=== PATIENT | male | born 1945 | race Caucasian/White ===

== ENCOUNTER 2017-04-04 23:00 | Inpatient (IN) ==
[2017-04-04] MEDS ORDERED: FUROSEMIDE 100 MG/10 ML VIAL IV STA (23:14)
[2017-04-04] MEDS ORDERED: methylPREDNISolone SOD SUC 125 MG/2 ML VIAL IV STA (23:14)
[2017-04-04] MEDS ORDERED: cefTRIAXone 1,000 MG in SODIUM CHLORIDE 0.9% 100 ML IV STA (23:14)
[2017-04-04 23:26] LABS: Basophils % 0.2 % (0.0-0.8); Eosinophils % 0.3 % (0.00-10.9); Hematocrit 36.9 VOL% (42.0-52.0); Hemoglobin 12.2 GM/DL (14.0-18.0); Immature Granulocytes % 0.5 %; Immature Granulocytes Absolute 0.08 #; Lymphocytes # 1.4 10*3/uL (1.4-4.0); Lymphocytes % 9.1 % (21.2-54.2); Mean Corpuscular HGB Conc 33.1 GM/DL (32-36); Mean Corpuscular Hemoglobin 30 PG (27-34); Mean Corpuscular Volume 90.4 FL (87-102); Mean Platelet Volume 9.9 FL (9.6-12.0); Monocytes # 1.9 10*3/uL (0.11-0.8); Monocytes % 12.8 % (1.7-12.7); Neutrophils # 11.4 10*3/uL (1.4-7.4); Neutrophils % 77.1 % (38.7-73.9); Platelet Count 183 T/CUMM (130-400); Red Blood Count 4.08 MC/CUMM (3.8-5.5); Red Cell Distribution Width 14.5 % (9.3-17.3); White Blood Count 14.8 T/CUMM (4-12)
[2017-04-04] MEDS ORDERED: DILTIAZEM 50 MG/10 ML VIAL IV STA (23:26)
--- NOTE | 2017-04-04 23:27 | Emergency Department Note ---
Owen Garcia Brittany, am scribing for, and in the presence of, Justin Gutierrez MD 23:23. Matt Garcia Charles R, MD, personally performed the services described in this documentation, ascribed by Erinn Weaver in my presence, and it is both accurate and complete 327 . Arrival - Arrival Chief Complaint: Shortness of Breath Stated Complaint: shortness of breath ED Nursing Triage Note: Patient to room via ems. patient was sent from [facility], [place] for shortness of breath that started earlier today. the nurse states that she could not get the patients sats over 90. She states he has a productive cough and fever. Patient has had a duoneb. Mode of Arrival: Stretcher Limitations: No Limitations Source: Patient, Old Records Reviewed, RN Notes Reviewed Time Seen by Provider: 04/04/17 23:14 - History of Present Illness HPI Narrative: Mr. Bailey is a 71 y/o white male presenting to the ED by EMS from [facility] for further evaluation which onset today. Per triage note nurse at this facility could not get the patient's oxygen saturation to stay over 90%. She also reports that patient has had a productive cough and low grade fever. Prior to transfer patient did have a Duoneb. In room patient appears very ill and is tachypneic. He cannot provide much of any history due to respiratory distress. Patient appears to have some left sided chest pain. He is noted to have a fever of 99. Patient has a history significant for sleep apnea. He is working to breathe in room. No other complaint/pain. Allergies/Adverse Reactions: Allergies Allergy/AdvReac Type Severity Reaction Status Date / Time Hydromorphone [From Dilaudid] AdvReac Unknown/Unable Verified 04/04/17 23:10 to obtain morphine AdvReac Unknown/Unable Verified 04/04/17 23:10 to obtain Home Medications: Home Medications Medication Instructions Recorded Confirmed Type Albuterol/Ipratropium Neb [Duoneb] 3 ml RESP TX RT Q4H PRN 05/09/15 04/17/16 History Insulin Regular [HumuLIN R] 0 unit SUBCUT ACHS 05/09/15 04/17/16 History Multivit-Min/FA/Lycopen/Lutein 1 each PO DAILY 05/09/15 04/17/16 History [Centrum Silver Tablet] Pantoprazole Tab [Protonix Tab] 40 mg PO DAILY 05/09/15 04/17/16 History Acetaminophen Tab [Tylenol Tab] 325 mg PO Q4H PRN #30 tablet 05/12/15 04/17/16 Rx Carvedilol [Coreg] 6.25 mg PO BID #60 tablet 05/12/15 04/17/16 Rx Insulin Glargine [Lantus] 50 unit SUBCUT DAILY 30 Days 05/12/15 04/17/16 Rx Losartan [Cozaar] 25 mg PO DAILY #30 tablet 05/12/15 04/17/16 Rx Pravastatin [Pravachol] 40 mg PO BEDTIME #30 tablet 05/12/15 04/17/16 Rx Pregabalin [Lyrica] 150 mg PO BEDTIME #30 capsule 05/12/15 04/17/16 Rx Tamsulosin [Flomax] 0.4 mg PO DAILY #30 capsule 05/12/15 04/17/16 Rx Theophylline ER Cap (24 Hr) 400 mg PO BID #60 capsule 05/12/15 04/17/16 Rx [Prateek-24] Divalproex [Depakote] 500 mg PO BID 04/17/16 04/17/16 History HydrOXYzine PAMOATE CAP [Vistaril 25 mg PO Q6H PRN 04/17/16 04/17/16 History Cap] Lactulose Liquid [Chronulac] 20 gm PO Q6HR PRN 04/17/16 04/17/16 History Magnesium Hydroxide Susp [Milk of 30 ml PO Q8H PRN 04/17/16 04/17/16 History Magnesia] Melatonin 5 mg PO BEDTIME 04/17/16 04/17/16 History Aspirin EC Tab 325 mg PO DAILY tablet 04/22/16 Rx Levofloxacin Tab [Levaquin Tab] 750 mg PO DAILY #5 tablet 04/22/16 Rx predniSONE TAB [PredniSONE] 20 mg PO DAILY #5 tablet 04/22/16 Rx Ketorolac Tab [Toradol Tab] 10 mg PO Q8H #14 tablet 09/03/16 Rx Review of System - Review of System 12 point system: reviewed and no additional remarkable complaints except as stated - Review of System Constitutional: Present: fever Eyes: Absent: vision change Respiratory: Present: cough, respiratory distress Cardiovascular: Present: chest pain Gastrointestinal: Absent: abdominal pain, nausea, vomiting, diarrhea, constipation Genitourinary male: Absent: urgency, dysuria, frequency Musculoskeletal: Absent: arm pain, back pain, leg pain, neck pain Skin: Absent: rash Neurological: Absent: headache Psychiatric: Absent: anxiety, depression Hematological/Lymphatic: Absent: easy bleeding, easy bruising Medical,Surgical,& Family Hx - Medical History Cardio: History of: Cardiac Dysrhythmia, CHF, CAD, Hypertension Psychological: History of: Bipolar Disorder, Psychiatric Problems Neurology: History of: Parkinson's Disease Endocrine: History of: Diabetes Mellitus (IDDM), Dyslipidemia Respiratory: History of: COPD Genitourinary: History of: Prostate Problems Gastrointestinal: History of: GERD Musculoskeletal: History of: Musculoskeletal Problems (generalized osteoarthritis) Hematology: History of: Clotting Problems Other: History of: Miscellaneous Medical Problems (hernia repair) - Surgical History Neurologic Surgeries: Patient denies: Neurologic Surgery Abdominal Surgeries: Surgical HX of: Hernia Repair - Family History Family History: Reports;: Family Diabetes, Family Heart Disease - Social History Smoking Status: Former smoker Frequency of Alcohol Use: None Type of Drug Use: None Exam Vital Signs: Vital Signs Temperature 99.1 F 04/04/17 23:02 Pulse Rate 99 H 04/04/17 23:02 Respiratory Rate 24 04/04/17 23:02 Blood Pressure 111/78 04/04/17 23:02 O2 Sat by Pulse Oximetry 95 04/04/17 23:02 - General General appearance: alert, in distress (tachypneic and appears to be in respiratory distress) - Head Head exam: Present: atraumatic, normocephalic, normal inspection - Eye Eye exam: Present: normal appearance, PERRL, EOMI - ENT ENT exam: Absent: normal oropharynx (low lying, sagging palette ) - Neck Neck exam: Present: normal inspection, full ROM, trachea midline - Chest Chest inspection: Present: normal inspection, symmetric chest wall rise - Respiratory Respiratory exam: Present: accessory muscle use, rales (bilateral), respiratory distress, wheezes (bilateral). Absent: normal lung sounds bilaterally (upper respiratory stridor) - Cardiovascular Cardiovascular exam: Present: tachycardia, irregular rhythm, normal heart sounds. Absent: regular rate, normal rhythm - Abdominal Exam Abdominal exam: Present: soft, normal bowel sounds, other (obese abdomen) - Extremities Exam Extremities exam: Present: pedal edema (+2). Absent: full ROM (patient somewhat moves LLE, but does not move any other extremities) - Back Exam Back exam: Present: normal inspection - Neurological Exam Neurological exam: Present: alert, oriented X3, CN II-XII intact. Absent: motor sensory deficit - Psychiatric Psychiatric exam: Present: normal affect, normal mood - Skin Skin exam: Present: warm, dry, intact, normal color Course - Consultations Consultation #1: Hospitalist will admit patient Time: 00:19 Results - Labs CBC & BMP: 04/04/17 23:10 04/04/17 23:10 Lab Results: I have reviewed the patients labs Labs: Laboratory Tests 04/04/17 04/04/17 04/04/17 23:10 23:10 23:14 WBC 14.8 H RBC 4.08 Hgb 12.2 L Hct 36.9 L Plt Count 183 Neut % (Auto) 77.1 H Lymph % (Auto) 9.1 L Hunt % (Auto) 12.8 H Neut # (Auto) 11.4 H Hunt # (Auto) 1.9 H INR 1.1 PT Patient/Control Mix 12.0 ABG pH 7.443 ABG pCO2 45.7 ABG pO2 53.4 L ABG HCO3 29.9 H ABG Total CO2 27.7 H ABG O2 Saturation 88.1 L ABG Base Excess 6.3 H FiO2 28.00 Laboratory Tests 04/04/17 04/04/17 04/04/17 23:10 23:10 23:10 Sodium 143 Potassium 3.5 Chloride 104 Carbon Dioxide 31 Anion Gap 11.5 BUN 19 H Creatinine 0.70 GFR Calculation 140 BUN/Creatinine Ratio 27.00 H Glucose 108 H Calculated Osmolality 287.0 Calcium 8.9 Magnesium 2.1 Total Bilirubin 0.50 AST 16 ALT 17 Alkaline Phosphatase 83 Troponin I 0.059 H B-Natriuretic Peptide 73 Total Protein 7.4 Albumin 2.4 L Globulin 5.0 H Albumin/Globulin Ratio 0.4 L Urine Color Meg Urine Appearance Clear Urine pH 5.0 Ur Specific [place] 1.025 Urine Protein 30 Urine Glucose (UA) Negative Urine Ketones 5 Urine Blood Negative Urine Nitrate Negative Urine Bilirubin Negative Urine Urobilinogen 4.0 H Urine Leukocytes Negative Urine RBC 2 Urine Mucus Occasional Critical Care Time Critical Care Time: Yes Total Critical Care Time: 60 Disposition Clinical Impression: Congestive heart failure, Acute exacerbation of chronic obstructive airways disease, Leukocytosis, Sleep apnea, Acute on chronic respiratory failure, Pickwickian syndrome, Acute dyspnea, Atrial fibrillation with RVR Case discussed with: patient Disposition: Still a Patient Condition: Guarded Time of Disposition: 00:03
[2017-04-04] MEDS ORDERED: ALBUTEROL 2.5 MG/3 ML NEB RESP TX SCH (23:30)
[2017-04-04 23:31] LABS: INR 1.1
[2017-04-04 23:32] LABS: ABG Base Excess 6.3 MMOL/L (-2.5-2.5); ABG HCO3 29.9 MMOL/L (20-26); ABG Oxygen Saturation 88.1 % (95-100); ABG PCO2 45.7 MM HG (35-48); ABG PH 7.443 (7.35-7.45); ABG PO2 53.4 MM HG (80-95); ABG TCO2 27.7 MMOL/L (23-27); Allen Test Positive
[2017-04-04] MEDS ORDERED: cefTRIAXone 1,000 MG VIAL ONE (23:40)
[2017-04-04 23:48] LABS: Albumin 2.4 G/DL (3.4-5.0); Bilirubin,Total 0.5 MG/DL (0.2-1.0); Calcium 8.9 MG/DL (8.5-10.1); Magnesium 2.1 MG/DL (1.8-2.4); Potassium 3.5 MMOL/L (3.5-5.1); Total Protein 7.4 G/DL (6.4-8.3)
[2017-04-04] MEDS ORDERED: methylPREDNISolone SOD SUC 125 MG/2 ML VIAL ONE (23:58)
[2017-04-04] MEDS ORDERED: DILTIAZEM 100 MG VIAL.ADD IV ONE (23:58)
[2017-04-04] MEDS ORDERED: FUROSEMIDE 100 MG/10 ML VIAL ONE (23:58)
[2017-04-04] MEDS ORDERED: DILTIAZEM 50 MG/10 ML VIAL IV ONE (23:58)
[2017-04-04] MEDS ORDERED: SODIUM CHLORIDE 0.9% 100 ML IV ONE (23:59)
[2017-04-05 00:09] LABS: Apearance,Urine CLEAR (Clear); Bilirubin,Urine Negative (Negative); Blood, Urine Negative (Negative); Glucose,Urine (UA) Negative (Negative); Ketones,Urine 5 mg/dL (Negative); Mucus,Urine Occasional /LPF (Occasional); Nitrite,Urine Negative (Negative); Protein,Urine 30 MG/DL; RBC,Urine 2 /HPF (0-4); Troponin I Only 0.059 NG/ML (0.00-0.045); Urine Color Amber (Yellow); Urine Specific Gravity 1.025 (1.001-1.035)
[2017-04-05 00:13] LABS: Barbiturates Screen,Urine Negative (Negative); Benzodiazepines Screen,Urine Negative (Negative); Cannabinoid Screen,Urine Negative (Negative); Opiate Screen,Urine Negative (Negative); Phencyclidine Screen,Urine Negative (Negative)
--- NOTE | 2017-04-05 00:15 | Hospitalist History & Physical ---
Assessment and Plan (1) Acute respiratory failure with hypoxia Status: Acute Current Visit: Yes (2) Pneumonia Status: Acute Current Visit: Yes Qualifiers: Pneumonia type: due to unspecified organism Laterality: left Lung location: lower lobe of lung Qualified Code(s): J18.1 - Lobar pneumonia, unspecified organism (3) Acute exacerbation of chronic obstructive airways disease Status: Acute Current Visit: Yes (4) Atrial fibrillation with RVR Status: Acute Current Visit: Yes (5) Insulin dependent diabetes mellitus Status: Acute Current Visit: Yes (6) Morbid obesity Status: Acute Assessment and plan: Plan: Admit for IV antibiotics, obtain blood and sputum cultures Continue Cardizem infusion for A. fib with RVR, check serial cardiac enzymes Continue bronchodilators, steroids, theophylline, and BiPAP Sliding scale insulin and Accu-Cheks Current Visit: No Qualifiers: Obesity type: unspecified obesity type Qualified Code(s): E66.01 - Morbid ( severe) obesity due to excess calories History of Present Illness Chief complaint: Shortness of breath hypoxia History of present illness: Mr. Bailey is a 71 year old male with hypertension, COPD, insulin-dependent diabetes, who was transported via EMS from the longterm with dyspnea, A. fib with RVR, cough, and hypoxia with sats reportedly in the mid 80s. The patient was very lethargic on presentation, would occasionally fall asleep and drop his sats into the 70s. This resolved when he would wake up and after we place him on supplemental oxygen and ultimately BiPAP. The patient at this time denies chest pain, he reports shortness of breath and cough. His symptoms occurred starting earlier today, and are constant and worsening. X-ray shows possible pulmonary congestion and possible infiltrate at the left base. He is more awake now that he is on BiPAP. He is also in A. fib with RVR and has been started on a Cardizem infusion, and he is being transported to the ICU for further workup and management. Home Medications Medication Instructions Recorded Confirmed Type Albuterol/Ipratropium Neb [Duoneb] 3 ml RESP TX RT Q4H PRN 05/09/15 04/17/16 History Insulin Regular [HumuLIN R] 0 unit SUBCUT ACHS 05/09/15 04/17/16 History Multivit-Min/FA/Lycopen/Lutein 1 each PO DAILY 05/09/15 04/17/16 History [Centrum Silver Tablet] Pantoprazole Tab [Protonix Tab] 40 mg PO DAILY 05/09/15 04/17/16 History Acetaminophen Tab [Tylenol Tab] 325 mg PO Q4H PRN #30 tablet 05/12/15 04/17/16 Rx Carvedilol [Coreg] 6.25 mg PO BID #60 tablet 05/12/15 04/17/16 Rx Insulin Glargine [Lantus] 50 unit SUBCUT DAILY 30 Days 05/12/15 04/17/16 Rx Losartan [Cozaar] 25 mg PO DAILY #30 tablet 05/12/15 04/17/16 Rx Pravastatin [Pravachol] 40 mg PO BEDTIME #30 tablet 05/12/15 04/17/16 Rx Pregabalin [Lyrica] 150 mg PO BEDTIME #30 capsule 05/12/15 04/17/16 Rx Tamsulosin [Flomax] 0.4 mg PO DAILY #30 capsule 05/12/15 04/17/16 Rx Theophylline ER Cap (24 Hr) 400 mg PO BID #60 capsule 05/12/15 04/17/16 Rx [Prateek-24] Divalproex [Depakote] 500 mg PO BID 04/17/16 04/17/16 History HydrOXYzine PAMOATE CAP [Vistaril 25 mg PO Q6H PRN 04/17/16 04/17/16 History Cap] Lactulose Liquid [Chronulac] 20 gm PO Q6HR PRN 04/17/16 04/17/16 History Magnesium Hydroxide Susp [Milk of 30 ml PO Q8H PRN 04/17/16 04/17/16 History Magnesia] Melatonin 5 mg PO BEDTIME 04/17/16 04/17/16 History Aspirin EC Tab 325 mg PO DAILY tablet 04/22/16 Rx Levofloxacin Tab [Levaquin Tab] 750 mg PO DAILY #5 tablet 04/22/16 Rx predniSONE TAB [PredniSONE] 20 mg PO DAILY #5 tablet 04/22/16 Rx Ketorolac Tab [Toradol Tab] 10 mg PO Q8H #14 tablet 09/03/16 Rx Allergies Allergy/AdvReac Type Severity Reaction Status Date / Time Hydromorphone [From Dilaudid] AdvReac Unknown/Unable Verified 04/04/17 23:10 to obtain morphine AdvReac Unknown/Unable Verified 04/04/17 23:10 to obtain Medical,Surgical,& Family Hx - Medical History Cardio: History of: Cardiac Dysrhythmia, CHF (Perhaps diastolic, last EF was 60% ), CAD, Hypertension Psychological: History of: Bipolar Disorder, Psychiatric Problems Neurology: History of: Parkinson's Disease Endocrine: History of: Diabetes Mellitus (IDDM), Dyslipidemia Respiratory: History of: COPD Genitourinary: History of: Prostate Problems Gastrointestinal: History of: GERD Musculoskeletal: History of: Musculoskeletal Problems (generalized osteoarthritis) Hematology: History of: Clotting Problems Other: History of: Miscellaneous Medical Problems (hernia repair) - Surgical History Neurologic Surgeries: Patient denies: Neurologic Surgery Abdominal Surgeries: Surgical HX of: Hernia Repair - Family History Family History: Reports;: Family Diabetes, Family Heart Disease - Social History Smoking Status: Former smoker Have you smoked in the last 12 months: No Frequency of Alcohol Use: None Type of Drug Use: None Marital Status: Unknown Lives With:: [facility] Review of systems: A 12 point review of systems is negative except as specified in the HPI Exam - Constitutional Vitals: Period Temp Pulse Resp BP Sys/Pina Pulse Ox Last 24 Hr 99.1 F-99.1 F 99-99 24-24 111-111/78-78 95 Exam: EXAM: CONSTITUTIONAL: Chronically ill-appearing, non toxic, NAD HEENT: NC, AT, OP benign, SCOTT, EOMI CV: RRR no m/g/r RESP: Coarse bilaterally, + prolonged expiratory phase, bibasilar rales GI: abd soft, NT, ND, +bowel sounds INTEGUMENTARY: no lesions or rash EXTREMITIES: 1+ pitting edema bilateral lower extremities NEURO: no focal deficits PSYCH: Lethargic but arousable and answers questions Results - Labs CBC & BMP: 04/05/17 03:29 04/05/17 03:29 Lab Results: I have reviewed the past 24 hour labs - EKG EKG shows: tachycardia, atrial fibrillation - Diagnostic Findings Procedure: Chest x-ray: image reviewed by me, report reviewed by me
[2017-04-05] MEDS: DILTIAZEM INJ 100 MG in SODIUM CHLORIDE 0.9% 100 ML IV SCH (00:18)
[2017-04-05] MEDS ORDERED: LACTULOSE 20 GM/30 ML UDCUP PO PRN (00:45)
[2017-04-05] MEDS: ALBUTEROL/IPRATROPIUM 3 ML NEB RESP TX SCH ×6 (00:46→19:44)
[2017-04-05] MEDS ORDERED: DEXTROSE 50% 25 GM/50 ML VIAL IV PRN (00:47)
[2017-04-05] MEDS ORDERED: ALBUTEROL 2.5 MG/3 ML NEB RESP TX PRN (00:47)
[2017-04-05] MEDS ORDERED: ACETAMINOPHEN 325 MG TABLET PO PRN (00:47)
[2017-04-05] MEDS ORDERED: ONDANSETRON 4 MG/2 ML VIAL IV PRN (00:47)
[2017-04-05] MEDS ORDERED: MORPHINE 2 MG/1 ML SYRINGE IV PRN (00:47)
[2017-04-05] MEDS ORDERED: BISACODYL 5 MG TABLET PO PRN (00:47)
[2017-04-05] MEDS ORDERED: GLUCAGON 1 MG VIAL IM PRN (00:47)
[2017-04-05 01:21] LABS: Platelet Estimate Normal
[2017-04-05] MEDS: ENOXAPARIN 40 MG/0.4 ML SYRINGE SUBCUT SCH (01:50)
[2017-04-05] MEDS: LEVOFLOXACIN INJ 500 MG in PREMIX 1 EACH IV SCH (01:52)
[2017-04-05 04:04] LABS: Basophils % 0.2 % (0.0-0.8); Hematocrit 36.3 VOL% (42.0-52.0); Hemoglobin 11.9 GM/DL (14.0-18.0); Immature Granulocytes % 0.3 %; Immature Granulocytes Absolute 0.04 #; Lymphocytes # 0.4 10*3/uL (1.4-4.0); Lymphocytes % 3.5 % (21.2-54.2); Mean Corpuscular HGB Conc 32.8 GM/DL (32-36); Mean Corpuscular Hemoglobin 30 PG (27-34); Mean Corpuscular Volume 89.9 FL (87-102); Mean Platelet Volume 10.1 FL (9.6-12.0); Monocytes # 0.8 10*3/uL (0.11-0.8); Monocytes % 6.5 % (1.7-12.7); Neutrophils # 10.4 10*3/uL (1.4-7.4); Neutrophils % 89.5 % (38.7-73.9); Platelet Count 182 T/CUMM (130-400); Red Blood Count 4.04 MC/CUMM (3.8-5.5); Red Cell Distribution Width 14.6 % (9.3-17.3); White Blood Count 11.6 T/CUMM (4-12)
[2017-04-05] MEDS: CEFEPIME 1,000 MG in SODIUM CHLORIDE 0.9% 100 ML IV SCH ×2 (04:10→14:38)
[2017-04-05 04:13] LABS: ABG Base Excess 7.5 MMOL/L (-2.5-2.5); ABG HCO3 31.7 MMOL/L (20-26); ABG Oxygen Saturation 90.6 % (95-100); ABG PCO2 43.4 MM HG (35-48); ABG PH 7.482 (7.35-7.45); ABG PO2 55.4 MM HG (80-95); ABG TCO2 33.1 MMOL/L (23-27); Pt O2 Delivery Device BIPAP
[2017-04-05 04:43] LABS: Albumin 2.3 G/DL (3.4-5.0); Bilirubin,Total 0.7 MG/DL (0.2-1.0); Calcium 8.1 MG/DL (8.5-10.1); Magnesium 2.1 MG/DL (1.8-2.4); Potassium 3.8 MMOL/L (3.5-5.1); Total Protein 6.5 G/DL (6.4-8.3)
[2017-04-05 04:47] LABS: Band Neutrophils 1 % (0-10); Lymphocytes 4 % (20-55); Segmented Neutrophils 90 % (50-85)
[2017-04-05 04:49] LABS: Platelet Estimate Normal; Total Cells Counted 100
[2017-04-05 05:03] LABS: Troponin I Only 0.055 NG/ML (0.00-0.045)
[2017-04-05] MEDS ORDERED: CARVEDILOL 6.25 MG TABLET PO SCH (09:00)
[2017-04-05] MEDS ORDERED: ASPIRIN EC 325 MG TABLET PO SCH (09:00)
[2017-04-05] MEDS ORDERED: PANTOPRAZOLE 40 MG TABLET PO SCH (09:00)
[2017-04-05] MEDS ORDERED: THEOPHYLLINE ER (24 HR) 400 MG CAPSULE PO SCH (09:00)
[2017-04-05] MEDS ORDERED: DIVALPROEX 500 MG TABLET PO SCH (09:00)
[2017-04-05] MEDS: methylPREDNISolone SOD SUC 40 MG/1 ML VIAL IV SCH ×2 (09:29→17:59)
[2017-04-05] MEDS ORDERED: INSULIN REGULAR 100 UNIT/ML ONE (09:35)
--- NOTE | 2017-04-05 10:11 | EKG Report ---
Stationary ECG Study [facility] ER Test Date: 04/04/2017 11:05:26 PM Pat Name: EFRAIN DELACRUZ Department: Room: 106 Gender: M [employer]: : 1945 Requested by: Justin Perla Order Number: [id number] Reading MD: JOSE DE JESUS ESPINOSA Intervals [place] Rate: 136 P: 999 AR: 0 QRS: -11 QRSD: 101 T: 89 QT: 262 QTc: 341 Interpretive Statements ATRIAL FIBRILLATION WITH RAPID VENTRICULAR RESPONSE LOW QRS VOLTAGE IN EXTREMITY LEADS Electronically Signed On 04-07-17 13:52:59 CDT by JOSE DE JESUS ESPINOSA [email or web address]
[2017-04-05] MEDS ORDERED: PROPOFOL 1,000 MG/100 ML BOTTLE IV ONE (10:23)
[2017-04-05] MEDS ORDERED: SUCCINYLCHOLINE 200 MG/10 ML VIAL ONE (10:49)
[2017-04-05] MEDS: PROPOFOL 1,000 MG/100 ML BOTTLE IV PRN ×2 (11:00→19:00)
[2017-04-05] MEDS ORDERED: PROPOFOL 200 MG/20 ML VIAL IV ONE (11:00)
[2017-04-05] MEDS ORDERED: SUCCINYLCHOLINE 200 MG/10 ML VIAL IV ONE (11:02)
[2017-04-05] MEDS ORDERED: INSULIN REGULAR 100 UNIT/ML SUBCUT SCH (11:30)
[2017-04-05] MEDS ORDERED: SODIUM CHLORIDE 0.9% 500 ML IV ONE (11:35)
--- NOTE | 2017-04-05 11:35 | XRay Report ---
Exam: XR chest 1V portable Indication: Intubated, respiratory failure Comparison study: 04/04/2017 11:26 PM Findings: Endotracheal tube is noted in place and terminates approximately 3 cm from the marissa. Patient is slightly rotated. Cardiac silhouette appears slightly enlarged. The stomach contours are similar to prior. Patchy perihilar and basilar interstitial and airspace opacities are noted and, given slight differences in patient positioning, appears similar to slightly progressed from prior but are nonspecific. There is no pneumothorax. Impression: Endotracheal tube in place. Slight patient rotation limits comparison. Perihilar and basilar opacities may represent developing atelectasis or infiltrates although trace pleural effusions cannot be excluded. PROCEDURE INTERPRETED AT [facility] DEPARTMENT OF RADIOLOGY Final Report Signed by: Mike Coyle
[2017-04-05 11:42] LABS: Allen Test Positive; Pt O2 Delivery Device Ventilator
[2017-04-05 11:43] LABS: ABG Base Excess 6.3 MMOL/L (-2.5-2.5); ABG HCO3 32.1 MMOL/L (20-26); ABG Oxygen Saturation 97.6 % (95-100); ABG PCO2 51.4 MM HG (35-48); ABG PH 7.414 (7.35-7.45); ABG PO2 102.9 MM HG (80-95); ABG TCO2 33.7 MMOL/L (23-27)
[2017-04-05] MEDS: SODIUM CHLORIDE 0.9% 1,000 ML IV SCH ×2 (13:00→21:17)
[2017-04-05] MEDS: TAMSULOSIN 0.4 MG CAPSULE PO SCH (13:06)
[2017-04-05] MEDS: INSULIN REGULAR 100 UNIT/ML SUBCUT SCH ×2 (13:09→17:59)
[2017-04-05] MEDS: FAMOTIDINE 20 MG/2 ML VIAL IV SCH (14:36)
[2017-04-05] MEDS: MULTIVITAMIN (CENTRUM) TABLET PO SCH (14:36)
[2017-04-05] MEDS: VALPROIC ACID 250 MG/5 ML UDCUP PO SCH (14:36)
--- NOTE | 2017-04-05 16:12 | XRay Report ---
Exam: XR chest 1V portable Indication: Shortness of breath Comparison study: 09/03/2016 Findings: Cardiac silhouette is mildly enlarged, similar to prior. The patient is slightly rotated limiting evaluation/comparison. Diffuse mild interstitial prominence likely represents a degree of underlying interstitial scarring changes which appear similar to prior. There is minimal airspace opacity within the left lung base which may represent atelectasis/infiltrates and/or pleural fluid. There is no pneumothorax. Impression: Similar mild cardiomegaly and suggestion of underlying interstitial scarring. The left basilar opacities may represent atelectasis/infiltrate and/or pleural fluid. PROCEDURE INTERPRETED AT [facility] DEPARTMENT OF RADIOLOGY Final Report Signed by: Mike Coyle
[2017-04-05] MEDS ORDERED: DILTIAZEM 30 MG TABLET PO SCH (21:00)
[2017-04-05] MEDS ORDERED: PREGABALIN 75 MG CAPSULE PO SCH (21:00)
[2017-04-05] MEDS ORDERED: MELATONIN 3 MG TABLET PO SCH (21:00)
[2017-04-05] MEDS ORDERED: PRAVASTATIN 40 MG TABLET PO SCH (21:00)
[2017-04-06] MEDS: ENOXAPARIN 40 MG/0.4 ML SYRINGE SUBCUT SCH (00:22)
[2017-04-06] MEDS: DILTIAZEM 30 MG TABLET PO SCH ×3 (00:22→13:53)
[2017-04-06] MEDS: PREGABALIN 75 MG CAPSULE PER TUBE SCH ×2 (00:23→22:12)
[2017-04-06] MEDS: CARVEDILOL 6.25 MG TABLET PER TUBE SCH ×3 (00:23→22:13)
[2017-04-06] MEDS: methylPREDNISolone SOD SUC 40 MG/1 ML VIAL IV SCH ×3 (00:24→18:05)
[2017-04-06] MEDS: VALPROIC ACID 250 MG/5 ML UDCUP PO SCH ×3 (00:24→22:12)
[2017-04-06] MEDS: FAMOTIDINE 20 MG/2 ML VIAL IV SCH ×2 (00:24→13:20)
[2017-04-06] MEDS: THEOPHYLLINE 5.33 MG/ML 30 ML/BOTTLE PER TUBE SCH ×3 (00:25→22:13)
[2017-04-06] MEDS: ALBUTEROL/IPRATROPIUM 3 ML NEB RESP TX SCH ×6 (00:27→19:45)
[2017-04-06] MEDS: INSULIN REGULAR 100 UNIT/ML SUBCUT SCH ×4 (01:03→18:29)
[2017-04-06 03:29] LABS: ABG Base Excess 5.2 MMOL/L (-2.5-2.5); ABG HCO3 29.8 MMOL/L (20-26); ABG Oxygen Saturation 98.9 % (95-100); ABG PCO2 43.8 MM HG (35-48); ABG PO2 173.1 MM HG (80-95); ABG TCO2 31.1 MMOL/L (23-27)
[2017-04-06] MEDS: CEFEPIME 1,000 MG in SODIUM CHLORIDE 0.9% 100 ML IV SCH ×2 (03:35→13:54)
[2017-04-06] MEDS: LEVOFLOXACIN INJ 500 MG in PREMIX 1 EACH IV SCH (03:46)
[2017-04-06] MEDS: PROPOFOL 1,000 MG/100 ML BOTTLE IV PRN ×6 (04:30→23:45)
[2017-04-06] MEDS: DILTIAZEM INJ 100 MG in SODIUM CHLORIDE 0.9% 100 ML IV SCH (04:45)
--- NOTE | 2017-04-06 07:50 | Pulmonology Consult Note ---
History of Present Illness Chief complaint: Pneumonia. Ventilator History of present illness: Mr. Bailey is a 71 year old white male intermediate patient whom I been asked see in pulmonary consultation to manage pulmonary problems and to manage mechanical ventilation. This patient is admitted to the hospital and developed hypercarbia hypoxemia and became exhausted and had to be ventilated. The patient was transported here from the intermediate with dyspnea, atrial fib with a rapid ventricular response, cough and hypoxemia with O2 sats in the mid 80s. At the time of arrival he was very lethargic. He would occasionally fall asleep and drop his O2 sats into the 70s. He was tried on supplemental oxygen and BiPAP. He denied any chest pain. He said his symptoms as started earlier in the day. Eventually the patient tired out and required intubation. The patient is sedated and the remainder of his review of systems is negative since he cannot talk to me. Allergies. See below. Home medicines. See below. These include Prozac, Zyprexa, insulin, theophylline, Pravachol, Depakote 500 twice daily, Coreg 6.25 twice daily. Aspirin. Cozaar 25 mg daily. Lyrica 150 mg at bedtime, prednisone 20 daily. Flomax 0.4 mg daily and Protonix 40 daily. Hospital medicines. See below. Past history. COPD. Bronchospastic disease. Hyperlipidemia. Insulin- dependent diabetes mellitus. Probable chronic pain. High blood pressure. Atrial fib. Bipolar disorder. Possible history of Parkinson's disease. Prostate disease. History of gastroesophageal reflux disease. Generalized osteoarthritis. Past history of clotting problems. Past history of abdominal hernia repair. Family history. Positive for diabetes and heart disease Social history. Resides in intermediate. Former smoker. Denies alcohol. Echocardiogram done 04/17/2016. Left ventricular S ejection fraction was estimated to be 60%. There was mild concentric left ventricular hypertrophy with diastolic grade 1 dysfunction. There was mild left atrial enlargement. Pulmonary artery pressures were borderline at 30 mmHg plus right atrial pressure. Right atrial pressures were not given. The right atrium and right ventricle are normal in size. There was a trace of mitral regurgitation and normal aortic valve. This was read by Dr. calvin Cleaning EKG. Rapid atrial fib. Chest x-ray shows bilateral infiltrates with some volume loss on the right. Endotracheal tube is in good position. ABGs. Mechanical ventilation. PH 7.45. PCO2 44. PO2 173. Bicarb 29.8. Lab. TSH is low at 0.246. Troponins are 0.059. Electrolytes are normal. Creatinine is 0.7. Glucoses are under fair control. Hemoglobin A1c is normal at 5.5. Calcium is slightly low. Liver function tests are normal. Natruretic peptide is been done twice and values of 73 and of 74 have been obtained. Albumin is low at 2.3. Globulin is 4.2. Admit white count was 14,877 segs 14 lymphs. Today's value is 11,689.56. H&H is 11.9/36.3 with normal indices. Platelets are 192,000. Microbiology. No results reported Physical exam. Vital signs. See below Neurologic. Unarousable. Seems to have some movement in all 4 extremities. . Face is symmetrical. Lips are normal. Tongue is large. Neck. Symmetrical kyphotic. No masses and no meningismus Lymphatics. No submandibular cervical supraclavicular or epitrochlear adenopathy. Chest. Generalized coarse large airway congestion. Kyphosis. Heart. Heart sounds are distant. I cannot hear a gallop Abdomen obese. Rare bowel sounds Lower extremities. Chronic venous stasis. The remainder the physical exam is negative. Impression. 1. Bilateral pneumonia. Probably bacterial. Suspect aspiration. 2. Acute respiratory failure requiring intubation mechanical ventilation 3. Long history of tobacco abuse 4. COPD 5. Atrial fib with rapid ventricular response. 6. Insulin-dependent diabetes mellitus 7. High blood pressure 8. Hyperlipidemia 9. Bipolar disorder 10. See past history Plan. 1. Agree with antibiotics, steroids, inhalation therapy. 2. Gastric ulcer prevention protocol. 2. Deep venous thrombophlebitis prevention protocol 3. Mechanical ventilation weaning protocol 4. Mechanical ventilation physical therapy protocol. 5. This patient most likely aspirated will need evaluation with fiberoptic bronchoscopy. Also will need cultures. This is tentatively been set up for 8 AM Friday. 6. Theophylline level. 7. Control of atrial fibrillation rate. 8. Doppler venograms of the lower extremity #9. See orders Home Medications Medication Instructions Recorded Confirmed Type Albuterol/Ipratropium Neb [Duoneb] 3 ml RESP TX RT Q4H PRN 05/09/15 04/05/17 History Insulin Regular [HumuLIN R] 0 unit SUBCUT ACHS 05/09/15 04/05/17 History Multivit-Min/FA/Lycopen/Lutein 1 each PO DAILY 05/09/15 04/05/17 History [Centrum Silver Tablet] Pantoprazole Tab [Protonix Tab] 40 mg PO DAILY 05/09/15 04/05/17 History Carvedilol [Coreg] 6.25 mg PO BID #60 tablet 05/12/15 04/05/17 Rx Losartan [Cozaar] 25 mg PO DAILY #30 tablet 05/12/15 04/05/17 Rx Pravastatin [Pravachol] 40 mg PO BEDTIME #30 tablet 05/12/15 04/05/17 Rx Pregabalin [Lyrica] 150 mg PO BEDTIME #30 capsule 05/12/15 04/05/17 Rx Tamsulosin [Flomax] 0.4 mg PO DAILY #30 capsule 05/12/15 04/05/17 Rx Divalproex [Depakote] 500 mg PO BID 04/17/16 04/05/17 History Lactulose Liquid [Chronulac] 20 gm PO Q6HR PRN 04/17/16 04/05/17 History Magnesium Hydroxide Susp [Milk of 30 ml PO Q8H PRN 04/17/16 04/05/17 History Magnesia] Melatonin 5 mg PO BEDTIME 04/17/16 04/05/17 History Aspirin EC Tab 325 mg PO DAILY tablet 04/22/16 04/05/17 Rx predniSONE TAB [PredniSONE] 20 mg PO DAILY #5 tablet 04/22/16 04/05/17 Rx Clotrimazole 1% Cream [Lotrimin 1% 1 applic TOP BID 04/05/17 04/05/17 History Cream] FLUoxetine [PROzac] 10 mg PO DAILY 04/05/17 04/05/17 History Hydrocortisone (Anusol-Hc) Sup 25 mg RECTAL BID 04/05/17 04/05/17 History [ANUSOL HC SUPP (hydrocortisone)] Insulin Detemir [Levemir] 20 unit SUBCUT DAILY 04/05/17 04/05/17 History OLANZapine TAB [ZyPREXA Tab] 2.5 mg PO BID 04/05/17 04/05/17 History Theophylline ER Tab 300 mg PO BID W/MEALS 04/05/17 04/05/17 History Allergies Allergy/AdvReac Type Severity Reaction Status Date / Time Hydromorphone [From Yareliid] AdvReac Unknown/Unable Verified 04/04/17 23:10 to obtain morphine AdvReac Unknown/Unable Verified 04/04/17 23:10 to obtain Exam (Pulmonay) H&P - Constitutional Vitals: Period Temp Pulse Resp BP Sys/Pina Pulse Ox Last 24 Hr 96.4 F-98.2 F 70-116 14-36 82-156/50-120 93-100 Medical,Surgical,& Family Hx - Medical History Cardio: History of: Cardiac Dysrhythmia, CHF (Perhaps diastolic, last EF was 60% ), CAD, Hypertension Psychological: History of: Bipolar Disorder, Depression, Psychiatric Problems Neurology: History of: Cerebrovascular Accident (left side weakness), Parkinson' s Disease Endocrine: History of: Diabetes Mellitus (IDDM), Dyslipidemia Respiratory: History of: COPD, Obstructive Sleep Apnea Genitourinary: History of: Prostate Problems, Recurring Urinary Tract Infections Gastrointestinal: History of: GERD, Hemorrhoids Musculoskeletal: History of: Musculoskeletal Problems (generalized osteoarthritis) Hematology: History of: Clotting Problems Other: History of: Miscellaneous Medical Problems (hernia repair) - Surgical History Neurologic Surgeries: Patient denies: Neurologic Surgery Abdominal Surgeries: Surgical HX of: Hernia Repair - Family History Family History: Reports;: Family Diabetes, Family Heart Disease - Social History Smoking Status: Former smoker Frequency of Alcohol Use: None Type of Drug Use: None Results - Labs CBC & BMP: 04/05/17 03:29 04/05/17 03:29
--- NOTE | 2017-04-06 07:54 | XRay Report ---
Exam: XR chest 1V portable Indication: Intubated, respiratory failure Comparison study: 04/05/2017 Findings: Endotracheal tube is in similar position. Esophagogastric tube is now noted in place and the tip travels into the left upper quadrant appears to terminate within the proximal stomach. This should be advanced 5 cm for more optimal positioning. Chronic silhouette and basal contours appear stable from prior. There has been interval clearing of the perihilar and basilar interstitial opacity seen previously. There is no pneumothorax. Impression: Endotracheal tube is in stable position. Partial clearing of interstitial edema and/or basilar atelectatic changes. Minimal pleural effusions likely remain present. PROCEDURE INTERPRETED AT [facility] DEPARTMENT OF RADIOLOGY Final Report Signed by: Mike Coyle
[2017-04-06] MEDS: MULTIVITAMIN (CENTRUM) TABLET PO SCH (08:22)
[2017-04-06] MEDS: TAMSULOSIN 0.4 MG CAPSULE PO SCH (08:23)
[2017-04-06] MEDS: SODIUM CHLORIDE 0.9% 1,000 ML IV SCH ×2 (08:24→18:31)
[2017-04-06] MEDS: HYDROcod/ACETAMIN 7.5-325 MG/15 ML UDCUP PO PRN (08:31)
--- NOTE | 2017-04-06 10:19 | Hospitalist Progress Note ---
Assessment and Plan (1) Acute exacerbation of chronic obstructive airways disease Status: Acute Assessment and plan: The patient is now mechanically ventilated. I am going to reduce the respiratory rate and decrease oxygenation. The patient will continue with appropriate care for COPD and will recheck studies in the morning. Current Visit: Yes (2) Acute respiratory failure Status: Acute Current Visit: No Hospitalist: Subjective Interval history: Mr. Bailey is resting quietly on the ventilator today. He is requested pain medication from the nurse. I gave follow-up with the patient's family yesterday and they reiterated their request to limit sedatives during the patient's hospital stay. Exam - Constitutional Vitals: Period Temp Pulse Resp BP Sys/Pina Pulse Ox Last 24 Hr 96.7 F-98.2 F 70-116 14-36 82-156/50-120 97-100 Exam: Constitutional System: No distress. No tremulousness. The patient is orally intubated and mechanically ventilated. The patient is sedated with Diprivan Head: Normocephalic, atraumatic. Ears, Nose and Throat System: No evidence of Otitis or Mastoiditis. No epistaxis or discharge Eyes System: Pupils equal, round, and reactive. Extraocular muscles intact. Neck: Supple, without adenopathy, No jugular venous distention. No thyromegaly , neck mass, or prior surgery apparent. Respiratory System: Chest clear to auscultation. There is air trapping and upper airway secretions are copious Cardiovascular System: Heart with regular rate and rhythm. No murmur. GI System: Abdomen soft, nontender. Normo active bowel sounds present. Musculoskeletal System: limbs with trace pedal edema. Full distal pulses. Results - Labs CBC & BMP: 04/05/17 03:29 04/05/17 03:29 Lab Results: I have reviewed the past 24 hour labs
[2017-04-06 14:17] LABS: Apearance,Urine Slightly Hazy (Clear); Bilirubin,Urine Negative (Negative); Blood, Urine Negative (Negative); Glucose,Urine (UA) Negative (Negative); Ketones,Urine 5 mg/dL (Negative); Mucus,Urine Occasional /LPF (Occasional); Nitrite,Urine Negative (Negative); Protein,Urine Negative; RBC,Urine 51 /HPF (0-4); Squamous Epithelial Cell,Urine Occasional /HPF (0-10); Urine Color Yellow (Yellow); Urine Specific Gravity 1.028 (1.001-1.035); Urine Urobilinogen < 2.0 EU/DL (0.2-1.0); WBC,Urine 10 /HPF (0-6)
--- NOTE | 2017-04-06 16:00 | Ultrasound Report ---
Indication: Venous stasis, respiratory failure Duplex scan of the bilateral lower extremity veins Technique: Duplex scan of the bilateral lower extremity veins using B-mode/grayscale imaging and Doppler spectral analysis and color flow Findings: Major venous structures of the bilateral lower extremity demonstrate a normal course and caliber. There is no evidence of deep vein thrombosis. No abnormal intrinsic echogenic lesions are demonstrated in the scanned blood vessels. Veins demonstrate good compressibility with normal color flow study and spectral analysis. Impression: Unremarkable duplex imaging of the bilateral lower extremity veins. No evidence of DVT PROCEDURE INTERPRETED AT [facility] DEPARTMENT OF RADIOLOGY Final Report Signed by: Mike Coyle
[2017-04-07] MEDS: ALBUTEROL/IPRATROPIUM 3 ML NEB RESP TX SCH ×7 (00:20→23:27)
[2017-04-07] MEDS: DILTIAZEM 30 MG TABLET PO SCH ×4 (00:25→21:08)
[2017-04-07] MEDS: DILTIAZEM INJ 100 MG in SODIUM CHLORIDE 0.9% 100 ML IV SCH ×2 (00:26→23:19)
[2017-04-07] MEDS: FAMOTIDINE 20 MG/2 ML VIAL IV SCH ×3 (02:17→23:18)
[2017-04-07] MEDS: INSULIN REGULAR 100 UNIT/ML SUBCUT SCH ×5 (02:18→23:41)
[2017-04-07] MEDS: CEFEPIME 1,000 MG in SODIUM CHLORIDE 0.9% 100 ML IV SCH ×2 (02:18→14:24)
[2017-04-07] MEDS: methylPREDNISolone SOD SUC 40 MG/1 ML VIAL IV SCH ×4 (02:18→23:16)
[2017-04-07] MEDS: ENOXAPARIN 40 MG/0.4 ML SYRINGE SUBCUT SCH (02:25)
[2017-04-07] MEDS: LEVOFLOXACIN INJ 500 MG in PREMIX 1 EACH IV SCH (02:50)
[2017-04-07 03:40] LABS: ABG Base Excess 3.6 MMOL/L (-2.5-2.5); ABG HCO3 27.6 MMOL/L (20-26); ABG Oxygen Saturation 99.1 % (95-100); ABG PCO2 42.9 MM HG (35-48); ABG PH 7.427 (7.35-7.45); ABG TCO2 25.6 MMOL/L (23-27)
[2017-04-07] MEDS: PROPOFOL 1,000 MG/100 ML BOTTLE IV PRN ×5 (04:15→23:15)
[2017-04-07 05:20] LABS: Hematocrit 32.1 VOL% (42.0-52.0); Hemoglobin 10.7 GM/DL (14.0-18.0); Immature Granulocytes % 0.7 %; Immature Granulocytes Absolute 0.05 #; Lymphocytes # 0.5 10*3/uL (1.4-4.0); Lymphocytes % 6.9 % (21.2-54.2); Mean Corpuscular HGB Conc 33.3 GM/DL (32-36); Mean Corpuscular Hemoglobin 30 PG (27-34); Mean Corpuscular Volume 90.2 FL (87-102); Monocytes # 0.3 10*3/uL (0.11-0.8); Monocytes % 4.3 % (1.7-12.7); Neutrophils # 6.4 10*3/uL (1.4-7.4); Neutrophils % 88.1 % (38.7-73.9); Platelet Count 170 T/CUMM (130-400); Red Blood Count 3.56 MC/CUMM (3.8-5.5); Red Cell Distribution Width 14.2 % (9.3-17.3); White Blood Count 7.3 T/CUMM (4-12)
[2017-04-07] MEDS: SODIUM CHLORIDE 0.9% 1,000 ML IV SCH ×2 (05:21→16:33)
[2017-04-07 06:21] LABS: Calcium 7.8 MG/DL (8.5-10.1); Magnesium 2.7 MG/DL (1.8-2.4); Osmolality,Calculated 303.8 MOS/KG (273-304); Potassium 3.6 MMOL/L (3.5-5.1)
[2017-04-07 06:23] LABS: Troponin I Only 0.052 NG/ML (0.00-0.045)
--- NOTE | 2017-04-07 08:01 | XRay Report ---
XR chest 1V portable Indication: Pneumonia Comparison: Chest x-ray dated April 06, 2017 Technique: Single frontal view of the chest. Findings: Patient is rotated to the right which limits exam. Endotracheal tube tip approximately 3.1 cm above the marissa. Heart size appears grossly unchanged. Interval increased atelectasis/consolidation within the right mid and lower lung. Continued mild atelectasis/consolidation within the left lower lung. Layering bilateral pleural fluid suspected. Visualized osseous and surrounding soft tissue structures appear grossly unchanged.. IMPRESSION: As above. PROCEDURE INTERPRETED AT [facility] DEPARTMENT OF RADIOLOGY Final Report Signed by: Dr Dileep Collier
--- NOTE | 2017-04-07 08:34 | Event Note ---
In hospital diagnostic and therapeutic fiberoptic bronchoscopy. Specimens from the right upper lung, right middle lung, right lower lung and left lower lung put in (bilateral) were sent for cytology, Gram stain, bacterial cultures, AFB stains and culture, fungal stains and culture. This is an 83-year-old white male alf patient who is on mechanical ventilation. He has complete atelectasis of his right middle lung and right lower lung. He has minor atelectasis in his left lower lung. His cough is ineffective. At least she is thought to have aspirated. He was admitted with pneumonia. There are no positive cultures. All these reasons the patient's evaluated with fiberoptic bronchoscopy. Endobronchial tube is in good position. The distal trachea was normal and the marissa was sharp Secretions in the right mainstem bronchus and right upper lung and these were removed. The bronchus intermedius was totally occluded with thick tenacious secretions that repeatedly obstructed the suction channel of the scope required removal and cleaning of the scope. Secretions extended into the right middle lung and all the segments of the right lower lung. This area was gradually re- cleared with bronchial and alveolar lavage and suctioning. There was underlying mild erosive friable bronchitis. The material in the collection apparatus showed multiple dense bronchial plugs and contain a brownish liquid material that looked like liquid feedings. The left mainstem bronchus left upper lung contain a moderate amount of secretions and these were removed with lavage and suctioning. The left lower lung was partially occluded with thick tenacious secretions. These obstructed many segmental bronchi. This was removed with bronchial and alveolar lavage. These specimens are included with the specimens sent from the right lung and studies were obtained as noted above. The patient tolerated procedure well there were no complications. Impression. 1. Mechanical ventilation #2 ineffective cough #3 retained secretions 4. Aspiration of gastric contents 5. Right middle lobe and right lower lung erosive friable slightly stenotic bronchitis 6. Atelectasis of the right middle lung, right lower lung and to a lesser degree the left lower lung. Plan 1. Check bronchoscopy specimens. 2. Follow-up chest x-ray. 3. Will require repeat bronchoscopy is more secretions will probably appear from mild distally.
[2017-04-07] MEDS: VALPROIC ACID 250 MG/5 ML UDCUP PO SCH ×2 (08:47→21:07)
[2017-04-07] MEDS: MULTIVITAMIN (CENTRUM) TABLET PO SCH (08:47)
[2017-04-07] MEDS: TAMSULOSIN 0.4 MG CAPSULE PO SCH (08:47)
[2017-04-07] MEDS: CARVEDILOL 6.25 MG TABLET PER TUBE SCH ×2 (08:47→21:08)
[2017-04-07] MEDS: THEOPHYLLINE 5.33 MG/ML 30 ML/BOTTLE PER TUBE SCH ×2 (08:53→21:09)
--- NOTE | 2017-04-07 09:59 | Physician Query Form ---
CLICK EDIT DOCUMENT TO SELECT QUERY ANSWER --> OK --> SIGN Karen Kendall RN Clinical [employer] W) [phone] (f) [phone] [email or web address] PROVIDERS: Make your selection(s) from the choices in EACH section by typing an "x" and enter comments in the comment section. Please use your independent medical judgment in providing your response. This request does not imply that any particular answer is desired or expected. CLINICAL INDICATORS: (Providers should not edit this section) Based on documentation of " Echocardiogram done 04/17/2016. Left ventricular S ejection fraction was estimated to be 60%. diastolic grade 1 dysfunction." History of CHF. Please provide further specificity regarding CHF. ACUITY: ( ) Acute ( ) Chronic (X ) Acute on Chronic ( ) Clinicallly unable to determine TYPE: ( ) Systolic (HFrEF - heart failure with reduced systolic function/EF) (X ) Diastolic (HFpEF - heart failure with preserved systolic function/EF) ( ) Combined Systolic/Diastolic ( ) Other, please specify: ( ) Clinically unable to determine ( ) The patient does NOT have CHF COMMENTS: PLEASE ALSO DOCUMENT RESPONSE IN PROGRESS NOTES AND/OR DISCHARGE SUMMARY Use of terms such as suspected, likely, or probable (associated with a specific diagnosis that is being evaluated, monitored, or treated as if it exists) are acceptable and can be restated in the discharge summary if not ruled out. MTDD
--- NOTE | 2017-04-07 10:45 | Pulmonology Progress Note ---
Pulmonary - PN: Subj Interval history: This is a 71-year-old black female whom I saw in pulmonary consultation 2016.This patient was admitted to the hospital with pneumonia. She became exhausted. She required intubation mechanical ventilation. My impressions were 1. Bilateral pneumonia. Probably bacterial. Suspect aspiration. 2. Acute respiratory failure requiring intubation mechanical ventilation 3. Long history of tobacco abuse 4. COPD 5. Atrial fib with rapid ventricular response. 6. Insulin-dependent diabetes mellitus 7. High blood pressure 8. Hyperlipidemia 9. Bipolar disorder 10. See past history 04/07/2017. Earlier today this patient was evaluated with fiberoptic bronchoscopy. Bronchus intermedius was completely obstructed with retained secretions which were thick and tenacious and extended into all the segmental bronchi involving the right middle lung and the right lower lung. These were removed with bronchial and alveolar lavage. She had retained secretions and nasal left lower lung where she has a small infiltrate. These were also removed with lavage. The specimen showed brownish material that appeared to be liquid dietary supplements. Specimens were sent for cytology, bacteria, fungus and AFB. Patient tolerated procedure well. Preliminary bronchoscopy specimen showed greater than 25 white blood cells per low power field and gram-positive cocci. There are no positive cultures per. Patient's on mechanical ventilation. ABGs show pH 7.427, PCO2 43, PO2 of 141 and a bicarb 27.6. Electrolytes are normal. Creatinine is 0.60 with a BUN of 37 white count is dropped from 14,800-7300. H&H is 10.7/32.1 with a platelet count 170,000. Hemoglobin A1c is 5.5. Patient is on stage to the weaning protocol. I tried her on a T-tube this morning she only tolerated for a few minutes. We will continue to advance her by protocol and we will also continue physical therapy protocol while on mechanical ventilation. Physical exam. Vital signs. See below Neurologic. Unarousable. Moves all fours. Face is symmetrical. Lips are normal. Tongue is large. Neck. Symmetrical. Kyphotic. No meningismus. Lymphatics. No submandibular cervical supraclavicular or epitrochlear adenopathy Chest. Marked decreased breath sounds over the right lower lung and right middle which have improved markedly post bronchoscopy Heart. No gallop Abdomen. Nondistended. Only rare bowel sounds. Lower extremities show chronic venous stasis changes. Skin of the face and hands show no cancerous infectious lesions. No other areas of skin were examined. The remainder the physical exam is negative Plan. 04/06/2017 1. Agree with antibiotics, steroids, inhalation therapy. 2. Gastric ulcer prevention protocol. 2. Deep venous thrombophlebitis prevention protocol 3. Mechanical ventilation weaning protocol 4. Mechanical ventilation physical therapy protocol. 5. This patient most likely aspirated will need evaluation with fiberoptic bronchoscopy. Also will need cultures. This is tentatively been set up for 8 AM Friday. 6. Theophylline level. 7. Control of atrial fibrillation rate. 8. Doppler venograms of the lower extremity #9. See orders 04/07/2017. 1. Repeat fiberoptic bronchoscopy in the morning. 2. See my note for today's date Exam (Progress Note) - Constitutional Vitals: Period Temp Pulse Resp BP Sys/Pina Pulse Ox Last 24 Hr 95.2 F-97.6 F 49-92 10-24 120-213/55-117 96-100 Results - Labs CBC & BMP: 04/07/17 05:09 04/07/17 05:09
--- NOTE | 2017-04-07 12:00 | Hospitalist Progress Note ---
Assessment and Plan (1) Acute exacerbation of chronic obstructive airways disease Status: Acute Assessment and plan: The patient is now mechanically ventilated. I am going to reduce the respiratory rate and decrease oxygenation again today. The patient will change from assist control to IMV ventilation. The patient will continue with appropriate care for COPD and will recheck studies in the morning. Current Visit: Yes (2) Acute respiratory failure Status: Acute Current Visit: No Hospitalist: Subjective Interval history: The patient was admitted the hospital from detention. He has long history of recurring COPD spells. The patient has a very passive behavior and history of drug-seeking behaviors. The patient is now ventilated due to hypercarbia. We hope to treat COPD extubated and returned the patient to the detention. Exam - Constitutional Vitals: Period Temp Pulse Resp BP Sys/Pina Pulse Ox Last 24 Hr 95.2 F-97.6 F 49-92 10-24 103-201/55-117 95-100 Exam: Constitutional System: No distress. No tremulousness. The patient is orally intubated and mechanically ventilated. The patient is sedated with Diprivan Head: Normocephalic, atraumatic. Ears, Nose and Throat System: No evidence of Otitis or Mastoiditis. No epistaxis or discharge Eyes System: Pupils equal, round, and reactive. Extraocular muscles intact. Neck: Supple, without adenopathy, No jugular venous distention. No thyromegaly , neck mass, or prior surgery apparent. Respiratory System: Chest clear to auscultation. There is air trapping and upper airway secretions are copious Cardiovascular System: Heart with regular rate and rhythm. No murmur. GI System: Abdomen soft, nontender. Normo active bowel sounds present. Musculoskeletal System: limbs with trace pedal edema. Full distal pulses. Results - Labs CBC & BMP: 04/07/17 05:09 04/07/17 05:09 Lab Results: I have reviewed the past 24 hour labs
[2017-04-07] MEDS: DESITIN 4OZ/NYSTATIN 15 GRAM MIXTURE PASTE TOP SCH ×2 (14:24→21:09)
[2017-04-07] MEDS: PREGABALIN 75 MG CAPSULE PER TUBE SCH (21:08)
[2017-04-08] MEDS: LEVOFLOXACIN INJ 500 MG in PREMIX 1 EACH IV SCH (00:25)
[2017-04-08] MEDS: ENOXAPARIN 40 MG/0.4 ML SYRINGE SUBCUT SCH (00:26)
[2017-04-08] MEDS: CEFEPIME 1,000 MG in SODIUM CHLORIDE 0.9% 100 ML IV SCH ×2 (01:25→14:13)
[2017-04-08 03:19] LABS: ABG Oxygen Saturation 97.3 % (95-100); ABG PCO2 41.9 MM HG (35-48); ABG PH 7.441 (7.35-7.45); ABG PO2 92.4 MM HG (80-95); ABG TCO2 25.6 MMOL/L (23-27); Allen Test Positive; Pt O2 Delivery Device Ventilator
[2017-04-08] MEDS: ALBUTEROL/IPRATROPIUM 3 ML NEB RESP TX SCH ×6 (03:19→23:46)
[2017-04-08] MEDS: SODIUM CHLORIDE 0.9% 1,000 ML IV SCH ×3 (04:48→15:22)
[2017-04-08] MEDS: PROPOFOL 1,000 MG/100 ML BOTTLE IV PRN ×4 (04:56→20:06)
[2017-04-08 05:11] LABS: Basophils % 0.1 % (0.0-0.8); Hematocrit 31.6 VOL% (42.0-52.0); Hemoglobin 10.3 GM/DL (14.0-18.0); Immature Granulocytes % 2.1 %; Immature Granulocytes Absolute 0.16 #; Lymphocytes # 0.5 10*3/uL (1.4-4.0); Lymphocytes % 5.9 % (21.2-54.2); Mean Corpuscular HGB Conc 32.6 GM/DL (32-36); Mean Corpuscular Hemoglobin 29 PG (27-34); Mean Corpuscular Volume 88.8 FL (87-102); Mean Platelet Volume 10.4 FL (9.6-12.0); Monocytes # 0.4 10*3/uL (0.11-0.8); Monocytes % 5.7 % (1.7-12.7); Neutrophils # 6.5 10*3/uL (1.4-7.4); Neutrophils % 86.2 % (38.7-73.9); Platelet Count 200 T/CUMM (130-400); Red Blood Count 3.56 MC/CUMM (3.8-5.5); Red Cell Distribution Width 14.5 % (9.3-17.3); White Blood Count 7.6 T/CUMM (4-12)
[2017-04-08] MEDS: DILTIAZEM 30 MG TABLET PO SCH ×3 (05:12→21:45)
[2017-04-08 05:31] LABS: INR 1.1; PT Patient Result 11.4 SECS; Partial Thromboplastin Time 29.2 SECS (0-40)
[2017-04-08 05:50] LABS: Albumin 1.9 G/DL (3.4-5.0); Bilirubin,Total 0.4 MG/DL (0.2-1.0); Calcium 7.8 MG/DL (8.5-10.1); Osmolality,Calculated 304.6 MOS/KG (273-304); Potassium 4.2 MMOL/L (3.5-5.1); Total Protein 5.1 G/DL (6.4-8.3)
[2017-04-08] MEDS: INSULIN REGULAR 100 UNIT/ML SUBCUT SCH ×4 (05:53→23:38)
--- NOTE | 2017-04-08 07:22 | XRay Report ---
Referring Physician: Zak Ridley Exam: XR chest 1V portable Date: April 08, 2017 at 3:09 AM Reason: Pneumonia Comparison: Chest one view portable April 07, 2017 Findings: An endotracheal tube and feeding tube are again in place. The cardiac silhouette is upper normal in size. There are opacities within both lower lung zones. This could represent atelectasis, pulmonary edema and/or pneumonia. No pneumothorax is identified, but there is mild bilateral pleural fluid. The osseous structures appear stable. Impression: There is slight decreased opacification/pleural fluid at the right lower lung zone. The study is otherwise similar to before. PROCEDURE INTERPRETED AT [facility] DEPARTMENT OF RADIOLOGY Final Report Signed by: Dr. Isabella Newell
--- NOTE | 2017-04-08 08:26 | Event Note ---
In hospital diagnostic and therapeutic fiberoptic bronchoscopy with specimens from bilateral Lavage sent for cytology, Gram stain, bacterial culture, AFB stains and culture and fungal stains and culture. This is a 71-year-old white male retirement patient who is on mechanical ventilation. He has atelectasis of his right middle lung and right lower lung and changes in his left lower lung. His cough is ineffective he has retained secretions and retained gastric aspirate. For these reasons he is evaluated with fiberoptic bronchoscopy. Endotracheal tube is in good position. Distal trachea shows no lesions. The marissa is sharp. Right mainstem bronchus is partially occluded with thick tenacious secretions that repeatedly occluded the suction channel of the scope requiring withdrawing cleaning of the scope. Secretions were removed from the right upper lung and the right middle lung. Most of the subsegments in the right lower lung were occluded with thick tenacious secretions and extensive endobronchial and alveolar lavage was required to clear this area out. There is underlying hypertrophy of the endobronchial mucosa and airways are collapsible compatible with COPD. These specimens were sent for the studies noted above The left mainstem bronchus was fairly clear there were retained secretions in the left upper lung. In the left lower lung there were occluded segmental bronchi. These areas were cleared with endobronchial and alveolar lavage. There was underlying collapsibility of the large airways. These specimens were sent for studies listed above. Patient tolerated procedure well there were no complications Impression. 1. Mechanical ventilation 2. Ineffective cough 3. Retained pulmonary secretions and retained gastric aspirate 4. Atelectasis of the right middle lung and right lower lung with early atelectasis in the left lower lung 5. Collapsible airways compatible with a component of obstructive lung disease. 6. Hypertrophied tissue in the right lower lung probably related to infection and gastric acid injury. 7. See above Plan. 1. Follow-up x-ray 2. Check bronchoscopy specimens 3. We will need a repeat bronchoscopy tomorrow. There will be more secretions that moved back into the central airway
--- NOTE | 2017-04-08 08:48 | Hospitalist Progress Note ---
Assessment and Plan (1) Acute respiratory failure with hypoxia Status: Acute Assessment and plan: 2/2 Ineffective cough with subsequent RML and RLL atelectasis. Also with a LLL infiltrate. Aspiration pneumonia considered given return of gastric content on bronch examination. Continue with current antibiotics. Vent Management per Pulm. Likely repeat Bronch soon. Current Visit: Yes (2) Atrial fibrillation with RVR Status: Acute Assessment and plan: Rates controlled with Carvedilol and oral Dilt. Cont. anticoagulation with Lovenox. Current Visit: Yes (3) Congestive heart failure Status: Chronic Assessment and plan: No acute exacerbation. Stable from this standpoint. BNP wnl. No evidence of volume overload. Current Visit: Yes (4) Insulin dependent diabetes mellitus Status: Chronic Assessment and plan: Hyperglycemia likely exacerbated by Solumedrol. Will start basal insulin and titrate as needed. Continue sliding scale. Current Visit: Yes (5) Pneumonia Status: Acute Assessment and plan: As above Current Visit: Yes Qualifiers: Pneumonia type: due to unspecified organism Laterality: left Lung location: lower lobe of lung Qualified Code(s): J18.1 - Lobar pneumonia, unspecified organism (6) COPD (chronic obstructive pulmonary disease) Status: Chronic Current Visit: Yes Qualifiers: COPD type: COPD with acute lower respiratory infection Qualified Code(s): J44.0 - Chronic obstructive pulmonary disease with acute lower respiratory infection (7) Elevated troponin Status: Acute Assessment and plan: Troponin levels trending down. Initial EKG on admission with known afib but no evidence of acute ST changes. Trop elevation likely due to severe hypoxemia with causing supply/demand mis match in the setting of A fib with RVR. No acute changes on tele. Continue to monitor for now. Current Visit: No Hospitalist: Subjective Interval history: Patient admitted with acute hypoxic respiratory failure requiring mechanical ventilatory support, 2/2 Right middle and lower lobe atelectasis as well as a LLL infiltrate suspected to be bacterial pneumonia and/or aspiration pneumonia. S/P Bronch on yesterday with thick secretions blocking the airway noted. Preliminary results of specimen obtained on bronch are without evidence of fungal or bacterial specimen. Cytology pending. Patient remains intubated but arousable. He additionally has a diagnosis of A. fib and was admitted with RVR now with resolution of rapid rates on Carvedilol and oral Dilt. Also with DM now with hyperglycemia likely exacerbated by Solumedrol. He is currently hemodynamically stable. Likely repeat Bronch soon per Pulm. Exam - Constitutional Vitals: Period Temp Pulse Resp BP Sys/Pina Pulse Ox Last 24 Hr 96.4 F-98.7 F 62-111 13-31 95-142/54-88 95-100 General appearance: morbidly obese, other (Sedated but easily arousable.) - Head Head exam: Present: normal inspection, normocephalic, atraumatic - Neck Neck exam: Present: other (Supple obese neck exam). Absent: lymphadenopathy - Respiratory Respiratory exam: Present: rales, other. Absent: wheezes (Course breath sounds bilaterally. ) - Cardiovascular Cardiovascular exam: Present: irregular rhythm. Absent: tachycardia - GI/Abdominal GI/Abdominal exam: Present: hypoactive bowel sounds, soft. Absent: distended, tenderness - Extremities Exam Extremities exam: Present: normal inspection. Absent: edema - Neurological Exam Neurological exam: Present: other - Psychiatric Psychiatric exam: Present: other (Sedated but easily arousable) - Skin Skin exam: Present: normal color, warm, dry Results - Labs CBC & BMP: 04/08/17 03:49 04/08/17 03:49
[2017-04-08] MEDS: methylPREDNISolone SOD SUC 40 MG/1 ML VIAL IV SCH ×3 (08:57→23:38)
[2017-04-08] MEDS: VALPROIC ACID 250 MG/5 ML UDCUP PO SCH ×2 (08:58→20:13)
[2017-04-08] MEDS: TAMSULOSIN 0.4 MG CAPSULE PO SCH (08:59)
[2017-04-08] MEDS: CARVEDILOL 6.25 MG TABLET PER TUBE SCH ×2 (08:59→20:13)
[2017-04-08] MEDS: MULTIVITAMIN (CENTRUM) TABLET PO SCH (08:59)
[2017-04-08] MEDS: DESITIN 4OZ/NYSTATIN 15 GRAM MIXTURE PASTE TOP SCH ×2 (09:00→20:14)
[2017-04-08] MEDS: THEOPHYLLINE 5.33 MG/ML 30 ML/BOTTLE PER TUBE SCH ×4 (09:10→21:45)
[2017-04-08] MEDS: INSULIN NPH 100 UNIT/ML SUBCUT SCH ×2 (09:39→16:25)
--- NOTE | 2017-04-08 10:55 | Pulmonology Progress Note ---
Pulmonary - PN: Subj Interval history: This is a 71-year-old black female whom I saw in pulmonary consultation 2016.This patient was admitted to the hospital with pneumonia. She became exhausted. She required intubation mechanical ventilation. My impressions were 1. Bilateral pneumonia. Probably bacterial. Suspect aspiration. 2. Acute respiratory failure requiring intubation mechanical ventilation 3. Long history of tobacco abuse 4. COPD 5. Atrial fib with rapid ventricular response. 6. Insulin-dependent diabetes mellitus 7. High blood pressure 8. Hyperlipidemia 9. Bipolar disorder 10. See past history 04/07/2017. Earlier today this patient was evaluated with fiberoptic bronchoscopy . Bronchus intermedius was completely obstructed with retained secretions which were thick and tenacious and extended into all the segmental bronchi involving the right middle lung and the right lower lung. These were removed with bronchial and alveolar lavage. She had retained secretions and nasal left lower lung where she has a small infiltrate. These were also removed with lavage. The specimen showed brownish material that appeared to be liquid dietary supplements. Specimens were sent for cytology, bacteria, fungus and AFB. Patient tolerated procedure well. Preliminary bronchoscopy specimen showed greater than 25 white blood cells per low power field and gram-positive cocci. There are no positive cultures per. Patient's on mechanical ventilation. ABGs show pH 7.427, PCO2 43, PO2 of 141 and a bicarb 27.6. Electrolytes are normal. Creatinine is 0.60 with a BUN of 37 white count is dropped from 14,800-7300. H&H is 10.7/32.1 with a platelet count 170,000. Hemoglobin A1c is 5.5. Patient is on stage to the weaning protocol. I tried her on a T-tube this morning she only tolerated for a few minutes. We will continue to advance her by protocol and we will also continue physical therapy protocol while on mechanical ventilation. 04/08/2017. Chest x-ray this morning showed atelectasis in the right middle lung right lower lung and left lower lung. This is markedly improved compared to chest x-ray done 04/07/2017 before bronchoscopy. Fiberoptic bronchoscopy was repeated today. Patient still has a tremendous amount of thick tenacious retained secretions obstructing him endobronchially. These were removed and more specimens were collected and sent. He will require repeat bronchoscopy tomorrow. This patient was able to do more than 8 hours of CPAP 04/07/2017 and we will expanded further today. Hopefully he will be ready for extubation in the next few days. Biggest problem is going to be clearing of pulmonary secretions. On today's exam there was a little bit of gastric aspirate remaining. There are no positive cultures reported. ABGs on mechanical ventilation and FiO2 of 45% show a pH 7.44, PCO2 42, PO2 92 and a bicarb of 28. Electrolytes are normal. Creatinine is 0.60 with a BUN of 28. White blood cell count is fallen to 7686 segs. H&H is 10.3/31.6 and platelets of 200,000. Protein and albumin are low at 5.1 and 1.9 respectively. Liver function tests are stable. Physical exam. Vital signs. See below Neurologic. Unarousable. Moves all fours. Face is symmetrical. Lips are normal. Tongue is large. Neck. Symmetrical. Kyphotic. No meningismus. Lymphatics. No submandibular cervical supraclavicular or epitrochlear adenopathy Chest. Marked decreased breath sounds over the right lower lung and right middle which have improved markedly post bronchoscopy Heart. No gallop Abdomen. Nondistended. Only rare bowel sounds. Lower extremities show chronic venous stasis changes. Skin of the face and hands show no cancerous infectious lesions. No other areas of skin were examined. The remainder the physical exam is negative Plan. 04/06/2017 1. Agree with antibiotics, steroids, inhalation therapy. 2. Gastric ulcer prevention protocol. 2. Deep venous thrombophlebitis prevention protocol 3. Mechanical ventilation weaning protocol 4. Mechanical ventilation physical therapy protocol. 5. This patient most likely aspirated will need evaluation with fiberoptic bronchoscopy. Also will need cultures. This is tentatively been set up for 8 AM Friday. 6. Theophylline level. 7. Control of atrial fibrillation rate. 8. Doppler venograms of the lower extremity #9. See orders 04/07/2017. 1. Repeat fiberoptic bronchoscopy in the morning. 2. See my note for today's date 04/08/2007. 1. See today's note above. #2 repeat fiberoptic bronchoscopy Friday morning 3. Continue weaning protocol 4. Continue chest x-ray, ABGs and Exam (Progress Note) - Constitutional Vitals: Period Temp Pulse Resp BP Sys/Pina Pulse Ox Last 24 Hr 97.1 F-98.7 F 61-111 15-31 95-159/54-97 95-100 Results - Labs CBC & BMP: 04/08/17 03:49 04/08/17 03:49
[2017-04-08] MEDS: FAMOTIDINE 20 MG/2 ML VIAL IV SCH ×2 (11:21→23:35)
--- NOTE | 2017-04-08 13:16 | Pathology Report from [facility] ---
[facility] [place] [id number] PATIENT NAME : Farshad Bailey ORDERING DR : LEANDRO COLLINS MD CLINICAL HX: Aspiration POST-OP DX: Same SPECIMEN INFO: Washing,Bronchial,STEPHAN - 25 [address] [place], cloudy CLASS: II CLASS COMMENTS: Benign respiratory epithelium, squamous metaplasia, and inflammation.CELL BLOCK: Same. CLASS LEGEND: CLASS 0 Material inadequate for diagnosis because of (see comment) CLASS I Absence of atypical or abnormal cells CLASS II Atypical Cytology but no evidence of malignancy CLASS III Cytology suggestive of but not conclusive for malignancy CLASS IV Cytology strongly suggestive of malignancy CLASS V Cytology conclusive for malignancy COLLECTED DATE: 04/07/2017 [facility] REPORT DATE: 04/08/2017 ELECTRONICALLY SIGNED BY: Valentín Donohue M.D. 04/08/2017 - 11:32:50 [facility]
[2017-04-08] MEDS: PREGABALIN 75 MG CAPSULE PER TUBE SCH (20:13)
[2017-04-08] MEDS: DILTIAZEM INJ 100 MG in SODIUM CHLORIDE 0.9% 100 ML IV SCH (23:39)
[2017-04-09] MEDS: LEVOFLOXACIN INJ 500 MG in PREMIX 1 EACH IV SCH (00:07)
[2017-04-09] MEDS: ENOXAPARIN 40 MG/0.4 ML SYRINGE SUBCUT SCH (00:07)
[2017-04-09] MEDS: CEFEPIME 1,000 MG in SODIUM CHLORIDE 0.9% 100 ML IV SCH ×2 (01:23→14:30)
[2017-04-09] MEDS: ALBUTEROL/IPRATROPIUM 3 ML NEB RESP TX SCH ×5 (02:54→20:39)
[2017-04-09] MEDS: PROPOFOL 1,000 MG/100 ML BOTTLE IV PRN ×2 (02:56→07:45)
[2017-04-09] MEDS: THEOPHYLLINE 5.33 MG/ML 30 ML/BOTTLE PER TUBE SCH ×2 (03:12→08:41)
[2017-04-09 03:14] LABS: Allen Test Positive; Pt O2 Delivery Device Ventilator
[2017-04-09 03:18] LABS: ABG Base Excess 6.2 MMOL/L (-2.5-2.5); ABG HCO3 30.4 MMOL/L (20-26); ABG PCO2 41.8 MM HG (35-48); ABG PH 7.479 (7.35-7.45); ABG PO2 87.9 MM HG (80-95); ABG TCO2 31.6 MMOL/L (23-27)
[2017-04-09 03:19] LABS: ABG Oxygen Saturation 97.2 % (95-100)
[2017-04-09] MEDS: SODIUM CHLORIDE 0.9% 1,000 ML IV SCH ×3 (03:59→17:22)
[2017-04-09] MEDS: DILTIAZEM 30 MG TABLET PO SCH ×3 (05:28→21:15)
[2017-04-09] MEDS: INSULIN REGULAR 100 UNIT/ML SUBCUT SCH ×3 (05:28→18:19)
[2017-04-09 05:35] LABS: Basophils % 0.4 % (0.0-0.8); Hematocrit 32.5 VOL% (42.0-52.0); Hemoglobin 10.7 GM/DL (14.0-18.0); Lymphocytes # 0.6 10*3/uL (1.4-4.0); Lymphocytes % 8.5 % (21.2-54.2); Mean Corpuscular HGB Conc 32.9 GM/DL (32-36); Mean Corpuscular Hemoglobin 29 PG (27-34); Mean Corpuscular Volume 88.6 FL (87-102); Mean Platelet Volume 10.2 FL (9.6-12.0); Monocytes # 0.5 10*3/uL (0.11-0.8); Monocytes % 6.7 % (1.7-12.7); Neutrophils # 5.3 10*3/uL (1.4-7.4); Neutrophils % 78.4 % (38.7-73.9); Platelet Count 196 T/CUMM (130-400); Red Blood Count 3.67 MC/CUMM (3.8-5.5); Red Cell Distribution Width 14.5 % (9.3-17.3); White Blood Count 6.7 T/CUMM (4-12)
[2017-04-09 05:39] LABS: INR 1.1; PT Patient Result 11.6 SECS; Partial Thromboplastin Time 27.9 SECS (0-40)
[2017-04-09 06:00] LABS: Lymphocytes 12 % (20-55); Metamyelocytes 1 %; Segmented Neutrophils 82 % (50-85); Total Cells Counted 100
[2017-04-09 06:01] LABS: Hypochromasia 1+
[2017-04-09 06:02] LABS: Microcytosis 1+; Platelet Estimate Adequate
--- NOTE | 2017-04-09 07:24 | XRay Report ---
Referring Physician: Zak Ridley Exam: XR chest 1V portable Date: April 09, 2017 at 3:04 AM Reason: Pneumonia Comparison: Chest one view portable April 08, 2017 Findings: An endotracheal tube and feeding tube are again in place. The cardiac silhouette is upper normal in size. There are opacities within both lower lung zones. This could represent pulmonary edema, atelectasis and/or pneumonia. No pneumothorax is identified, but there is mild left pleural fluid and possible mild right pleural fluid. The osseous structures appear stable. Impression: There has been no significant change. PROCEDURE INTERPRETED AT [facility] DEPARTMENT OF RADIOLOGY Final Report Signed by: Dr. Isabella Newell
[2017-04-09] MEDS: INSULIN NPH 100 UNIT/ML SUBCUT SCH ×2 (08:28→17:15)
--- NOTE | 2017-04-09 08:32 | Event Note ---
In hospital diagnostic and therapeutic fiberoptic bronchoscopy. Bilateral lavages were sent for cytology, Gram stain, bacterial cultures, fungal stains and culture. This is a 71-year-old white male with respiratory failure who is on mechanical ventilation. He has had several previous bronchoscopies. He has an aspiration injury and has retention of pulmonary secretions. He has had right middle lung right lower lung and left lower lung atelectasis. Areas of atelectasis have improved but not resolved. He continues to have retention of secretions. His cough is ineffective. For these reasons he is evaluated with fiberoptic bronchoscopy. Endotracheal tube is in good position. Distal trachea was normal. Lisa was sharp. The right mainstem bronchus was full of thick tenacious secretions. These extended slightly into the right upper lung. There were marked retention of secretions in the right middle lung which was lavaged until clear. There was segmental obstruction with retention of secretions in the right lower lung. These areas were lavaged until clear. Patient has underlying mucosal hypertrophy in these areas and specimens were again sent for cytology from the right and the left side. Specimens were sent for studies noted above. The left mainstem bronchus contained secretions. These were removed. There were a few secretions in the left upper lung. There was segmental occlusion in the left lower lung secondary to bronchial plugs. These were removed with bronchial and alveolar lavage. Specimens from the left side were sent for studies noted above. The patient tolerated procedure well there were no complications. Impression. 1. Mechanical ventilation 2. Ineffective cough 3. Retention of pulmonary secretions 4. Recent aspiration of gastric contents 5. Hypertrophied endobronchial mucosa most prominent in the right lower lung. 6. Mild to moderate collapsibility of large and small airways compatible with underlying COPD 7. Bilateral atelectasis. 8. See above Plan. 1. Check bronchoscopy specimens 2. Follow-up chest x-ray 3. See your
[2017-04-09] MEDS: methylPREDNISolone SOD SUC 40 MG/1 ML VIAL IV SCH ×2 (08:40→17:14)
[2017-04-09] MEDS: MULTIVITAMIN (CENTRUM) TABLET PO SCH (08:41)
[2017-04-09] MEDS: VALPROIC ACID 250 MG/5 ML UDCUP PO SCH ×2 (08:41→21:16)
[2017-04-09] MEDS: CARVEDILOL 6.25 MG TABLET PER TUBE SCH ×2 (08:41→21:14)
[2017-04-09] MEDS: DESITIN 4OZ/NYSTATIN 15 GRAM MIXTURE PASTE TOP SCH ×2 (08:41→21:18)
[2017-04-09] MEDS: TAMSULOSIN 0.4 MG CAPSULE PO SCH (08:41)
[2017-04-09 10:04] LABS: Allen Test Positive
[2017-04-09 10:05] LABS: ABG Base Excess 6.4 MMOL/L (-2.5-2.5); ABG HCO3 31.1 MMOL/L (20-26); ABG Oxygen Saturation 93.9 % (95-100); ABG PH 7.457 (7.35-7.45); ABG PO2 69.5 MM HG (80-95); ABG TCO2 32.5 MMOL/L (23-27)
--- NOTE | 2017-04-09 10:17 | Pulmonology Progress Note ---
Pulmonary - PN: Subj Interval history: This is a 71-year-old black female whom I saw in pulmonary consultation 2016.This patient was admitted to the hospital with pneumonia. She became exhausted. She required intubation mechanical ventilation. My impressions were 1. Bilateral pneumonia. Probably bacterial. Suspect aspiration. 2. Acute respiratory failure requiring intubation mechanical ventilation 3. Long history of tobacco abuse 4. COPD 5. Atrial fib with rapid ventricular response. 6. Insulin-dependent diabetes mellitus 7. High blood pressure 8. Hyperlipidemia 9. Bipolar disorder 10. See past history 04/07/2017. Earlier today this patient was evaluated with fiberoptic bronchoscopy . Bronchus intermedius was completely obstructed with retained secretions which were thick and tenacious and extended into all the segmental bronchi involving the right middle lung and the right lower lung. These were removed with bronchial and alveolar lavage. She had retained secretions and nasal left lower lung where she has a small infiltrate. These were also removed with lavage. The specimen showed brownish material that appeared to be liquid dietary supplements. Specimens were sent for cytology, bacteria, fungus and AFB. Patient tolerated procedure well. Preliminary bronchoscopy specimen showed greater than 25 white blood cells per low power field and gram-positive cocci. There are no positive cultures per. Patient's on mechanical ventilation. ABGs show pH 7.427, PCO2 43, PO2 of 141 and a bicarb 27.6. Electrolytes are normal. Creatinine is 0.60 with a BUN of 37 white count is dropped from 14,800-7300. H&H is 10.7/32.1 with a platelet count 170,000. Hemoglobin A1c is 5.5. Patient is on stage to the weaning protocol. I tried her on a T-tube this morning she only tolerated for a few minutes. We will continue to advance her by protocol and we will also continue physical therapy protocol while on mechanical ventilation. 04/08/2017. Chest x-ray this morning showed atelectasis in the right middle lung right lower lung and left lower lung. This is markedly improved compared to chest x-ray done 04/07/2017 before bronchoscopy. Fiberoptic bronchoscopy was repeated today. Patient still has a tremendous amount of thick tenacious retained secretions obstructing him endobronchially. These were removed and more specimens were collected and sent. He will require repeat bronchoscopy tomorrow. This patient was able to do more than 8 hours of CPAP 04/07/2017 and we will expanded further today. Hopefully he will be ready for extubation in the next few days. Biggest problem is going to be clearing of pulmonary secretions. On today's exam there was a little bit of gastric aspirate remaining. There are no positive cultures reported. ABGs on mechanical ventilation and FiO2 of 45% show a pH 7.44, PCO2 42, PO2 92 and a bicarb of 28. Electrolytes are normal. Creatinine is 0.60 with a BUN of 28. White blood cell count is fallen to 7686 segs. H&H is 10.3/31.6 and platelets of 200,000. Protein and albumin are low at 5.1 and 1.9 respectively. Liver function tests are stable. 04/09/2017. Patient's chest x-ray is unchanged. This morning he was evaluated with fiberoptic bronchoscopy. The abnormal areas on his chest x-ray were lavaged until clear and specimens were sent for bacterial and AFB studies. So far all expectorated sputum has been negative for AFB. Patient has grown Proteus mirabilis from the sputum he is being treated for this. His TB skin test is negative. QuantiFERON is negative. I think if the bronchoscopy stains are negative for AFB this patient can be discharged home on an antibiotic that covers to Proteus mirabilis. This underlying lung disease I would give it to him for 10-14 days. Medicines have been reviewed. Labs been reviewed. This man's an alcoholic and I would be reluctant to give him TB medicines since these have liver toxicities. We already know he is a noncompliant person Physical exam. Vital signs. See below General. No distress. Psychiatric. Oriented 3. Neurologic. Cranial nerves are intact. Moves all fours. No evidence of asterixis Face is symmetrical. Lips are normal. Tongue is large. Neck. Symmetrical. Kyphotic. No meningismus. Lymphatics. No submandibular cervical supraclavicular or epitrochlear adenopathy Chest. Marked decreased breath sounds over the right lower lung and right middle which have improved markedly post bronchoscopy Heart. No gallop Abdomen. Nondistended. Only rare bowel sounds. Lower extremities show chronic venous stasis changes. Skin of the face and hands show no cancerous infectious lesions. No other areas of skin were examined. The remainder the physical exam is negative Plan. 04/06/2017 1. Agree with antibiotics, steroids, inhalation therapy. 2. Gastric ulcer prevention protocol. 2. Deep venous thrombophlebitis prevention protocol 3. Mechanical ventilation weaning protocol 4. Mechanical ventilation physical therapy protocol. 5. This patient most likely aspirated will need evaluation with fiberoptic bronchoscopy. Also will need cultures. This is tentatively been set up for 8 AM Friday. 6. Theophylline level. 7. Control of atrial fibrillation rate. 8. Doppler venograms of the lower extremity #9. See orders 04/07/2017. 1. Repeat fiberoptic bronchoscopy in the morning. 2. See my note for today's date 04/08/2007. 1. See today's note above. #2 repeat fiberoptic bronchoscopy Friday morning 3. Continue weaning protocol 4. Continue chest x-ray, ABGs 04/09/2017. 1. See today's note above Exam (Progress Note) - Constitutional Vitals: Period Temp Pulse Resp BP Sys/Pina Pulse Ox Last 24 Hr 97.3 F-98.2 F 59-107 10-23 106-167/60-99 96-100 Results - Labs CBC & BMP: 04/09/17 05:07 04/08/17 03:49
--- NOTE | 2017-04-09 10:21 | Hospitalist Progress Note ---
Assessment and Plan (1) Acute respiratory failure with hypoxia Status: Acute Assessment and plan: 2/2 Ineffective cough with subsequent RML and RLL atelectasis. Also with a LLL infiltrate. Aspiration pneumonia considered given return of gastric content on bronch examination. Continue with current antibiotics. Vent Management per Pulm. Likely repeat Bronch soon. 04/09/17: S/P repeat bronchoscopy today. Similar findings with thick secretions noted. Will continue with current antibiotics. Vent management per Pulm. Blood glucose levels only slightly improved with increased insulin. Will increase basal further. On Solumedrol. F/U specimen results. HR remains well controlled. On Lovenox for anticoagulation. Current Visit: Yes (2) Atrial fibrillation with RVR Status: Acute Assessment and plan: Rates controlled with Carvedilol and oral Dilt. Cont. anticoagulation with Lovenox. Current Visit: Yes (3) Congestive heart failure Status: Chronic Assessment and plan: No acute exacerbation. Stable from this standpoint. BNP wnl. No evidence of volume overload. Current Visit: Yes (4) Insulin dependent diabetes mellitus Status: Chronic Assessment and plan: Hyperglycemia likely exacerbated by Solumedrol. Will start basal insulin and titrate as needed. Continue sliding scale. Current Visit: Yes (5) Pneumonia Status: Acute Assessment and plan: As above Current Visit: Yes Qualifiers: Pneumonia type: due to unspecified organism Laterality: left Lung location: lower lobe of lung Qualified Code(s): J18.1 - Lobar pneumonia, unspecified organism (6) COPD (chronic obstructive pulmonary disease) Status: Chronic Current Visit: Yes Qualifiers: COPD type: COPD with acute lower respiratory infection Qualified Code(s): J44.0 - Chronic obstructive pulmonary disease with acute lower respiratory infection (7) Elevated troponin Status: Acute Assessment and plan: Troponin levels trending down. Initial EKG on admission with known afib but no evidence of acute ST changes. Trop elevation likely due to severe hypoxemia with causing supply/demand mis match in the setting of A fib with RVR. No acute changes on tele. Continue to monitor for now. Current Visit: No Hospitalist: Subjective Interval history: Patient admitted with acute hypoxic respiratory failure requiring mechanical ventilatory support, 2/2 Right middle and lower lobe atelectasis as well as a LLL infiltrate suspected to be bacterial pneumonia and/or aspiration pneumonia. S/P Bronch again this morning with thick secretions blocking the airway noted. Preliminary results of specimen obtained on bronch are without evidence of fungal or bacterial specimen. Cytology from prior bronch is unremarkable. Patient remains intubated. He additionally has a diagnosis of A. fib and was admitted with RVR now with resolution of rapid rates on Carvedilol and oral Dilt. Also with DM now with hyperglycemia likely exacerbated by Solumedrol. He is currently hemodynamically stable. Exam - Constitutional Vitals: Period Temp Pulse Resp BP Sys/Pina Pulse Ox Last 24 Hr 97.3 F-98.2 F 60-107 10-23 106-167/60-99 96-100 Exam: General appearance: morbidly obese, other (Sedated but arousable.) - Head Head exam: Present: normal inspection, normocephalic, atraumatic - Neck Neck exam: Present: other (Supple obese neck exam). Absent: lymphadenopathy - Respiratory Respiratory exam: Present: rales, other. Absent: wheezes (Course breath sounds bilaterally. ) - Cardiovascular Cardiovascular exam: Present: irregular rhythm. Absent: tachycardia - GI/Abdominal GI/Abdominal exam: Present: hypoactive bowel sounds, soft. Absent: distended, tenderness - Extremities Exam Extremities exam: Present: normal inspection. Absent: edema - Neurological Exam Neurological exam: Present: other - Psychiatric Psychiatric exam: Present: other (Sedated but easily arousable) - Skin Skin exam: Present: normal color, warm, dry Results - Labs CBC & BMP: 04/09/17 05:07 04/08/17 03:49
--- NOTE | 2017-04-09 10:31 | Pulmonology Progress Note ---
Pulmonary - PN: Subj Interval history: This is a 71-year-old black female whom I saw in pulmonary consultation 2016.This patient was admitted to the hospital with pneumonia. She became exhausted. She required intubation mechanical ventilation. My impressions were 1. Bilateral pneumonia. Probably bacterial. Suspect aspiration. 2. Acute respiratory failure requiring intubation mechanical ventilation 3. Long history of tobacco abuse 4. COPD 5. Atrial fib with rapid ventricular response. 6. Insulin-dependent diabetes mellitus 7. High blood pressure 8. Hyperlipidemia 9. Bipolar disorder 10. See past history 04/07/2017. Earlier today this patient was evaluated with fiberoptic bronchoscopy . Bronchus intermedius was completely obstructed with retained secretions which were thick and tenacious and extended into all the segmental bronchi involving the right middle lung and the right lower lung. These were removed with bronchial and alveolar lavage. She had retained secretions and nasal left lower lung where she has a small infiltrate. These were also removed with lavage. The specimen showed brownish material that appeared to be liquid dietary supplements. Specimens were sent for cytology, bacteria, fungus and AFB. Patient tolerated procedure well. Preliminary bronchoscopy specimen showed greater than 25 white blood cells per low power field and gram-positive cocci. There are no positive cultures per. Patient's on mechanical ventilation. ABGs show pH 7.427, PCO2 43, PO2 of 141 and a bicarb 27.6. Electrolytes are normal. Creatinine is 0.60 with a BUN of 37 white count is dropped from 14,800-7300. H&H is 10.7/32.1 with a platelet count 170,000. Hemoglobin A1c is 5.5. Patient is on stage to the weaning protocol. I tried her on a T-tube this morning she only tolerated for a few minutes. We will continue to advance her by protocol and we will also continue physical therapy protocol while on mechanical ventilation. 04/08/2017. Chest x-ray this morning showed atelectasis in the right middle lung right lower lung and left lower lung. This is markedly improved compared to chest x-ray done 04/07/2017 before bronchoscopy. Fiberoptic bronchoscopy was repeated today. Patient still has a tremendous amount of thick tenacious retained secretions obstructing him endobronchially. These were removed and more specimens were collected and sent. He will require repeat bronchoscopy tomorrow. This patient was able to do more than 8 hours of CPAP 04/07/2017 and we will expanded further today. Hopefully he will be ready for extubation in the next few days. Biggest problem is going to be clearing of pulmonary secretions. On today's exam there was a little bit of gastric aspirate remaining. There are no positive cultures reported. ABGs on mechanical ventilation and FiO2 of 45% show a pH 7.44, PCO2 42, PO2 92 and a bicarb of 28. Electrolytes are normal. Creatinine is 0.60 with a BUN of 28. White blood cell count is fallen to 7686 segs. H&H is 10.3/31.6 and platelets of 200,000. Protein and albumin are low at 5.1 and 1.9 respectively. Liver function tests are stable. 04/09/2017. Today's chest x-ray shows some minor atelectasis in both bases. Overall expansion is much better. Patient was reevaluated with fiberoptic bronchoscopy. See report. He still has a lot of retained secretions but overall this was much better. Multiple specimens were submitted. Patient is done very well on the T-tube and he is been extubated. Will continue inhalation therapy with DuoNeb's 4 times daily. Because he has thick tenacious sputum and because mobilization is a difficult problem for him will add inhalation therapy with Pulmozyme twice a day. Patient has underlying retained secretions and he also had evidence of aspiration. Patient's only positive cultures or sputum for yeast. Diflucan 200 daily were started today. Physical exam. Vital signs. See below General. No distress. Psychiatric. Oriented 3. Neurologic. Cranial nerves are intact. Moves all fours. No evidence of asterixis Face is symmetrical. Lips are normal. Tongue is large. Neck. Symmetrical. Kyphotic. No meningismus. Lymphatics. No submandibular cervical supraclavicular or epitrochlear adenopathy Chest. Marked decreased breath sounds over the right lower lung and right middle which have improved markedly post bronchoscopy Heart. No gallop Abdomen. Nondistended. Only rare bowel sounds. Lower extremities show chronic venous stasis changes. Skin of the face and hands show no cancerous infectious lesions. No other areas of skin were examined. The remainder the physical exam is negative Plan. 04/06/2017 1. Agree with antibiotics, steroids, inhalation therapy. 2. Gastric ulcer prevention protocol. 2. Deep venous thrombophlebitis prevention protocol 3. Mechanical ventilation weaning protocol 4. Mechanical ventilation physical therapy protocol. 5. This patient most likely aspirated will need evaluation with fiberoptic bronchoscopy. Also will need cultures. This is tentatively been set up for 8 AM Friday. 6. Theophylline level. 7. Control of atrial fibrillation rate. 8. Doppler venograms of the lower extremity #9. See orders 04/07/2017. 1. Repeat fiberoptic bronchoscopy in the morning. 2. See my note for today's date 04/08/2007. 1. See today's note above. #2 repeat fiberoptic bronchoscopy Friday morning 3. Continue weaning protocol 4. Continue chest x-ray, ABGs 04/09/2017. 1. See today's note above 2. Extubation Exam (Progress Note) - Constitutional Vitals: Period Temp Pulse Resp BP Sys/Pina Pulse Ox Last 24 Hr 97.3 F-98.2 F 59-107 10-23 106-167/60-99 96-100 Results - Labs CBC & BMP: 04/09/17 05:07 04/08/17 03:49
[2017-04-09] MEDS: FAMOTIDINE 20 MG/2 ML VIAL IV SCH (10:58)
[2017-04-09] MEDS: DORNASE ALFA 2.5 MG/2.5 ML VIAL RESP TX SCH ×2 (11:14→20:47)
--- NOTE | 2017-04-09 11:16 | Pathology Report from [facility] ---
[facility] [place] ACCESSION # : [id number] PATIENT NAME : Farshad Bailey ORDERING DR : LEANDRO COLLINS MD CLINICAL HX: Respiratory Failure, Aspiration POST-OP DX: Same SPECIMEN INFO: Washing,Bronchial,STEPHAN - 20 mls [place], cloudy CLASS: I CLASS COMMENTS: Acute, chronic inflammation, scant squamous and bronchial cells.CELL BLOCK: Same CLASS LEGEND: CLASS 0 Material inadequate for diagnosis because of (see comment) CLASS I Absence of atypical or abnormal cells CLASS II Atypical Cytology but no evidence of malignancy CLASS III Cytology suggestive of but not conclusive for malignancy CLASS IV Cytology strongly suggestive of malignancy CLASS V Cytology conclusive for malignancy COLLECTED DATE: 04/08/2017 [facility] REPORT DATE: 04/09/2017 ELECTRONICALLY SIGNED BY: Lisa Chang M.D. 04/09/2017 - 8:49:40 MTDNikole
[2017-04-09] MEDS: FLUCONAZOLE INJ 200 MG in PREMIX 1 EACH IV SCH (11:47)
[2017-04-09 11:59] LABS: Allen Test Positive
[2017-04-09 12:00] LABS: ABG Base Excess 7.6 MMOL/L (-2.5-2.5); ABG HCO3 31.3 MMOL/L (20-26); ABG Oxygen Saturation 92.3 % (95-100); ABG PCO2 43.9 MM HG (35-48); ABG PH 7.473 (7.35-7.45); ABG PO2 61.4 MM HG (80-95); ABG TCO2 28.5 MMOL/L (23-27)
[2017-04-09] MEDS: THEOPHYLLINE ER 300 MG TABLET PO SCH (17:14)
[2017-04-09] MEDS: PREGABALIN 75 MG CAPSULE PER TUBE SCH (21:15)
[2017-04-10] MEDS: DILTIAZEM INJ 100 MG in SODIUM CHLORIDE 0.9% 100 ML IV SCH (00:18)
[2017-04-10] MEDS: FAMOTIDINE 20 MG/2 ML VIAL IV SCH ×3 (00:19→23:48)
[2017-04-10] MEDS: INSULIN REGULAR 100 UNIT/ML SUBCUT SCH ×5 (00:20→23:48)
[2017-04-10] MEDS: ENOXAPARIN 40 MG/0.4 ML SYRINGE SUBCUT SCH (00:20)
[2017-04-10] MEDS: methylPREDNISolone SOD SUC 40 MG/1 ML VIAL IV SCH ×4 (00:26→23:48)
[2017-04-10] MEDS: LEVOFLOXACIN INJ 500 MG in PREMIX 1 EACH IV SCH (00:31)
[2017-04-10] MEDS: ALBUTEROL/IPRATROPIUM 3 ML NEB RESP TX SCH ×7 (00:53→23:29)
[2017-04-10] MEDS: CEFEPIME 1,000 MG in SODIUM CHLORIDE 0.9% 100 ML IV SCH ×2 (01:50→15:44)
[2017-04-10] MEDS: HYDROcod/ACETAMIN 7.5-325 MG/15 ML UDCUP PO PRN (03:24)
[2017-04-10 03:36] LABS: Pt O2 Delivery Device BIPAP
[2017-04-10 03:43] LABS: ABG Base Excess 8.9 MMOL/L (-2.5-2.5); ABG HCO3 32.5 MMOL/L (20-26); ABG Oxygen Saturation 90.2 % (95-100); ABG PO2 57.3 MM HG (80-95); ABG TCO2 29.8 MMOL/L (23-27)
[2017-04-10] MEDS: DILTIAZEM 30 MG TABLET PO SCH ×3 (05:50→21:08)
[2017-04-10] MEDS: SODIUM CHLORIDE 0.9% 1,000 ML IV SCH ×3 (06:16→20:00)
[2017-04-10 06:44] LABS: Basophils % 0.4 % (0.0-0.8); Hematocrit 33.9 VOL% (42.0-52.0); Hemoglobin 11.4 GM/DL (14.0-18.0); Immature Granulocytes % 7.2 %; Immature Granulocytes Absolute 0.74 #; Lymphocytes # 1.2 10*3/uL (1.4-4.0); Lymphocytes % 11.6 % (21.2-54.2); Mean Corpuscular HGB Conc 33.6 GM/DL (32-36); Mean Corpuscular Hemoglobin 30 PG (27-34); Mean Corpuscular Volume 87.8 FL (87-102); Mean Platelet Volume 10.1 FL (9.6-12.0); Monocytes # 0.9 10*3/uL (0.11-0.8); Monocytes % 8.5 % (1.7-12.7); Neutrophils # 7.4 10*3/uL (1.4-7.4); Neutrophils % 72.3 % (38.7-73.9); Platelet Count 208 T/CUMM (130-400); Red Blood Count 3.86 MC/CUMM (3.8-5.5); Red Cell Distribution Width 13.9 % (9.3-17.3); White Blood Count 10.2 T/CUMM (4-12)
[2017-04-10 06:50] LABS: Calcium 7.7 MG/DL (8.5-10.1); Magnesium 2.2 MG/DL (1.8-2.4); Osmolality,Calculated 287.4 MOS/KG (273-304)
[2017-04-10 07:11] LABS: Band Neutrophils 1 % (0-10); Lymphocytes 9 % (20-55); Myelocytes 2 %; Nucleated Red Blood Cells 1 (0-5); Segmented Neutrophils 82 % (50-85); Total Cells Counted 100
[2017-04-10 07:13] LABS: Hypochromasia 2+; Microcytosis Slight; Platelet Estimate Adequate
[2017-04-10] MEDS: DORNASE ALFA 2.5 MG/2.5 ML VIAL RESP TX SCH ×2 (07:25→19:13)
--- NOTE | 2017-04-10 07:55 | XRay Report ---
XR chest 1V portable Indication: Ventilator Comparison: Chest x-ray dated April 09, 2017 Technique: Single frontal view of the chest. Findings: Patient rotated to the right which limits exam. The cardiomediastinal silhouette is stable in configuration. Interval extubation. Continued left lower lung atelectasis/consolidation and probable small layering pleural fluid. Visualized osseous and surrounding soft tissue structures appear grossly unchanged. IMPRESSION: Interval extubation. Otherwise, no significant interval change. PROCEDURE INTERPRETED AT [facility] DEPARTMENT OF RADIOLOGY Final Report Signed by: Dr Dileep Collier
--- NOTE | 2017-04-10 08:06 | Hospitalist Progress Note ---
Assessment and Plan - Time spent with patient Time spent with patient: Greater than 30 minutes (1) Pneumonia, bacterial Problem details: 2/2 Ineffective cough with subsequent RML and RLL atelectasis. Also with a LLL infiltrate. Aspiration pneumonia considered given return of gastric content on bronch examination. Continue with current antibiotics. Improving. Status: Acute Current Visit: Yes (2) Atrial fibrillation Status: Acute Assessment and plan: Continue Coreg and oral dilt. Continue anticoagulation with lovenox Current Visit: Yes (3) Diabetes Status: Acute Assessment and plan: Continue insulin. Current Visit: No (4) Morbid obesity Status: Acute Assessment and plan: Educated on weight loss in the nearly future. Current Visit: No Qualifiers: Obesity type: unspecified obesity type Qualified Code(s): E66.01 - Morbid ( severe) obesity due to excess calories (5) COPD (chronic obstructive pulmonary disease) Status: Chronic Assessment and plan: Continue IV steroid per Pulm. Continue NEB and Oxygen. Current Visit: Yes Qualifiers: COPD type: COPD with acute lower respiratory infection Qualified Code(s): J44.0 - Chronic obstructive pulmonary disease with acute lower respiratory infection Hospitalist: Subjective Interval history: No overnight acute event. Lying in bed. Awake and alert. Feeling better when compared to yesterday. Can answer simple questions and eat. No fever. headache, chest pain or abd pain. Stewart in place and will be discontinued today. Exam - Constitutional Vitals: Period Temp Pulse Resp BP Sys/Pina Pulse Ox Last 24 Hr 97.0 F-98.2 F 54-107 10-24 95-149/42-96 88-100 Exam: GENERAL: Lying in bed. On oxygen by NC, AAOx3. HEENT: Pupils equally round and reactive to light, conjunctivae clear. TMs oconnell and translucent. Oropharynx pink, with moist mucous membranes. Normal lips, teeth and gums. NECK: Supple without mass. HEART: RRR, no murmur. CHEST: Normal shape, fair air movement, no retractions. CV: RRR, no murmurs, 2+ peripheral pulses LUNGS: Decreased breath sound at b/l lower lobes. ABDOMEN: Soft, nontender, and no hepatosplenomegaly. SKIN: No rash or edema. LYMPH: No anterior or posterior cervical, or supraclavicular lymphadenopathy. NEURO: No gross motor deficits noted. Results - Labs CBC & BMP: 04/10/17 06:20 04/10/17 06:20 - Diagnostic Findings Procedure: Chest x-ray: report reviewed by me (LLL pneumonia)
[2017-04-10] MEDS: MULTIVITAMIN (CENTRUM) TABLET PO SCH (08:20)
[2017-04-10] MEDS: VALPROIC ACID 250 MG/5 ML UDCUP PO SCH ×2 (08:20→21:08)
[2017-04-10] MEDS: THEOPHYLLINE ER 300 MG TABLET PO SCH ×2 (08:20→16:36)
--- NOTE | 2017-04-10 08:20 | Pulmonology Progress Note ---
Pulmonary - PN: Subj Interval history: This is a 71-year-old black female whom I saw in pulmonary consultation 2016.This patient was admitted to the hospital with pneumonia. She became exhausted. She required intubation mechanical ventilation. My impressions were 1. Bilateral pneumonia. Probably bacterial. Suspect aspiration. 2. Acute respiratory failure requiring intubation mechanical ventilation 3. Long history of tobacco abuse 4. COPD 5. Atrial fib with rapid ventricular response. 6. Insulin-dependent diabetes mellitus 7. High blood pressure 8. Hyperlipidemia 9. Bipolar disorder 10. See past history 04/07/2017. Earlier today this patient was evaluated with fiberoptic bronchoscopy . Bronchus intermedius was completely obstructed with retained secretions which were thick and tenacious and extended into all the segmental bronchi involving the right middle lung and the right lower lung. These were removed with bronchial and alveolar lavage. She had retained secretions and nasal left lower lung where she has a small infiltrate. These were also removed with lavage. The specimen showed brownish material that appeared to be liquid dietary supplements. Specimens were sent for cytology, bacteria, fungus and AFB. Patient tolerated procedure well. Preliminary bronchoscopy specimen showed greater than 25 white blood cells per low power field and gram-positive cocci. There are no positive cultures per. Patient's on mechanical ventilation. ABGs show pH 7.427, PCO2 43, PO2 of 141 and a bicarb 27.6. Electrolytes are normal. Creatinine is 0.60 with a BUN of 37 white count is dropped from 14,800-7300. H&H is 10.7/32.1 with a platelet count 170,000. Hemoglobin A1c is 5.5. Patient is on stage to the weaning protocol. I tried her on a T-tube this morning she only tolerated for a few minutes. We will continue to advance her by protocol and we will also continue physical therapy protocol while on mechanical ventilation. 04/08/2017. Chest x-ray this morning showed atelectasis in the right middle lung right lower lung and left lower lung. This is markedly improved compared to chest x-ray done 04/07/2017 before bronchoscopy. Fiberoptic bronchoscopy was repeated today. Patient still has a tremendous amount of thick tenacious retained secretions obstructing him endobronchially. These were removed and more specimens were collected and sent. He will require repeat bronchoscopy tomorrow. This patient was able to do more than 8 hours of CPAP 04/07/2017 and we will expanded further today. Hopefully he will be ready for extubation in the next few days. Biggest problem is going to be clearing of pulmonary secretions. On today's exam there was a little bit of gastric aspirate remaining. There are no positive cultures reported. ABGs on mechanical ventilation and FiO2 of 45% show a pH 7.44, PCO2 42, PO2 92 and a bicarb of 28. Electrolytes are normal. Creatinine is 0.60 with a BUN of 28. White blood cell count is fallen to 7686 segs. H&H is 10.3/31.6 and platelets of 200,000. Protein and albumin are low at 5.1 and 1.9 respectively. Liver function tests are stable. 04/09/2017. Today's chest x-ray shows some minor atelectasis in both bases. Overall expansion is much better. Patient was reevaluated with fiberoptic bronchoscopy. See report. He still has a lot of retained secretions but overall this was much better. Multiple specimens were submitted. Patient is done very well on the T-tube and he is been extubated. Will continue inhalation therapy with DuoNeb's 4 times daily. Because he has thick tenacious sputum and because mobilization is a difficult problem for him will add inhalation therapy with Pulmozyme twice a day. Patient has underlying retained secretions and he also had evidence of aspiration. Patient's only positive cultures or sputum for yeast. Diflucan 200 daily were started today. 04/10/2017. This patient was extubated on 04/09/2017. He is done well since that time. Today's chest x-ray shows that he has a tiny left pleural effusion bilateral areas of atelectasis have resolved. His ABGs on FiO2 32% show a pH 7.48, PCO2 45, PO2 of 57.3 and a bicarb of 23.5. Electrolytes are normal. Creatinine is 0.4. H&H is stable 11.4/33.9. White count is 10,272 segs 11.6 lymphocytes. Platelets are 208,000. The patient is scheduled to be moved to the floor today. We should continue his ventilation therapy. Mobilizing her secretions and aspiration were his big problems. He denies any problems swallowing and he denies reflux. He ate well. He requires a soft diet since he has no teeth. Patient had several bronchoscopies. He had no positive cultures but he had white blood cells and gram-positive cocci. He is on Levaquin and we should probably leave him on this another 2-4 days. He is on methylprednisolone 40 mg IV. Piggyback every 8 hours. Before he is discharged he can be put on prednisone 20 mg daily for a week 10 mg daily for week and then 10 every other day for an additional 2 weeks. He had a good bit of inflammation endobronchially especially in his right lower lung. Bronchoscopy specimens were sent for cytology and no results showed class I and class II. Physical exam. Vital signs. See below General. No distress. Psychiatric. Oriented 3. Cooperative Neurologic. Cranial nerves are intact. Moves all fours. No evidence of asterixis Face is symmetrical. Lips are normal. Tongue is large. Neck. Symmetrical. Kyphotic. No meningismus. Lymphatics. No submandibular cervical supraclavicular or epitrochlear adenopathy Chest. Chest is symmetrical. Expiration is prolonged. There is slight large airway congestion which clears with a cough. I do not hear any wheezing. Heart. No gallop Abdomen. Nondistended. Only rare bowel sounds. Lower extremities show chronic venous stasis changes. No evidence of deep venous thrombophlebitis. Skin of the face and hands show no cancerous infectious lesions. No other areas of skin were examined. The remainder the physical exam is negative Plan. 04/06/2017 1. Agree with antibiotics, steroids, inhalation therapy. 2. Gastric ulcer prevention protocol. 2. Deep venous thrombophlebitis prevention protocol 3. Mechanical ventilation weaning protocol 4. Mechanical ventilation physical therapy protocol. 5. This patient most likely aspirated will need evaluation with fiberoptic bronchoscopy. Also will need cultures. This is tentatively been set up for 8 AM Friday. 6. Theophylline level. 7. Control of atrial fibrillation rate. 8. Doppler venograms of the lower extremity #9. See orders 04/07/2017. 1. Repeat fiberoptic bronchoscopy in the morning. 2. See my note for today's date 04/08/2017. 1. See today's note above. #2 repeat fiberoptic bronchoscopy Friday morning 3. Continue weaning protocol 4. Continue chest x-ray, ABGs 04/09/2017. 1. See today's note above 2. Extubation 04/10/2017. 1. See today's note above with suggestions for discharge medicines. 2. Extubated 04/09/2016. 3. Prevention of aspiration and mobilization of pulmonary secretions will be a garcia. 4. 04/09/2017 medicine such as theophylline were restarted Exam (Progress Note) - Constitutional Vitals: Period Temp Pulse Resp BP Sys/Pina Pulse Ox Last 24 Hr 97.0 F-98.2 F 54-96 10-24 95-149/42-96 88-100 Results - Labs CBC & BMP: 04/10/17 06:20 04/10/17 06:20
[2017-04-10] MEDS: CARVEDILOL 6.25 MG TABLET PER TUBE SCH ×2 (08:21→21:08)
[2017-04-10] MEDS: TAMSULOSIN 0.4 MG CAPSULE PO SCH (08:21)
[2017-04-10] MEDS: DESITIN 4OZ/NYSTATIN 15 GRAM MIXTURE PASTE TOP SCH ×2 (08:22→21:09)
[2017-04-10] MEDS: INSULIN NPH 100 UNIT/ML SUBCUT SCH ×2 (08:22→16:35)
--- NOTE | 2017-04-10 13:16 | Pathology Report from [facility] ---
[facility] ACCESSION # : [id number] PATIENT NAME : Farshad Bailey ORDERING DR : LEANDRO COLLINS MD CLINICAL HX: Respiratory Arrest, Aspiration POST-OP DX: Same SPECIMEN INFO: Washing,Bronchial,STEPHAN - 25 mls bloody, cloudy CLASS: II CLASS COMMENTS: Benign respiratory epithelium, acute inflammation, & squamous metaplasia.CELL BLOCK: Same. CLASS LEGEND: CLASS 0 Material inadequate for diagnosis because of (see comment) CLASS I Absence of atypical or abnormal cells CLASS II Atypical Cytology but no evidence of malignancy CLASS III Cytology suggestive of but not conclusive for malignancy CLASS IV Cytology strongly suggestive of malignancy CLASS V Cytology conclusive for malignancy COLLECTED DATE: 04/09/2017 [facility] REPORT DATE: 04/10/2017 ELECTRONICALLY SIGNED BY: Valentín Donohue M.D. 04/10/2017 - 10:13:38 MTDD
[2017-04-10] MEDS: FLUCONAZOLE INJ 200 MG in PREMIX 1 EACH IV SCH (13:22)
[2017-04-10] MEDS: MAGNESIUM HYDROXIDE SUSP 30 ML UDCUP PO PRN (13:23)
[2017-04-10] MEDS: PREGABALIN 75 MG CAPSULE PER TUBE SCH (21:09)
[2017-04-11] MEDS: LEVOFLOXACIN INJ 500 MG in PREMIX 1 EACH IV SCH (00:07)
[2017-04-11] MEDS: ENOXAPARIN 40 MG/0.4 ML SYRINGE SUBCUT SCH (00:07)
[2017-04-11] MEDS: ALBUTEROL/IPRATROPIUM 3 ML NEB RESP TX SCH ×6 (02:27→23:17)
[2017-04-11] MEDS: CEFEPIME 1,000 MG in SODIUM CHLORIDE 0.9% 100 ML IV SCH ×2 (02:50→14:32)
[2017-04-11] MEDS: DILTIAZEM 30 MG TABLET PO SCH ×3 (05:45→20:42)
[2017-04-11] MEDS: HYDROcod/ACETAMIN 7.5-325 MG/15 ML UDCUP PO PRN ×3 (05:45→20:46)
[2017-04-11] MEDS: INSULIN REGULAR 100 UNIT/ML SUBCUT SCH ×3 (06:38→18:10)
--- NOTE | 2017-04-11 08:14 | XRay Report ---
XR chest 1V portable Indication: Ventilator Comparison: Chest x-ray dated April 10, 2017 Technique: Single frontal view of the chest. Findings: Patient again rotated the right. Heart size remains prominent. No significant change in left lower lung atelectasis/consolidation and to a much lesser degree right basilar atelectasis/consolidation. There is probable small bilateral pleural fluid, left greater than right. Visualized osseous and surrounding soft tissue structures appear grossly unchanged. IMPRESSION: No significant interval change. PROCEDURE INTERPRETED AT [facility] DEPARTMENT OF RADIOLOGY Final Report Signed by: Dr Dileep Collier
[2017-04-11] MEDS: DORNASE ALFA 2.5 MG/2.5 ML VIAL RESP TX SCH ×2 (08:28→19:11)
[2017-04-11] MEDS: THEOPHYLLINE ER 300 MG TABLET PO SCH ×2 (08:59→18:08)
[2017-04-11] MEDS: methylPREDNISolone SOD SUC 40 MG/1 ML VIAL IV SCH ×2 (09:00→16:14)
[2017-04-11] MEDS: CARVEDILOL 6.25 MG TABLET PER TUBE SCH ×2 (09:00→20:42)
[2017-04-11] MEDS: MULTIVITAMIN (CENTRUM) TABLET PO SCH (09:00)
[2017-04-11] MEDS: VALPROIC ACID 250 MG/5 ML UDCUP PO SCH ×2 (09:00→20:41)
[2017-04-11] MEDS: TAMSULOSIN 0.4 MG CAPSULE PO SCH (09:00)
[2017-04-11] MEDS: DESITIN 4OZ/NYSTATIN 15 GRAM MIXTURE PASTE TOP SCH ×2 (09:02→20:42)
[2017-04-11] MEDS: INSULIN NPH 100 UNIT/ML SUBCUT SCH ×3 (09:07→18:15)
[2017-04-11] MEDS: FLUCONAZOLE INJ 200 MG in PREMIX 1 EACH IV SCH (10:38)
[2017-04-11] MEDS: FAMOTIDINE 20 MG/2 ML VIAL IV SCH (10:40)
--- NOTE | 2017-04-11 11:36 | Pulmonology Progress Note ---
Pulmonary - PN: Subj Interval history: J Carlos Buenrostro, ANP-BC, GNP-BC, acting as scribe for Dr. John Paul Bowles This is a 71-year-old white male who we saw in initial pulmonary consultation 04/06/2017. This patient was admitted to the hospital with pneumonia. He developed hypercarbia and hypoxemia and became exhausted. He required intubation mechanical ventilation. At that time, our impressions were: 1. Bilateral pneumonia. Probably bacterial. Suspect aspiration. 2. Acute respiratory failure requiring intubation mechanical ventilation 3. Long history of tobacco abuse 4. COPD 5. Atrial fib with rapid ventricular response. 6. Insulin-dependent diabetes mellitus 7. High blood pressure 8. Hyperlipidemia 9. Bipolar disorder 10. See past history 04/07/2017. Earlier today this patient was evaluated with fiberoptic bronchoscopy . Bronchus intermedius was completely obstructed with retained secretions which were thick and tenacious and extended into all the segmental bronchi involving the right middle lung and the right lower lung. These were removed with bronchial and alveolar lavage. She had retained secretions and nasal left lower lung where she has a small infiltrate. These were also removed with lavage. The specimen showed brownish material that appeared to be liquid dietary supplements. Specimens were sent for cytology, bacteria, fungus and AFB. Patient tolerated procedure well. Preliminary bronchoscopy specimen showed greater than 25 white blood cells per low power field and gram-positive cocci. There are no positive cultures per. Patient's on mechanical ventilation. ABGs show pH 7.427, PCO2 43, PO2 of 141 and a bicarb 27.6. Electrolytes are normal. Creatinine is 0.60 with a BUN of 37 white count is dropped from 14,800-7300. H&H is 10.7/32.1 with a platelet count 170,000. Hemoglobin A1c is 5.5. Patient is on stage to the weaning protocol. I tried her on a T-tube this morning she only tolerated for a few minutes. We will continue to advance her by protocol and we will also continue physical therapy protocol while on mechanical ventilation. 04/08/2017. Chest x-ray this morning showed atelectasis in the right middle lung right lower lung and left lower lung. This is markedly improved compared to chest x-ray done 04/07/2017 before bronchoscopy. Fiberoptic bronchoscopy was repeated today. Patient still has a tremendous amount of thick tenacious retained secretions obstructing him endobronchially. These were removed and more specimens were collected and sent. He will require repeat bronchoscopy tomorrow. This patient was able to do more than 8 hours of CPAP 04/07/2017 and we will expanded further today. Hopefully he will be ready for extubation in the next few days. Biggest problem is going to be clearing of pulmonary secretions. On today's exam there was a little bit of gastric aspirate remaining. There are no positive cultures reported. ABGs on mechanical ventilation and FiO2 of 45% show a pH 7.44, PCO2 42, PO2 92 and a bicarb of 28. Electrolytes are normal. Creatinine is 0.60 with a BUN of 28. White blood cell count is fallen to 7686 segs. H&H is 10.3/31.6 and platelets of 200,000. Protein and albumin are low at 5.1 and 1.9 respectively. Liver function tests are stable. 04/09/2017. Today's chest x-ray shows some minor atelectasis in both bases. Overall expansion is much better. Patient was reevaluated with fiberoptic bronchoscopy. See report. He still has a lot of retained secretions but overall this was much better. Multiple specimens were submitted. Patient is done very well on the T-tube and he is been extubated. Will continue inhalation therapy with DuoNeb's 4 times daily. Because he has thick tenacious sputum and because mobilization is a difficult problem for him will add inhalation therapy with Pulmozyme twice a day. Patient has underlying retained secretions and he also had evidence of aspiration. Patient's only positive cultures or sputum for yeast. Diflucan 200 daily were started today. 04/10/2017. This patient was extubated on 04/09/2017. He is done well since that time. Today's chest x-ray shows that he has a tiny left pleural effusion bilateral areas of atelectasis have resolved. His ABGs on FiO2 32% show a pH 7.48, PCO2 45, PO2 of 57.3 and a bicarb of 23.5. Electrolytes are normal. Creatinine is 0.4. H&H is stable 11.4/33.9. White count is 10,272 segs 11.6 lymphocytes. Platelets are 208,000. The patient is scheduled to be moved to the floor today. We should continue his ventilation therapy. Mobilizing his secretions and aspiration were his big problems. He denies any problems swallowing and he denies reflux. He ate well. He requires a soft diet since he has no teeth. Patient had several bronchoscopies. He had no positive cultures but he had white blood cells and gram-positive cocci. He is on Levaquin and we should probably leave him on this another 2-4 days. He is on methylprednisolone 40 mg IV. Piggyback every 8 hours. Before he is discharged he can be put on prednisone 20 mg daily for a week 10 mg daily for week and then 10 every other day for an additional 2 weeks. He had a good bit of inflammation endobronchially especially in his right lower lung. Bronchoscopy specimens were sent for cytology and no results showed class I and class II. 04/11/2017. Patient was seen today along with Sisi Stubbs RN. Patient's chest x-ray has remarkably improved. He is laying flat in bed and breathing comfortably. He denies any concerns or complaints. Bronchoscopy specimens have grown methicillin-resistant staph aureus. Medications have been reviewed. We made no changes today. Labs have been reviewed. No new labs were drawn today. Exam (Progress Note) - Constitutional Vitals: Period Temp Pulse Resp BP Sys/Pina Pulse Ox Last 24 Hr 97.6 F-98.3 F 32-91 18-20 130-162/64-95 90-99 Exam: Chest with prolonged expiration and mild large airway congestion that appears to clear with cough; wheeze free Heart no gallop Abdomen is obese, but nontender and nondistended; rare bowel sounds Lower extremities with nothing to suggest acute deep venous thrombophlebitis; chronic stasis changes noted Psychiatric oriented 3 Neurologic unchanged Plan: He was successfully extubated on 04/09/17 and has done well from a pulmonary standpoint since that time. We will sign off. Please reconsult as needed. We have discussed the case with Dr. Irizarry today and coordinated our care. Results - Labs CBC & BMP: 04/10/17 06:20 04/10/17 06:20
--- NOTE | 2017-04-11 16:44 | Hospitalist Progress Note ---
Assessment and Plan (1) Acute respiratory failure with hypoxia Status: Acute Assessment and plan: Bilateral pneumonia growing ESBL E. coli and previous bronch MRSA. Discussed with Dr. Bowles and we will change his antibiotics from cefepime and Levaquin to vancomycin and meropenem. Worried about aspiration. Speech evaluation, [facility] referral Current Visit: Yes (2) Congestive heart failure Status: Chronic Assessment and plan: HL IVF, bnp lasix 40 IV, echo 04/2016 ef 60% with pap 35 with grade 1 diastolic dysfunction Current Visit: Yes (3) Acute exacerbation of chronic obstructive airways disease Status: Acute Assessment and plan: cont duoneb but decrease steroids Current Visit: Yes (4) Sleep apnea Status: Acute Assessment and plan: cpap at night Current Visit: Yes (5) Pickwickian syndrome Status: Acute Current Visit: Yes (6) Atrial fibrillation with RVR Status: Acute Assessment and plan: rate controlled with coreg and dilt Current Visit: Yes (7) Insulin dependent diabetes mellitus Status: Chronic Assessment and plan: increased insulin Current Visit: Yes (8) Pneumonia, bacterial Problem details: 2/2 Ineffective cough with subsequent RML and RLL atelectasis. Also with a LLL infiltrate. Aspiration pneumonia considered given return of gastric content on bronch examination. Continue with current antibiotics. Improving. Status: Acute Assessment and plan: Bilateral pneumonia growing ESBL E. coli and MRSA. Continue management with antibiotics see above Current Visit: Yes Hospitalist: Subjective Interval history: Patient is a resident of [facility]. Patient still has significant pulmonary difficulty clearing his secretions. I will ask speech to do an evaluation on him today. I also made a referral to [facility] on him as I am concerned about him returning to the halfway with his difficulty breathing. Exam - Constitutional Vitals: Period Temp Pulse Resp BP Sys/Pina Pulse Ox Last 24 Hr 97.6 F-98.3 F 32-91 18-20 130-162/64-95 91-99 Exam: Heart Rate-[RRR] Lungs-[coarse rhonchi bilateral] GI-[+bs soft, NT, obese] Ext-[no edema] Neuro [Motor 4/5], [alert and oriented times 1] psych [depressed mood and flat affect] General [mild acute distress] Results - Labs CBC & BMP: 04/10/17 06:20 04/10/17 06:20 Lab Results: I have reviewed the past 24 hour labs Labs: Bronchial culture growing E. coli with ESBL and MRSA. Blood cultures negative no growth final - Diagnostic Findings Procedure: Chest x-ray: report reviewed by me (Bilateral consolidation with bilateral pleural effusions left greater than right)
[2017-04-11] MEDS ORDERED: VANCOMYCIN INJ 2,000 MG in SODIUM CHLORIDE 0.9% 500 ML IV SCH (18:00)
[2017-04-11] MEDS: MEROPENEM 1,000 MG in SODIUM CHLORIDE 0.9% 100 ML IV SCH (18:08)
[2017-04-11] MEDS: FUROSEMIDE 40 MG/4 ML VIAL IV SCH (18:08)
[2017-04-11] MEDS: SODIUM CHLORIDE 0.9% 1,000 ML IV SCH (18:17)
[2017-04-11] MEDS: PREGABALIN 75 MG CAPSULE PER TUBE SCH (20:42)
[2017-04-12] MEDS: FAMOTIDINE 20 MG/2 ML VIAL IV SCH ×2 (00:35→12:42)
[2017-04-12] MEDS: MEROPENEM 1,000 MG in SODIUM CHLORIDE 0.9% 100 ML IV SCH ×3 (00:35→17:24)
[2017-04-12] MEDS: ENOXAPARIN 40 MG/0.4 ML SYRINGE SUBCUT SCH (00:35)
[2017-04-12] MEDS: INSULIN REGULAR 100 UNIT/ML SUBCUT SCH ×4 (00:36→17:55)
[2017-04-12] MEDS: ALBUTEROL/IPRATROPIUM 3 ML NEB RESP TX SCH ×6 (03:12→23:27)
[2017-04-12 04:48] LABS: Basophils % 0.2 % (0.0-0.8); Hematocrit 35.5 VOL% (42.0-52.0); Immature Granulocytes % 6.8 %; Immature Granulocytes Absolute 0.84 #; Lymphocytes # 1.2 10*3/uL (1.4-4.0); Lymphocytes % 9.5 % (21.2-54.2); Mean Corpuscular HGB Conc 33.8 GM/DL (32-36); Mean Corpuscular Hemoglobin 29 PG (27-34); Mean Platelet Volume 10.3 FL (9.6-12.0); Monocytes # 0.9 10*3/uL (0.11-0.8); Monocytes % 7.5 % (1.7-12.7); NRBC # 0.02 10*3/uL; Neutrophils # 9.4 10*3/uL (1.4-7.4); Platelet Count 230 T/CUMM (130-400); Red Blood Count 4.13 MC/CUMM (3.8-5.5); Red Cell Distribution Width 14.2 % (9.3-17.3); White Blood Count 12.4 T/CUMM (4-12)
[2017-04-12 05:19] LABS: Calcium 8.2 MG/DL (8.5-10.1); Magnesium 2.2 MG/DL (1.8-2.4); Osmolality,Calculated 284.5 MOS/KG (273-304); Potassium 3.9 MMOL/L (3.5-5.1)
[2017-04-12] MEDS: DILTIAZEM 30 MG TABLET PO SCH ×3 (05:44→20:42)
[2017-04-12 06:39] LABS: Band Neutrophils 3 % (0-10); Lymphocytes 7 % (20-55); Myelocytes 2 %; Platelet Estimate Normal; Segmented Neutrophils 83 % (50-85); Total Cells Counted 100
[2017-04-12] MEDS: DORNASE ALFA 2.5 MG/2.5 ML VIAL RESP TX SCH ×2 (08:13→19:10)
[2017-04-12] MEDS: CARVEDILOL 6.25 MG TABLET PER TUBE SCH ×2 (08:39→20:37)
[2017-04-12] MEDS: INSULIN NPH 100 UNIT/ML SUBCUT SCH (08:39)
[2017-04-12] MEDS: methylPREDNISolone SOD SUC 40 MG/1 ML VIAL IV SCH (08:40)
[2017-04-12] MEDS: VALPROIC ACID 250 MG/5 ML UDCUP PO SCH ×2 (08:40→20:36)
[2017-04-12] MEDS: MULTIVITAMIN (CENTRUM) TABLET PO SCH (08:40)
[2017-04-12] MEDS: DESITIN 4OZ/NYSTATIN 15 GRAM MIXTURE PASTE TOP SCH ×2 (08:40→21:00)
[2017-04-12] MEDS: TAMSULOSIN 0.4 MG CAPSULE PO SCH (08:40)
[2017-04-12] MEDS: THEOPHYLLINE ER 300 MG TABLET PO SCH ×2 (08:40→17:24)
[2017-04-12] MEDS: FUROSEMIDE 40 MG/4 ML VIAL IV SCH ×2 (08:41→17:00)
[2017-04-12] MEDS: VANCOMYCIN INJ 2,000 MG in SODIUM CHLORIDE 0.9% 500 ML IV SCH ×2 (10:13→20:36)
--- NOTE | 2017-04-12 11:31 | EKG Report ---
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
[2017-04-12] MEDS: HYDROcod/ACETAMIN 7.5-325 MG/15 ML UDCUP PO PRN ×2 (12:27→20:36)
[2017-04-12] MEDS: FLUCONAZOLE INJ 200 MG in PREMIX 1 EACH IV SCH (12:42)
--- NOTE | 2017-04-12 12:46 | Hospitalist Progress Note ---
Assessment and Plan (1) Acute respiratory failure with hypoxia Status: Acute Assessment and plan: Bilateral pneumonia growing ESBL E. coli and previous bronch MRSA. Continue vancomycin and meropenem. Worried about aspiration. Speech evaluation, [facility] referral. Current Visit: Yes (2) Congestive heart failure Status: Chronic Assessment and plan: bnp 142, Lasix 40 IV, echo 04/2016 ef 60% with pap 35 with grade 1 diastolic dysfunction Current Visit: Yes (3) Acute exacerbation of chronic obstructive airways disease Status: Acute Assessment and plan: cont duoneb and steroids Current Visit: Yes (4) Sleep apnea Status: Acute Assessment and plan: cpap at night Current Visit: Yes (5) Pickwickian syndrome Status: Acute Current Visit: Yes (6) Atrial fibrillation with RVR Status: Acute Assessment and plan: rate controlled with coreg and dilt Current Visit: Yes (7) Insulin dependent diabetes mellitus Status: Chronic Assessment and plan: Not controlled, restart Levemir Current Visit: Yes (8) Pneumonia, bacterial Problem details: 2/2 Ineffective cough with subsequent RML and RLL atelectasis. Also with a LLL infiltrate. Aspiration pneumonia considered given return of gastric content on bronch examination. Continue with current antibiotics. Improving. Status: Acute Assessment and plan: Concerned about aspiration. Bronc growing ESBL E. coli and MRSA. Continue vancomycin and meropenem Current Visit: Yes Hospitalist: Subjective Interval history: I am worried about aspiration on him. I think he is a good [facility] candidate. Today he is more alert. He is complaining of chest pressure which she has had for a week he said. I am not absolutely sure he is aware of how long he has been here. Exam - Constitutional Vitals: Period Temp Pulse Resp BP Sys/Pina Pulse Ox Last 24 Hr 97 F-98 F 52-118 18-20 113-156/70-84 88-97 Exam: Heart Rate-[IRR] Lungs-[rhonchi bilateral] GI-[+bs soft, NT, obese] Ext-[no edema] Neuro [Motor 4/5], [alert and oriented times 1] psych [depressed mood and flat affect] General [no acute distress] Results - Labs CBC & BMP: 04/12/17 04:08 04/12/17 04:08 Lab Results: I have reviewed the past 24 hour labs Labs: First troponin 0.05 - EKG EKG shows: atrial fibrillation - Diagnostic Findings Procedure: Chest x-ray: report reviewed by me (atelectasis)
[2017-04-12] MEDS ORDERED: INSULIN NPH 100 UNIT/ML SUBCUT SCH (12:52)
[2017-04-12] MEDS ORDERED: INSULIN DETEMIR 100 UNIT/ML SUBCUT SCH (13:00)
[2017-04-12] MEDS: HYDROCORTISONE 25 MG SUPP RECTAL SCH ×2 (14:31→20:37)
[2017-04-12] MEDS: FLUoxetine 10 MG CAPSULE PO SCH (14:31)
[2017-04-12 15:27] LABS: ABG Base Excess 10.6 MMOL/L (-2.5-2.5); ABG HCO3 35.3 MMOL/L (20-26); ABG Oxygen Saturation 88.3 % (95-100); ABG PCO2 47.3 MM HG (35-48); ABG PH 7.491 (7.35-7.45); ABG PO2 50.2 MM HG (80-95); ABG TCO2 36.8 MMOL/L (23-27)
[2017-04-12] MEDS: PREGABALIN 75 MG CAPSULE PER TUBE SCH (20:36)
[2017-04-12] MEDS: INSULIN GLARGINE 100 UNIT/ML SUBCUT SCH (20:37)
[2017-04-12] MEDS: CLOTRIMAZOLE 1% CREAM 15 GM TUBE TOP SCH (21:00)
[2017-04-13] MEDS: FAMOTIDINE 20 MG/2 ML VIAL IV SCH ×3 (00:44→23:40)
[2017-04-13] MEDS: INSULIN REGULAR 100 UNIT/ML SUBCUT SCH ×6 (00:44→23:41)
[2017-04-13] MEDS: MEROPENEM 1,000 MG in SODIUM CHLORIDE 0.9% 100 ML IV SCH ×3 (00:44→18:22)
[2017-04-13] MEDS: ENOXAPARIN 40 MG/0.4 ML SYRINGE SUBCUT SCH (00:45)
[2017-04-13] MEDS: ALBUTEROL/IPRATROPIUM 3 ML NEB RESP TX SCH ×6 (02:58→22:45)
[2017-04-13] MEDS: MAGNESIUM HYDROXIDE SUSP 30 ML UDCUP PO PRN (03:21)
[2017-04-13] MEDS: HydrOXYzine PAMOATE 25 MG CAPSULE PO PRN (03:22)
[2017-04-13 04:28] LABS: Basophils % 0.2 % (0.0-0.8); Eosinophils % 0.1 % (0.00-10.9); Hematocrit 34.2 VOL% (42.0-52.0); Hemoglobin 11.7 GM/DL (14.0-18.0); Immature Granulocytes % 5.8 %; Immature Granulocytes Absolute 0.74 #; Lymphocytes # 1.8 10*3/uL (1.4-4.0); Lymphocytes % 13.9 % (21.2-54.2); Mean Corpuscular HGB Conc 34.2 GM/DL (32-36); Mean Corpuscular Hemoglobin 29 PG (27-34); Mean Corpuscular Volume 85.5 FL (87-102); Mean Platelet Volume 10.3 FL (9.6-12.0); Monocytes # 1.1 10*3/uL (0.11-0.8); Monocytes % 8.6 % (1.7-12.7); Neutrophils # 9.1 10*3/uL (1.4-7.4); Neutrophils % 71.4 % (38.7-73.9); Platelet Count 201 T/CUMM (130-400); Red Cell Distribution Width 14.2 % (9.3-17.3); White Blood Count 12.8 T/CUMM (4-12)
[2017-04-13 04:55] LABS: Calcium 7.9 MG/DL (8.5-10.1)
[2017-04-13] MEDS: DILTIAZEM 30 MG TABLET PO SCH ×3 (05:50→21:14)
[2017-04-13 05:58] LABS: Band Neutrophils 2 % (0-10); Hypochromasia 1+; Lymphocytes 17 % (20-55); Metamyelocytes 1 %; Platelet Estimate Normal; Segmented Neutrophils 68 % (50-85); Total Cells Counted 100
[2017-04-13] MEDS: DORNASE ALFA 2.5 MG/2.5 ML VIAL RESP TX SCH ×2 (08:04→18:55)
[2017-04-13] MEDS: MULTIVITAMIN (CENTRUM) TABLET PO SCH (08:06)
[2017-04-13] MEDS: TAMSULOSIN 0.4 MG CAPSULE PO SCH (08:06)
[2017-04-13] MEDS: FLUoxetine 10 MG CAPSULE PO SCH (08:07)
[2017-04-13] MEDS: HYDROCORTISONE 25 MG SUPP RECTAL SCH ×2 (08:07→21:00)
[2017-04-13] MEDS: INSULIN GLARGINE 100 UNIT/ML SUBCUT SCH ×2 (08:07→21:14)
[2017-04-13] MEDS: CARVEDILOL 6.25 MG TABLET PER TUBE SCH ×2 (08:07→21:02)
[2017-04-13] MEDS: methylPREDNISolone SOD SUC 40 MG/1 ML VIAL IV SCH (08:07)
[2017-04-13] MEDS: VALPROIC ACID 250 MG/5 ML UDCUP PO SCH ×2 (08:07→21:03)
[2017-04-13] MEDS: THEOPHYLLINE ER 300 MG TABLET PO SCH ×2 (08:07→17:54)
[2017-04-13] MEDS: FUROSEMIDE 40 MG/4 ML VIAL IV SCH (08:09)
[2017-04-13] MEDS: CLOTRIMAZOLE 1% CREAM 15 GM TUBE TOP SCH ×2 (08:14→21:07)
[2017-04-13] MEDS: DESITIN 4OZ/NYSTATIN 15 GRAM MIXTURE PASTE TOP SCH ×2 (08:15→21:04)
[2017-04-13] MEDS: VANCOMYCIN INJ 2,000 MG in SODIUM CHLORIDE 0.9% 500 ML IV SCH ×2 (09:05→21:52)
[2017-04-13] MEDS: FLUCONAZOLE INJ 200 MG in PREMIX 1 EACH IV SCH (13:21)
--- NOTE | 2017-04-13 15:13 | Hospitalist Progress Note ---
Assessment and Plan (1) Acute respiratory failure with hypoxia Status: Acute Assessment and plan: Bilateral pneumonia growing ESBL E. coli and previous bronch MRSA. Continue vancomycin and meropenem. Worried about aspiration. Speech evaluation, [facility] referral. Current Visit: Yes (2) Congestive heart failure Status: Chronic Assessment and plan: bnp 142, Lasix 40 IV daily, echo 04/2016 ef 60% with pap 35 with grade 1 diastolic dysfunction Current Visit: Yes (3) Acute exacerbation of chronic obstructive airways disease Status: Acute Assessment and plan: cont duoneb and steroids Current Visit: Yes (4) Sleep apnea Status: Acute Assessment and plan: cpap at night, consult sleep medicine Current Visit: Yes (5) Pickwickian syndrome Status: Acute Current Visit: Yes (6) Atrial fibrillation with RVR Status: Acute Assessment and plan: rate controlled with coreg and dilt Current Visit: Yes (7) Insulin dependent diabetes mellitus Status: Chronic Assessment and plan: Not controlled,increase lantus Current Visit: Yes (8) Pneumonia, bacterial Problem details: 2/2 Ineffective cough with subsequent RML and RLL atelectasis. Also with a LLL infiltrate. Aspiration pneumonia considered given return of gastric content on bronch examination. Continue with current antibiotics. Improving. Status: Acute Assessment and plan: Concerned about aspiration. Bronc growing ESBL E. coli and MRSA. Continue vancomycin and meropenem. picc line in am Current Visit: Yes Hospitalist: Subjective Interval history: We made a referral for LTAC on Friday. Hopefully patient will be ready for [facility] on Friday blood sugars are still difficult to control wants to eat extra I told him that is no longer allowed. She is morbidly obese and needs to lose weight. He has also been rather cranky with nursing staff which I told him is not acceptable. Exam - Constitutional Vitals: Period Temp Pulse Resp BP Sys/Pina Pulse Ox Last 24 Hr 97.3 F-98.2 F 64-108 17-20 116-146/60-95 90-98 Exam: Heart Rate-[IRR] Lungs-[clear] GI-[+bs soft, NT, obese] Ext-[no edema] Neuro [Motor 4/5], [alert and oriented times 2] psych [depressed mood and flat affect] General [no acute distress] Results - Labs CBC & BMP: 04/13/17 04:13 04/13/17 04:13 Lab Results: I have reviewed the past 24 hour labs
[2017-04-13] MEDS: PREGABALIN 75 MG CAPSULE PO SCH (21:02)
[2017-04-14] MEDS: MEROPENEM 1,000 MG in SODIUM CHLORIDE 0.9% 100 ML IV SCH ×3 (00:56→18:57)
[2017-04-14] MEDS: ENOXAPARIN 40 MG/0.4 ML SYRINGE SUBCUT SCH (00:56)
[2017-04-14] MEDS: ALBUTEROL/IPRATROPIUM 3 ML NEB RESP TX SCH ×6 (02:48→23:59)
[2017-04-14] MEDS ORDERED: NITROGLYCERIN SL 0.4 MG TABLET SL ONE (02:48)
--- NOTE | 2017-04-14 06:09 | EKG Report ---
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
[2017-04-14 06:18] LABS: Basophils % 0.2 % (0.0-0.8); Eosinophils % 0.2 % (0.00-10.9); Hematocrit 33.7 VOL% (42.0-52.0); Hemoglobin 11.2 GM/DL (14.0-18.0); Immature Granulocytes % 4.9 %; Immature Granulocytes Absolute 0.63 #; Lymphocytes # 1.9 10*3/uL (1.4-4.0); Lymphocytes % 14.9 % (21.2-54.2); Mean Corpuscular HGB Conc 33.2 GM/DL (32-36); Mean Corpuscular Hemoglobin 29 PG (27-34); Mean Corpuscular Volume 87.5 FL (87-102); Mean Platelet Volume 10.4 FL (9.6-12.0); Monocytes # 1.1 10*3/uL (0.11-0.8); Monocytes % 8.7 % (1.7-12.7); Neutrophils # 9.1 10*3/uL (1.4-7.4); Neutrophils % 71.1 % (38.7-73.9); Platelet Count 213 T/CUMM (130-400); Red Blood Count 3.85 MC/CUMM (3.8-5.5); Red Cell Distribution Width 14.8 % (9.3-17.3); White Blood Count 12.9 T/CUMM (4-12)
[2017-04-14] MEDS: INSULIN REGULAR 100 UNIT/ML SUBCUT SCH ×3 (06:20→18:58)
[2017-04-14] MEDS: DILTIAZEM 30 MG TABLET PO SCH ×3 (06:21→23:27)
[2017-04-14 06:54] LABS: Calcium 7.8 MG/DL (8.5-10.1); Magnesium 2.2 MG/DL (1.8-2.4); Osmolality,Calculated 286.4 MOS/KG (273-304); Potassium 3.9 MMOL/L (3.5-5.1)
[2017-04-14 06:56] LABS: Hypochromasia 1+; Lymphocytes 15 % (20-55); Platelet Estimate Adequate; Segmented Neutrophils 75 % (50-85); Total Cells Counted 100
[2017-04-14] MEDS: DORNASE ALFA 2.5 MG/2.5 ML VIAL RESP TX SCH ×2 (07:24→20:41)
--- NOTE | 2017-04-14 08:49 | Hospitalist Progress Note ---
Hospitalist: Subjective Interval history: Patient seen and examined; no significant overnight events. Awaiting swing bed placement. Exam - Constitutional Vitals: Period Temp Pulse Resp BP Sys/Pina Pulse Ox Last 24 Hr 96.3 F-98.4 F 60-97 18-20 118-153/60-111 90-98 General appearance: normal weight, no acute distress - Head Head exam: Present: normal inspection, normocephalic, atraumatic - Eye Eye exam: Present: EOMI. Absent: conjunctival injection, nystagmus Pupils: Present: SCOTT, normal accommodation - ENT ENT exam: Present: normal exam, normal external ear exam, normal oropharynx - Neck Neck exam: Present: normal inspection. Absent: lymphadenopathy, meningismus, tenderness, thyromegaly - Respiratory Respiratory exam: Present: clear to auscultation bilaterally. Absent: rales, rhonchi, stridor, wheezes - Cardiovascular Cardiovascular exam: Present: regular rate and rhythm. Absent: carotid bruit, diastolic murmur, gallop, JVD, rubs, systolic murmur - GI/Abdominal GI/Abdominal exam: Present: normal bowel sounds, soft - Extremities Exam Extremities exam: Present: normal inspection, edema Results - Labs CBC & BMP: 04/14/17 06:06 04/14/17 06:06
--- NOTE | 2017-04-14 08:54 | Discharge Summary ---
<Indira Sethi - Last Filed: 04/14/17 08:51> Hospital Course - Hospital Course Hospital Course: This is a chronically ill 71-year-old male that presented to the ED at [facility] per EMS from [facility] on April 04, 2017 for evaluation of shortness of breath. The patient has a very extensive medical history significant for: Congestive heart failure, coronary artery disease, hypertension, bipolar disease, Parkinson's disease, insulin-dependent diabetes mellitus, dyslipidemia, chronic obstructive pulmonary disease, benign prostatic hypertrophy, osteoarthritis, morbid obesity, and GERD. The patient has a surgical history of hernia repair. On the day of presentation, the patient reported the onset of symptoms the morning of presentation. Apparently , the [facility]dc staff had noted the patient's O2 saturations in the 80s. Upon EMS arrival, the patient was placed on the air sampling and monitoring and was noted to be in atrial fibrillation with rapid ventricular response. At the time of ED presentation, the patient was very lethargic; and was observed falling into a deep sleep several times during which his sats dropped into the 70s. His O2 saturations improved with supplemental oxygen temporarily, the patient was eventually placed on BiPAP. Chest x-ray was obtained which reported pulmonary congestion and possible infiltrate at the left base. The patient was placed on a antiarrhythmic, Cardizem for rate control. He was subsequently admitted to the hospitalist services and transfer to critical care for continuation of care. Empiric antibiotics were started, blood and sputum cultures were obtained. Cardiac enzymes were obtained and were essentially benign. Inhaled and intravenous bronchodilators, intravenous corticosteroids were started. Cardiology and pulmonary consultations were requested. The patient's condition eventually improved and he was transferred from the critical care setting to the general medical surgical floor on April 10, 2017. The patient's condition has remained stable. He has not experienced any significant overnight events. Today, we feel that he is indeed appropriate for the [facility] for continuation of care. His discharge was held because his BAL grew MRSA, ESBL E. coli and nury albicans . . Patient's wants him to go back to old SNF who wont take him because of the IV antibiotics.ID saw in consultation and they recommended IV vancomycin and meropenem; until Friday(today) by which time he would have completed 7 days of therapy.He also received IV diflucan. Today he feels great, vitals are stable and he is ready to be discharged. Diagnosis - Discharge Diagnosis (1) Acute exacerbation of chronic obstructive airways disease Status: Acute (2) Acute respiratory failure with hypoxia Status: Acute (3) Atrial fibrillation with RVR Status: Acute Discharge Plan - Discharge Data Disposition: Swing Bed, Hos Based, [facility] Condition at Discharge: Stable Discharge Diet: heart healthy Activity: as per physical therapy, other (CPAP at night) Hygiene: no restrictions Weight Bearing at Discharge: other (Per PT recommmedations) Contact your physician if you experience:: fever over 101, Difficulty voiding, Redness or swelling, Nausea/Vomiting, Shortness of breath, Bleeding, pain uncontrolled by pain medications - Discharge Medications New Glucagon 1 mg IM PRN PRN vial PRN Reason: Hypoglycemia w/o IV access HYDROcodone/ACETAMIN 7.5-325 [Durant 7.5-325] 1 tablet PO Q4H PRN tablet PRN Reason: Pain Moderate (4-7) Insulin Glargine [Lantus] 30 unit SUBCUT BID unit Insulin Regular [HumuLIN R] See Protocol SUBCUT Q6HR unit Magnesium Hydroxide Susp [Milk of Magnesia] 30 ml PO Q8H PRN PRN Reason: Constipation Multivitamin (Centrum) [Centrum Tab] 1 tablet PO DAILY tablet Tamsulosin [Flomax] 0.4 mg PO DAILY capsule Theophylline ER Tab 150 mg PO BID W/MEALS tablet Carvedilol [Coreg] 6.25 mg PER TUBE BID tablet Diltiazem Tab [Cardizem Tab] 30 mg PO Q8HR tablet Valproic Acid Liquid [Depakene] 600 mg PO BID FLUoxetine [PROzac] 10 mg PO DAILY capsule HydrOXYzine PAMOATE CAP [Vistaril Cap] 25 mg PO Q6H PRN capsule PRN Reason: Itching Pregabalin [Lyrica] 150 mg PO BEDTIME capsule Albuterol/Ipratropium Neb [Duoneb] 3 ml RESP TX RT Q4H Dornase Christoph [Pulmozyme] 2.5 mg RESP TX RT Q12H vial Continue Albuterol/Ipratropium Neb [Duoneb] 3 ml RESP TX RT Q4H PRN PRN Reason: Shortness Of Breath/Wheezing Pantoprazole Tab [Protonix Tab] 40 mg PO DAILY Multivit-Min/FA/Lycopen/Lutein [Centrum Silver Tablet] 1 each PO DAILY Pravastatin [Pravachol] 40 mg PO BEDTIME #30 tablet Tamsulosin [Flomax] 0.4 mg PO DAILY #30 capsule Melatonin 5 mg PO BEDTIME Lactulose Liquid [Chronulac] 20 gm PO Q6HR PRN PRN Reason: high ammonia Aspirin EC Tab 325 mg PO DAILY tablet predniSONE TAB [PredniSONE] 20 mg PO DAILY #5 tablet FLUoxetine [PROzac] 10 mg PO DAILY OLANZapine TAB [ZyPREXA Tab] 2.5 mg PO BID Clotrimazole 1% Cream [Lotrimin 1% Cream] 1 applic TOP BID Discontinued Carvedilol [Coreg] 6.25 mg PO BID #60 tablet Losartan [Cozaar] 25 mg PO DAILY #30 tablet Magnesium Hydroxide Susp [Milk of Magnesia] 30 ml PO Q8H PRN PRN Reason: Constipation Divalproex [Depakote] 500 mg PO BID Hydrocortisone (Anusol-Hc) Sup [ANUSOL HC SUPP (hydrocortisone)] 25 mg RECTAL BID Insulin Detemir [Levemir] 20 unit SUBCUT DAILY No Action Insulin Regular [HumuLIN R] 0 unit SUBCUT ACHS Pregabalin [Lyrica] 150 mg PO BEDTIME #30 capsule Theophylline ER Tab 300 mg PO BID W/MEALS - Follow Up or Referral - Forms/Instructions Exam - Constitutional Vitals: Period Temp Pulse Resp BP Sys/Pina Pulse Ox Last 24 Hr 96.1 F-98.4 F 45-101 16-22 97-126/48-69 94-99 General appearance: normal weight, no acute distress - Head Head exam: Present: normal inspection, normocephalic, atraumatic - Eye Eye exam: Present: EOMI Pupils: Present: SCOTT, normal accommodation - ENT ENT exam: Present: normal exam, normal external ear exam, normal oropharynx - Neck Neck exam: Present: normal inspection, lymphadenopathy, meningismus. Absent: thyromegaly - Respiratory Respiratory exam: Present: rhonchi - Cardiovascular Cardiovascular exam: Present: regular rate and rhythm. Absent: carotid bruit, diastolic murmur, gallop, JVD, rubs, systolic murmur - GI/Abdominal GI/Abdominal exam: Present: normal bowel sounds, soft - Extremities Exam Extremities exam: Present: normal inspection, normal capillary refill, full ROM , edema (Trace) - Back Exam Back exam: Present: normal inspection - Neurological Exam Neurological exam: Present: alert, oriented X3 - Psychiatric Psychiatric exam: Present: normal affect, normal mood - Skin Skin exam: Present: normal color, warm, dry Discharge Results Procedures and tests throughout hospitalization: Pending Orders 04/07/17 AFB Culture/Smears Stat Fungal Culture w/ Prep Stat 04/08/17 08:10 AFB Culture/Smears Stat Fungal Culture w/ Prep Stat 04/09/17 09:15 Fungal Culture w/ Prep Stat Labs on day of discharge: Labs from last 24 hours 04/18/17 04/18/17 04/18/17 04:12 04:12 00:07 WBC 11.8 RBC 3.79 L Hgb 11.2 L Hct 33.2 L MCV 87.6 MCH 30 MCHC 33.7 RDW 15.3 Plt Count 195 MPV 10.7 Neut % (Auto) 75.6 H Lymph % (Auto) 14.2 L Wilkinson % (Auto) 8.2 Eos % (Auto) 0.0 Baso % (Auto) 0.2 Neut # (Auto) 8.9 H Lymph # (Auto) 1.7 Wilkinson # (Auto) 1.0 H Eos # (Auto) 0.0 Baso # (Auto) 0.0 Immature Gran % 1.8 Nucleated RBC % 0.0 Immature Gran # 0.21 Nucleated RBCs # 0.00 Sodium 140 Potassium 3.8 Chloride 102 Carbon Dioxide 33 H Anion Gap 8.8 BUN 20 H Creatinine 0.40 L GFR Calculation 172 BUN/Creatinine Ratio 50.00 H Glucose 127 H POC Glucose 255 H Calculated Osmolality 283.4 Calcium 8.4 L Vancomycin Trough 04/17/17 04/17/17 04/17/17 20:43 16:41 11:16 WBC RBC Hgb Hct MCV MCH MCHC RDW Plt Count MPV Neut % (Auto) Lymph % (Auto) Wilkinson % (Auto) Eos % (Auto) Baso % (Auto) Neut # (Auto) Lymph # (Auto) Wilkinson # (Auto) Eos # (Auto) Baso # (Auto) Immature Gran % Nucleated RBC % Immature Gran # Nucleated RBCs # Sodium Potassium Chloride Carbon Dioxide Anion Gap BUN Creatinine GFR Calculation BUN/Creatinine Ratio Glucose POC Glucose 232 H 152 H Calculated Osmolality Calcium Vancomycin Trough 11.3 Preliminary micro results at discharge 04/08/17 08:10 Mycobacterial Culture - Preliminary Bronchial Michael Lavage No AFB isolated at 1 week 04/07/17 Unknown Mycobacterial Culture - Preliminary Bronchial Michael Lavage No AFB isolated at 1 week 04/08/17 08:10 Fungal Culture - Preliminary Bronchial Michael Lavage Nury albicans 04/07/17 Unknown Fungal Culture - Preliminary Bronchial Michael Lavage Nury albicans 04/09/17 09:15 Fungal Culture - Preliminary Bronchial Michael Lavage Nury albicans DS: Provider Date of admission: 04/05/17 00:47 Primary care physician: . No PCP Attending physician on admission: Jeremiah Weeks DO Consults: 04/10/17 08:39 Consult to Physical Therapy [CONS] Routine Reason for Physical Therapy: Evaluate and Treat 04/11/17 15:18 Consult to Case Mgmt/Social Srvs [CONS] Routine Reason for Case Mgmt/Social Srvs: LTAC 04/11/17 16:49 Consult to Occupational Therapy [CONS] Routine Reason for Occupational Therapy: Evaluate and Treat Consult to Physical Therapy [CONS] Routine Reason for Physical Therapy: Evaluate and Treat 04/11/17 16:55 Consult to Pharmacy [CONS] Routine Reason for Pharmacy Consult: Dose/Manage Vancomycin Comment: please also manage meropenem 04/13/17 15:28 Consult to Sleep Center [CONS] Routine Reason for Sleep Center: Sleep Center Physician Consult Comment: blaine 04/14/17 14:39 Consult to Physician [CONS] Routine Comment: MRSA and ESBL coli PNA; need advice for oral abx Consulting Provider: Erica Burks Consulting Provider Notified: No When should Consulting Provider be notified: Now Consult to Specialist Group: Hospitalist When should Consulting Provider be notified: Now Person Notified: Roselia Date Notified: 04/14/17 Time Notified: 14:47 Discharging clinician: Indira Sethi CNP <Pinky Faria - Last Filed: 04/18/17 11:13> Hospital Course - Time spent with patient Time with patient DS: Greater than 30 minutes (Time:>35mins) Diagnosis - Discharge Diagnosis (1) Diabetes Status: Acute (2) History of atrial fibrillation Status: Acute (3) COPD (chronic obstructive pulmonary disease) Status: Chronic Discharge Plan - Forms/Instructions Additional Discharge Instructions: Follow with PCP in 1week
[2017-04-14] MEDS: VALPROIC ACID 250 MG/5 ML UDCUP PO SCH ×2 (09:48→21:18)
[2017-04-14] MEDS: TAMSULOSIN 0.4 MG CAPSULE PO SCH (09:48)
[2017-04-14] MEDS: FLUoxetine 10 MG CAPSULE PO SCH (09:48)
[2017-04-14] MEDS: FUROSEMIDE 40 MG/4 ML VIAL IV SCH (09:49)
[2017-04-14] MEDS: HYDROCORTISONE 25 MG SUPP RECTAL SCH ×2 (09:49→21:12)
[2017-04-14] MEDS: CARVEDILOL 6.25 MG TABLET PER TUBE SCH ×2 (09:49→21:18)
[2017-04-14] MEDS: INSULIN GLARGINE 100 UNIT/ML SUBCUT SCH ×2 (09:49→21:55)
[2017-04-14] MEDS: MULTIVITAMIN (CENTRUM) TABLET PO SCH (09:49)
[2017-04-14] MEDS: THEOPHYLLINE ER 300 MG TABLET PO SCH ×2 (09:49→18:57)
[2017-04-14] MEDS: VANCOMYCIN INJ 2,000 MG in SODIUM CHLORIDE 0.9% 500 ML IV SCH ×2 (09:50→21:22)
[2017-04-14] MEDS: methylPREDNISolone SOD SUC 40 MG/1 ML VIAL IV SCH (09:50)
[2017-04-14] MEDS: CLOTRIMAZOLE 1% CREAM 15 GM TUBE TOP SCH ×2 (09:51→21:21)
[2017-04-14] MEDS: DESITIN 4OZ/NYSTATIN 15 GRAM MIXTURE PASTE TOP SCH ×2 (09:51→21:21)
[2017-04-14] MEDS ORDERED: BISACODYL 5 MG TABLET PO ONE (10:22)
[2017-04-14] MEDS ORDERED: SODIUM PHOSPHATE ENEMA 133 ML BOTTLE RECTAL PRN (10:22)
[2017-04-14] MEDS ORDERED: LACTULOSE 20 GM/30 ML UDCUP PO ONE (10:22)
[2017-04-14] MEDS ORDERED: MAGNESIUM HYDROXIDE SUSP 30 ML UDCUP PO ONE (10:22)
--- NOTE | 2017-04-14 11:00 | Post Interventional Procedure ---
Pre-op diagnosis: MRSA bronch, LTAC transfer Post-op diagnosis: same Procedure: PICC LUE Flouroscopy: 0.1 min Radiologist: Jordin Wang Anesthesia: local Specimens: none sent Estimated blood loss: none Complications: none Condition: stable Assessment and Plan - Time spent with patient Time spent with patient: Less than 30 minutes
[2017-04-14] MEDS: FLUCONAZOLE INJ 200 MG in PREMIX 1 EACH IV SCH (11:24)
[2017-04-14] MEDS: FAMOTIDINE 20 MG/2 ML VIAL IV SCH ×2 (11:24→23:27)
--- NOTE | 2017-04-14 13:26 | Interventional Radiology Rpt ---
IR PICC line insertion, US guide vascular access Indication: MRSA pneumonia. Long-term IV antibiotics. PICC LINE Description: A formal timeout was performed. Maximum sterile barrier technique was used. Sonographic evaluation of the left upper extremity demonstrates patent and compressible basilar vein. The upper arm was prepped and draped in sterile fashion. 3 cc 1% lidocaine was administered subcutaneously. Under sonographic guidance, a micropuncture needle was advanced into the vein. A captured sonographic image documents the position of the needle. Needle was exchanged over a wire for a peel-away sheath. A dual lumen power PICC, cut to 54 cm, was advanced over the wire until the tip was at the RA-SVC junction. The position of the catheter was confirmed with fluoroscopic guidance and an image stored in PACS. The wire and sheath were removed. Both ports of the PICC were aspirated and flushed with heparinized saline. The device was secured with a StatLock. Fluoroscopy: 0.1 minute. Impression: PICC line ready for immediate use. Routine catheter care. PROCEDURE INTERPRETED AT [facility] DEPARTMENT OF RADIOLOGY Final Report Signed by: Jordin Wang M.D.
--- NOTE | 2017-04-14 14:23 | Hospitalist Progress Note ---
Assessment and Plan (1) Diabetes Status: Acute Assessment and plan: sugars are controlled and are likely exacerbated by steroids. Will change parenteral steroids to oral. May need to increase lantus. Current Visit: No (2) History of atrial fibrillation Status: Acute Assessment and plan: fairly rate controlled; continue current therapy Current Visit: No (3) Acute exacerbation of chronic obstructive airways disease Status: Acute Assessment and plan: stable; change IV steroids to oral; continue bronchodilator therapy and antibiotics Current Visit: Yes (4) Acute respiratory failure Status: Acute Assessment and plan: hypoxia; 2nd to pneumonia and COPD exacerbation; doing better Current Visit: No (5) Elevated troponin Status: Acute Assessment and plan: asymptomatic and stable levels Current Visit: No (6) Pickwickian syndrome Status: Chronic Current Visit: Yes (7) Insulin dependent diabetes mellitus Status: Chronic Current Visit: Yes (8) Pneumonia, bacterial Problem details: 2/2 Ineffective cough with subsequent RML and RLL atelectasis. Also with a LLL infiltrate. Aspiration pneumonia considered given return of gastric content on bronch examination. Continue with current antibiotics. Improving. Status: Acute Assessment and plan: BAL grew MRSA and ESBL E. coli. Patient is on vancomycin and merrem. Patient's wants him to go back to old SNF who wont take him because of the IV antibiotics. Bugs are sensitive to tetracycline/rifampin/augmentin. Will consult ID for help with oral anbitiotics so that patient can go back to [facility] care. Current Visit: Yes Hospitalist: Subjective Interval history: Patient has no complaints. does not want patient to go to [facility] because patient will loose his bed at other facility. He is on vancomycin and merrem and will need the antibiotics for 12 days. He has MRSA and ESBL E. coli on BAL. Bugs are sensitive to tetracycline and rifampin. Exam - Constitutional Vitals: Period Temp Pulse Resp BP Sys/Pina Pulse Ox Last 24 Hr 96.3 F-98.4 F 53-103 18-29 118-153/70-111 90-100 - Eye Eye exam: Present: EOMI Pupils: Present: SCOTT - Neck Neck exam: Present: normal inspection - Respiratory Respiratory exam: Present: clear to auscultation bilaterally, decreased breath sounds - Cardiovascular Cardiovascular exam: Present: regular rate and rhythm - GI/Abdominal GI/Abdominal exam: Present: normal bowel sounds - Extremities Exam Extremities exam: Present: other (no edema) Results - Labs CBC & BMP: 04/14/17 06:06 04/14/17 06:06
--- NOTE | 2017-04-14 15:57 | Infectious Disease Consult ---
Assessment and Plan (1) Acute exacerbation of chronic obstructive airways disease Status: Acute Current Visit: Yes (2) Acute respiratory failure with hypoxia Status: Acute Assessment and plan: Treated with mechanical ventilation. He has been off the vent for several days and relatively stable clinically. Current Visit: Yes (3) Atrial fibrillation Status: Acute Current Visit: Yes (4) Pneumonia, bacterial Problem details: 2/2 Ineffective cough with subsequent RML and RLL atelectasis. Also with a LLL infiltrate. Aspiration pneumonia considered given return of gastric content on bronch examination. Continue with current antibiotics. Improving. Status: Acute Assessment and plan: This pneumonia is polymicrobial with ESBL E. coli and MRSA isolate. Healthcare associated. Recommendations: 1. Agree with vancomycin and meropenem; he can continue these until Friday by which time he would have completed 7 days of therapy 2. When he gets discharged on Friday he can go back to the shelter on Bactrim double strength 1 tablet twice a day and continue this for 1 week; given the severity of his pneumonia I recommend treating him for total 2 weeks [ including the 1 week of IV]. Thank you very much for the consult. Will follow while he is here. Current Visit: Yes (5) Congestive heart failure Status: Chronic Current Visit: Yes (6) Insulin dependent diabetes mellitus Status: Chronic Current Visit: Yes History of Present Illness Chief complaint: Pneumonia, advise antibiotic therapy History of present illness: Mr. Bailey is a 71 year old male with multiple comorbid who resides in a shelter presented to hospital 10 days ago with respiratory distress. Ultimately he developed respiratory failure and required intubation and mechanical ventilation. Respiratory failure was felt to be due to COPD exacerbation and pneumonia. He had bronchoscopy done and sputum cultures came up positive for MRSA and ESBL E. coli. Batsheva albicans was also isolated. The patient has been getting vancomycin and meropenem and was recommended to go to [facility] to complete treatment. However he was at the shelter and the family says that he will lose his bed if he does not get back there on Friday. I am asked to advise antibiotic therapy. Patient says overall he feels better, with less cough and sputum production. He has not had fever recently. Home Medications Medication Instructions Recorded Confirmed Type Albuterol/Ipratropium Neb [Duoneb] 3 ml RESP TX RT Q4H PRN 05/09/15 04/05/17 History Insulin Regular [HumuLIN R] 0 unit SUBCUT ACHS 05/09/15 04/05/17 History Multivit-Min/FA/Lycopen/Lutein 1 each PO DAILY 05/09/15 04/05/17 History [Centrum Silver Tablet] Pantoprazole Tab [Protonix Tab] 40 mg PO DAILY 05/09/15 04/05/17 History Carvedilol [Coreg] 6.25 mg PO BID #60 tablet 05/12/15 04/05/17 Rx Losartan [Cozaar] 25 mg PO DAILY #30 tablet 05/12/15 04/05/17 Rx Pravastatin [Pravachol] 40 mg PO BEDTIME #30 tablet 05/12/15 04/05/17 Rx Pregabalin [Lyrica] 150 mg PO BEDTIME #30 capsule 05/12/15 04/05/17 Rx Tamsulosin [Flomax] 0.4 mg PO DAILY #30 capsule 05/12/15 04/05/17 Rx Divalproex [Depakote] 500 mg PO BID 04/17/16 04/05/17 History Lactulose Liquid [Chronulac] 20 gm PO Q6HR PRN 04/17/16 04/05/17 History Melatonin 5 mg PO BEDTIME 04/17/16 04/05/17 History Aspirin EC Tab 325 mg PO DAILY tablet 04/22/16 04/05/17 Rx predniSONE TAB [PredniSONE] 20 mg PO DAILY #5 tablet 04/22/16 04/05/17 Rx Clotrimazole 1% Cream [Lotrimin 1% 1 applic TOP BID 04/05/17 04/05/17 History Cream] FLUoxetine [PROzac] 10 mg PO DAILY 04/05/17 04/05/17 History OLANZapine TAB [ZyPREXA Tab] 2.5 mg PO BID 04/05/17 04/05/17 History Theophylline ER Tab 300 mg PO BID W/MEALS 04/05/17 04/05/17 History FLUoxetine [PROzac] 10 mg PO DAILY capsule 04/14/17 Rx Fluconazole Inj [Diflucan Inj] 200 mg IV Q24H 04/14/17 Rx Glucagon 1 mg IM PRN PRN vial 04/14/17 Rx HYDROcodone/ACETAMIN 7.5-325 1 tablet PO Q4H PRN tablet 04/14/17 Rx [[place] 7.5-325] HydrOXYzine PAMOATE CAP [Vistaril 25 mg PO Q6H PRN capsule 04/14/17 Rx Cap] Insulin Glargine [Lantus] 30 unit SUBCUT BID unit 04/14/17 Rx Insulin Regular [HumuLIN R] See Protocol SUBCUT Q6HR unit 04/14/17 Rx Magnesium Hydroxide Susp [Milk of 30 ml PO Q8H PRN 04/14/17 Rx Magnesia] Meropenem [Merrem] 1,000 mg IV Q8H vial 04/14/17 Rx Multivitamin (Centrum) [Centrum 1 tablet PO DAILY tablet 04/14/17 Rx Tab] Ondansetron Inj [Zofran Inj] 4 mg IV Q4H PRN vial 04/14/17 Rx Pregabalin [Lyrica] 150 mg PO BEDTIME capsule 04/14/17 Rx Tamsulosin [Flomax] 0.4 mg PO DAILY capsule 04/14/17 Rx Theophylline ER Tab 150 mg PO BID W/MEALS tablet 04/14/17 Rx Vancomycin Inj 2,000 mg IV Q12H vial 04/14/17 Rx Allergies Allergy/AdvReac Type Severity Reaction Status Date / Time Hydromorphone [From Dilaudid] AdvReac Unknown/Unable Verified 04/04/17 23:10 to obtain morphine AdvReac Unknown/Unable Verified 04/04/17 23:10 to obtain ROS unobtainable: due to mental status (Patient said "I do not know" to most of the questions, he may have underlying dementia) 12 point system: reviewed and no additional remarkable complaints except as stated Medical,Surgical,& Family Hx - Medical History Cardio: History of: Cardiac Dysrhythmia, CHF (Perhaps diastolic, last EF was 60% ), CAD, Hypertension Psychological: History of: Bipolar Disorder, Depression, Psychiatric Problems Neurology: History of: Cerebrovascular Accident (left side weakness), Parkinson' s Disease Endocrine: History of: Diabetes Mellitus (IDDM), Dyslipidemia Respiratory: History of: COPD, Obstructive Sleep Apnea Genitourinary: History of: Prostate Problems, Recurring Urinary Tract Infections Gastrointestinal: History of: GERD, Hemorrhoids Musculoskeletal: History of: Musculoskeletal Problems (generalized osteoarthritis) Hematology: History of: Clotting Problems Other: History of: Miscellaneous Medical Problems (hernia repair) - Surgical History Neurologic Surgeries: Patient denies: Neurologic Surgery Abdominal Surgeries: Surgical HX of: Hernia Repair - Family History Family History: Reports;: Family Diabetes, Family Heart Disease - Social History Smoking Status: Former smoker Frequency of Alcohol Use: None Type of Drug Use: None Infectious Disease Exam H&P - Constitutional Vitals: Vital Signs Temp Pulse Resp BP Pulse Ox 97.3 F L 72 20 137/94 97 04/14/17 11:54 04/14/17 14:27 04/14/17 14:27 04/14/17 13:09 04/14/17 14:27 Intake and Output 04/13/17 04/14/17 04/14/17 23:59 07:59 15:59 Intake Total 840 / 840 1240 / 1240 600 / 600 Balance 840 / 840 1240 / 1240 600 / 600 Intake: IV 200 / 200 600 / 600 600 / 600 Diflucan Inj 200 mg In 100 / 100 Premix 1 Each @ 100 mls/ hr IV Q24H [facility] Rx#: [id number] Merrem 1,000 mg In Ns 100 100 / 100 100 / 100 100 / 100 ml @ 200 mls/hr IV Q8H [facility] Rx#:[id number] Vancomycin Inj 1,000 mg 500 / 500 500 / 500 In Ns 500 ml @ 250 mls/hr IV Q12H [facility] Rx#: [id number] Oral 640 / 640 640 / 640 Other: Voiding Method Brief Brief Brief # Voids 4 3 3 # Bowel Movements 1 Weight 130.907 kg Patient Weight 04/14/17 23:59 Weight 130.907 kg Exam: General: Patient morbidly obese, chronically ill-appearing HEENT: Mucous membranes pink and moist, anicteric acyanotic, SCOTT, no oral exudates Neck: Supple, no thyroid gland enlargement R: Harsh breath sounds throughout with scattered rhonchi Cardiovascular: Normal S1 and S2, no murmurs appreciated Abdomen: Obese, normal bowel sounds, soft nontender throughout, unable to appreciate organomegaly or mass due to obesity Genitourinary: No suprapubic pain or bladder distention Extremities: Mild bilateral lower extremity edema Skin: No rash Reports - Labs CBC & BMP: 04/14/17 06:06 04/14/17 15:38 Labs: Laboratory Results - last 24 hr 04/13/17 04/13/17 04/13/17 17:48 20:38 22:56 WBC RBC Hgb Hct MCV MCH MCHC RDW Plt Count MPV Neut % (Auto) Lymph % (Auto) [place] % (Auto) Eos % (Auto) Baso % (Auto) Neut # (Auto) Lymph # (Auto) [place] # (Auto) Eos # (Auto) Baso # (Auto) Total Counted Immature Gran % Nucleated RBC % Immature Gran # Segmented Neutrophils Lymphocytes Monocytes Nucleated RBCs # Platelet Estimate Hypochromasia Morphology Comment Sodium Potassium Chloride Carbon Dioxide Anion Gap BUN Creatinine GFR Calculation BUN/Creatinine Ratio Glucose POC Glucose 306 H 315 H Calculated Osmolality Calcium Magnesium Vancomycin Trough 13.2 04/14/17 04/14/17 04/14/17 05:38 06:06 06:06 WBC 12.9 H RBC 3.85 Hgb 11.2 L Hct 33.7 L MCV 87.5 MCH 29 MCHC 33.2 RDW 14.8 Plt Count 213 MPV 10.4 Neut % (Auto) 71.1 Lymph % (Auto) 14.9 L [place] % (Auto) 8.7 Eos % (Auto) 0.2 Baso % (Auto) 0.2 Neut # (Auto) 9.1 H Lymph # (Auto) 1.9 [place] # (Auto) 1.1 H Eos # (Auto) 0.0 Baso # (Auto) 0.0 Total Counted 100 Immature Gran % 4.9 Nucleated RBC % 0.0 Immature Gran # 0.63 Segmented Neutrophils 75 Lymphocytes 15 L Monocytes 10 Nucleated RBCs # 0.00 Platelet Estimate Adequate Hypochromasia 1+ Morphology Comment Sodium 140 Potassium 3.9 Chloride 98 Carbon Dioxide 36 H Anion Gap 9.9 BUN 20 H Creatinine 0.40 L GFR Calculation 175 BUN/Creatinine Ratio 50.00 H Glucose 188 H POC Glucose 222 H Calculated Osmolality 286.4 Calcium 7.8 L Magnesium 2.2 Vancomycin Trough 04/14/17 11:39 WBC RBC Hgb Hct MCV MCH MCHC RDW Plt Count MPV Neut % (Auto) Lymph % (Auto) [place] % (Auto) Eos % (Auto) Baso % (Auto) Neut # (Auto) Lymph # (Auto) [place] # (Auto) Eos # (Auto) Baso # (Auto) Total Counted Immature Gran % Nucleated RBC % Immature Gran # Segmented Neutrophils Lymphocytes Monocytes Nucleated RBCs # Platelet Estimate Hypochromasia Morphology Comment Sodium Potassium Chloride Carbon Dioxide Anion Gap BUN Creatinine GFR Calculation BUN/Creatinine Ratio Glucose POC Glucose 169 H Calculated Osmolality Calcium Magnesium Vancomycin Trough - Reports Microbiology: Microbiology 04/08/17 08:10 Fungal Culture - Preliminary Bronchial Michael Lavage Batsheva albicans Fungal Smear - Final No fungal elements seen 04/07/17 Unknown Fungal Culture - Preliminary Bronchial Michael Lavage Batsheva albicans Fungal Smear - Final No fungal elements seen 04/09/17 09:15 Fungal Culture - Preliminary Bronchial Michael Lavage Batsheva albicans Fungal Smear - Final No fungal elements seen - Diagnostic Findings Procedure: Chest x-ray: image reviewed by me, report reviewed by me (Left lung base opacity improved today compared to when he was admitted)
[2017-04-14 16:30] LABS: Calcium 7.7 MG/DL (8.5-10.1); Magnesium 2.2 MG/DL (1.8-2.4); Osmolality,Calculated 289.1 MOS/KG (273-304); Potassium 4.1 MMOL/L (3.5-5.1)
--- NOTE | 2017-04-14 17:09 | Sleep Medicine Consult ---
Assessment and Plan (1) Unspecified Sleep Apnea Status: Acute Assessment and plan: Given that we cannot find if this patient has been documented to have sleep apnea, we will do HST on him tonight to see if we can qualify him for diagnosis. If so, CPAP auto titration could be ordered for him while here and we can follow-up those results to ascertain best prescription. Current Visit: No (2) Diabetes Status: Acute Assessment and plan: The prevalence rate for obstructive sleep apnea in patients with type 2 diabetes can be as high as 86%. Those patients with moderate to severe obstructive sleep apnea are at a greater risk for diabetic nephropathy and neuropathy. Compliance with CPAP therapy for these patients can lead to improvement in glycemic control and improvement in insulin sensitivity. Current Visit: No (3) Atrial fibrillation Status: Acute Assessment and plan: Untreated sleep apnea certainly can be a contributing factor to recurrent atrial fib. Controlling underlying sleep apnea can decrease risk of recurrent atrial fib. Current Visit: Yes History of Present Illness Chief complaint: Sleep apnea History of present illness: Mr. Bailey is a 71 year old male this patient is known to me. He has a history of obesity hypoventilation, COPD, and sleep apnea. I saw him in 2014 from a sleep medicine standpoint. He had a history of snoring and awakening from sleep short of breath. He was uncertain at that time if he ever had sleep study. After that consultation, he was set up for follow-up in the sleep clinic and sleep study evaluation. We can find no record of that sleep evaluation having been done. He was admitted on this occasion with pneumonia and acute respiratory failure and required mechanical ventilation. After extubation, he was placed on BiPAP of 10/08 yesterday and has actually done fairly well on that. On the one night he utilized it on 04/13, he spent over 8 hours on it and had an average AHI of 4.6. Sleep medicine was consulted for evaluation. It was difficult to get any meaningful history from the patient. He did arouse and thought that he had a CPAP machine at the retirement that he used and that he liked. Again, we could find no record prior sleep evaluation in the sleep clinic. Home Medications Medication Instructions Recorded Confirmed Type Albuterol/Ipratropium Neb [Duoneb] 3 ml RESP TX RT Q4H PRN 05/09/15 04/05/17 History Insulin Regular [HumuLIN R] 0 unit SUBCUT ACHS 05/09/15 04/05/17 History Multivit-Min/FA/Lycopen/Lutein 1 each PO DAILY 05/09/15 04/05/17 History [Centrum Silver Tablet] Pantoprazole Tab [Protonix Tab] 40 mg PO DAILY 05/09/15 04/05/17 History Carvedilol [Coreg] 6.25 mg PO BID #60 tablet 05/12/15 04/05/17 Rx Losartan [Cozaar] 25 mg PO DAILY #30 tablet 05/12/15 04/05/17 Rx Pravastatin [Pravachol] 40 mg PO BEDTIME #30 tablet 05/12/15 04/05/17 Rx Pregabalin [Lyrica] 150 mg PO BEDTIME #30 capsule 05/12/15 04/05/17 Rx Tamsulosin [Flomax] 0.4 mg PO DAILY #30 capsule 05/12/15 04/05/17 Rx Divalproex [Depakote] 500 mg PO BID 04/17/16 04/05/17 History Lactulose Liquid [Chronulac] 20 gm PO Q6HR PRN 04/17/16 04/05/17 History Melatonin 5 mg PO BEDTIME 04/17/16 04/05/17 History Aspirin EC Tab 325 mg PO DAILY tablet 04/22/16 04/05/17 Rx predniSONE TAB [PredniSONE] 20 mg PO DAILY #5 tablet 04/22/16 04/05/17 Rx Clotrimazole 1% Cream [Lotrimin 1% 1 applic TOP BID 04/05/17 04/05/17 History Cream] FLUoxetine [PROzac] 10 mg PO DAILY 04/05/17 04/05/17 History OLANZapine TAB [ZyPREXA Tab] 2.5 mg PO BID 04/05/17 04/05/17 History Theophylline ER Tab 300 mg PO BID W/MEALS 04/05/17 04/05/17 History FLUoxetine [PROzac] 10 mg PO DAILY capsule 04/14/17 Rx Fluconazole Inj [Diflucan Inj] 200 mg IV Q24H 04/14/17 Rx Glucagon 1 mg IM PRN PRN vial 04/14/17 Rx HYDROcodone/ACETAMIN 7.5-325 1 tablet PO Q4H PRN tablet 04/14/17 Rx [[place] 7.5-325] HydrOXYzine PAMOATE CAP [Vistaril 25 mg PO Q6H PRN capsule 04/14/17 Rx Cap] Insulin Glargine [Lantus] 30 unit SUBCUT BID unit 04/14/17 Rx Insulin Regular [HumuLIN R] See Protocol SUBCUT Q6HR unit 04/14/17 Rx Magnesium Hydroxide Susp [Milk of 30 ml PO Q8H PRN 04/14/17 Rx Magnesia] Meropenem [Merrem] 1,000 mg IV Q8H vial 04/14/17 Rx Multivitamin (Centrum) [Centrum 1 tablet PO DAILY tablet 04/14/17 Rx Tab] Ondansetron Inj [Zofran Inj] 4 mg IV Q4H PRN vial 04/14/17 Rx Pregabalin [Lyrica] 150 mg PO BEDTIME capsule 04/14/17 Rx Tamsulosin [Flomax] 0.4 mg PO DAILY capsule 04/14/17 Rx Theophylline ER Tab 150 mg PO BID W/MEALS tablet 04/14/17 Rx Vancomycin Inj 2,000 mg IV Q12H vial 04/14/17 Rx Allergies Allergy/AdvReac Type Severity Reaction Status Date / Time Hydromorphone [From Dilaudid] AdvReac Unknown/Unable Verified 04/04/17 23:10 to obtain morphine AdvReac Unknown/Unable Verified 04/04/17 23:10 to obtain Review of systems: Difficult to obtain due to his neurological condition. Exam ([place]) H&P - Constitutional Vitals: Period Temp Pulse Resp BP Sys/Pina Pulse Ox Last 24 Hr 96.3 F-98.1 F 53-103 18-29 118-153/70-111 90-100 Exam: He is alert and responsive in no acute distress. Pupils equal round reactive to light and accommodation. Extraocular movements intact. Oropharynx with a class IV Mallampati exam. Neck supple without adenopathy. Chest with fair air movement and no focal wheeze or rhonchi. Cardiac exam reveals a regular rhythm without murmur or gallop. Abdomen obese nontender without palpable hepatosplenomegaly or mass. Extremities without significant pitting edema at present. Neurologically, grossly intact. Medical,Surgical,& Family Hx - Medical History Cardio: History of: Cardiac Dysrhythmia, CHF (Perhaps diastolic, last EF was 60% ), CAD, Hypertension Psychological: History of: Bipolar Disorder, Depression, Psychiatric Problems Neurology: History of: Cerebrovascular Accident (left side weakness), Parkinson' s Disease Endocrine: History of: Diabetes Mellitus (IDDM), Dyslipidemia Respiratory: History of: COPD, Obstructive Sleep Apnea Genitourinary: History of: Prostate Problems, Recurring Urinary Tract Infections Gastrointestinal: History of: GERD, Hemorrhoids Musculoskeletal: History of: Musculoskeletal Problems (generalized osteoarthritis) Hematology: History of: Clotting Problems Other: History of: Miscellaneous Medical Problems (hernia repair) - Surgical History Neurologic Surgeries: Patient denies: Neurologic Surgery Abdominal Surgeries: Surgical HX of: Hernia Repair - Family History Family History: Reports;: Family Diabetes, Family Heart Disease - Social History Smoking Status: Former smoker Frequency of Alcohol Use: None Type of Drug Use: None Results - Labs CBC & BMP: 04/14/17 06:06 04/14/17 15:38
[2017-04-14] MEDS: PREGABALIN 75 MG CAPSULE PO SCH (21:15)
[2017-04-14] MEDS: HydrOXYzine PAMOATE 25 MG CAPSULE PO PRN (23:26)
[2017-04-15] MEDS: INSULIN REGULAR 100 UNIT/ML SUBCUT SCH ×4 (01:28→18:21)
[2017-04-15] MEDS: ENOXAPARIN 40 MG/0.4 ML SYRINGE SUBCUT SCH (01:30)
[2017-04-15] MEDS: MEROPENEM 1,000 MG in SODIUM CHLORIDE 0.9% 100 ML IV SCH ×3 (01:35→17:10)
[2017-04-15] MEDS: ALBUTEROL/IPRATROPIUM 3 ML NEB RESP TX SCH ×6 (03:34→23:30)
[2017-04-15 05:59] LABS: Basophils % 0.1 % (0.0-0.8); Eosinophils % 0.3 % (0.00-10.9); Hematocrit 33.7 VOL% (42.0-52.0); Hemoglobin 11.3 GM/DL (14.0-18.0); Immature Granulocytes % 2.9 %; Lymphocytes % 14.8 % (21.2-54.2); Mean Corpuscular HGB Conc 33.5 GM/DL (32-36); Mean Corpuscular Hemoglobin 29 PG (27-34); Mean Corpuscular Volume 87.8 FL (87-102); Mean Platelet Volume 10.4 FL (9.6-12.0); Monocytes # 0.9 10*3/uL (0.11-0.8); Monocytes % 6.8 % (1.7-12.7); Neutrophils # 10.2 10*3/uL (1.4-7.4); Neutrophils % 75.1 % (38.7-73.9); Platelet Count 189 T/CUMM (130-400); Red Blood Count 3.84 MC/CUMM (3.8-5.5); White Blood Count 13.6 T/CUMM (4-12)
[2017-04-15] MEDS: DILTIAZEM 30 MG TABLET PO SCH ×3 (07:13→22:00)
[2017-04-15] MEDS: DORNASE ALFA 2.5 MG/2.5 ML VIAL RESP TX SCH ×2 (07:26→22:10)
[2017-04-15] MEDS: INSULIN GLARGINE 100 UNIT/ML SUBCUT SCH ×2 (09:17→22:11)
--- NOTE | 2017-04-15 09:58 | Hospitalist Progress Note ---
<Indira Sethi - Last Filed: 04/15/17 09:55> Assessment and Plan (1) Acute exacerbation of chronic obstructive airways disease Status: Acute Assessment and plan: Stable, IV steroids changed to oral, continue bronchodilator therapy and antibiotics as previously ordered. Current Visit: Yes (2) Acute respiratory failure with hypoxia Status: Acute Assessment and plan: Respiratory status is stable; continue CPAP at the hour of sleep as ordered. Current Visit: Yes (3) Atrial fibrillation with RVR Status: Acute Assessment and plan: Rate fairly controlled, continue current therapy. Current Visit: Yes Hospitalist: Subjective Interval history: Patient seen and examined; chart review. No significant overnight events reported. Transfer to swing bed counseled on yesterday per family refusal to be transferred. Family request the patient be sent back to [facility]. Patient seen yesterday by infectious disease; agree with plan to continue IV antibiotics until Friday transition to p.o. medications and discharged back to [facility]. Exam - Constitutional Vitals: Period Temp Pulse Resp BP Sys/Pina Pulse Ox Last 24 Hr 97.1 F-98.5 F 50-114 16-29 111-151/66-94 90-100 General appearance: no acute distress, morbidly obese - Head Head exam: Present: normal inspection, normocephalic, atraumatic - Eye Eye exam: Present: EOMI. Absent: conjunctival injection, nystagmus Pupils: Present: SCOTT, normal accommodation - ENT ENT exam: Present: normal exam, normal external ear exam, normal oropharynx - Neck Neck exam: Present: normal inspection. Absent: lymphadenopathy, meningismus, tenderness, thyromegaly - Respiratory Respiratory exam: Present: clear to auscultation bilaterally, decreased breath sounds - Cardiovascular Cardiovascular exam: Present: regular rate and rhythm. Absent: carotid bruit, diastolic murmur, gallop, JVD, rubs, systolic murmur - GI/Abdominal GI/Abdominal exam: Present: normal bowel sounds, soft - Extremities Exam Extremities exam: Present: normal inspection, normal capillary refill, full ROM - Back Exam Back exam: Present: normal inspection - Neurological Exam Neurological exam: Present: alert, oriented X3, CN II-XII intact - Psychiatric Psychiatric exam: Present: normal affect, normal mood - Skin Skin exam: Present: normal color, warm, dry Results - Labs CBC & BMP: 04/15/17 04:50 04/14/17 15:38 Lab Results: I have reviewed the past 24 hour labs <CoreyTrish chowdhury - Last Filed: 04/15/17 17:01> Assessment and Plan (1) Diabetes Status: Acute Current Visit: No (2) History of atrial fibrillation Status: Acute Current Visit: No (3) Acute exacerbation of chronic obstructive airways disease Status: Acute Current Visit: Yes (4) Acute respiratory failure Status: Acute Current Visit: No (5) Elevated troponin Status: Acute Current Visit: No (6) Pickwickian syndrome Status: Chronic Current Visit: Yes (7) Insulin dependent diabetes mellitus Status: Chronic Current Visit: Yes (8) Pneumonia, bacterial Problem details: 2/2 Ineffective cough with subsequent RML and RLL atelectasis. Also with a LLL infiltrate. Aspiration pneumonia considered given return of gastric content on bronch examination. Continue with current antibiotics. Improving. Status: Acute Current Visit: Yes Hospitalist: Subjective Interval history: Patient seen and examined. I have reviewed the progress note by AZALEA Sethi, and I agree with the information. Active Issues: 1. MRSA and ESBL E. coli PNA: seen by ID who recommended vanc/merrem until Friday then discharge back to [facility] on 7 days of bactrim. 2. COPD: stable; continue current regimen 3. Acute hypoxic respiratory failure: 2nd to pneumonia and COPD: stable 4. Elevated troponin: asymptomatic and stable levels 5. Discharge: Friday to [facility] Exam - Constitutional Vitals: Period Temp Pulse Resp BP Sys/Pina Pulse Ox Last 24 Hr 97.1 F-97.8 F 47-102 16-24 98-151/54-77 95-99 Results - Labs CBC & BMP: 04/15/17 04:50 04/14/17 15:38
[2017-04-15] MEDS: FAMOTIDINE 20 MG/2 ML VIAL IV SCH ×2 (11:14→23:20)
[2017-04-15] MEDS: VALPROIC ACID 250 MG/5 ML UDCUP PO SCH ×2 (11:16→22:04)
[2017-04-15] MEDS: TAMSULOSIN 0.4 MG CAPSULE PO SCH (11:16)
[2017-04-15] MEDS: MULTIVITAMIN (CENTRUM) TABLET PO SCH (11:17)
[2017-04-15] MEDS: HYDROCORTISONE 25 MG SUPP RECTAL SCH ×2 (11:17→21:59)
[2017-04-15] MEDS: CARVEDILOL 6.25 MG TABLET PER TUBE SCH ×2 (11:17→21:59)
[2017-04-15] MEDS: THEOPHYLLINE ER 300 MG TABLET PO SCH ×2 (11:17→17:10)
[2017-04-15] MEDS: FLUoxetine 10 MG CAPSULE PO SCH (11:18)
[2017-04-15] MEDS: FUROSEMIDE 40 MG/4 ML VIAL IV SCH (11:18)
[2017-04-15] MEDS: FLUCONAZOLE INJ 200 MG in PREMIX 1 EACH IV SCH (11:19)
[2017-04-15] MEDS: methylPREDNISolone SOD SUC 40 MG/1 ML VIAL IV SCH (11:19)
[2017-04-15] MEDS: DESITIN 4OZ/NYSTATIN 15 GRAM MIXTURE PASTE TOP SCH ×2 (11:20→22:04)
[2017-04-15] MEDS: CLOTRIMAZOLE 1% CREAM 15 GM TUBE TOP SCH ×2 (11:20→22:03)
[2017-04-15] MEDS: VANCOMYCIN INJ 2,000 MG in SODIUM CHLORIDE 0.9% 500 ML IV SCH ×2 (12:34→15:10)
--- NOTE | 2017-04-15 13:10 | Sleep Medicine Progress Note ---
Assessment and Plan (1) Unspecified Sleep Apnea Status: Acute Assessment and plan: Plan will be to do HST evaluation tonight. He will not sleep with BiPAP. We will follow-up on those results. Current Visit: No (2) Diabetes Status: Acute Current Visit: No (3) Atrial fibrillation Status: Acute Current Visit: Yes Sleep Medicine Subjective Interval history: We had set patient up for home sleep apnea testing last night but his BiPAP device was placed on him and so that test was not acceptable. We are hoping to clearly establish diagnosis of sleep apnea so we can send an order for CPAP or BiPAP therapy to his assisted. I have told the nurses that we will not utilize BiPAP tonight. Exam (Progress Note) - Constitutional Vitals: Period Temp Pulse Resp BP Sys/Pina Pulse Ox Last 24 Hr 97.1 F-98.5 F 50-114 16-24 111-151/66-94 90-99 Exam: He looks more alert and responsive today. HEENT unchanged chest with fair air movement without significant wheeze or rhonchi. Cardiac exam reveals a regular rhythm without murmur or gallop. Abdomen obese nontender extremities without increased edema. Results - Labs CBC & BMP: 04/15/17 04:50 04/14/17 15:38 Lab Results: I have reviewed the past 24 hour labs
--- NOTE | 2017-04-15 17:15 | Infectious Disease Progress ---
Assessment and Plan (1) Acute exacerbation of chronic obstructive airways disease Status: Acute Current Visit: Yes (2) Acute respiratory failure with hypoxia Status: Acute Assessment and plan: Treated with mechanical ventilation. He has been off the vent for several days and relatively stable clinically. Current Visit: Yes (3) Atrial fibrillation Status: Acute Current Visit: Yes (4) Pneumonia, bacterial Problem details: 2/2 Ineffective cough with subsequent RML and RLL atelectasis. Also with a LLL infiltrate. Aspiration pneumonia considered given return of gastric content on bronch examination. Continue with current antibiotics. Improving. Status: Acute Assessment and plan: This pneumonia is polymicrobial with ESBL E. coli and MRSA isolated. Healthcare associated. Recommendations: 1. Continue vancomycin and meropenem until Friday by which time he would have completed 7 days of therapy 2. When he gets discharged on Friday he can go back to the [facility] on Bactrim double strength 1 tablet twice a day and continue this for 1 week Current Visit: Yes (5) Congestive heart failure Status: Chronic Current Visit: Yes (6) Insulin dependent diabetes mellitus Status: Chronic Current Visit: Yes Infectious Disease - PN: Subj Interval history: Doing relatively okay today but overall, tolerating antibiotics without difficulties. Still has a bit of a wet cough. No fever. Infectious Disease Exam (PN) - Constitutional Vitals: Temp Pulse Resp BP Pulse Ox 97.7 F 65 20 129/71 98 04/15/17 16:00 04/15/17 16:00 04/15/17 16:00 04/15/17 16:00 04/15/17 16:00 General appearance: no acute distress, morbidly obese Exam: General appearance: Was more alert when I saw him this morning - Eye Eye exam: Present: EOMI. no icterus Pupils: Present: SCOTT - ENT ENT exam: no oral exudates - Respiratory Respiratory exam: Transmitted sounds bilaterally - Cardiovascular Cardiovascular exam: regular rate and rhythm, no murmurs - GI/Abdominal GI/Abdominal exam: normal bowel sounds, soft, non-tender, no organomegaly or mass - Extremities Exam Extremities exam: no edema - Skin Skin exam: no rash Results - Labs CBC & BMP: 04/15/17 04:50 04/14/17 15:38 Lab Results: I have reviewed the past 24 hour labs
[2017-04-15] MEDS: PREGABALIN 75 MG CAPSULE PO SCH (22:00)
[2017-04-15] MEDS: MAGNESIUM HYDROXIDE SUSP 30 ML UDCUP PO PRN (23:19)
[2017-04-15] MEDS: HydrOXYzine PAMOATE 25 MG CAPSULE PO PRN (23:19)
[2017-04-16] MEDS: MEROPENEM 1,000 MG in SODIUM CHLORIDE 0.9% 100 ML IV SCH ×3 (01:18→16:54)
[2017-04-16] MEDS: ENOXAPARIN 40 MG/0.4 ML SYRINGE SUBCUT SCH (01:19)
[2017-04-16] MEDS: INSULIN REGULAR 100 UNIT/ML SUBCUT SCH ×6 (01:30→23:46)
[2017-04-16] MEDS: ALBUTEROL/IPRATROPIUM 3 ML NEB RESP TX SCH ×5 (03:00→20:36)
[2017-04-16 05:16] LABS: Basophils % 0.2 % (0.0-0.8); Eosinophils % 0.1 % (0.00-10.9); Hematocrit 33.8 VOL% (42.0-52.0); Hemoglobin 11.3 GM/DL (14.0-18.0); Immature Granulocytes % 2.3 %; Immature Granulocytes Absolute 0.25 #; Lymphocytes # 1.4 10*3/uL (1.4-4.0); Mean Corpuscular HGB Conc 33.4 GM/DL (32-36); Mean Corpuscular Hemoglobin 29 PG (27-34); Mean Corpuscular Volume 87.1 FL (87-102); Mean Platelet Volume 10.5 FL (9.6-12.0); Monocytes # 0.8 10*3/uL (0.11-0.8); Monocytes % 7.1 % (1.7-12.7); Neutrophils # 8.5 10*3/uL (1.4-7.4); Neutrophils % 77.3 % (38.7-73.9); Platelet Count 208 T/CUMM (130-400); Red Blood Count 3.88 MC/CUMM (3.8-5.5); Red Cell Distribution Width 14.8 % (9.3-17.3)
[2017-04-16 05:51] LABS: Albumin 2.1 G/DL (3.4-5.0); Bilirubin,Total 1.2 MG/DL (0.2-1.0); Calcium 7.9 MG/DL (8.5-10.1); Magnesium 2.2 MG/DL (1.8-2.4); Osmolality,Calculated 279.5 MOS/KG (273-304); Phosphorous 2.7 MG/DL (2.5-4.9); Potassium 4.1 MMOL/L (3.5-5.1); Total Protein 4.7 G/DL (6.4-8.3)
[2017-04-16 05:52] LABS: Osmolality,Calculated 279.5 MOS/KG (273-304); Potassium 4.1 MMOL/L (3.5-5.1)
[2017-04-16] MEDS: DILTIAZEM 30 MG TABLET PO SCH ×3 (06:32→21:58)
[2017-04-16] MEDS: DORNASE ALFA 2.5 MG/2.5 ML VIAL RESP TX SCH ×2 (07:28→20:37)
[2017-04-16] MEDS: THEOPHYLLINE ER 300 MG TABLET PO SCH ×2 (09:05→16:52)
[2017-04-16] MEDS: CARVEDILOL 6.25 MG TABLET PER TUBE SCH ×2 (09:06→21:58)
[2017-04-16] MEDS: VALPROIC ACID 250 MG/5 ML UDCUP PO SCH ×2 (09:06→21:59)
[2017-04-16] MEDS: MULTIVITAMIN (CENTRUM) TABLET PO SCH (09:06)
[2017-04-16] MEDS: HYDROCORTISONE 25 MG SUPP RECTAL SCH ×2 (09:06→21:59)
[2017-04-16] MEDS: TAMSULOSIN 0.4 MG CAPSULE PO SCH (09:08)
[2017-04-16] MEDS: INSULIN GLARGINE 100 UNIT/ML SUBCUT SCH ×2 (09:09→21:58)
[2017-04-16] MEDS: FLUoxetine 10 MG CAPSULE PO SCH (09:09)
[2017-04-16] MEDS: CLOTRIMAZOLE 1% CREAM 15 GM TUBE TOP SCH ×2 (09:11→22:00)
[2017-04-16] MEDS: DESITIN 4OZ/NYSTATIN 15 GRAM MIXTURE PASTE TOP SCH ×2 (09:11→22:00)
[2017-04-16] MEDS: FUROSEMIDE 40 MG/4 ML VIAL IV SCH (09:12)
[2017-04-16] MEDS: methylPREDNISolone SOD SUC 40 MG/1 ML VIAL IV SCH (09:15)
[2017-04-16] MEDS: VANCOMYCIN INJ 2,000 MG in SODIUM CHLORIDE 0.9% 500 ML IV SCH (10:01)
--- NOTE | 2017-04-16 11:53 | Hospitalist Progress Note ---
<Indira Sethi - Last Filed: 04/16/17 11:51> Assessment and Plan (1) Acute exacerbation of chronic obstructive airways disease Status: Acute Assessment and plan: Stable, IV steroids changed to oral, continue bronchodilator therapy and antibiotics as previously ordered. 04/16-continue oral steroids and bronchodilator therapy as previously ordered. We will continue intravenous antibiotic therapy until Friday, then we will transition to p.o. medications (Bactrim) for discharge back to the long-term care setting. Current Visit: Yes (2) Acute respiratory failure with hypoxia Status: Acute Assessment and plan: Respiratory status is stable; continue CPAP at the hour of sleep as ordered. 04/16-stable ;continue CPAP as previously ordered. Current Visit: Yes (3) Atrial fibrillation with RVR Status: Acute Assessment and plan: Rate fairly controlled, continue current therapy. Current Visit: Yes Hospitalist: Subjective Interval history: Patient seen and examined; no significant overnight events reported. Chart reviewed. Awaiting transfer back to [facility] on Friday after completion of intravenous antibiotic therapy. Exam - Constitutional Vitals: Period Temp Pulse Resp BP Sys/Pina Pulse Ox Last 24 Hr 97.3 F-98.9 F 58-87 18-22 98-129/54-79 90-99 General appearance: morbidly obese - Head Head exam: Present: normal inspection, normocephalic, atraumatic - Eye Eye exam: Present: EOMI, conjunctival injection Pupils: Present: SCOTT, normal accommodation - ENT ENT exam: Present: normal exam, normal external ear exam, normal oropharynx - Neck Neck exam: Present: normal inspection. Absent: lymphadenopathy, meningismus, thyromegaly - Respiratory Respiratory exam: Absent: rales, rhonchi, stridor, wheezes - Cardiovascular Cardiovascular exam: Present: regular rate and rhythm. Absent: bradycardia, carotid bruit, diastolic murmur, gallop, JVD, rubs, systolic murmur - GI/Abdominal GI/Abdominal exam: Present: normal bowel sounds, soft - Extremities Exam Extremities exam: Present: normal inspection, normal capillary refill, full ROM , edema - Back Exam Back exam: Present: normal inspection - Neurological Exam Neurological exam: Present: alert, oriented X3, CN II-XII intact - Psychiatric Psychiatric exam: Present: normal affect, normal mood - Skin Skin exam: Present: normal color, warm, dry Results - Labs CBC & BMP: 04/16/17 04:32 04/16/17 04:32 Lab Results: I have reviewed the past 24 hour labs <Pinky Faria - Last Filed: 04/16/17 12:17> Hospitalist: Subjective Interval history: patient seen this am, no new issues Exam - Constitutional Vitals: Period Temp Pulse Resp BP Sys/Pina Pulse Ox Last 24 Hr 97.3 F-98.9 F 58-87 18-22 98-129/54-79 90-99 Results - Labs CBC & BMP: 04/16/17 04:32 04/16/17 04:32
[2017-04-16] MEDS: FAMOTIDINE 20 MG/2 ML VIAL IV SCH ×2 (12:56→23:22)
[2017-04-16] MEDS: FLUCONAZOLE INJ 200 MG in PREMIX 1 EACH IV SCH (12:58)
[2017-04-16 13:04] LABS: Free T4 (Free Thyroxine) 1.22 NG/DL (0.76-1.46); Thyroid Stimulating Hormone 0.405 uIU/ml (0.358-3.74)
--- NOTE | 2017-04-16 13:51 | EKG Report ---
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
--- NOTE | 2017-04-16 14:54 | Infectious Disease Progress ---
Assessment and Plan (1) Acute exacerbation of chronic obstructive airways disease Status: Acute Current Visit: Yes (2) Acute respiratory failure with hypoxia Status: Acute Assessment and plan: Treated with mechanical ventilation. He has been off the vent for several days and relatively stable clinically. Current Visit: Yes (3) Atrial fibrillation Status: Acute Current Visit: Yes (4) Pneumonia, bacterial Problem details: 2/2 Ineffective cough with subsequent RML and RLL atelectasis. Also with a LLL infiltrate. Aspiration pneumonia considered given return of gastric content on bronch examination. Continue with current antibiotics. Improving. Status: Acute Assessment and plan: This pneumonia is polymicrobial with ESBL E. coli and MRSA isolated. Healthcare associated. Recommendations: 1. Continue vancomycin and meropenem until Friday by which time he would have completed 7 days of therapy. Continue to monitor renal function on vancomycin. 2. When he gets discharged on Friday he can go back to the [facility] on Bactrim double strength 1 tablet twice a day and continue this for 1 week Current Visit: Yes (5) Congestive heart failure Status: Chronic Current Visit: Yes (6) Insulin dependent diabetes mellitus Status: Chronic Current Visit: Yes Infectious Disease - PN: Subj Interval history: Doing well, less cough and sound less congested today. Excellent appetite. No fever. Infectious Disease Exam (PN) - Constitutional Vitals: Temp Pulse Resp BP Pulse Ox 97.6 F 61 18 113/79 98 04/16/17 11:09 04/16/17 14:32 04/16/17 14:32 04/16/17 11:09 04/16/17 14:32 General appearance: morbidly obese Exam: General appearance: Alert, anxious to have lunch when I went to see him - Eye Eye exam: Present: EOMI. no icterus Pupils: Present: SCOTT - ENT ENT exam: no oral exudates - Respiratory Respiratory exam: Less harsh breath sounds bilaterally - Cardiovascular Cardiovascular exam: regular rate and rhythm, no murmurs - GI/Abdominal GI/Abdominal exam: normal bowel sounds, soft, non-tender, no organomegaly or mass - Extremities Exam Extremities exam: no edema - Skin Skin exam: no rash Results - Labs CBC & BMP: 04/16/17 04:32 04/16/17 04:32 Lab Results: I have reviewed the past 24 hour labs
--- NOTE | 2017-04-16 18:09 | Sleep Medicine Progress Note ---
Assessment and Plan (1) Unspecified Sleep Apnea Status: Acute Assessment and plan: Patient appears to not have significant sleep apnea based on HST evaluation from last night. He seems to breathe fairly well on nocturnal O2 at 2 L/min. Sleep medicine will sign off. This certainly does not mean that he may not need BiPAP therapy for chronic respiratory failure or exacerbations of COPD. I would defer usage of BiPAP in these cases to the pulmonary medicine service. Thank you for this consult. Current Visit: No (2) Diabetes Status: Acute Current Visit: No (3) Atrial fibrillation Status: Acute Current Visit: Yes Sleep Medicine Subjective Interval history: Patient had HST last night done while on oxygen therapy at 2 L/min. He did not have any significant sleep apnea, having an overall AHI of 1.1. He seemed to sleep fairly well on nocturnal O2 at 2 L/min. His lowest O2 sat was only 86% but most of his sats were in the low 90s. Given these findings, I do not think any further sleep evaluation is indicated. We will discontinue BiPAP at this time. Certainly with acute respiratory insufficiency or COPD exacerbations with respiratory failure, he may benefit from BiPAP therapy. He does not appear to need BiPAP at present for obstructive sleep apnea and we will discontinue it. Exam (Progress Note) - Constitutional Vitals: Period Temp Pulse Resp BP Sys/Pina Pulse Ox Last 24 Hr 97.3 F-98.9 F 58-80 18-22 110-125/64-79 90-99 Exam: He looks more alert and responsive today. HEENT unchanged chest with fair air movement without significant wheeze or rhonchi. Cardiac exam reveals a regular rhythm without murmur or gallop. Abdomen obese nontender extremities without increased edema. Results - Labs CBC & BMP: 04/16/17 04:32 04/16/17 04:32 Lab Results: I have reviewed the past 24 hour labs
[2017-04-16] MEDS: PREGABALIN 75 MG CAPSULE PO SCH (21:58)
[2017-04-17] MEDS: ALBUTEROL/IPRATROPIUM 3 ML NEB RESP TX SCH ×7 (00:05→23:49)
[2017-04-17] MEDS: ENOXAPARIN 40 MG/0.4 ML SYRINGE SUBCUT SCH (01:35)
[2017-04-17] MEDS: MEROPENEM 1,000 MG in SODIUM CHLORIDE 0.9% 100 ML IV SCH ×3 (01:35→16:45)
[2017-04-17] MEDS: VANCOMYCIN INJ 2,000 MG in SODIUM CHLORIDE 0.9% 500 ML IV SCH ×2 (02:45→21:57)
[2017-04-17] MEDS: INSULIN REGULAR 100 UNIT/ML SUBCUT SCH ×3 (06:32→17:49)
[2017-04-17] MEDS: DILTIAZEM 30 MG TABLET PO SCH ×3 (07:06→21:58)
[2017-04-17] MEDS: DORNASE ALFA 2.5 MG/2.5 ML VIAL RESP TX SCH ×2 (08:02→19:41)
--- NOTE | 2017-04-17 10:01 | Hospitalist Progress Note ---
<Indira Sethi - Last Filed: 04/17/17 09:59> Assessment and Plan (1) Acute exacerbation of chronic obstructive airways disease Status: Acute Assessment and plan: Stable, IV steroids changed to oral, continue bronchodilator therapy and antibiotics as previously ordered. 04/16-continue oral steroids and bronchodilator therapy as previously ordered. We will continue intravenous antibiotic therapy until Friday, then we will transition to p.o. medications (Bactrim) for discharge back to the long-term care setting. 04/17-continue IV antibiotics through today; we will convert to p.o. medications in a.m. discharge to [facility] in a.m. Current Visit: Yes (2) Acute respiratory failure with hypoxia Status: Acute Assessment and plan: Respiratory status is stable; continue CPAP at the hour of sleep as ordered. 04/16-stable ;continue CPAP as previously ordered. 04/17-continue CPAP as previously ordered. Current Visit: Yes (3) Atrial fibrillation with RVR Status: Acute Assessment and plan: Rate fairly controlled, continue current therapy. Current Visit: Yes Hospitalist: Subjective Interval history: Patient seen and examined; chart reviewed; no significant overnight events reported. Discharge to [facility] in a.m. Exam - Constitutional Vitals: Period Temp Pulse Resp BP Sys/Pina Pulse Ox Last 24 Hr 97.2 F-99.0 F 59-86 18-22 113-157/62-79 90-99 - Head Head exam: Present: normal inspection, normocephalic, atraumatic - Eye Eye exam: Present: EOMI, conjunctival injection Pupils: Present: SCOTT, normal accommodation - ENT ENT exam: Present: normal exam, normal external ear exam, normal oropharynx - Neck Neck exam: Present: normal inspection. Absent: lymphadenopathy, meningismus, tenderness, thyromegaly - Respiratory Respiratory exam: Present: clear to auscultation bilaterally. Absent: rales, rhonchi, stridor, wheezes - Cardiovascular Cardiovascular exam: Present: regular rate and rhythm. Absent: carotid bruit, diastolic murmur, gallop, JVD, rubs, systolic murmur - GI/Abdominal GI/Abdominal exam: Present: normal bowel sounds, soft - Extremities Exam Extremities exam: Present: normal inspection, normal capillary refill, full ROM , edema (+2 edema) - Back Exam Back exam: Present: normal inspection - Neurological Exam Neurological exam: Present: alert, oriented X3, CN II-XII intact - Psychiatric Psychiatric exam: Present: normal affect, normal mood - Skin Skin exam: Present: normal color, warm, dry Results - Labs CBC & BMP: 04/16/17 04:32 04/16/17 04:32 Lab Results: I have reviewed the past 24 hour labs <Pinky Faria - Last Filed: 04/17/17 15:23> Hospitalist: Subjective Interval history: Patient will most likely go home tomorrow and get an outpt sleep study . We will get cbc and bmp in am Exam - Constitutional Vitals: Period Temp Pulse Resp BP Sys/Pina Pulse Ox Last 24 Hr 97.1 F-99.0 F 59-88 18-22 97-160/48-95 95-99 Results - Labs CBC & BMP: 04/16/17 04:32 04/16/17 04:32
[2017-04-17] MEDS: FLUoxetine 10 MG CAPSULE PO SCH (10:20)
[2017-04-17] MEDS: MULTIVITAMIN (CENTRUM) TABLET PO SCH (10:20)
[2017-04-17] MEDS: TAMSULOSIN 0.4 MG CAPSULE PO SCH (10:20)
[2017-04-17] MEDS: HYDROCORTISONE 25 MG SUPP RECTAL SCH ×2 (10:21→21:58)
[2017-04-17] MEDS: FUROSEMIDE 40 MG/4 ML VIAL IV SCH (10:21)
[2017-04-17] MEDS: VALPROIC ACID 250 MG/5 ML UDCUP PO SCH ×2 (10:21→21:58)
[2017-04-17] MEDS: CARVEDILOL 6.25 MG TABLET PER TUBE SCH ×2 (10:21→21:58)
[2017-04-17] MEDS: THEOPHYLLINE ER 300 MG TABLET PO SCH ×2 (10:21→16:43)
[2017-04-17] MEDS: methylPREDNISolone SOD SUC 40 MG/1 ML VIAL IV SCH (10:22)
[2017-04-17] MEDS: CLOTRIMAZOLE 1% CREAM 15 GM TUBE TOP SCH ×2 (10:29→21:57)
[2017-04-17] MEDS: DESITIN 4OZ/NYSTATIN 15 GRAM MIXTURE PASTE TOP SCH ×2 (10:29→22:00)
[2017-04-17] MEDS: INSULIN GLARGINE 100 UNIT/ML SUBCUT SCH ×2 (10:29→21:57)
[2017-04-17] MEDS: FAMOTIDINE 20 MG/2 ML VIAL IV SCH ×2 (11:01→23:36)
[2017-04-17] MEDS: FLUCONAZOLE INJ 200 MG in PREMIX 1 EACH IV SCH (11:02)
--- NOTE | 2017-04-17 14:59 | Infectious Disease Progress ---
Assessment and Plan (1) Acute exacerbation of chronic obstructive airways disease Status: Acute Current Visit: Yes (2) Acute respiratory failure with hypoxia Status: Resolved Current Visit: Yes (3) Atrial fibrillation Status: Acute Current Visit: Yes (4) Pneumonia, bacterial Problem details: 2/2 Ineffective cough with subsequent RML and RLL atelectasis. Also with a LLL infiltrate. Aspiration pneumonia considered given return of gastric content on bronch examination. Continue with current antibiotics. Improving. Status: Acute Assessment and plan: This pneumonia is polymicrobial with ESBL E. coli and MRSA isolated. Healthcare associated. Patient overall significantly improved. Recommendations: Continue vancomycin and meropenem until tomorrow. Then he can go back to the assisted on Bactrim double strength 1 tablet twice a day and continue this for 1 week. I will sign off now. Call again as needed. Current Visit: Yes (5) Congestive heart failure Status: Chronic Current Visit: Yes (6) Insulin dependent diabetes mellitus Status: Chronic Current Visit: Yes Infectious Disease - PN: Subj Interval history: Patient doing better in general, less cough less pulmonary secretions. He has been afebrile. Excellent appetite. No diarrhea. Infectious Disease Exam (PN) - Constitutional Vitals: Temp Pulse Resp BP Pulse Ox 97.1 F L 82 18 97/48 96 04/17/17 11:48 04/17/17 11:48 04/17/17 11:48 04/17/17 11:48 04/17/17 11:48 General appearance: morbidly obese Exam: General appearance: Alert, comfortable - Eye Eye exam: Present: EOMI. no icterus Pupils: Present: SCOTT - ENT ENT exam: no oral exudates - Respiratory Respiratory exam: Occasional rhonchi bilaterally overall lungs sound better - Cardiovascular Cardiovascular exam: regular rate and rhythm, no murmurs - GI/Abdominal GI/Abdominal exam: normal bowel sounds, soft, non-tender, no organomegaly or mass - Extremities Exam Extremities exam: no edema - Skin Skin exam: no rash Results - Labs CBC & BMP: 04/16/17 04:32 04/16/17 04:32 Lab Results: I have reviewed the past 24 hour labs
[2017-04-17] MEDS: PREGABALIN 75 MG CAPSULE PO SCH (21:58)
[2017-04-18] MEDS: ENOXAPARIN 40 MG/0.4 ML SYRINGE SUBCUT SCH (00:09)
[2017-04-18] MEDS: INSULIN REGULAR 100 UNIT/ML SUBCUT SCH ×4 (00:10→17:55)
[2017-04-18] MEDS: MEROPENEM 1,000 MG in SODIUM CHLORIDE 0.9% 100 ML IV SCH ×3 (00:10→17:57)
[2017-04-18] MEDS: HydrOXYzine PAMOATE 25 MG CAPSULE PO PRN (00:17)
[2017-04-18] MEDS: ALBUTEROL/IPRATROPIUM 3 ML NEB RESP TX SCH ×4 (04:24→14:06)
[2017-04-18 05:45] LABS: Basophils % 0.2 % (0.0-0.8); Hematocrit 33.2 VOL% (42.0-52.0); Hemoglobin 11.2 GM/DL (14.0-18.0); Immature Granulocytes % 1.8 %; Immature Granulocytes Absolute 0.21 #; Lymphocytes # 1.7 10*3/uL (1.4-4.0); Lymphocytes % 14.2 % (21.2-54.2); Mean Corpuscular HGB Conc 33.7 GM/DL (32-36); Mean Corpuscular Hemoglobin 30 PG (27-34); Mean Corpuscular Volume 87.6 FL (87-102); Mean Platelet Volume 10.7 FL (9.6-12.0); Monocytes % 8.2 % (1.7-12.7); Neutrophils # 8.9 10*3/uL (1.4-7.4); Neutrophils % 75.6 % (38.7-73.9); Platelet Count 195 T/CUMM (130-400); Red Blood Count 3.79 MC/CUMM (3.8-5.5); Red Cell Distribution Width 15.3 % (9.3-17.3); White Blood Count 11.8 T/CUMM (4-12)
[2017-04-18 06:13] LABS: Calcium 8.4 MG/DL (8.5-10.1); Osmolality,Calculated 283.4 MOS/KG (273-304); Potassium 3.8 MMOL/L (3.5-5.1)
[2017-04-18] MEDS: DILTIAZEM 30 MG TABLET PO SCH ×2 (06:20→15:23)
[2017-04-18] MEDS: DORNASE ALFA 2.5 MG/2.5 ML VIAL RESP TX SCH (07:39)
[2017-04-18] MEDS: CARVEDILOL 6.25 MG TABLET PER TUBE SCH (09:24)
[2017-04-18] MEDS: MULTIVITAMIN (CENTRUM) TABLET PO SCH (09:24)
[2017-04-18] MEDS: THEOPHYLLINE ER 300 MG TABLET PO SCH ×2 (09:25→17:55)
[2017-04-18] MEDS: TAMSULOSIN 0.4 MG CAPSULE PO SCH (09:25)
[2017-04-18] MEDS: INSULIN GLARGINE 100 UNIT/ML SUBCUT SCH (09:25)
[2017-04-18] MEDS: VALPROIC ACID 250 MG/5 ML UDCUP PO SCH (09:25)
[2017-04-18] MEDS: CLOTRIMAZOLE 1% CREAM 15 GM TUBE TOP SCH (09:25)
[2017-04-18] MEDS: FLUoxetine 10 MG CAPSULE PO SCH (09:25)
[2017-04-18] MEDS: methylPREDNISolone SOD SUC 40 MG/1 ML VIAL IV SCH (09:26)
[2017-04-18] MEDS: DESITIN 4OZ/NYSTATIN 15 GRAM MIXTURE PASTE TOP SCH (09:26)
[2017-04-18] MEDS: FUROSEMIDE 40 MG/4 ML VIAL IV SCH (09:27)
[2017-04-18] MEDS: FAMOTIDINE 20 MG/2 ML VIAL IV SCH ×2 (09:29→11:02)
[2017-04-18] MEDS: HYDROCORTISONE 25 MG SUPP RECTAL SCH ×2 (09:32→11:03)
[2017-04-18] MEDS: FLUCONAZOLE INJ 200 MG in PREMIX 1 EACH IV SCH (10:34)
[2017-04-18] MEDS: MAGNESIUM HYDROXIDE SUSP 30 ML UDCUP PO PRN (11:03)
[2017-04-18] MEDS: VANCOMYCIN INJ 2,000 MG in SODIUM CHLORIDE 0.9% 500 ML IV SCH (14:49)
[2017-04-18 18:02] VITALS: BP 113/72
== END 2017-04-18 18:57 | DRG 166 ==
LOC: EDBD → EDUNIT# → N.ED 23:00 → N.EDINP 04-05 00:47 → SUATTDRO 04-05 00:47 → N.ICU 04-05 01:27 → N.5E 04-10 09:28
PROVIDERS: ADMIT Internal Medicine; ATTEND Internal Medicine

== ENCOUNTER 2017-04-26 02:09 | Inpatient (IN) ==
[2017-04-26] MEDS ORDERED: PROPOFOL 200 MG/20 ML VIAL IV ONE (02:18)
[2017-04-26] MEDS ORDERED: ETOMIDATE 20 MG/10 ML VIAL IV STA (02:20)
[2017-04-26] MEDS ORDERED: SUCCINYLCHOLINE 200 MG/10 ML VIAL IV STA (02:21)
[2017-04-26] MEDS ORDERED: PROPOFOL 1,000 MG/100 ML BOTTLE IV ONE (02:23)
[2017-04-26] MEDS: PROPOFOL 1,000 MG/100 ML BOTTLE IV SCH ×4 (02:30→17:19)
[2017-04-26 02:52] LABS: Basophils % 0.2 % (0.0-0.8); Eosinophils # 0.1 10*3/uL (0.0-0.87); Eosinophils % 0.7 % (0.00-10.9); Hematocrit 38.4 VOL% (42.0-52.0); Immature Granulocytes % 0.5 %; Immature Granulocytes Absolute 0.06 #; Lymphocytes # 0.9 10*3/uL (1.4-4.0); Lymphocytes % 8.4 % (21.2-54.2); Mean Corpuscular HGB Conc 33.9 GM/DL (32-36); Mean Corpuscular Hemoglobin 30 PG (27-34); Mean Corpuscular Volume 89.3 FL (87-102); Mean Platelet Volume 10.2 FL (9.6-12.0); Monocytes # 0.5 10*3/uL (0.11-0.8); Monocytes % 4.4 % (1.7-12.7); Neutrophils # 9.7 10*3/uL (1.4-7.4); Neutrophils % 85.8 % (38.7-73.9); Platelet Count 208 T/CUMM (130-400); Red Cell Distribution Width 14.8 % (9.3-17.3); White Blood Count 11.2 T/CUMM (4-12)
[2017-04-26 03:01] LABS: PT Patient Result 10.6 SECS; Partial Thromboplastin Time 24.2 SECS (0-40)
[2017-04-26] MEDS ORDERED: VECURONIUM 10 MG VIAL IV ONE ×2 (03:08→05:37)
[2017-04-26] MEDS ORDERED: VECURONIUM 10 MG VIAL IV STA ×2 (03:10→05:34)
[2017-04-26 03:11] LABS: Albumin 2.8 G/DL (3.4-5.0); Bilirubin,Total 0.4 MG/DL (0.2-1.0); Calcium 7.9 MG/DL (8.5-10.1); Osmolality,Calculated 285.1 MOS/KG (273-304); Potassium 4.2 MMOL/L (3.5-5.1); Total Protein 5.8 G/DL (6.4-8.3)
[2017-04-26 03:13] LABS: Troponin I Only 0.129 NG/ML (0.00-0.045)
--- NOTE | 2017-04-26 03:27 | Emergency Department Note ---
Lenin Garcia Rolonda, am scribing for, and in the presence of, Nancy Loaiza DO 03: 10. IJosse Debra, DO, personally performed the services described in this documentation, ascribed by Doris Phelps in my presence, and it is both accurate and complete 313 . Arrival - Arrival Chief Complaint: Shortness of Breath Stated Complaint: Low O2 sats, Hypoglycemia ED Nursing Triage Note: pt transferred from [facility] for eval of sob. pt already diagnosed with pneumonia and e coli in lungs. Mode of Arrival: Stretcher Limitations: Altered Mental Status Source: Old Records Reviewed, RN Notes Reviewed - History of Present Illness HPI Narrative: Pt is a 71 y/o male who was transferred from [facility] to the ED via EMS for further evaluation of recently dx pneumonia and E Coli in lungs. Pt is ALOC when entering ED. 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 Pt was admitted from ED on April 04 with CHF ,Leukocytosis, acute exacerbation of chronic obstructive airway disease, acute on chronic respiratory failure, acute dyspnea, AFIB with RVR and was d/c on the April 18. Pt's condition is now worsening. Onset (ago): hour(s) Consistency: constant Severity: severe Severity scale (1-10): 10 Quality: other Allergies/Adverse Reactions: Allergies Allergy/AdvReac Type Severity Reaction Status Date / Time Hydromorphone [From Dilaudid] AdvReac Unknown/Unable Verified 04/04/17 23:10 to obtain morphine AdvReac Unknown/Unable Verified 04/04/17 23:10 to obtain Home Medications: Home Medications Medication Instructions Recorded Confirmed Type Albuterol/Ipratropium Neb [Duoneb] 3 ml RESP TX RT Q4H PRN 05/09/15 04/26/17 History Insulin Regular [HumuLIN R] 0 unit SUBCUT ACHS 05/09/15 04/26/17 History Multivit-Min/FA/Lycopen/Lutein 1 each PO DAILY 05/09/15 04/26/17 History [Centrum Silver Tablet] Pantoprazole Tab [Protonix Tab] 40 mg PO DAILY 05/09/15 04/26/17 History Pravastatin [Pravachol] 40 mg PO BEDTIME #30 tablet 05/12/15 04/26/17 Rx Pregabalin [Lyrica] 150 mg PO BEDTIME #30 capsule 05/12/15 04/26/17 Rx Tamsulosin [Flomax] 0.4 mg PO DAILY #30 capsule 05/12/15 04/26/17 Rx Lactulose Liquid [Chronulac] 20 gm PO Q6HR PRN 04/17/16 04/26/17 History Melatonin 5 mg PO BEDTIME 04/17/16 04/26/17 History Aspirin EC Tab 325 mg PO DAILY tablet 04/22/16 04/26/17 Rx predniSONE TAB [PredniSONE] 20 mg PO DAILY #5 tablet 04/22/16 04/26/17 Rx Clotrimazole 1% Cream [Lotrimin 1% 1 applic TOP BID 04/05/17 04/26/17 History Cream] FLUoxetine [PROzac] 10 mg PO DAILY 04/05/17 04/26/17 History OLANZapine TAB [ZyPREXA Tab] 2.5 mg PO BID 04/05/17 04/26/17 History Theophylline ER Tab 300 mg PO BID W/MEALS 04/05/17 04/26/17 History FLUoxetine [PROzac] 10 mg PO DAILY capsule 04/14/17 04/26/17 Rx Glucagon 1 mg IM PRN PRN vial 04/14/17 04/26/17 Rx HYDROcodone/ACETAMIN 7.5-325 1 tablet PO Q4H PRN tablet 04/14/17 04/26/17 Rx [[place] 7.5-325] HydrOXYzine PAMOATE CAP [Vistaril 25 mg PO Q6H PRN capsule 04/14/17 04/26/17 Rx Cap] Insulin Glargine [Lantus] 30 unit SUBCUT BID unit 04/14/17 04/26/17 Rx Insulin Regular [HumuLIN R] See Protocol SUBCUT Q6HR unit 04/14/17 04/26/17 Rx Magnesium Hydroxide Susp [Milk of 30 ml PO Q8H PRN 04/14/17 04/26/17 Rx Magnesia] Multivitamin (Centrum) [Centrum 1 tablet PO DAILY tablet 04/14/17 04/26/17 Rx Tab] Pregabalin [Lyrica] 150 mg PO BEDTIME capsule 04/14/17 04/26/17 Rx Tamsulosin [Flomax] 0.4 mg PO DAILY capsule 04/14/17 04/26/17 Rx Theophylline ER Tab 150 mg PO BID W/MEALS tablet 04/14/17 04/26/17 Rx Albuterol/Ipratropium Neb [Duoneb] 3 ml RESP TX RT Q4H 04/18/17 04/26/17 Rx Carvedilol [Coreg] 6.25 mg PER TUBE BID tablet 04/18/17 04/26/17 Rx Diltiazem Tab [Cardizem Tab] 30 mg PO Q8HR tablet 04/18/17 04/26/17 Rx Dornase Christoph [Pulmozyme] 2.5 mg RESP TX RT Q12H vial 04/18/17 04/26/17 Rx Sulfameth/Trimeth 400-80 Tab 1 tablet PO BID #14 tablet 04/18/17 04/26/17 Rx [Bactrim Tab] Valproic Acid Liquid [Depakene] 600 mg PO BID 04/18/17 04/26/17 Rx Review of System - Review of System ROS unobtainable: due to mental status Medical,Surgical,& Family Hx - Medical History Cardio: History of: Cardiac Dysrhythmia, CHF (Perhaps diastolic, last EF was 60% ), CAD, Hypertension Psychological: History of: Depression, Psychiatric Problems Neurology: History of: Cerebrovascular Accident (left side weakness), Parkinson' s Disease Endocrine: History of: Diabetes Mellitus (IDDM), Dyslipidemia Respiratory: History of: COPD, Obstructive Sleep Apnea Genitourinary: History of: Prostate Problems, Recurring Urinary Tract Infections Gastrointestinal: History of: GERD, Hemorrhoids Musculoskeletal: History of: Musculoskeletal Problems (generalized osteoarthritis) Hematology: History of: Clotting Problems Other: History of: Miscellaneous Medical Problems (hernia repair) - Surgical History Neurologic Surgeries: Patient denies: Neurologic Surgery Abdominal Surgeries: Surgical HX of: Hernia Repair - Family History Family History: Reports;: Family Diabetes, Family Heart Disease - Social History Smoking Status: Unknown if ever smoked Frequency of Alcohol Use: None Type of Drug Use: None Exam Vital Signs: Vital Signs Temperature 98.4 F 04/26/17 02:51 Pulse Rate 87 04/26/17 04:47 Respiratory Rate 14 04/26/17 04:47 Blood Pressure 112/74 04/26/17 04:47 O2 Sat by Pulse Oximetry 95 04/26/17 04:47 - General Exam limited due to: ALOC General appearance: obese - Head Head exam: Present: atraumatic, normocephalic - ENT ENT exam: Present: mucous membranes dry - Chest Chest inspection: Present: symmetric chest wall rise - Respiratory Respiratory exam: Present: respiratory distress, rhonchi. Absent: normal lung sounds bilaterally (decreased breath sounds on left) - Cardiovascular Cardiovascular exam: Present: tachycardia, normal heart sounds - Extremities Exam Extremities exam: Present: pedal edema (+1 edema bilaterally) - Neurological Exam Neurological exam: Present: CN II-XII intact. Absent: alert, oriented X3 - Skin Skin exam: Present: warm, dry, pallor Course Course Narrative: spoke with DR Weeks who will admit pt. Procedures - Intubation Time out performed: Yes sedative: Etomidate Mg Given: 20 paralytic: Succinylcholine Mg Given: 150 Laryngoscope: Marielos ET Tube Size: 8 Tube Secured Depth (cm): 24 Tube Secured Location: lips Tube Placement Confirmation: visualized tube passing through cords, equal breath sounds bilaterally, no breath sounds over epigastrium, confirmation by capnometry, confirmation detector color change Patient Tolerated Procedure: well Intubation Complications: none Results - Labs CBC & BMP: 04/26/17 02:40 04/26/17 02:40 Lab Results: I have reviewed the patients labs Labs: Laboratory Tests 04/26/17 04/26/17 04/26/17 02:40 02:40 02:40 WBC 11.2 RBC 4.30 Hgb 13.0 L Hct 38.4 L Plt Count 208 Neut % (Auto) 85.8 H Lymph % (Auto) 8.4 L Neut # (Auto) 9.7 H Lymph # (Auto) 0.9 L INR 1.0 PT Patient/Control Mix 10.6 Circ Anticoag PTT 24.2 Sodium 142 Potassium 4.2 Chloride 105 Carbon Dioxide 29 BUN 17 Creatinine 0.60 L GFR Calculation 145 BUN/Creatinine Ratio 28.00 H Glucose 125 H Calcium 7.9 L Total Creatine Kinase Troponin I Total Protein 5.8 L Albumin 2.8 L Albumin/Globulin Ratio 0.9 L 04/26/17 02:40 WBC RBC Hgb Hct Plt Count Neut % (Auto) Lymph % (Auto) Neut # (Auto) Lymph # (Auto) INR PT Patient/Control Mix Circ Anticoag PTT Sodium Potassium Chloride Carbon Dioxide BUN Creatinine GFR Calculation BUN/Creatinine Ratio Glucose Calcium Total Creatine Kinase 26 L Troponin I 0.129 H Total Protein Albumin Albumin/Globulin Ratio - EKG EKG results: interpreted by ERMD, no acute changes - Diagnostic Findings Procedure: Chest x-ray: image reviewed by me (pneumonia), CT - chest: report reviewed by me (right upper , middle and bilateral lower lobe pneumonia with more extensive right basilar consolidation) Disposition Clinical Impression: Pneumonia, Respiratory distress Case discussed with: patient Disposition: Still a Patient Condition: Guarded Time of Disposition: 05:04
[2017-04-26] MEDS ORDERED: VANCOMYCIN 1,000 MG VIAL ONE (04:16)
[2017-04-26] MEDS ORDERED: SODIUM CHLORIDE 0.9% 250 ML IV ONE ×2 (04:18→04:19)
[2017-04-26] MEDS ORDERED: VANCOMYCIN INJ 1,000 MG in SODIUM CHLORIDE 0.9% 250 ML IV STA (04:18)
[2017-04-26 04:30] LABS: ABG Base Excess 1.4 MMOL/L (-2.5-2.5); ABG HCO3 25.5 MMOL/L (20-26); ABG Oxygen Saturation 92.5 % (95-100); ABG PH 7.348 (7.35-7.45); ABG PO2 73.8 MM HG (80-95); ABG TCO2 24.7 MMOL/L (23-27); Allen Test Positive; Pt O2 Delivery Device Ventilator
[2017-04-26 04:42] LABS: Apearance,Urine CLEAR (Clear); Bilirubin,Urine Negative (Negative); Blood, Urine Negative (Negative); Glucose,Urine (UA) Negative (Negative); Ketones,Urine Negative (Negative); Mucus,Urine Occasional /LPF (Occasional); Nitrite,Urine Negative (Negative); Protein,Urine Negative; RBC,Urine <1 /HPF (0-4); Squamous Epithelial Cell,Urine Occasional /HPF (0-10); Urine Color Yellow (Yellow); Urine Specific Gravity 1.018 (1.001-1.035); Urine Urobilinogen < 2.0 EU/DL (0.2-1.0); WBC,Urine <1 /HPF (0-6)
[2017-04-26] MEDS ORDERED: LACTULOSE 20 GM/30 ML UDCUP PO PRN (05:25)
[2017-04-26] MEDS ORDERED: MAGNESIUM HYDROXIDE SUSP 30 ML UDCUP PO PRN (05:25)
[2017-04-26] MEDS ORDERED: ONDANSETRON 4 MG/2 ML VIAL IV PRN (05:28)
[2017-04-26] MEDS ORDERED: MORPHINE 2 MG/1 ML SYRINGE IV PRN (05:28)
[2017-04-26] MEDS ORDERED: ACETAMINOPHEN 325 MG TABLET PO PRN (05:28)
[2017-04-26] MEDS ORDERED: VANCOMYCIN INJ 2,000 MG in SODIUM CHLORIDE 0.9% 250 ML IV SCH (05:30)
--- NOTE | 2017-04-26 05:35 | Hospitalist History & Physical ---
Assessment and Plan (1) Acute respiratory failure with hypoxia Status: Acute Current Visit: Yes (2) HCAP (healthcare-associated pneumonia) Status: Acute Current Visit: Yes (3) COPD (chronic obstructive pulmonary disease) Status: Chronic Current Visit: No Qualifiers: COPD type: COPD with acute lower respiratory infection Qualified Code(s): J44.0 - Chronic obstructive pulmonary disease with acute lower respiratory infection (4) Insulin dependent diabetes mellitus Status: Chronic Current Visit: No (5) Atrial fibrillation Status: Acute Assessment and plan: Plan: Admit to ICU, start IV antibiotics with coverage for MRSA and E. coli Obtain blood urine and sputum culture Consult pulmonary for ventilator management, and possible repeat bronchoscopy Current Visit: No Qualifiers: Atrial fibrillation type: chronic Qualified Code(s): I48.2 - Chronic atrial fibrillation History of Present Illness Chief complaint: Respiratory distress, sent from half-way History of present illness: Mr. Bailey is a 71 year old male who was recently discharged after being treated for E. coli and MRSA, returns from the half-way in respiratory distress and was sedated and intubated in the emergency room. Thus, history is obtained from the chart. He recently grew out ESBL E. coli and MRSA from his bronchoscopy specimens earlier this month. His CT shows significant infiltrate in the right lung. He also has a history of atrial fibrillation, diabetes, hypertension, COPD, and morbid obesity. During his recent admission he had an echo showing preserved LV function with EF of 60%, along with mild diastolic dysfunction. We have very limited history from the half-way as well. Home Medications Medication Instructions Recorded Confirmed Type Albuterol/Ipratropium Neb [Duoneb] 3 ml RESP TX RT Q4H PRN 05/09/15 04/26/17 History Insulin Regular [HumuLIN R] 0 unit SUBCUT ACHS 05/09/15 04/26/17 History Multivit-Min/FA/Lycopen/Lutein 1 each PO DAILY 05/09/15 04/26/17 History [Centrum Silver Tablet] Pantoprazole Tab [Protonix Tab] 40 mg PO DAILY 05/09/15 04/26/17 History Pravastatin [Pravachol] 40 mg PO BEDTIME #30 tablet 05/12/15 04/26/17 Rx Pregabalin [Lyrica] 150 mg PO BEDTIME #30 capsule 05/12/15 04/26/17 Rx Tamsulosin [Flomax] 0.4 mg PO DAILY #30 capsule 05/12/15 04/26/17 Rx Lactulose Liquid [Chronulac] 20 gm PO Q6HR PRN 04/17/16 04/26/17 History Melatonin 5 mg PO BEDTIME 04/17/16 04/26/17 History Aspirin EC Tab 325 mg PO DAILY tablet 04/22/16 04/26/17 Rx predniSONE TAB [PredniSONE] 20 mg PO DAILY #5 tablet 04/22/16 04/26/17 Rx Clotrimazole 1% Cream [Lotrimin 1% 1 applic TOP BID 04/05/17 04/26/17 History Cream] FLUoxetine [PROzac] 10 mg PO DAILY 04/05/17 04/26/17 History OLANZapine TAB [ZyPREXA Tab] 2.5 mg PO BID 04/05/17 04/26/17 History Theophylline ER Tab 300 mg PO BID W/MEALS 04/05/17 04/26/17 History FLUoxetine [PROzac] 10 mg PO DAILY capsule 04/14/17 04/26/17 Rx Glucagon 1 mg IM PRN PRN vial 04/14/17 04/26/17 Rx HYDROcodone/ACETAMIN 7.5-325 1 tablet PO Q4H PRN tablet 04/14/17 04/26/17 Rx [[place] 7.5-325] HydrOXYzine PAMOATE CAP [Vistaril 25 mg PO Q6H PRN capsule 04/14/17 04/26/17 Rx Cap] Insulin Glargine [Lantus] 30 unit SUBCUT BID unit 04/14/17 04/26/17 Rx Insulin Regular [HumuLIN R] See Protocol SUBCUT Q6HR unit 04/14/17 04/26/17 Rx Magnesium Hydroxide Susp [Milk of 30 ml PO Q8H PRN 04/14/17 04/26/17 Rx Magnesia] Multivitamin (Centrum) [Centrum 1 tablet PO DAILY tablet 04/14/17 04/26/17 Rx Tab] Pregabalin [Lyrica] 150 mg PO BEDTIME capsule 04/14/17 04/26/17 Rx Tamsulosin [Flomax] 0.4 mg PO DAILY capsule 04/14/17 04/26/17 Rx Theophylline ER Tab 150 mg PO BID W/MEALS tablet 04/14/17 04/26/17 Rx Albuterol/Ipratropium Neb [Duoneb] 3 ml RESP TX RT Q4H 04/18/17 04/26/17 Rx Carvedilol [Coreg] 6.25 mg PER TUBE BID tablet 04/18/17 04/26/17 Rx Diltiazem Tab [Cardizem Tab] 30 mg PO Q8HR tablet 04/18/17 04/26/17 Rx Dornase Christoph [Pulmozyme] 2.5 mg RESP TX RT Q12H vial 04/18/17 04/26/17 Rx Sulfameth/Trimeth 400-80 Tab 1 tablet PO BID #14 tablet 04/18/17 04/26/17 Rx [Bactrim Tab] Valproic Acid Liquid [Depakene] 600 mg PO BID 04/18/17 04/26/17 Rx Allergies Allergy/AdvReac Type Severity Reaction Status Date / Time Hydromorphone [From Dilaudid] AdvReac Unknown/Unable Verified 04/04/17 23:10 to obtain morphine AdvReac Unknown/Unable Verified 04/04/17 23:10 to obtain Medical,Surgical,& Family Hx - Medical History Cardio: History of: Cardiac Dysrhythmia, CHF (Perhaps diastolic, last EF was 60% ), CAD, Hypertension Psychological: History of: Depression, Psychiatric Problems Neurology: History of: Cerebrovascular Accident (left side weakness), Parkinson' s Disease Endocrine: History of: Diabetes Mellitus (IDDM), Dyslipidemia Respiratory: History of: COPD, Obstructive Sleep Apnea Genitourinary: History of: Prostate Problems, Recurring Urinary Tract Infections Gastrointestinal: History of: GERD, Hemorrhoids Musculoskeletal: History of: Musculoskeletal Problems (generalized osteoarthritis) Hematology: History of: Clotting Problems Other: History of: Miscellaneous Medical Problems (hernia repair) - Surgical History Neurologic Surgeries: Patient denies: Neurologic Surgery Abdominal Surgeries: Surgical HX of: Hernia Repair - Family History Family History: Reports;: Family Diabetes, Family Heart Disease - Social History Smoking Status: Unknown if ever smoked Frequency of Alcohol Use: None Type of Drug Use: None Marital Status: Unknown Lives With:: senior care Functional capacity: uses cane/walker Review of systems: Unable to obtain due to patient sedated and intubated Exam - Constitutional Vitals: Period Temp Pulse Resp BP Sys/Pina Pulse Ox Last 24 Hr 98.1 F-98.4 F 87-107 14-32 92-182/61-135 76-98 Exam: EXAM: CONSTITUTIONAL: Chronically ill-appearing, sedated and intubated NAD HEENT: NC, AT, OP benign CV: Tachycardic, irregular no m/g/r RESP: Decreased breath sounds on the right basilar rhonchi GI: abd soft, NT, ND, +bowel sounds INTEGUMENTARY: no lesions or rash EXTREMITIES: no c/c/e NEURO: Unable to obtain due to patient sedated and intubated PSYCH: Unable to obtain due to patient sedated and intubated Results - Labs CBC & BMP: 04/26/17 02:40 04/26/17 02:40 Lab Results: I have reviewed the past 24 hour labs - EKG EKG shows: atrial fibrillation - Diagnostic Findings Procedure: CT - chest: image reviewed by me
[2017-04-26] MEDS ORDERED: DEXTROSE 50% 25 GM/50 ML VIAL IV PRN (05:52)
[2017-04-26] MEDS ORDERED: GLUCAGON 1 MG VIAL IM PRN (05:52)
[2017-04-26 05:57] LABS: ABG HCO3 24.4 MMOL/L (20-26); ABG Oxygen Saturation 99.1 % (95-100); ABG PCO2 51.8 MM HG (35-48); ABG PH 7.326 (7.35-7.45); ABG TCO2 23.6 MMOL/L (23-27); Allen Test Positive; Pt O2 Delivery Device Ventilator
[2017-04-26] MEDS ORDERED: DILTIAZEM 30 MG TABLET PO SCH (06:00)
[2017-04-26] MEDS ORDERED: ETOMIDATE 20 MG/10 ML VIAL IV ONE (06:06)
[2017-04-26] MEDS ORDERED: SUCCINYLCHOLINE 200 MG/10 ML VIAL ONE (06:06)
[2017-04-26] MEDS: INSULIN REGULAR 100 UNIT/ML SUBCUT SCH ×3 (07:05→18:55)
[2017-04-26] MEDS: ALBUTEROL/IPRATROPIUM 3 ML NEB RESP TX SCH ×5 (07:39→23:23)
[2017-04-26] MEDS: DORNASE ALFA 2.5 MG/2.5 ML VIAL RESP TX SCH ×2 (07:57→19:30)
[2017-04-26] MEDS ORDERED: VANCOMYCIN INJ 1,000 MG in SODIUM CHLORIDE 0.9% 250 ML IV ONE (08:00)
[2017-04-26] MEDS ORDERED: THEOPHYLLINE ER 300 MG TABLET PO SCH (08:00)
--- NOTE | 2017-04-26 08:33 | CT Report ---
Exam: CT chest w con Date: 04/26/2017 2:41 AM Comparison: 04/17/2016 Indication: Respiratory distress Technique:[Sequential axial scans of the chest were obtained following the injection of 80 cc of Omnipaque 350. Coronal and sagittal 2-D reconstructions were obtained. Total DLP: 755.20. This exam was initially interpreted by [facility].] Findings: The heart is enlarged with cardiac fat pads and coronary artery calcifications. The ascending aorta measures 38 mm in diameter with no evidence of aortic dissection or definite pulmonary emboli. There is limited contrast in the pulmonary arteries. Endotracheal tube in satisfactory position. Increased shift of the mediastinum to the right with stable mediastinal and right hilar adenopathy. Degenerative changes are noted. Progressive brachial secretions with increased atelectasis and consolidation especially in the lower lobes with findings more pronounced on the right. Tree-in-bud parenchymal findings are identified especially in the right upper lobe and right middle lobe which obscures the previously noted small noncalcified pulmonary nodules 9.5 mm cavitary finding in the left upper lobe noted on scan 41. Small pleural effusions. Minimal centrilobular emphysema. Incomplete evaluation of right lateral abdominal wall hernia. Impression: Cardiomegaly with coronary artery calculations. Endotracheal tube in satisfactory position. Findings consistent with progressive bilateral pneumonia especially in the right lung. Progressive atelectasis with shift of mediastinum to the right. Tree-in-bud parenchymal findings which obscures the previously noted small noncalcified pulmonary nodules. These findings can be associated with infectious bronchiolitis, diffuse panbronchiolitis, aspergillosis, aspiration, etc. Minimal centrilobular emphysema with 9.5 mm cavitary lesion in the left upper lobe which could be related to infectious process or small cavitary mass. Persistent minimal mediastinal and right hilar adenopathy. Follow-up CT may be helpful for further evaluation. This CT exam was performed using one or more the following dose reduction techniques: Automated exposure control, adjustment of the MA and/or KV according to patient size, or use of iterative reconstruction technique. PROCEDURE INTERPRETED AT [facility] DEPARTMENT OF RADIOLOGY Final Report Signed by: Dr. Patti Gould
--- NOTE | 2017-04-26 08:58 | Pulmonology Consult Note ---
Assessment and Plan (1) Morbid obesity Status: Acute Assessment and plan: The patient has morbid obesity and is basically bedridden. He has had chronic problems with his breathing for quite some time. Current Visit: No Qualifiers: Obesity type: unspecified obesity type Qualified Code(s): E66.01 - Morbid ( severe) obesity due to excess calories (2) Acute exacerbation of chronic obstructive airways disease Status: Acute Assessment and plan: Patient has a lifelong history of smoking and has significant COPD. Will continue with steroids and bronchodilator therapy. Current Visit: No (3) Sleep apnea Status: Acute Assessment and plan: The patient certainly has sleep apnea but I am not sure he does much CPAP. Current Visit: No (4) Insulin dependent diabetes mellitus Status: Chronic Assessment and plan: His glucose is 125 this morning. Current Visit: No (5) Atrial fibrillation Status: Acute Assessment and plan: Patient has a long history of chronic atrial fibrillation Current Visit: No Qualifiers: Atrial fibrillation type: chronic Qualified Code(s): I48.2 - Chronic atrial fibrillation (6) Acute respiratory failure with hypoxia Status: Acute Assessment and plan: The patient came in with respiratory distress and hypoxemia and is now on the ventilator. Current Visit: Yes (7) HCAP (healthcare-associated pneumonia) Status: Acute Assessment and plan: The patient will be treated for pneumonia although he mainly has mucous plugging and right lower lobe atelectasis. Current Visit: Yes History of Present Illness Chief complaint: Ventilatory support History of present illness: Mr. Bailey is a 71 year old white male that is well known to me. He has a long history of COPD and obesity hypoventilation syndrome. He has been chronically ill for quite some time. He has been in the halfway for a while and recently has been having more respiratory distress. He was recently treated for pneumonia and went back to the halfway. He was sent back now with respiratory distress and is back on the ventilator. He has some atelectasis of his right lung. He does have significant COPD. He has a normal ejection fraction with some mild diastolic dysfunction. He does have morbid obesity. He has a long history of having chronic pain problems also. Home Medications Medication Instructions Recorded Confirmed Type Albuterol/Ipratropium Neb [Duoneb] 3 ml RESP TX RT Q4H PRN 05/09/15 04/26/17 History Insulin Regular [HumuLIN R] 0 unit SUBCUT ACHS 05/09/15 04/26/17 History Multivit-Min/FA/Lycopen/Lutein 1 each PO DAILY 05/09/15 04/26/17 History [Centrum Silver Tablet] Pantoprazole Tab [Protonix Tab] 40 mg PO DAILY 05/09/15 04/26/17 History Pravastatin [Pravachol] 40 mg PO BEDTIME #30 tablet 05/12/15 04/26/17 Rx Pregabalin [Lyrica] 150 mg PO BEDTIME #30 capsule 05/12/15 04/26/17 Rx Tamsulosin [Flomax] 0.4 mg PO DAILY #30 capsule 05/12/15 04/26/17 Rx Lactulose Liquid [Chronulac] 20 gm PO Q6HR PRN 04/17/16 04/26/17 History Melatonin 5 mg PO BEDTIME 04/17/16 04/26/17 History Aspirin EC Tab 325 mg PO DAILY tablet 04/22/16 04/26/17 Rx predniSONE TAB [PredniSONE] 20 mg PO DAILY #5 tablet 04/22/16 04/26/17 Rx Clotrimazole 1% Cream [Lotrimin 1% 1 applic TOP BID 04/05/17 04/26/17 History Cream] FLUoxetine [PROzac] 10 mg PO DAILY 04/05/17 04/26/17 History OLANZapine TAB [ZyPREXA Tab] 2.5 mg PO BID 04/05/17 04/26/17 History Theophylline ER Tab 300 mg PO BID W/MEALS 04/05/17 04/26/17 History FLUoxetine [PROzac] 10 mg PO DAILY capsule 04/14/17 04/26/17 Rx Glucagon 1 mg IM PRN PRN vial 04/14/17 04/26/17 Rx HYDROcodone/ACETAMIN 7.5-325 1 tablet PO Q4H PRN tablet 04/14/17 04/26/17 Rx [[place] 7.5-325] HydrOXYzine PAMOATE CAP [Vistaril 25 mg PO Q6H PRN capsule 04/14/17 04/26/17 Rx Cap] Insulin Glargine [Lantus] 30 unit SUBCUT BID unit 04/14/17 04/26/17 Rx Insulin Regular [HumuLIN R] See Protocol SUBCUT Q6HR unit 04/14/17 04/26/17 Rx Magnesium Hydroxide Susp [Milk of 30 ml PO Q8H PRN 04/14/17 04/26/17 Rx Magnesia] Multivitamin (Centrum) [Centrum 1 tablet PO DAILY tablet 04/14/17 04/26/17 Rx Tab] Pregabalin [Lyrica] 150 mg PO BEDTIME capsule 04/14/17 04/26/17 Rx Tamsulosin [Flomax] 0.4 mg PO DAILY capsule 04/14/17 04/26/17 Rx Theophylline ER Tab 150 mg PO BID W/MEALS tablet 04/14/17 04/26/17 Rx Albuterol/Ipratropium Neb [Duoneb] 3 ml RESP TX RT Q4H 04/18/17 04/26/17 Rx Carvedilol [Coreg] 6.25 mg PER TUBE BID tablet 04/18/17 04/26/17 Rx Diltiazem Tab [Cardizem Tab] 30 mg PO Q8HR tablet 04/18/17 04/26/17 Rx Dornase Christoph [Pulmozyme] 2.5 mg RESP TX RT Q12H vial 04/18/17 04/26/17 Rx Sulfameth/Trimeth 400-80 Tab 1 tablet PO BID #14 tablet 04/18/17 04/26/17 Rx [Bactrim Tab] Valproic Acid Liquid [Depakene] 600 mg PO BID 04/18/17 04/26/17 Rx Allergies Allergy/AdvReac Type Severity Reaction Status Date / Time Hydromorphone [From Dilaudid] AdvReac Unknown/Unable Verified 04/04/17 23:10 to obtain morphine AdvReac Unknown/Unable Verified 04/04/17 23:10 to obtain ROS unobtainable: due to endotracheal tube (Unable to obtain any history at present.) Exam (Pulmonay) H&P - Constitutional Vitals: Period Temp Pulse Resp BP Sys/Pina Pulse Ox Last 24 Hr 97.7 F-98.4 F 87-122 14-32 92-182/61-135 76-100 General appearance: no acute distress (He is sedated on the ventilator), morbidly obese - Head Head exam: Present: normal inspection, normocephalic - Eye Eye exam: Present: EOMI. Absent: scleral icterus Pupils: Present: SCOTT - ENT ENT exam: Present: other (ET tube is in good position) - Neck Neck exam: Present: normal inspection. Absent: lymphadenopathy, thyromegaly - Respiratory Respiratory exam: Present: decreased breath sounds (The breath sounds are mildly decreased in the right base), prolonged expiratory phase, wheezes, other (He does have coarse breath sounds bilaterally.) - Cardiovascular Cardiovascular exam: Present: irregular rhythm, tachycardia. Absent: gallop, JVD, systolic murmur - GI/Abdominal GI/Abdominal exam: Present: distended, soft. Absent: organomegaly, tenderness - Extremities Exam Extremities exam: Absent: calf tenderness, edema - Neurological Exam Neurological exam: Present: other (Patient is sedated at present.) - Skin Skin exam: Present: warm, dry Medical,Surgical,& Family Hx - Medical History Cardio: History of: Cardiac Dysrhythmia, CHF (Perhaps diastolic, last EF was 60% ), CAD, Hypertension Psychological: History of: Depression, Psychiatric Problems Neurology: History of: Cerebrovascular Accident (left side weakness), Parkinson' s Disease Endocrine: History of: Diabetes Mellitus (IDDM), Dyslipidemia Respiratory: History of: COPD, Obstructive Sleep Apnea Genitourinary: History of: Prostate Problems, Recurring Urinary Tract Infections Gastrointestinal: History of: GERD, Hemorrhoids Musculoskeletal: History of: Musculoskeletal Problems (generalized osteoarthritis) Hematology: History of: Clotting Problems Other: History of: Miscellaneous Medical Problems (hernia repair) - Surgical History Neurologic Surgeries: Patient denies: Neurologic Surgery Abdominal Surgeries: Surgical HX of: Hernia Repair - Family History Family History: Reports;: Family Diabetes, Family Heart Disease - Social History Smoking Status: Former smoker Frequency of Alcohol Use: None Type of Drug Use: None Results - Labs CBC & BMP: 04/26/17 02:40 04/26/17 02:40 Labs: PO2 is 165 with a PCO2 of 51 and pH of 7.32 - Diagnostic Findings Procedure: Chest x-ray: image reviewed by me, report reviewed by me (Chest x- ray she does show worsening right lung atelectasis.)
[2017-04-26] MEDS ORDERED: predniSONE 20 MG TABLET PO SCH (09:00)
[2017-04-26] MEDS ORDERED: CARVEDILOL 6.25 MG TABLET PER TUBE SCH ×2 (09:00→13:15)
[2017-04-26] MEDS ORDERED: TAMSULOSIN 0.4 MG CAPSULE PO SCH (09:00)
[2017-04-26] MEDS ORDERED: NON-FORMULARY MEDICATION (Multivit-Min/Fa/Lycopen/Lutein [Centrum Silver Tablet] 1 EACH) PO SCH (09:00)
[2017-04-26] MEDS: FLUoxetine 10 MG CAPSULE PO SCH (09:35)
[2017-04-26] MEDS: MULTIVITAMIN (CENTRUM) TABLET PO SCH (09:35)
[2017-04-26] MEDS: ASPIRIN EC 325 MG TABLET PO SCH (09:35)
[2017-04-26] MEDS: THEOPHYLLINE ER 300 MG TABLET PO SCH ×2 (09:35→17:19)
--- NOTE | 2017-04-26 09:49 | XRay Report ---
Portable chest Date: 04/26/2017 Clinical history: Endotracheal tube placement Comparison: 04/11/2017 Technique: Portable AP sitting chest Findings: Persistent cardiomegaly. Endotracheal tube is in satisfactory position. Progressive shift of mediastinum to the right. Progressive pleural-parenchymal findings the right mid to lower lung zone with decreased parenchymal findings at the left lung base. Small left pleural effusion. Degenerative changes are noted. Impression: Endotracheal tube in satisfactory position. Shift of mediastinum to the right with progressive atelectasis/infiltration in the right lower lobe with associated small pleural effusion. Decreased pleural-parenchymal findings at the left lung base. Follow-up chest x-ray recommended. PROCEDURE INTERPRETED AT [facility] DEPARTMENT OF RADIOLOGY Final Report Signed by: Dr. Patti Gould
--- NOTE | 2017-04-26 10:28 | EKG Report ---
Stationary ECG Study [facility] ER Test Date: 04/26/2017 2:16:54 AM Pat Name: EFRAIN DELACRUZ Department: Room: 129 Gender: M Educational Interpreter: : 1945 Requested by: Nancy Loaiza Order Number: [id number] Reading MD: JOSE DE JESUS ESPINOSA Intervals [place] Rate: 118 P: 999 [place]: 0 QRS: 4 QRSD: 93 T: 77 QT: 324 QTc: 394 Interpretive Statements ATRIAL FIBRILLATION WITH RAPID VENTRICULAR RESPONSE NON-SPECIFIC ST-T CHANGES Electronically Signed On 04-27-17 10:38:21 CDT by JOSE DE JESUS ESPINOSA [email or web address]
[2017-04-26] MEDS: CLOTRIMAZOLE 1% CREAM 15 GM TUBE TOP SCH ×2 (11:41→20:37)
[2017-04-26] MEDS: VALPROIC ACID 250 MG/5 ML UDCUP PO SCH ×2 (11:41→20:37)
[2017-04-26] MEDS: INSULIN GLARGINE 100 UNIT/ML SUBCUT SCH ×2 (11:41→20:37)
[2017-04-26] MEDS: ENOXAPARIN 40 MG/0.4 ML SYRINGE SUBCUT SCH (11:42)
[2017-04-26] MEDS: PIPERACILLIN/TAZOBACTAM 3,375 MG in SODIUM CHLORIDE 0.9% 100 ML IV SCH ×2 (11:42→17:19)
[2017-04-26] MEDS: PANTOPRAZOLE 40 MG VIAL IV SCH (11:42)
[2017-04-26] MEDS: OLANZapine 2.5 MG TABLET PO SCH ×2 (11:43→20:37)
[2017-04-26] MEDS: methylPREDNISolone SOD SUC 40 MG/1 ML VIAL IV SCH ×2 (11:43→17:19)
--- NOTE | 2017-04-26 13:05 | Hospitalist Progress Note ---
Assessment and Plan (1) Acute respiratory failure with hypoxia Status: Acute Assessment and plan: Intubated and managed by Dr. Mitchell Current Visit: Yes (2) HCAP (healthcare-associated pneumonia) Status: Acute Assessment and plan: cont zosyn Current Visit: Yes (3) Acute exacerbation of chronic obstructive airways disease Status: Acute Assessment and plan: cont duonebs and solumedrol IV Current Visit: No (4) Atrial fibrillation Status: Acute Assessment and plan: currently in sinus rhythm, blood pressure not tolerating coreg or dilt Current Visit: No Qualifiers: Atrial fibrillation type: chronic Qualified Code(s): I48.2 - Chronic atrial fibrillation (5) Unspecified Sleep Apnea Status: Acute Assessment and plan: currently intubated, noncompliant with cpap at [facility] Current Visit: No (6) Congestive heart failure Status: Chronic Assessment and plan: echo in April 2017, ef 60% with grade one diastolic dysfunction, BNP normal Current Visit: No (7) Insulin dependent diabetes mellitus Status: Chronic Assessment and plan: isc, tube feeding per sales contractor Current Visit: No (8) Pickwickian syndrome Status: Chronic Assessment and plan: will never lose weight Current Visit: No (9) Septic shock Status: Acute Assessment and plan: NS 500 ml bolus, at 100 ml/hr, blood cx done, cont zosyn, pressors Current Visit: Yes Hospitalist: Subjective Interval history: Discussed with patients sister in law, Concepcion Mace at [phone]. His is ill but wants him to remain a full code. Patient has only been out a short time from hospital. Dr. Mitchell has seen him and feels that he has mucous plugs. Exam - Constitutional Vitals: Period Temp Pulse Resp BP Sys/Pina Pulse Ox Last 24 Hr 97.5 F-98.4 F 76-122 11-32 80-182/46-135 76-100 Exam: Heart Rate-[RRR] Lungs-[very diminished] GI-[+bs soft, NT, obese] Ext-[1+ edema] Neuro sedated and intubated psych [unable to assess General [no acute distress] Results - Labs CBC & BMP: 04/26/17 02:40 04/26/17 02:40 Lab Results: I have reviewed the past 24 hour labs Labs: ESBL in sputum sensitive to meropenem, - Diagnostic Findings Procedure: Chest x-ray: report reviewed by me (bilateral pneumonia ), CT - chest : report reviewed by me (bilateral pneumonia, copd )
[2017-04-26] MEDS ORDERED: SODIUM CHLORIDE 0.9% 500 ML IV ONE (13:18)
[2017-04-26] MEDS ORDERED: DIGOXIN 0.5 MG/2 ML AMP IV ONE (13:20)
[2017-04-26] MEDS ORDERED: NOREPINEPHRINE 8 MG in SODIUM CHLORIDE 0.9% 242 ML IV SCH (13:30)
[2017-04-26] MEDS ORDERED: NOREPINEPHRINE 4 MG/4 ML VIAL IV ONE (13:35)
[2017-04-26] MEDS: SODIUM CHLORIDE 0.9% 1,000 ML IV SCH ×2 (14:05→23:39)
[2017-04-26] MEDS ORDERED: VANCOMYCIN INJ 1,750 MG in SODIUM CHLORIDE 0.9% 500 ML IV SCH (20:00)
[2017-04-26] MEDS ORDERED: SODIUM CHLORIDE 0.9% 1,000 ML IV ONE (20:16)
--- NOTE | 2017-04-26 20:20 | EKG Report ---
Stationary ECG Study [facility] Test Date: 04/26/2017 8:08:35 PM Pat Name: EFRAIN DELACRUZ Department: Room: 129 Gender: M Breakfast And Room Attendant: : 1945 Requested by: Jeremiah Agustin Order Number: [id number] Reading MD: JOSE DE JESUS ESPINOSA Intervals [place] Rate: 96 P: 999 [place]: 0 QRS: 20 QRSD: 90 T: 84 QT: 334 QTc: 387 Interpretive Statements NORMAL SINUS RHYTHM WITH MOBITZ TYPE I SECONDARY AV BLOCK Electronically Signed On 04-28-17 10:15:11 CDT by JOSE DE JESUS ESPINOSA [email or web address]
[2017-04-26] MEDS: PREGABALIN 75 MG CAPSULE PO SCH (20:37)
[2017-04-26] MEDS: PRAVASTATIN 40 MG TABLET PO SCH (20:37)
[2017-04-27] MEDS: PROPOFOL 1,000 MG/100 ML BOTTLE IV SCH ×6 (00:12→21:36)
[2017-04-27] MEDS: INSULIN REGULAR 100 UNIT/ML SUBCUT SCH ×4 (00:34→17:02)
[2017-04-27] MEDS: methylPREDNISolone SOD SUC 40 MG/1 ML VIAL IV SCH ×3 (00:52→16:31)
[2017-04-27] MEDS: PIPERACILLIN/TAZOBACTAM 3,375 MG in SODIUM CHLORIDE 0.9% 100 ML IV SCH ×3 (00:52→16:31)
[2017-04-27] MEDS: ALBUTEROL/IPRATROPIUM 3 ML NEB RESP TX SCH ×6 (02:39→23:26)
[2017-04-27 02:45] LABS: ABG Base Excess -0.4 MMOL/L (-2.5-2.5); ABG HCO3 24.1 MMOL/L (20-26); ABG Oxygen Saturation 99.5 % (95-100); ABG PCO2 44.1 MM HG (35-48); ABG PH 7.364 (7.35-7.45); ABG TCO2 22.6 MMOL/L (23-27); Allen Test Positive; Pt O2 Delivery Device Ventilator
[2017-04-27 03:41] LABS: Basophils % 0.1 % (0.0-0.8); Hematocrit 33.6 VOL% (42.0-52.0); Hemoglobin 10.9 GM/DL (14.0-18.0); Immature Granulocytes % 0.5 %; Immature Granulocytes Absolute 0.05 #; Lymphocytes # 0.5 10*3/uL (1.4-4.0); Mean Corpuscular HGB Conc 32.4 GM/DL (32-36); Mean Corpuscular Hemoglobin 29 PG (27-34); Mean Corpuscular Volume 89.8 FL (87-102); Mean Platelet Volume 10.7 FL (9.6-12.0); Monocytes # 0.3 10*3/uL (0.11-0.8); Monocytes % 3.1 % (1.7-12.7); NRBC # 0.02 10*3/uL; Neutrophils # 9.8 10*3/uL (1.4-7.4); Neutrophils % 91.3 % (38.7-73.9); Platelet Count 144 T/CUMM (130-400); Red Blood Count 3.74 MC/CUMM (3.8-5.5); Red Cell Distribution Width 14.8 % (9.3-17.3); White Blood Count 10.7 T/CUMM (4-12)
[2017-04-27 04:17] LABS: Albumin 2.1 G/DL (3.4-5.0); Bilirubin,Total 0.6 MG/DL (0.2-1.0); Calcium 7.9 MG/DL (8.5-10.1); Magnesium 1.8 MG/DL (1.8-2.4); Potassium 4.6 MMOL/L (3.5-5.1); Total Protein 4.9 G/DL (6.4-8.3)
[2017-04-27 05:25] LABS: Band Neutrophils 5 % (0-10); Lymphocytes 6 % (20-55); Platelet Estimate Normal; Segmented Neutrophils 88 % (50-85); Total Cells Counted 100
[2017-04-27] MEDS: DORNASE ALFA 2.5 MG/2.5 ML VIAL RESP TX SCH ×2 (07:37→19:57)
--- NOTE | 2017-04-27 07:59 | Pulmonology Progress Note ---
Pulmonary - PN: Subj Interval history: The patient is a 71-year-old white male with a long history of COPD and obesity. He comes in with worsening respiratory failure. He is on the ventilator now. He does have a lot of chronic pain problems also. He is more responsive today and looks like he is more comfortable. His oxygenation and chest x-ray are better. He appears to be reasonably stable at present. Exam (Progress Note) - Constitutional Vitals: Period Temp Pulse Resp BP Sys/Pina Pulse Ox Last 24 Hr 97 F-98.1 F 76-119 11-34 77-151/46-85 91-100 Exam: General appearance: no acute distress (He is sedated on the ventilator. He does respond a little better and has stable vital signs.), morbidly obese - Head Head exam: Present: normal inspection, normocephalic - Eye Eye exam: Present: EOMI. Absent: scleral icterus Pupils: Present: SCOTT - ENT ENT exam: Present: other (ET tube is in good position) - Neck Neck exam: Present: normal inspection. Absent: lymphadenopathy, thyromegaly - Respiratory Respiratory exam: Present: He has better breath sounds on the right and is moving air a little better with less rhonchi. - Cardiovascular Cardiovascular exam: Present: irregular rhythm, tachycardia. Absent: gallop, JVD, systolic murmur - GI/Abdominal GI/Abdominal exam: Present: distended, soft. Absent: organomegaly, tenderness - Extremities Exam Extremities exam: Absent: calf tenderness, edema - Neurological Exam Neurological exam: Present: other (Patient is sedated at present. Patient does respond and moves his extremities.) - Skin Skin exam: Present: warm, dry Results - Labs CBC & BMP: 04/27/17 02:36 04/27/17 02:36 Labs: His PO2 is 291 with a PCO2 of 44 and a pH of 7.36 - Diagnostic Findings Procedure: Chest x-ray: image reviewed by me, report reviewed by me (Chest x- ray is better with less right lower lobe atelectasis.) Assessment and Plan (1) Morbid obesity Status: Acute Assessment and plan: The patient has morbid obesity and is basically bedridden. He has had chronic problems with his breathing for quite some time. Current Visit: No Qualifiers: Obesity type: unspecified obesity type Qualified Code(s): E66.01 - Morbid ( severe) obesity due to excess calories (2) Acute exacerbation of chronic obstructive airways disease Status: Acute Assessment and plan: Patient has a lifelong history of smoking and has significant COPD. Will continue with steroids and bronchodilator therapy. Current Visit: No (3) Sleep apnea Status: Acute Assessment and plan: The patient certainly has sleep apnea but I am not sure he does much CPAP. Current Visit: No (4) Insulin dependent diabetes mellitus Status: Chronic Assessment and plan: His glucose is 122 this morning. Current Visit: No (5) Atrial fibrillation Status: Acute Assessment and plan: Patient has a long history of chronic atrial fibrillation. His heart rate is under good control. Current Visit: No Qualifiers: Atrial fibrillation type: chronic Qualified Code(s): I48.2 - Chronic atrial fibrillation (6) Acute respiratory failure with hypoxia Status: Acute Assessment and plan: The patient came in with respiratory distress and hypoxemia and is now on the ventilator. His chest x-ray and oxygenation are improved. Will plan a bronchoscopy tomorrow to clear his airways. Will lower his FiO2. Current Visit: Yes (7) HCAP (healthcare-associated pneumonia) Status: Acute Assessment and plan: The patient will be treated for pneumonia although he mainly has mucous plugging and right lower lobe atelectasis. Will proceed with a bronchoscope tomorrow. Current Visit: Yes
--- NOTE | 2017-04-27 10:23 | XRay Report ---
Portable chest Date: 04/27/2017 Clinical history: Shortness of breath Comparison: 04/26/2017 Technique: Portable AP sitting chest Findings: The heart is smaller in size with reduced pleural-parenchymal findings at the right lung base. More stable findings at the left lung base. The endotracheal tube remains in satisfactory position. The nasogastric tube appears to project in the distal esophagus. Impression: Endotracheal tube remains in satisfactory position. Reduced pleural-parenchymal findings at the right lung base with more stable findings at the left lung base. The tip of the nasogastric tube probably projects in the distal esophagus and should be advanced further into the stomach. This report was called the patient's nurse, Melyssa at 10:00 AM on 04/27/2017. PROCEDURE INTERPRETED AT [facility] DEPARTMENT OF RADIOLOGY Final Report Signed by: Dr. Patti Gould
--- NOTE | 2017-04-27 11:14 | Hospitalist Progress Note ---
Assessment and Plan (1) Acute respiratory failure with hypoxia Status: Acute Assessment and plan: intubated, bronch on Friday, zosyn Current Visit: Yes (2) HCAP (healthcare-associated pneumonia) Status: Acute Assessment and plan: cont zosyn Current Visit: Yes (3) Acute exacerbation of chronic obstructive airways disease Status: Acute Assessment and plan: cont duonebs and solumedrol IV Current Visit: No (4) Atrial fibrillation Status: Acute Assessment and plan: currently in sinus rhythm, digoxin, check level in am Current Visit: No Qualifiers: Atrial fibrillation type: chronic Qualified Code(s): I48.2 - Chronic atrial fibrillation (5) Unspecified Sleep Apnea Status: Acute Assessment and plan: currently intubated, noncompliant with cpap at skilled nursing Current Visit: No (6) Congestive heart failure Status: Chronic Assessment and plan: echo in April 2017, ef 60% with grade one diastolic dysfunction, BNP normal Current Visit: No (7) Insulin dependent diabetes mellitus Status: Chronic Assessment and plan: isc, 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 Mitchell is planning on doing a bronch tomorrow. Having yellowish sputum, no alert today, uo okay, no high tube feed residuals, d/c coreg Exam - Constitutional Vitals: Period Temp Pulse Resp BP Sys/Pina Pulse Ox Last 24 Hr 97 F-98.1 F 77-119 12-34 77-151/48-84 99-100 Exam: Heart Rate-[RRR] Lungs-[very diminished, rhonchi GI-[+bs soft, NT, obese] Ext-[1+ edema] Neuro following commands psych agitated mood and affect General [no acute distress] Results - Labs CBC & BMP: 04/27/17 02:36 04/27/17 02:36 Lab Results: I have reviewed the past 24 hour labs Labs: Patient culture pending, blood cultures 2 negative no growth. - Diagnostic Findings Procedure: Chest x-ray: report reviewed by me (bilateral dz)
[2017-04-27] MEDS: INSULIN GLARGINE 100 UNIT/ML SUBCUT SCH ×2 (12:30→20:30)
[2017-04-27] MEDS: VALPROIC ACID 250 MG/5 ML UDCUP PO SCH ×2 (12:30→20:31)
[2017-04-27] MEDS: MULTIVITAMIN (CENTRUM) TABLET PO SCH (12:30)
[2017-04-27] MEDS: THEOPHYLLINE ER 300 MG TABLET PO SCH ×2 (12:30→16:31)
[2017-04-27] MEDS: CLOTRIMAZOLE 1% CREAM 15 GM TUBE TOP SCH ×2 (12:30→20:32)
[2017-04-27] MEDS: ENOXAPARIN 40 MG/0.4 ML SYRINGE SUBCUT SCH (12:31)
[2017-04-27] MEDS: PANTOPRAZOLE 40 MG VIAL IV SCH (12:31)
[2017-04-27] MEDS: OLANZapine 2.5 MG TABLET PO SCH (12:31)
[2017-04-27] MEDS: FLUoxetine 10 MG CAPSULE PO SCH (12:31)
[2017-04-27] MEDS: SODIUM CHLORIDE 0.9% 1,000 ML IV SCH ×2 (12:32→18:35)
[2017-04-27] MEDS: DIGOXIN 0.5 MG/2 ML AMP IV SCH (12:32)
[2017-04-27] MEDS: ASPIRIN EC 325 MG TABLET PO SCH (12:33)
[2017-04-27] MEDS: PREGABALIN 75 MG CAPSULE PO SCH (20:30)
[2017-04-27] MEDS: PRAVASTATIN 40 MG TABLET PO SCH (20:31)
[2017-04-28] MEDS: INSULIN REGULAR 100 UNIT/ML SUBCUT SCH ×4 (00:31→18:26)
[2017-04-28] MEDS: PIPERACILLIN/TAZOBACTAM 3,375 MG in SODIUM CHLORIDE 0.9% 100 ML IV SCH ×3 (00:48→18:15)
[2017-04-28] MEDS: methylPREDNISolone SOD SUC 40 MG/1 ML VIAL IV SCH ×3 (00:48→18:20)
[2017-04-28] MEDS: PROPOFOL 1,000 MG/100 ML BOTTLE IV SCH ×5 (00:49→23:04)
[2017-04-28] MEDS: ALBUTEROL/IPRATROPIUM 3 ML NEB RESP TX SCH ×5 (03:46→19:57)
[2017-04-28 05:55] LABS: Magnesium 2.1 MG/DL (1.8-2.4); Phosphorous 1.8 MG/DL (2.5-4.9); Prealbumin 18.1 MG/DL (20-40)
[2017-04-28] MEDS: SODIUM CHLORIDE 0.9% 1,000 ML IV SCH ×3 (06:13→18:24)
[2017-04-28] MEDS: DORNASE ALFA 2.5 MG/2.5 ML VIAL RESP TX SCH ×2 (07:41→19:57)
[2017-04-28] MEDS ORDERED: LIDOCAINE 2% VISCOUS 100 ML BOTTLE SWISH/SPIT ONE (08:00)
[2017-04-28] MEDS ORDERED: LIDOCAINE 1% 20 ML VIAL MISC INJ ONE (08:00)
[2017-04-28] MEDS ORDERED: LIDOCAINE 4% TOP SOLN 50 ML BOTTLE RESP TX ONE (08:00)
--- NOTE | 2017-04-28 08:03 | Pulmonology Progress Note ---
Pulmonary - PN: Subj Interval history: The patient is a 71-year-old white male with a long history of COPD and obesity. He comes in with worsening respiratory failure. He is on the ventilator now. He does have a lot of chronic pain problems also. He is more responsive today and looks like he is more comfortable. His oxygenation and chest x-ray are better. He did have a fairly good night last night. He did do some CPAP trials yesterday and did fairly well. His vital signs are stable and his O2 saturations are good. Exam (Progress Note) - Constitutional Vitals: Period Temp Pulse Resp BP Sys/Pina Pulse Ox Last 24 Hr 97.6 F-97.8 F 57-106 12-24 93-155/47-80 92-100 Exam: General appearance: no acute distress (He is sedated on the ventilator. He does respond a little better and has stable vital signs.), morbidly obese - Head Head exam: Present: normal inspection, normocephalic - Eye Eye exam: Present: EOMI. Absent: scleral icterus Pupils: Present: SCOTT - ENT ENT exam: Present: other (ET tube is in good position) - Neck Neck exam: Present: normal inspection. Absent: lymphadenopathy, thyromegaly - Respiratory Respiratory exam: Present: He has better breath sounds and he has better air movement with minimal wheeze. - Cardiovascular Cardiovascular exam: Present: irregular rhythm, heart rate is better. Absent: gallop, JVD, systolic murmur - GI/Abdominal GI/Abdominal exam: Present: distended, soft. Absent: organomegaly, tenderness - Extremities Exam Extremities exam: Absent: calf tenderness, edema - Neurological Exam Neurological exam: Present: other (Patient is sedated at present. Patient does respond and moves his extremities.) - Skin Skin exam: Present: warm, dry Results - Labs CBC & BMP: 04/27/17 02:36 04/27/17 02:36 Assessment and Plan (1) Morbid obesity Status: Acute Assessment and plan: The patient has morbid obesity and is basically bedridden. He has had chronic problems with his breathing for quite some time. Current Visit: No Qualifiers: Obesity type: unspecified obesity type Qualified Code(s): E66.01 - Morbid ( severe) obesity due to excess calories (2) Acute exacerbation of chronic obstructive airways disease Status: Acute Assessment and plan: Patient has a lifelong history of smoking and has significant COPD. Will continue with steroids and bronchodilator therapy. His oxygenation is better. Current Visit: No (3) Sleep apnea Status: Acute Assessment and plan: The patient certainly has sleep apnea but I am not sure he does much CPAP. Current Visit: No (4) Insulin dependent diabetes mellitus Status: Chronic Assessment and plan: His glucose is 143 this morning. Current Visit: No (5) Atrial fibrillation Status: Acute Assessment and plan: Patient has a long history of chronic atrial fibrillation. His heart rate is under good control. Current Visit: No Qualifiers: Atrial fibrillation type: chronic Qualified Code(s): I48.2 - Chronic atrial fibrillation (6) Acute respiratory failure with hypoxia Status: Acute Assessment and plan: The patient came in with respiratory distress and hypoxemia and is now on the ventilator. His chest x-ray and oxygenation are improved. He is fairly stable on the ventilator and did CPAP reasonably well. We will go ahead with the bronchoscope and clear his airways. Will continue with weaning. Current Visit: Yes (7) HCAP (healthcare-associated pneumonia) Status: Acute Assessment and plan: The patient will be treated for pneumonia although he mainly has mucous plugging and right lower lobe atelectasis. Will go ahead with the scope today. Current Visit: Yes
--- NOTE | 2017-04-28 08:08 | Operative Note ---
Date of procedure: 04/28/17 Pre-op diagnosis: COPD with atelectasis. Post-op diagnosis: same Procedure: The patient is on the ventilator in the ICU. He has significant COPD with some retained secretions. He has had right lower lobe atelectasis. A bronchoscope will be done to clear airways. Procedure: The fiberoptic bronchoscope was passed to the ET tube into the airways. The bronchopulmonary segments were identified and specimens obtained Findings: The ET tube is in good position in the trachea. The main bronchi are open. There is some thick white mucus and plugs in the right lower lobe that were washed and cleared and sent for culture. There is also some secretions in the left lower lobe that were washed and cleared. There are no endobronchial lesions seen. The right upper lobe, right middle lobe, and right lower lobe are all open. The left upper lobe, lingula, left lower lobe are all open. Once the airways were clear the procedure was stopped. He tolerated the procedure well without problems. Impression: COPD with retained secretions. Plan: We will continue weaning from the ventilator. Anesthesia: conscious sedation Surgeon / Physician: George Mitchell Estimated blood loss: none Specimens: other (Washings were sent for culture) Condition: stable Disposition: ICU Results - Labs CBC & BMP: 04/27/17 02:36 04/27/17 02:36 Discharge Plan - Discharge Medications No Action Albuterol/Ipratropium Neb [Duoneb] 3 ml RESP TX RT Q4H PRN PRN Reason: Shortness Of Breath/Wheezing Pantoprazole Tab [Protonix Tab] 40 mg PO DAILY Multivit-Min/FA/Lycopen/Lutein [Centrum Silver Tablet] 1 each PO DAILY Insulin Regular [HumuLIN R] 0 unit SUBCUT ACHS Pravastatin [Pravachol] 40 mg PO BEDTIME #30 tablet Pregabalin [Lyrica] 150 mg PO BEDTIME #30 capsule Tamsulosin [Flomax] 0.4 mg PO DAILY #30 capsule Melatonin 5 mg PO BEDTIME Lactulose Liquid [Chronulac] 20 gm PO Q6HR PRN PRN Reason: high ammonia Aspirin EC Tab 325 mg PO DAILY tablet predniSONE TAB [PredniSONE] 20 mg PO DAILY #5 tablet FLUoxetine [PROzac] 10 mg PO DAILY OLANZapine TAB [ZyPREXA Tab] 2.5 mg PO BID Glucagon 1 mg IM PRN PRN vial PRN Reason: Hypoglycemia w/o IV access HYDROcodone/ACETAMIN 7.5-325 [[place] 7.5-325] 1 tablet PO Q4H PRN tablet PRN Reason: Pain Moderate (4-7) Insulin Glargine [Lantus] 30 unit SUBCUT BID unit Insulin Regular [HumuLIN R] See Protocol SUBCUT Q6HR unit Magnesium Hydroxide Susp [Milk of Magnesia] 30 ml PO Q8H PRN PRN Reason: Constipation Multivitamin (Centrum) [Centrum Tab] 1 tablet PO DAILY tablet Tamsulosin [Flomax] 0.4 mg PO DAILY capsule Theophylline ER Tab 150 mg PO BID W/MEALS tablet Carvedilol [Coreg] 6.25 mg PER TUBE BID tablet Diltiazem Tab [Cardizem Tab] 30 mg PO Q8HR tablet Valproic Acid Liquid [Depakene] 600 mg PO BID Theophylline ER Tab 300 mg PO BID W/MEALS Clotrimazole 1% Cream [Lotrimin 1% Cream] 1 applic TOP BID FLUoxetine [PROzac] 10 mg PO DAILY capsule HydrOXYzine PAMOATE CAP [Vistaril Cap] 25 mg PO Q6H PRN capsule PRN Reason: Itching Pregabalin [Lyrica] 150 mg PO BEDTIME capsule Albuterol/Ipratropium Neb [Duoneb] 3 ml RESP TX RT Q4H Dornase Christoph [Pulmozyme] 2.5 mg RESP TX RT Q12H vial Sulfameth/Trimeth 400-80 Tab [Bactrim Tab] 1 tablet PO BID #14 tablet - Follow Up or Referral - Forms/Instructions
--- NOTE | 2017-04-28 10:27 | Hospitalist Progress Note ---
Assessment and Plan (1) Acute respiratory failure with hypoxia Status: Resolved Assessment and plan: 1)acute respiratory failure with hypoxia due to pneumonia and acute COPD exacerbation on history of chronic diastolic CHF- on steroids, antibiotics to cover HCAP, and nebs. improving. Bronch with secretions cleared and cultures sent. 2)DM- on SSI 3)afib- rate ok on DIG. 4)septic shock- resolved- BP good after volume resuscitation and off pressors. 5)tube feeds. Current Visit: No (2) Congestive heart failure Status: Chronic Current Visit: No (3) Acute exacerbation of chronic obstructive airways disease Status: Acute Current Visit: No (4) Sleep apnea Status: Acute Current Visit: No (5) Insulin dependent diabetes mellitus Status: Chronic Current Visit: No (6) Pneumonia, bacterial Problem details: 2/2 Ineffective cough with subsequent RML and RLL atelectasis. Also with a LLL infiltrate. Aspiration pneumonia considered given return of gastric content on bronch examination. Continue with current antibiotics. Improving. Status: Acute Current Visit: No (7) Atrial fibrillation Status: Acute Current Visit: No Qualifiers: Atrial fibrillation type: chronic Qualified Code(s): I48.2 - Chronic atrial fibrillation (8) Septic shock Status: Acute Current Visit: Yes (9) Acute respiratory failure Status: Acute Current Visit: No Hospitalist: Subjective Interval history: Stable on vent. Bronch this morning with secretions cleared and cultures sent. BP stable off pressors this morning. Exam - Constitutional Vitals: Period Temp Pulse Resp BP Sys/Pina Pulse Ox Last 24 Hr 96.0 F-97.8 F 57-114 12-24 93-185/47-137 92-100 General appearance: no acute distress, over weight - Eye Eye exam: Present: EOMI. Absent: scleral icterus - Respiratory Respiratory exam: Present: clear to auscultation bilaterally - Cardiovascular Cardiovascular exam: Present: irregular rhythm - GI/Abdominal GI/Abdominal exam: Present: normal bowel sounds, soft. Absent: tenderness - Neurological Exam Neurological exam: Present: other (sedated on vent) - Skin Skin exam: Present: warm, dry Results - Labs CBC & BMP: 04/27/17 02:36 04/27/17 02:36 Lab Results: I have reviewed the past 24 hour labs
[2017-04-28] MEDS: INSULIN GLARGINE 100 UNIT/ML SUBCUT SCH ×2 (11:03→20:20)
[2017-04-28] MEDS: VALPROIC ACID 250 MG/5 ML UDCUP PO SCH ×2 (11:06→20:20)
[2017-04-28] MEDS: MULTIVITAMIN (CENTRUM) TABLET PO SCH (11:06)
[2017-04-28] MEDS: ASPIRIN EC 81 MG TABLET PO SCH (11:06)
[2017-04-28] MEDS: FLUoxetine 10 MG CAPSULE PO SCH (11:08)
[2017-04-28] MEDS: CLOTRIMAZOLE 1% CREAM 15 GM TUBE TOP SCH ×2 (11:08→20:21)
[2017-04-28] MEDS: PANTOPRAZOLE 40 MG VIAL IV SCH (11:19)
[2017-04-28] MEDS: DIGOXIN 0.5 MG/2 ML AMP IV SCH (11:26)
[2017-04-28] MEDS: DESITIN 4OZ/NYSTATIN 15 GRAM MIXTURE PASTE TOP SCH ×2 (11:33→20:21)
[2017-04-28] MEDS: ENOXAPARIN 40 MG/0.4 ML SYRINGE SUBCUT SCH (11:33)
[2017-04-28] MEDS: THEOPHYLLINE ER 300 MG TABLET PO SCH ×2 (12:18→18:15)
[2017-04-28] MEDS: PREGABALIN 75 MG CAPSULE PO SCH (20:21)
[2017-04-28] MEDS: PRAVASTATIN 40 MG TABLET PO SCH (20:21)
[2017-04-29] MEDS: INSULIN REGULAR 100 UNIT/ML SUBCUT SCH ×4 (00:16→20:07)
[2017-04-29] MEDS: ALBUTEROL/IPRATROPIUM 3 ML NEB RESP TX SCH ×7 (00:17→23:59)
[2017-04-29] MEDS: methylPREDNISolone SOD SUC 40 MG/1 ML VIAL IV SCH ×3 (01:45→17:54)
[2017-04-29] MEDS: PIPERACILLIN/TAZOBACTAM 3,375 MG in SODIUM CHLORIDE 0.9% 100 ML IV SCH ×3 (01:45→18:02)
[2017-04-29 02:55] LABS: ABG HCO3 27.1 MMOL/L (20-26); ABG Oxygen Saturation 99.4 % (95-100); ABG PCO2 37.4 MM HG (35-48); ABG PH 7.463 (7.35-7.45); ABG TCO2 24.5 MMOL/L (23-27); Allen Test Positive; Pt O2 Delivery Device Ventilator
[2017-04-29] MEDS: PROPOFOL 1,000 MG/100 ML BOTTLE IV SCH (03:45)
[2017-04-29 05:24] LABS: Calcium 8.1 MG/DL (8.5-10.1); Osmolality,Calculated 291.7 MOS/KG (273-304)
--- NOTE | 2017-04-29 07:01 | XRay Report ---
Exam: XR chest 1V portable Date: 04/29/2017 4:00 AM Indication: Follow-up ventilator respiratory failure Comparison: 04/27/2017 Technical: AP portable Findings: Endotracheal tube is at the level of aortic knob. Nasogastric traverses esophagus. The heart is slightly shifted to the right with some atelectatic change present in the right base as well as the left with tiny effusions. External cardiac leads are present. No pneumothorax. Lateral marginal osteophytes thoracic spine present. Consolidation suspected in the right base. Impression: 1. Stable appearance of life support tubing 2. Bilateral low volume effusions and atelectatic changes with pneumonic infiltrate in the right base PROCEDURE INTERPRETED AT [facility] DEPARTMENT OF RADIOLOGY Final Report Signed by: Dr. John Paul Weber
--- NOTE | 2017-04-29 07:35 | Pulmonology Progress Note ---
Pulmonary - PN: Subj Interval history: The patient is a 71-year-old white male with a long history of COPD and obesity. He comes in with worsening respiratory failure. He is on the ventilator now. He does have a lot of chronic pain problems also. He is more responsive today and looks like he is more comfortable. His oxygenation and chest x-ray are better. He did have a fairly good night last night. Yesterday we did a therapeutic bronchoscopy but he still has some mild atelectasis in his right base. It looks like he has a cuff leak on his ET tube. He did do CPAP fairly well yesterday. He is alert and responsive. Hopefully we can extubate him soon. Exam (Progress Note) - Constitutional Vitals: Period Temp Pulse Resp BP Sys/Pina Pulse Ox Last 24 Hr 96.0 F-97.7 F 60-114 12-23 87-185/53-137 88-100 Exam: General appearance: no acute distress (He is arousable and looks comfortable now.) - Head Head exam: Present: normal inspection, normocephalic - Eye Eye exam: Present: EOMI. Absent: scleral icterus Pupils: Present: SCOTT - ENT ENT exam: Present: other (ET tube is in good position) - Neck Neck exam: Present: normal inspection. Absent: lymphadenopathy, thyromegaly - Respiratory Respiratory exam: Present: He has better breath sounds and he has better air movement with minimal wheeze. His lungs still sound fairly clear now - Cardiovascular Cardiovascular exam: Present: irregular rhythm, heart rate is better. Absent: gallop, JVD, systolic murmur - GI/Abdominal GI/Abdominal exam: Present: distended, soft. Absent: organomegaly, tenderness - Extremities Exam Extremities exam: Absent: calf tenderness, edema - Neurological Exam Neurological exam: Present: other (Patient is responding and moves his extremities.) - Skin Skin exam: Present: warm, dry Results - Labs CBC & BMP: 04/27/17 02:36 04/29/17 04:30 Labs: His PO2 is 135 with a PCO2 of 37 and pH of 7.46 - Diagnostic Findings Procedure: Chest x-ray: image reviewed by me, report reviewed by me (Chest x- ray does show mild atelectasis in the right base.) Assessment and Plan (1) Morbid obesity Status: Acute Assessment and plan: The patient has morbid obesity and is basically bedridden. He has had chronic problems with his breathing for quite some time. Current Visit: No Qualifiers: Obesity type: unspecified obesity type Qualified Code(s): E66.01 - Morbid ( severe) obesity due to excess calories (2) Acute exacerbation of chronic obstructive airways disease Status: Acute Assessment and plan: Patient has a lifelong history of smoking and has significant COPD. Will continue with steroids and bronchodilator therapy. His oxygenation is better. He is doing CPAP better. Will try to extubate him soon. Current Visit: No (3) Sleep apnea Status: Acute Assessment and plan: The patient certainly has sleep apnea but I am not sure he does much CPAP. Current Visit: No (4) Insulin dependent diabetes mellitus Status: Chronic Assessment and plan: His glucose is 113 this morning. Current Visit: No (5) Atrial fibrillation Status: Acute Assessment and plan: Patient has a long history of chronic atrial fibrillation. His heart rate is under good control. Current Visit: No Qualifiers: Atrial fibrillation type: chronic Qualified Code(s): I48.2 - Chronic atrial fibrillation (6) Acute respiratory failure with hypoxia Status: Acute Assessment and plan: The patient came in with respiratory distress and hypoxemia and is now on the ventilator. His chest x-ray and oxygenation are improved. He did CPAP quite well yesterday. His bronchoscope was not bad. He did not have a lot of secretions. He still has some mild atelectasis of the right base. He has a cuff leak so he may need to come off the ventilator. Current Visit: Yes (7) HCAP (healthcare-associated pneumonia) Status: Acute Assessment and plan: The patient will be treated for pneumonia although he mainly has mucous plugging and right lower lobe atelectasis. His cultures are negative so far. Current Visit: Yes
[2017-04-29] MEDS: DORNASE ALFA 2.5 MG/2.5 ML VIAL RESP TX SCH ×2 (07:45→20:14)
[2017-04-29] MEDS: ASPIRIN EC 81 MG TABLET PO SCH (09:51)
[2017-04-29] MEDS: MULTIVITAMIN (CENTRUM) TABLET PO SCH (09:51)
[2017-04-29] MEDS: FLUoxetine 10 MG CAPSULE PO SCH (09:51)
[2017-04-29] MEDS: THEOPHYLLINE ER 300 MG TABLET PO SCH ×2 (09:51→17:53)
[2017-04-29] MEDS: VALPROIC ACID 250 MG/5 ML UDCUP PO SCH ×2 (09:52→20:06)
[2017-04-29] MEDS: INSULIN GLARGINE 100 UNIT/ML SUBCUT SCH ×2 (10:06→20:07)
[2017-04-29] MEDS: ENOXAPARIN 40 MG/0.4 ML SYRINGE SUBCUT SCH (10:08)
[2017-04-29] MEDS: PANTOPRAZOLE 40 MG VIAL IV SCH (10:10)
[2017-04-29] MEDS: DESITIN 4OZ/NYSTATIN 15 GRAM MIXTURE PASTE TOP SCH ×2 (10:15→20:14)
[2017-04-29] MEDS: CLOTRIMAZOLE 1% CREAM 15 GM TUBE TOP SCH ×2 (10:16→20:13)
[2017-04-29] MEDS: DIGOXIN 0.5 MG/2 ML AMP IV SCH (10:28)
--- NOTE | 2017-04-29 11:34 | Hospitalist Progress Note ---
Assessment and Plan (1) Acute exacerbation of chronic obstructive airways disease Status: Acute Assessment and plan: 1)COPD exac with acute hypoxic resp failure on vent- CPAP going well, may be extuabted today. on steroids, antibiotics, nebs. treating also for pneumonia since he had RLL plugging on bronch cultures negative so far. Zosyn day 3. 2)morbid obesity 3)sleep apnea-need to find out once extubated whether he needs sleep study 4)IDDM 5)afib- chronic. rate controlled. Current Visit: No (2) Congestive heart failure Status: Chronic Current Visit: No (3) Sleep apnea Status: Acute Current Visit: No (4) Insulin dependent diabetes mellitus Status: Chronic Current Visit: No (5) Pneumonia, bacterial Problem details: 2/2 Ineffective cough with subsequent RML and RLL atelectasis. Also with a LLL infiltrate. Aspiration pneumonia considered given return of gastric content on bronch examination. Continue with current antibiotics. Improving. Status: Acute Current Visit: No (6) Atrial fibrillation Status: Acute Current Visit: No Qualifiers: Atrial fibrillation type: chronic Qualified Code(s): I48.2 - Chronic atrial fibrillation (7) Septic shock Status: Acute Current Visit: Yes (8) Acute respiratory failure Status: Acute Current Visit: No Hospitalist: Subjective Interval history: Mr Bailey is alert and responsive this morning. He indicates that he is feeling better and wants to be off the vent. Denies shortness of breath. Exam - Constitutional Vitals: Period Temp Pulse Resp BP Sys/Pina Pulse Ox Last 24 Hr 97.2 F-97.7 F 60-85 12-21 87-180/53-112 88-100 General appearance: no acute distress, over weight - Eye Eye exam: Present: EOMI. Absent: periorbital swelling, scleral icterus - Respiratory Respiratory exam: Present: clear to auscultation bilaterally. Absent: rales, wheezes - Cardiovascular Cardiovascular exam: Present: regular rate and rhythm - GI/Abdominal GI/Abdominal exam: Present: normal bowel sounds, soft. Absent: tenderness - Extremities Exam Extremities exam: Absent: edema Results - Labs CBC & BMP: 04/27/17 02:36 04/29/17 04:30 Lab Results: I have reviewed the past 24 hour labs
[2017-04-29] MEDS: SODIUM CHLORIDE 0.9% 1,000 ML IV SCH ×2 (16:55→20:08)
[2017-04-29] MEDS: PRAVASTATIN 40 MG TABLET PO SCH (20:07)
[2017-04-29] MEDS: PREGABALIN 75 MG CAPSULE PO SCH (20:10)
[2017-04-30] MEDS: methylPREDNISolone SOD SUC 40 MG/1 ML VIAL IV SCH ×3 (02:24→16:33)
[2017-04-30] MEDS: PIPERACILLIN/TAZOBACTAM 3,375 MG in SODIUM CHLORIDE 0.9% 100 ML IV SCH ×3 (02:24→16:31)
[2017-04-30] MEDS: ALBUTEROL/IPRATROPIUM 3 ML NEB RESP TX SCH ×5 (03:34→19:23)
[2017-04-30] MEDS: SODIUM CHLORIDE 0.9% 1,000 ML IV SCH ×3 (05:43→12:40)
--- NOTE | 2017-04-30 06:58 | XRay Report ---
Exam: XR chest 1V portable Date: 04/30/2017 4:00 AM Indication: Follow-up ventilator Comparison: 04/29/2017 Technical: AP portable Findings: Mild prominence the cardiac silhouette. The endotracheal tube and nasogastric tube have been removed. Patchy infiltrate is present in the right base with tiny low volume right effusion. ASVD is present. External cardiac leads are present. Arthritic change present over the shoulders with spur formation present right greater than left Impression: 1. Removal of the life support tubing 2. Atelectatic change infiltrate and low volume right effusion present. 3. Mild cardiomegaly PROCEDURE INTERPRETED AT [facility] DEPARTMENT OF RADIOLOGY Final Report Signed by: Dr. John Palu Weber
[2017-04-30] MEDS: DORNASE ALFA 2.5 MG/2.5 ML VIAL RESP TX SCH ×2 (07:51→19:24)
--- NOTE | 2017-04-30 08:24 | Pulmonology Progress Note ---
Pulmonary - PN: Subj Interval history: The patient is a 71-year-old white male with a long history of COPD and obesity. He comes in with worsening respiratory failure. He required ventilation for several days but is doing better now. Yesterday was extubated and has done okay. He says he is feeling okay and coughing well. He denies being short of breath and looks like he is relatively stable. He does have gram -negative rods on washings. His chest x-ray still shows some mild right lower lobe infiltrate. He can probably move to a regular room and increase his activity. Exam (Progress Note) - Constitutional Vitals: Period Temp Pulse Resp BP Sys/Pina Pulse Ox Last 24 Hr 96.8 F-98.7 F 52-86 13-22 105-190/49-112 93-100 Exam: General appearance: no acute distress (He is comfortable on low-flow oxygen. ) - Head Head exam: Present: normal inspection, normocephalic - Eye Eye exam: Present: EOMI. Absent: scleral icterus Pupils: Present: SCOTT - ENT ENT exam: Present: Unremarkable - Neck Neck exam: Present: normal inspection. Absent: lymphadenopathy, thyromegaly - Respiratory Respiratory exam: Present: He has fairly good breath sounds bilaterally with some mild rhonchi bilaterally. - Cardiovascular Cardiovascular exam: Present: irregular rhythm, heart rate is better. Absent: gallop, JVD, systolic murmur - GI/Abdominal GI/Abdominal exam: Present: distended, soft. Absent: organomegaly, tenderness - Extremities Exam Extremities exam: Absent: calf tenderness, edema - Neurological Exam Neurological exam: Present: other (Patient is moving around and responding well. ) - Skin Skin exam: Present: warm, dry Results - Labs CBC & BMP: 04/27/17 02:36 04/29/17 04:30 - Diagnostic Findings Procedure: Chest x-ray: image reviewed by me, report reviewed by me (Chest x- ray shows mild right lower lobe infiltrate.) Assessment and Plan (1) Morbid obesity Status: Acute Assessment and plan: The patient has morbid obesity and is basically bedridden. He has had chronic problems with his breathing for quite some time. Current Visit: No Qualifiers: Obesity type: unspecified obesity type Qualified Code(s): E66.01 - Morbid ( severe) obesity due to excess calories (2) Acute exacerbation of chronic obstructive airways disease Status: Acute Assessment and plan: Patient has a lifelong history of smoking and has significant COPD. Will continue with steroids and bronchodilator therapy. His oxygenation is better. He came off the ventilator okay and seems to be breathing well at present. Current Visit: No (3) Sleep apnea Status: Acute Assessment and plan: The patient certainly has sleep apnea but I am not sure he uses CPAP regularly Current Visit: No (4) Insulin dependent diabetes mellitus Status: Chronic Assessment and plan: His glucose is 116 this morning. Current Visit: No (5) Atrial fibrillation Status: Acute Assessment and plan: Patient has a long history of chronic atrial fibrillation. His heart rate is under good control. Current Visit: No Qualifiers: Atrial fibrillation type: chronic Qualified Code(s): I48.2 - Chronic atrial fibrillation (6) Acute respiratory failure with hypoxia Status: Acute Assessment and plan: The patient came in with respiratory distress and required ventilatory support. He is doing better now and feels like his breathing is okay. He is comfortable on low-flow oxygen. He is tolerating his respiratory therapy. His respiratory status is reasonably stable at present. Current Visit: Yes (7) HCAP (healthcare-associated pneumonia) Status: Acute Assessment and plan: The patient will be treated for pneumonia although he mainly has mucous plugging and right lower lobe atelectasis. He has gram-negative rods on his washings. He will continue with present therapy. Current Visit: Yes
[2017-04-30] MEDS: INSULIN REGULAR 100 UNIT/ML SUBCUT SCH ×4 (09:09→21:22)
[2017-04-30] MEDS: THEOPHYLLINE ER 300 MG TABLET PO SCH ×2 (10:17→16:31)
[2017-04-30] MEDS: FLUoxetine 10 MG CAPSULE PO SCH (10:17)
[2017-04-30] MEDS: DIGOXIN 0.5 MG/2 ML AMP IV SCH (10:17)
[2017-04-30] MEDS: INSULIN GLARGINE 100 UNIT/ML SUBCUT SCH ×2 (10:17→21:22)
[2017-04-30] MEDS: CLOTRIMAZOLE 1% CREAM 15 GM TUBE TOP SCH ×2 (10:17→20:11)
[2017-04-30] MEDS: ENOXAPARIN 40 MG/0.4 ML SYRINGE SUBCUT SCH (10:17)
[2017-04-30] MEDS: ASPIRIN EC 81 MG TABLET PO SCH (10:17)
[2017-04-30] MEDS: PANTOPRAZOLE 40 MG VIAL IV SCH (10:17)
[2017-04-30] MEDS: DESITIN 4OZ/NYSTATIN 15 GRAM MIXTURE PASTE TOP SCH ×2 (10:17→20:10)
[2017-04-30] MEDS: VALPROIC ACID 250 MG/5 ML UDCUP PO SCH ×2 (10:17→20:10)
[2017-04-30] MEDS: MULTIVITAMIN (CENTRUM) TABLET PO SCH (10:17)
--- NOTE | 2017-04-30 12:46 | Hospitalist Progress Note ---
Assessment and Plan (1) Acute exacerbation of chronic obstructive airways disease Status: Acute Assessment and plan: 1)COPD exac with acute hypoxic resp failure on vent-extubated yesterday and has done well on steroids, antibiotics, nebs. treating also for pneumonia since he had RLL plugging on bronch cultures now with light growth of Proteus. Zosyn day 4. He is a lifetime smoker. counselled cessation. 2)morbid obesity 3)sleep apnea-consult sleep medicine for eval. 4)IDDM- controlled. 5)afib- chronic. rate controlled. 6)transfer to floor. Current Visit: No (2) Congestive heart failure Status: Chronic Current Visit: No (3) Sleep apnea Status: Acute Current Visit: No (4) Insulin dependent diabetes mellitus Status: Chronic Current Visit: No (5) Pneumonia, bacterial Problem details: 2/2 Ineffective cough with subsequent RML and RLL atelectasis. Also with a LLL infiltrate. Aspiration pneumonia considered given return of gastric content on bronch examination. Continue with current antibiotics. Improving. Status: Acute Current Visit: No (6) Atrial fibrillation Status: Acute Current Visit: No Qualifiers: Atrial fibrillation type: chronic Qualified Code(s): I48.2 - Chronic atrial fibrillation (7) Septic shock Status: Acute Current Visit: Yes (8) Acute respiratory failure Status: Acute Current Visit: No Hospitalist: Subjective Interval history: Mr Bailey is feeling good today. He is happy to be extubated and is enjoying his breakfast. No complaints of shortness of breath. No pain. Exam - Constitutional Vitals: Period Temp Pulse Resp BP Sys/Pina Pulse Ox Last 24 Hr 97.8 F-98.7 F 52-104 9-22 105-190/49-98 93-100 General appearance: no acute distress, morbidly obese - Head Head exam: Present: normocephalic, atraumatic - Eye Eye exam: Present: EOMI. Absent: scleral icterus - Respiratory Respiratory exam: Present: clear to auscultation bilaterally - Cardiovascular Cardiovascular exam: Present: irregular rhythm - GI/Abdominal GI/Abdominal exam: Present: normal bowel sounds, soft. Absent: tenderness - Extremities Exam Extremities exam: Absent: edema Results - Labs CBC & BMP: 04/27/17 02:36 04/29/17 04:30 Lab Results: I have reviewed the past 24 hour labs
[2017-04-30] MEDS: PREGABALIN 75 MG CAPSULE PO SCH (20:09)
[2017-04-30] MEDS: PRAVASTATIN 40 MG TABLET PO SCH (20:10)
[2017-05-01] MEDS: ALBUTEROL/IPRATROPIUM 3 ML NEB RESP TX SCH ×7 (00:12→23:52)
[2017-05-01] MEDS: methylPREDNISolone SOD SUC 40 MG/1 ML VIAL IV SCH ×2 (00:31→09:30)
[2017-05-01] MEDS: PIPERACILLIN/TAZOBACTAM 3,375 MG in SODIUM CHLORIDE 0.9% 100 ML IV SCH ×3 (00:32→16:55)
[2017-05-01 07:14] LABS: Calcium 8.2 MG/DL (8.5-10.1); Osmolality,Calculated 285.1 MOS/KG (273-304); Potassium 3.9 MMOL/L (3.5-5.1)
[2017-05-01] MEDS: DORNASE ALFA 2.5 MG/2.5 ML VIAL RESP TX SCH ×2 (07:22→19:21)
[2017-05-01 07:31] LABS: Phosphorous 2.2 MG/DL (2.5-4.9); Prealbumin 24.2 MG/DL (20-40)
[2017-05-01] MEDS: INSULIN REGULAR 100 UNIT/ML SUBCUT SCH ×4 (08:08→21:18)
[2017-05-01] MEDS: SODIUM CHLORIDE 0.9% 1,000 ML IV SCH (09:14)
--- NOTE | 2017-05-01 09:22 | Pulmonology Progress Note ---
Pulmonary - PN: Subj Interval history: The patient is a 71-year-old white male with a long history of COPD and obesity. He comes in with worsening respiratory failure. He required ventilation for several days but is doing better now. He has been off the ventilator for a couple days and seems to be stable. He said he had a fairly comfortable night. He is coughing up some secretions but his breathing is okay. He is eating now and looks comfortable. Exam (Progress Note) - Constitutional Vitals: Period Temp Pulse Resp BP Sys/Pina Pulse Ox Last 24 Hr 97.2 F-98.9 F 67-105 9-22 116-179/56-85 92-99 Exam: General appearance: no acute distress (He is comfortable on low-flow oxygen. He is alert and sitting up eating breakfast.) - Head Head exam: Present: normal inspection, normocephalic - Eye Eye exam: Present: EOMI. Absent: scleral icterus Pupils: Present: SCOTT - ENT ENT exam: Present: Unremarkable - Neck Neck exam: Present: normal inspection. Absent: lymphadenopathy, thyromegaly - Respiratory Respiratory exam: Present: He has fairly good breath sounds bilaterally with some mild rhonchi bilaterally. He is not having any significant wheezing. - Cardiovascular Cardiovascular exam: Present: irregular rhythm, heart rate is better. Absent: gallop, JVD, systolic murmur - GI/Abdominal GI/Abdominal exam: Present: distended, soft. Obese, absent: organomegaly, tenderness - Extremities Exam Extremities exam: Absent: calf tenderness, edema - Neurological Exam Neurological exam: Present: other (Patient is moving around and responding well. ) - Skin Skin exam: Present: warm, dry Results - Labs CBC & BMP: 04/27/17 02:36 05/01/17 06:41 Assessment and Plan (1) Morbid obesity Status: Acute Assessment and plan: The patient has morbid obesity and is basically bedridden. He has had chronic problems with his breathing for quite some time. Current Visit: No Qualifiers: Obesity type: unspecified obesity type Qualified Code(s): E66.01 - Morbid ( severe) obesity due to excess calories (2) Acute exacerbation of chronic obstructive airways disease Status: Acute Assessment and plan: Patient has a lifelong history of smoking and has significant COPD. His breathing is fairly stable at present and he looks comfortable. He will continue with his bronchodilator therapy. Current Visit: No (3) Sleep apnea Status: Acute Assessment and plan: The patient certainly has sleep apnea but I am not sure he uses CPAP regularly Current Visit: No (4) Insulin dependent diabetes mellitus Status: Chronic Assessment and plan: His glucose is 113 this morning. Current Visit: No (5) Atrial fibrillation Status: Acute Assessment and plan: Patient has a long history of chronic atrial fibrillation. His heart rate is under good control. Current Visit: No Qualifiers: Atrial fibrillation type: chronic Qualified Code(s): I48.2 - Chronic atrial fibrillation (6) Acute respiratory failure with hypoxia Status: Acute Assessment and plan: The patient came in with respiratory distress and required ventilatory support. He is doing better now and feels like his breathing is okay. He had a fairly good night and is on low-flow oxygen. He is not having any respiratory distress now. Current Visit: Yes (7) HCAP (healthcare-associated pneumonia) Status: Acute Assessment and plan: The patient will be treated for pneumonia although he mainly has mucous plugging and right lower lobe atelectasis. He has Proteus growing on his washings and it is sensitive to a number of antibiotics. He can probably go to oral medicine soon and go back to the group home. Current Visit: Yes
[2017-05-01] MEDS: VALPROIC ACID 250 MG/5 ML UDCUP PO SCH ×2 (09:26→21:17)
[2017-05-01] MEDS: MULTIVITAMIN (CENTRUM) TABLET PO SCH (09:27)
[2017-05-01] MEDS: DIGOXIN 0.5 MG/2 ML AMP IV SCH (09:27)
[2017-05-01] MEDS: THEOPHYLLINE ER 300 MG TABLET PO SCH ×2 (09:27→16:55)
[2017-05-01] MEDS: ASPIRIN EC 81 MG TABLET PO SCH (09:27)
[2017-05-01] MEDS: FLUoxetine 10 MG CAPSULE PO SCH (09:27)
[2017-05-01] MEDS: INSULIN GLARGINE 100 UNIT/ML SUBCUT SCH ×2 (09:28→21:17)
[2017-05-01] MEDS: ENOXAPARIN 40 MG/0.4 ML SYRINGE SUBCUT SCH (09:29)
[2017-05-01] MEDS: PANTOPRAZOLE 40 MG VIAL IV SCH (09:29)
[2017-05-01] MEDS: DESITIN 4OZ/NYSTATIN 15 GRAM MIXTURE PASTE TOP SCH ×2 (09:31→21:18)
--- NOTE | 2017-05-01 10:18 | Hospitalist Progress Note ---
Assessment and Plan (1) Acute exacerbation of chronic obstructive airways disease Status: Acute Assessment and plan: 1)COPD exac with acute hypoxic resp failure on vent-extubated yesterday and has done well on steroids, antibiotics, nebs. treating also for pneumonia since he had RLL plugging on bronch cultures now with light growth of Proteus. Zosyn day 4. He is a lifetime smoker. counselled cessation. 2)morbid obesity 3)sleep apnea-consult sleep medicine for eval. 4)IDDM- controlled. 5)afib- chronic. rate controlled. 6)transfer to floor. Current Visit: No (2) Congestive heart failure Status: Chronic Current Visit: No (3) Sleep apnea Status: Acute Current Visit: No (4) Insulin dependent diabetes mellitus Status: Chronic Current Visit: No (5) Pneumonia, bacterial Problem details: 2/2 Ineffective cough with subsequent RML and RLL atelectasis. Also with a LLL infiltrate. Aspiration pneumonia considered given return of gastric content on bronch examination. Continue with current antibiotics. Improving. Status: Acute Current Visit: No (6) Atrial fibrillation Status: Acute Current Visit: No Qualifiers: Atrial fibrillation type: chronic Qualified Code(s): I48.2 - Chronic atrial fibrillation (7) Septic shock Status: Acute Current Visit: Yes (8) Acute respiratory failure Status: Acute Current Visit: No Hospitalist: Subjective Interval history: Mr Bailey is feeling good this morning, eating breakfast. He tells me he walks sometimes so we will consult PT and OT to see him. Anticipate home to [place] tomorrow. Sleep medicine to see today. Exam - Constitutional Vitals: Period Temp Pulse Resp BP Sys/Pina Pulse Ox Last 24 Hr 97.2 F-98.9 F 67-105 9-22 116-179/66-85 92-99 General appearance: no acute distress, over weight - Head Head exam: Present: normocephalic, atraumatic - Eye Eye exam: Present: EOMI. Absent: scleral icterus - Respiratory Respiratory exam: Present: clear to auscultation bilaterally. Absent: rales, wheezes - Cardiovascular Cardiovascular exam: Present: regular rate and rhythm - GI/Abdominal GI/Abdominal exam: Present: normal bowel sounds, soft. Absent: tenderness - Extremities Exam Extremities exam: Absent: edema - Neurological Exam Neurological exam: Present: alert, oriented X3 - Skin Skin exam: Present: warm, dry Results - Labs CBC & BMP: 04/27/17 02:36 05/01/17 06:41 Lab Results: I have reviewed the past 24 hour labs
[2017-05-01] MEDS: CLOTRIMAZOLE 1% CREAM 15 GM TUBE TOP SCH ×2 (10:47→21:18)
--- NOTE | 2017-05-01 16:04 | Sleep Medicine Progress Note ---
Sleep Medicine Subjective Interval history: Patient just recently seen last admission in sleep consultation and had HST done while on O2 at 2l/m and did not have signficant STUART. AHI was within normal limts. If feel reeval is needed, would need polysomnogram. Call if needed. Exam (Progress Note) - Constitutional Vitals: Period Temp Pulse Resp BP Sys/Pina Pulse Ox Last 24 Hr 97.2 F-98.1 F 67-107 16-22 120-147/66-84 93-99 Results - Labs CBC & BMP: 04/27/17 02:36 05/01/17 06:41
[2017-05-01] MEDS: PRAVASTATIN 40 MG TABLET PO SCH (21:18)
[2017-05-01] MEDS: PREGABALIN 75 MG CAPSULE PO SCH (21:18)
[2017-05-02] MEDS: PIPERACILLIN/TAZOBACTAM 3,375 MG in SODIUM CHLORIDE 0.9% 100 ML IV SCH (00:54)
[2017-05-02] MEDS: ALBUTEROL/IPRATROPIUM 3 ML NEB RESP TX SCH ×3 (03:02→11:02)
[2017-05-02] MEDS: DORNASE ALFA 2.5 MG/2.5 ML VIAL RESP TX SCH (07:13)
--- NOTE | 2017-05-02 08:00 | Hospitalist Progress Note ---
Assessment and Plan (1) Acute exacerbation of chronic obstructive airways disease Status: Acute Assessment and plan: Impression: 1. COPD with acute exacerbation and acute respiratory failure. This is improved 2. Atrial fibrillation, apparently paroxysmal 3. Gram-negative mp pneumonia (Proteus in bronchoscopy specimen) 4. Type II DM Plan: I think he may be about ready to transfer back to the senior living. I will switch him to some oral antibiotics, as recommended by pulmonary yesterday. Check with case management to see if his senior living can take him back today. This note was completed using [employer] voice recognition software. There may be fine craft artist errors as a result. Current Visit: No Hospitalist: Subjective Interval history: Follow-up acute hypoxic respiratory failure, COPD with acute exacerbation, atrial fibrillation, and obesity. The patient was moved out of ICU yesterday. He apparently had bronchoscopy while he was intubated, and was found to have some mucous plugging in the right lower lobe. Specimen is growing out Proteus that is sensitive to most antibiotics. The patient is awake and conversant. He says that he is mobile at the senior living with an electric wheelchair. He feels like he might be ready to go back. Review of the sleep medicine note shows that there is no formal diagnosis of sleep apnea. Exam - Constitutional Vitals: Period Temp Pulse Resp BP Sys/Pina Pulse Ox Last 24 Hr 97.4 F-98.2 F 61-107 16-20 119-146/66-82 91-100 Vital signs are noted above. Heart is regular with distant tones. I do not hear a murmur. He has scattered rhonchi throughout the chest. He is awake and alert Results - Labs CBC & BMP: 04/27/17 02:36 05/01/17 06:41
[2017-05-02] MEDS ORDERED: predniSONE 20 MG TABLET PO SCH (09:00)
[2017-05-02] MEDS ORDERED: cephALEXin 500 MG CAPSULE PO SCH (09:00)
[2017-05-02] MEDS: INSULIN GLARGINE 100 UNIT/ML SUBCUT SCH (09:46)
[2017-05-02] MEDS: VALPROIC ACID 250 MG/5 ML UDCUP PO SCH (09:47)
[2017-05-02] MEDS: MULTIVITAMIN (CENTRUM) TABLET PO SCH (09:48)
[2017-05-02] MEDS: ASPIRIN EC 81 MG TABLET PO SCH (09:48)
[2017-05-02] MEDS: FLUoxetine 10 MG CAPSULE PO SCH (09:48)
[2017-05-02] MEDS: ENOXAPARIN 40 MG/0.4 ML SYRINGE SUBCUT SCH (09:49)
[2017-05-02] MEDS: THEOPHYLLINE ER 300 MG TABLET PO SCH (09:50)
[2017-05-02] MEDS: INSULIN REGULAR 100 UNIT/ML SUBCUT SCH ×2 (09:51→12:38)
[2017-05-02] MEDS: DIGOXIN 0.5 MG/2 ML AMP IV SCH (09:55)
[2017-05-02] MEDS: DESITIN 4OZ/NYSTATIN 15 GRAM MIXTURE PASTE TOP SCH (10:04)
[2017-05-02] MEDS: PANTOPRAZOLE 40 MG VIAL IV SCH (10:04)
[2017-05-02] MEDS: CLOTRIMAZOLE 1% CREAM 15 GM TUBE TOP SCH (10:04)
--- NOTE | 2017-05-02 10:42 | Discharge Summary ---
Hospital Course - Hospital Course Hospital Course: Please see my note from earlier today. [facility] Diagnosis - Discharge Diagnosis (1) Acute exacerbation of chronic obstructive airways disease Status: Acute Discharge Plan - Discharge Data Disposition: Disch/Xfer to Snf Condition at Discharge: Stable Discharge Diet: advance to your usual diet Activity: as per physical therapy - Discharge Medications New cephALEXin [Keflex] 500 mg PO Q12HR 7 Days Insulin Regular [HumuLIN R] See Protocol SUBCUT ACHS unit Continue Albuterol/Ipratropium Neb [Duoneb] 3 ml RESP TX RT Q4H PRN PRN Reason: Shortness Of Breath/Wheezing Pantoprazole Tab [Protonix Tab] 40 mg PO DAILY Insulin Regular [HumuLIN R] 0 unit SUBCUT ACHS Pravastatin [Pravachol] 40 mg PO BEDTIME #30 tablet Pregabalin [Lyrica] 150 mg PO BEDTIME #30 capsule Tamsulosin [Flomax] 0.4 mg PO DAILY #30 capsule Melatonin 5 mg PO BEDTIME Lactulose Liquid [Chronulac] 20 gm PO Q6HR PRN PRN Reason: high ammonia Aspirin EC Tab 325 mg PO DAILY tablet predniSONE TAB [PredniSONE] 20 mg PO DAILY #5 tablet FLUoxetine [PROzac] 10 mg PO DAILY OLANZapine TAB [ZyPREXA Tab] 2.5 mg PO BID Glucagon 1 mg IM PRN PRN vial PRN Reason: Hypoglycemia w/o IV access HYDROcodone/ACETAMIN 7.5-325 [Kelliher 7.5-325] 1 tablet PO Q4H PRN tablet PRN Reason: Pain Moderate (4-7) Insulin Glargine [Lantus] 30 unit SUBCUT BID unit Magnesium Hydroxide Susp [Milk of Magnesia] 30 ml PO Q8H PRN PRN Reason: Constipation Multivitamin (Centrum) [Centrum Tab] 1 tablet PO DAILY tablet Theophylline ER Tab 150 mg PO BID W/MEALS tablet Carvedilol [Coreg] 6.25 mg PER TUBE BID tablet Diltiazem Tab [Cardizem Tab] 30 mg PO Q8HR tablet Valproic Acid Liquid [Depakene] 600 mg PO BID Theophylline ER Tab 300 mg PO BID W/MEALS Clotrimazole 1% Cream [Lotrimin 1% Cream] 1 applic TOP BID HydrOXYzine PAMOATE CAP [Vistaril Cap] 25 mg PO Q6H PRN capsule PRN Reason: Itching Albuterol/Ipratropium Neb [Duoneb] 3 ml RESP TX RT Q4H Dornase Christoph [Pulmozyme] 2.5 mg RESP TX RT Q12H vial Sulfameth/Trimeth 400-80 Tab [Bactrim Tab] 1 tablet PO BID #14 tablet - Follow Up or Referral - Forms/Instructions Exam - Constitutional Vitals: Period Temp Pulse Resp BP Sys/Pina Pulse Ox Last 24 Hr 97.4 F-98.2 F 61-107 16-20 119-146/66-82 91-100 Please see my note from earlier today Discharge Results Labs on day of discharge: Labs from last 24 hours 05/01/17 05/01/17 05/01/17 20:08 16:22 11:30 POC Glucose 165 H 222 H 296 H DS: Provider Date of admission: 04/26/17 05:28 Primary care physician: . No PCP Attending physician on admission: Jeremiah Weeks DO Consults: 04/26/17 05:32 Consult to Physician [CONS] Routine Comment: vent mgmt Consulting Provider: Consult to Specialist Group: Pulmonology When should Consulting Provider be notified: In am 04/26/17 05:38 Consult to Dietitian [CONS] Routine Reason for Dietitian: TF-Initiate/Manage 04/26/17 06:24 Consult to Dietitian [CONS] Routine Reason for Dietitian: Dietary Consult 04/26/17 06:42 Consult to Pharmacy [CONS] Routine Reason for Pharmacy Consult: Dose/Manage Vancomycin 05/01/17 08:37 Consult to Physician [CONS] Routine Comment: Consulting Provider: Aurelia Hartman 05/01/17 08:52 Consult to Occupational Therapy [CONS] Routine Reason for Occupational Therapy: Evaluate and Treat Start Therapy: Today Consult to Physical Therapy [CONS] Routine Reason for Physical Therapy: Evaluate and Treat Start Therapy: Today 05/01/17 09:16 Consult to Sleep Center [CONS] Routine Reason for Sleep Center: Sleep Center Physician Consult Comment: EDITED TO SHOW ON [facility] 05/02/17 08:03 Consult to Case Mgmt/Social Srvs [CONS] Routine Reason for Case Mgmt/Social Srvs: Swingbed/SNF/Residential Discharging clinician: Altaf Davies MD Expected date of discharge: 05/02/17
--- NOTE | 2017-05-02 11:12 | Pulmonology Progress Note ---
Pulmonary - PN: Subj Interval history: The patient is a 71-year-old white male with a long history of COPD and obesity. He comes in with worsening respiratory failure. He required ventilation for several days but is doing better now. He has been off the ventilator for a couple days and seems to be stable. He said he had a fairly comfortable night. He is coughing up some secretions but his breathing is okay. He is eating now and looks comfortable. Overall he is doing much better and can probably go back to the [place] [facility]. His respiratory status is stable at present. Exam (Progress Note) - Constitutional Vitals: Period Temp Pulse Resp BP Sys/Pina Pulse Ox Last 24 Hr 97.4 F-98.2 F 61-107 16-20 119-146/66-82 91-100 Exam: General appearance: no acute distress (He is comfortable on low-flow oxygen. He is alert and sitting up eating breakfast. He is not having any distress.) - Head Head exam: Present: normal inspection, normocephalic - Eye Eye exam: Present: EOMI. Absent: scleral icterus Pupils: Present: SCOTT - ENT ENT exam: Present: Unremarkable - Neck Neck exam: Present: normal inspection. Absent: lymphadenopathy, thyromegaly - Respiratory Respiratory exam: Present: He has fairly good breath sounds bilaterally with some mild rhonchi bilaterally. He is not having any significant wheezing. He is moving air well today. - Cardiovascular Cardiovascular exam: Present: irregular rhythm, heart rate is better. Absent: gallop, JVD, systolic murmur - GI/Abdominal GI/Abdominal exam: Present: distended, soft. Obese, absent: organomegaly, tenderness - Extremities Exam Extremities exam: Absent: calf tenderness, edema - Neurological Exam Neurological exam: Present: other (Patient is moving around and responding well. ) - Skin Skin exam: Present: warm, dry Results - Labs CBC & BMP: 04/27/17 02:36 05/01/17 06:41 Assessment and Plan (1) Morbid obesity Status: Acute Assessment and plan: The patient has morbid obesity and is basically bedridden. He has had chronic problems with his breathing for quite some time. He looks like he is close to baseline. Current Visit: No Qualifiers: Obesity type: unspecified obesity type Qualified Code(s): E66.01 - Morbid ( severe) obesity due to excess calories (2) Acute exacerbation of chronic obstructive airways disease Status: Acute Assessment and plan: Patient has a lifelong history of smoking and has significant COPD. His breathing is fairly stable at present and he looks comfortable. He will continue with his bronchodilator therapy. Current Visit: No (3) Sleep apnea Status: Acute Assessment and plan: The patient has been evaluated by sleep medicine. Current Visit: No (4) Insulin dependent diabetes mellitus Status: Chronic Assessment and plan: His glucose is 150 this morning. Current Visit: No (5) Atrial fibrillation Status: Acute Assessment and plan: Patient has a long history of chronic atrial fibrillation. His heart rate is under good control. Current Visit: No Qualifiers: Atrial fibrillation type: chronic Qualified Code(s): I48.2 - Chronic atrial fibrillation (6) Acute respiratory failure with hypoxia Status: Acute Assessment and plan: The patient came in with respiratory distress and required ventilatory support. He is doing better now and feels like his breathing is okay. He had a fairly good night and is on low-flow oxygen. He is not having any respiratory distress now. He looks like he is fairly stable and will go back to the [place] [facility]. Current Visit: Yes (7) HCAP (healthcare-associated pneumonia) Status: Acute Assessment and plan: The patient will be treated for pneumonia although he mainly has mucous plugging and right lower lobe atelectasis. He has Proteus growing on his washings and it is sensitive to a number of antibiotics. He can probably go to oral medicine soon and go back to the [place] [facility]. Current Visit: Yes
[2017-05-02 11:50] VITALS: BP 130/81
== END 2017-05-02 14:16 | DRG 871 ==
LOC: N.ED 02:09 → SUATTDRO 05:28 → N.EDINP 05:28 → N.CC 06:03 → N.2E 04-30 13:45
PROVIDERS: ADMIT Internal Medicine; ATTEND Internal Medicine

== ENCOUNTER 2017-07-06 09:16 | Inpatient (IN) ==
[2017-07-06] MEDS ORDERED: FUROSEMIDE 100 MG/10 ML VIAL ONE (09:33)
--- NOTE | 2017-07-06 09:43 | EKG Report ---
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
[2017-07-06] MEDS ORDERED: FUROSEMIDE 40 MG/4 ML VIAL IV STA (10:00)
--- NOTE | 2017-07-06 10:14 | XRay Report ---
Portable chest July 06, 2017 at 0951 hours Indication: Shortness of breath Comparison: April 30, 2017 Findings: Cardiomediastinal contours are stable. Chronic interstitial changes. No consolidative or congestive process. No large pleural effusions. No acute osseous abnormalities. Visualized upper abdomen is grossly unremarkable. Impression: No acute cardiopulmonary findings PROCEDURE INTERPRETED AT [facility] DEPARTMENT OF RADIOLOGY Final Report Signed by: Tony Walton
[2017-07-06 10:23] LABS: Apearance,Urine Slightly Hazy (Clear); Bilirubin,Urine Negative (Negative); Blood, Urine Negative (Negative); Glucose,Urine (UA) Negative (Negative); Ketones,Urine Negative (Negative); Mucus,Urine Occasional /LPF (Occasional); Nitrite,Urine Negative (Negative); Protein,Urine Negative; RBC,Urine <1 /HPF (0-4); Urine Color Yellow (Yellow); Urine Specific Gravity 1.015 (1.001-1.035); Urine Urobilinogen < 2.0 EU/DL (0.2-1.0); WBC,Urine 2 /HPF (0-6)
[2017-07-06 10:30] LABS: Basophils # 0.1 10*3/uL (0.0-0.2); Basophils % 0.3 % (0.0-0.8); Eosinophils % 0.2 % (0.00-10.9); Hematocrit 42.8 VOL% (42.0-52.0); Hemoglobin 14.1 GM/DL (14.0-18.0); Immature Granulocytes % 0.7 %; Immature Granulocytes Absolute 0.13 #; Lymphocytes # 2.7 10*3/uL (1.4-4.0); Lymphocytes % 14.3 % (21.2-54.2); Mean Corpuscular HGB Conc 32.9 GM/DL (32-36); Mean Corpuscular Hemoglobin 30 PG (27-34); Mean Corpuscular Volume 89.5 FL (87-102); Mean Platelet Volume 9.5 FL (9.6-12.0); Monocytes # 1.4 10*3/uL (0.11-0.8); Monocytes % 7.7 % (1.7-12.7); Neutrophils # 14.2 10*3/uL (1.4-7.4); Neutrophils % 76.8 % (38.7-73.9); Platelet Count 189 T/CUMM (130-400); Red Blood Count 4.78 MC/CUMM (3.8-5.5); Red Cell Distribution Width 14.8 % (9.3-17.3); White Blood Count 18.5 T/CUMM (4-12)
[2017-07-06 10:34] LABS: Alanine Aminotransferase 16 U/L (16-61); Albumin 2.7 G/DL (3.4-5.0); Alkaline Phosphatase 51 U/L (45-117); Aspartate Amino Transferase 20 U/L (0-37); Bilirubin,Indirect 0.3 MG/DL (0.0-1.0); Blood Urea Nitrogen 18 MG/DL (7-18); Calcium 8.8 MG/DL (8.5-10.1); Glucose 84 MG/DL (74-106); Osmolality,Calculated 277.5 MOS/KG (273-304); Sodium 139 MMOL/L (136-145); Total Protein 6.5 G/DL (6.4-8.3)
[2017-07-06 10:35] LABS: Troponin I Only 0.055 NG/ML (0.00-0.045)
[2017-07-06] MEDS ORDERED: cefTRIAXone 1,000 MG in SODIUM CHLORIDE 0.9% 100 ML IV STA (11:49)
[2017-07-06] MEDS ORDERED: ALBUTEROL/IPRATROPIUM 3 ML NEB RESP TX STA (11:49)
--- NOTE | 2017-07-06 11:50 | Emergency Department Note ---
IKb Emily, am scribing for, and in the presence of, Jamin Capellan MD 09:45. ITimi Sunil, MD, personally performed the services described in this documentation, ascribed by Emma Quiles in my presence, and it is both accurate and complete . Arrival - Arrival Chief Complaint: Shortness of Breath Stated Complaint: shortness of breath Mode of Arrival: Stretcher Limitations: No Limitations Source: EMS, RN Notes Reviewed - History of Present Illness HPI Narrative: Pt is a 71 y/o male who came to ED by EMS from [facility] for further evaluation of SOB that started suddenly this morning. Pt's glucose was 83 upon EMS arrival. Pt has told residential staff that he has had some chest pressure, but is mumbling in ED. Pt was at 80 O2 sat but has improved with O2 nasal cannula of 91 in ED. PMHx of IDDM, CVA, CHF, Parkinson's, Dementia. Onset (ago): hour(s) Consistency: constant Severity: mild, moderate Severity scale (1-10): 4 Quality: fullness Allergies/Adverse Reactions: Allergies Allergy/AdvReac Type Severity Reaction Status Date / Time Hydromorphone [From Dilaudid] AdvReac Unknown/Unable Verified 04/04/17 23:10 to obtain morphine AdvReac Unknown/Unable Verified 04/04/17 23:10 to obtain Home Medications: Home Medications Medication Instructions Recorded Confirmed Type Albuterol/Ipratropium Neb [Duoneb] 3 ml RESP TX RT Q4H PRN 05/09/15 04/26/17 History Insulin Regular [HumuLIN R] 0 unit SUBCUT ACHS 05/09/15 04/26/17 History Pantoprazole Tab [Protonix Tab] 40 mg PO DAILY 05/09/15 04/26/17 History Pravastatin [Pravachol] 40 mg PO BEDTIME #30 tablet 05/12/15 04/26/17 Rx Pregabalin [Lyrica] 150 mg PO BEDTIME #30 capsule 05/12/15 04/26/17 Rx Tamsulosin [Flomax] 0.4 mg PO DAILY #30 capsule 05/12/15 04/26/17 Rx Lactulose Liquid [Chronulac] 20 gm PO Q6HR PRN 04/17/16 04/26/17 History Melatonin 5 mg PO BEDTIME 04/17/16 04/26/17 History Aspirin EC Tab 325 mg PO DAILY tablet 04/22/16 04/26/17 Rx predniSONE TAB [PredniSONE] 20 mg PO DAILY #5 tablet 04/22/16 04/26/17 Rx Clotrimazole 1% Cream [Lotrimin 1% 1 applic TOP BID 04/05/17 04/26/17 History Cream] FLUoxetine [PROzac] 10 mg PO DAILY 04/05/17 04/26/17 History OLANZapine TAB [ZyPREXA Tab] 2.5 mg PO BID 04/05/17 04/26/17 History Theophylline ER Tab 300 mg PO BID W/MEALS 04/05/17 04/26/17 History Glucagon 1 mg IM PRN PRN vial 04/14/17 04/26/17 Rx HYDROcodone/ACETAMIN 7.5-325 1 tablet PO Q4H PRN tablet 04/14/17 04/26/17 Rx [[place] 7.5-325] HydrOXYzine PAMOATE CAP [Vistaril 25 mg PO Q6H PRN capsule 04/14/17 04/26/17 Rx Cap] Insulin Glargine [Lantus] 30 unit SUBCUT BID unit 04/14/17 04/26/17 Rx Magnesium Hydroxide Susp [Milk of 30 ml PO Q8H PRN 04/14/17 04/26/17 Rx Magnesia] Multivitamin (Centrum) [Centrum 1 tablet PO DAILY tablet 04/14/17 04/26/17 Rx Tab] Theophylline ER Tab 150 mg PO BID W/MEALS tablet 04/14/17 04/26/17 Rx Albuterol/Ipratropium Neb [Duoneb] 3 ml RESP TX RT Q4H 04/18/17 04/26/17 Rx Carvedilol [Coreg] 6.25 mg PER TUBE BID tablet 04/18/17 04/26/17 Rx Diltiazem Tab [Cardizem Tab] 30 mg PO Q8HR tablet 04/18/17 04/26/17 Rx Dornase Christoph [Pulmozyme] 2.5 mg RESP TX RT Q12H vial /04/26/17 Rx Sulfameth/Trimeth 400-80 Tab 1 tablet PO BID #14 tablet 04/18/17 04/26/17 Rx [Bactrim Tab] Valproic Acid Liquid [Depakene] 600 mg PO BID 04/18/17 04/26/17 Rx Insulin Regular [HumuLIN R] See Protocol SUBCUT ACHS unit 05/02/17 Rx cephALEXin [Keflex] 500 mg PO Q12HR 7 Days 05/02/17 Rx Review of System - Review of System 12 point system: reviewed and no additional remarkable complaints except as stated - Review of System Constitutional: Absent: chills, fever Respiratory: Present: respiratory distress (SOB) Cardiovascular: Present: chest pain (chest pressure) Gastrointestinal: Absent: nausea Skin: Absent: rash Medical,Surgical,& Family Hx - Medical History Cardio: History of: Cardiac Dysrhythmia, Congenital Heart Disease, CHF (Perhaps diastolic, last EF was 60%), CAD, Hypertension Psychological: History of: Bipolar Disorder, Depression, Psychiatric Problems Neurology: History of: Cerebrovascular Accident (left side weakness), Dementia, Parkinson's Disease Endocrine: History of: Diabetes Mellitus (IDDM), Dyslipidemia Respiratory: History of: COPD, Obstructive Sleep Apnea Genitourinary: History of: Prostate Problems, Recurring Urinary Tract Infections Gastrointestinal: History of: GERD, Hemorrhoids, Liver Problems Musculoskeletal: History of: Musculoskeletal Problems (generalized osteoarthritis) Hematology: History of: Clotting Problems Other: History of: Miscellaneous Medical Problems (hernia repair) - Surgical History Neurologic Surgeries: Patient denies: Neurologic Surgery Abdominal Surgeries: Surgical HX of: Hernia Repair - Family History Family History: Reports;: Family Diabetes, Family Heart Disease - Social History Smoking Status: Former smoker Marital Status: Single Lives With:: [employer] Exam Vital Signs: Vital Signs Temperature 98.6 F 07/06/17 09:24 Pulse Rate 86 07/06/17 10:30 Respiratory Rate 24 07/06/17 10:30 Blood Pressure 136/87 07/06/17 10:30 O2 Sat by Pulse Oximetry 90 L 07/06/17 10:30 - General General appearance: alert, in distress (mild to moderate distress secondary to SOB), obese (morbidly) - Head Head exam: Present: atraumatic, normocephalic - Eye Eye exam: Present: PERRL, EOMI - ENT ENT exam: Present: mucous membranes moist. Absent: mucous membranes dry - Neck Neck exam: Present: other (JVP elevated) - Chest Chest inspection: Present: symmetric chest wall rise - Respiratory Respiratory exam: Present: rales (crackles bilaterally), respiratory distress ( mild to moderate respiratory distress). Absent: normal lung sounds bilaterally - Cardiovascular Cardiovascular exam: Present: regular rate, normal rhythm, normal heart sounds - Abdominal Exam Abdominal exam: Present: soft, ascites. Absent: tenderness - Extremities Exam Extremities exam: Present: pedal edema - Neurological Exam Neurological exam: Present: alert, CN II-XII intact, other (responds, talking some but mildly confused) - Skin Skin exam: Present: warm, dry Results - Labs CBC & BMP: 07/06/17 09:43 07/06/17 09:43 Lab Results: I have reviewed the patients labs Labs: Laboratory Tests 07/06/17 07/06/17 07/06/17 09:43 09:43 10:06 WBC 18.5 H RBC 4.78 Hgb 14.1 Hct 42.8 Plt Count 189 MPV 9.5 L Neut % (Auto) 76.8 H Lymph % (Auto) 14.3 L Neut # (Auto) 14.2 H Burnett # (Auto) 1.4 H Sodium 139 Potassium 4.0 Chloride 99 Carbon Dioxide 39 H GFR Calculation 139 BUN/Creatinine Ratio 25.00 H Glucose 84 AST 20 Troponin I 0.055 H Albumin 2.7 L Urine Color Yellow Urine Appearance Slightly hazy Urine pH 7.0 Ur Specific [place] 1.015 Urine Blood Negative Urine Nitrate Negative Urine Urobilinogen < 2.0 H Urine RBC <1 Urine WBC 2 Urine Mucus Occasional Laboratory Tests 07/06/17 09:43 Lactic Acid 1.6 Laboratory Tests 07/06/17 09:43 B-Natriuretic Peptide 22 - EKG EKG results: interpreted by ERMNikole, sinus rhythm (107) - Impressions Chest x-ray shows COPD changes proBNP is normal white cell count is 18.4 this patient has COPD exacerbation admitted to the hospital under the hospitalist - Diagnostic Findings Procedure: Chest x-ray: report reviewed by me (No acute cardiopulmonary findings.) Disposition Clinical Impression: COPD exacerbation Case discussed with: patient Disposition: Still a Patient Condition: Guarded
[2017-07-06] MEDS ORDERED: cefTRIAXone 1,000 MG VIAL ONE (11:59)
--- NOTE | 2017-07-06 12:53 | Hospitalist History & Physical ---
<Shena Lockhart - Last Filed: 07/06/17 12:52> Assessment and Plan (1) COPD exacerbation Status: Acute Current Visit: Yes (2) Acute dyspnea Status: Acute Current Visit: No (3) Atrial fibrillation with RVR Status: Acute Current Visit: No History of Present Illness History of present illness: Mr. Bailey is a 71 year old male Home Medications Medication Instructions Recorded Confirmed Type Pantoprazole Tab [Protonix Tab] 40 mg PO DAILY 05/09/15 04/26/17 History Pravastatin [Pravachol] 40 mg PO BEDTIME #30 tablet 05/12/15 04/26/17 Rx Pregabalin [Lyrica] 150 mg PO BEDTIME #30 capsule 05/12/15 04/26/17 Rx Tamsulosin [Flomax] 0.4 mg PO DAILY #30 capsule 05/12/15 04/26/17 Rx Lactulose Liquid [Chronulac] 20 gm PO Q6HR PRN 04/17/16 04/26/17 History Melatonin 5 mg PO BEDTIME 04/17/16 04/26/17 History Aspirin EC Tab 325 mg PO DAILY tablet 04/22/16 04/26/17 Rx predniSONE TAB [PredniSONE] 20 mg PO DAILY #5 tablet 04/22/16 04/26/17 Rx Clotrimazole 1% Cream [Lotrimin 1% 1 applic TOP BID 04/05/17 04/26/17 History Cream] FLUoxetine [PROzac] 10 mg PO DAILY 04/05/17 04/26/17 History OLANZapine TAB [ZyPREXA Tab] 2.5 mg PO BID 04/05/17 04/26/17 History Theophylline ER Tab 300 mg PO BID W/MEALS 04/05/17 04/26/17 History Glucagon 1 mg IM PRN PRN vial 04/14/17 04/26/17 Rx HYDROcodone/ACETAMIN 7.5-325 1 tablet PO Q4H PRN tablet 04/14/17 04/26/17 Rx [[place] 7.5-325] HydrOXYzine PAMOATE CAP [Vistaril 25 mg PO Q6H PRN capsule 04/14/17 04/26/17 Rx Cap] Insulin Glargine [Lantus] 30 unit SUBCUT BID unit 04/14/17 04/26/17 Rx Magnesium Hydroxide Susp [Milk of 30 ml PO Q8H PRN 04/14/17 04/26/17 Rx Magnesia] Multivitamin (Centrum) [Centrum 1 tablet PO DAILY tablet 04/14/17 04/26/17 Rx Tab] Albuterol/Ipratropium Neb [Duoneb] 3 ml RESP TX RT Q4H 04/18/17 04/26/17 Rx Carvedilol [Coreg] 6.25 mg PER TUBE BID tablet 04/18/17 04/26/17 Rx Diltiazem Tab [Cardizem Tab] 30 mg PO Q8HR tablet 04/18/17 04/26/17 Rx Valproic Acid Liquid [Depakene] 600 mg PO BID 04/18/17 04/26/17 Rx Insulin Regular [HumuLIN R] See Protocol SUBCUT ACHS unit 05/02/17 Rx Alum/Mag/Simeth Max Str Liquid 30 ml PO Q6H 07/06/17 07/06/17 History [Mylanta Max Strength Liquid] Allergies Allergy/AdvReac Type Severity Reaction Status Date / Time Hydromorphone [From Dilaudid] AdvReac Unknown/Unable Verified 04/04/17 23:10 to obtain morphine AdvReac Unknown/Unable Verified 04/04/17 23:10 to obtain Medical,Surgical,& Family Hx - Medical History Cardio: History of: Cardiac Dysrhythmia, Congenital Heart Disease, CHF (Perhaps diastolic, last EF was 60%), CAD, Hypertension Psychological: History of: Bipolar Disorder, Depression, Psychiatric Problems Neurology: History of: Cerebrovascular Accident (left side weakness), Dementia, Parkinson's Disease Endocrine: History of: Diabetes Mellitus (IDDM), Dyslipidemia Respiratory: History of: COPD, Obstructive Sleep Apnea Genitourinary: History of: Prostate Problems, Recurring Urinary Tract Infections Gastrointestinal: History of: GERD, Hemorrhoids, Liver Problems Musculoskeletal: History of: Musculoskeletal Problems (generalized osteoarthritis) Hematology: History of: Clotting Problems Other: History of: Miscellaneous Medical Problems (hernia repair) - Surgical History Neurologic Surgeries: Patient denies: Neurologic Surgery Abdominal Surgeries: Surgical HX of: Hernia Repair - Family History Family History: Reports;: Family Diabetes, Family Heart Disease - Social History Smoking Status: Former smoker Frequency of Alcohol Use: None Type of Drug Use: None Exam - Constitutional Vitals: Period Temp Pulse Resp BP Sys/Pina Pulse Ox Last 24 Hr 98.6 F-98.6 F 72-127 20-40 128-162/78-100 89-95 Results - Labs CBC & BMP: 07/06/17 09:43 07/06/17 09:43 Lab Results: I have reviewed the past 24 hour labs <Deepa Irizarry Bharath - Last Filed: 07/06/17 14:26> Assessment and Plan (1) Sepsis Status: Acute Assessment and plan: Patient meets the criteria for sepsis. Sepsis order set used. Patient given Zosyn as he is at risk for aspiration. We do not have any infectious source. Patient is tachycardic febrile and has an elevated white count. Patient reports shortness of breath. Chest x-ray shows no infiltrate in UA is negative for infection, blood cultures drawn and pending Current Visit: Yes (2) Acute exacerbation of chronic obstructive airways disease Status: Acute Assessment and plan: duoneb, solumedrol and abx Current Visit: No (3) Leukocytosis Status: Acute Assessment and plan: Elevated WBC, no source, see sepsis note above. Current Visit: No (4) Sleep apnea Status: Acute Assessment and plan: cpap at bedtime Current Visit: No (5) Atrial fibrillation with RVR Status: Acute Assessment and plan: restart coreg, tsh and theophylline level Current Visit: No (6) Acute respiratory failure with hypoxia Status: Resolved Assessment and plan: abg respiratory acidosis with metabolic alkalosis, duoneb, steroids, oxygen and abx Current Visit: No (7) Insulin dependent diabetes mellitus Status: Chronic Assessment and plan: BS low at [facility] per ER. Hold lantus Current Visit: No (8) Chest pain Status: Acute Assessment and plan: serial troponins and EKGs Current Visit: Yes History of Present Illness Chief complaint: SOB History of present illness: Mr. Bailey is a 71 year old male reports sob for several days and chest pain pressure this morning. Oxygenation low, WBC 18.5, tachycardic and EKG shows atrial fibrillation. Blood cx drawn, at risk for aspiration. No source of infection. Patient confused and answer unreliable, not present. Patient is from [facility] and does not look well cared for. Will speak with his . Patient has terrible copd. Sepsis order set utilized. Medical,Surgical,& Family Hx - Social History Marital Status: Lives With:: [facility] Functional capacity: bed bound ROS unobtainable: due to mental status, due to delirium Exam - Constitutional Vitals: Period Temp Pulse Resp BP Sys/Pina Pulse Ox Last 24 Hr 98.6 F-99.1 F 72-127 20-40 128-162/71-100 89-95 General appearance: mild distress, morbidly obese - Head Head exam: Present: normal inspection, normocephalic - Eye Eye exam: Present: EOMI, other (left eye yellowish drainage ). Absent: scleral icterus Pupils: Present: SCOTT, normal accommodation - ENT ENT exam: Present: normal exam, normal external ear exam - Neck Neck exam: Absent: lymphadenopathy, thyromegaly - Respiratory Respiratory exam: Present: decreased breath sounds, rhonchi - Cardiovascular Cardiovascular exam: Present: irregular rhythm, tachycardia - GI/Abdominal GI/Abdominal exam: Present: normal bowel sounds, soft. Absent: tenderness - Extremities Exam Extremities exam: Present: edema - Neurological Exam Neurological exam: Present: altered. Absent: motor sensory deficit (unable to cooperate with neuro exam ) - Psychiatric Psychiatric exam: Present: depressed, flat affect - Skin Skin exam: Present: normal color, warm Results - Labs CBC & BMP: 07/06/17 09:43 07/06/17 09:43 Lab Results: I have reviewed the past 24 hour labs Labs: blood cx times 2 pending - EKG EKG shows: atrial fibrillation - Diagnostic Findings Procedure: Chest x-ray: report reviewed by me (nothing acute )
[2017-07-06] MEDS ORDERED: DILTIAZEM 50 MG/10 ML VIAL IV ONE (13:31)
[2017-07-06] MEDS ORDERED: ONDANSETRON 4 MG/2 ML VIAL IV PRN (13:31)
[2017-07-06] MEDS ORDERED: DOCUSATE SODIUM 100 MG CAPSULE PO PRN (13:31)
[2017-07-06 13:44] LABS: ABG Base Excess 8.9 MMOL/L (-2.5-2.5); ABG HCO3 32.4 MMOL/L (20-26); ABG Oxygen Saturation 88.3 % (95-100); ABG PCO2 42.1 MM HG (35-48); ABG PH 7.503 (7.35-7.45); ABG PO2 52.7 MM HG (80-95); ABG TCO2 28.3 MMOL/L (23-27); Allen Test Positive
[2017-07-06] MEDS ORDERED: LACTATED RINGERS 500 ML IV ONE (13:56)
[2017-07-06] MEDS ORDERED: ASPIRIN EC 325 MG TABLET PO SCH (14:30)
[2017-07-06] MEDS: DILTIAZEM 30 MG TABLET PO SCH ×2 (15:15→21:55)
[2017-07-06] MEDS: FLUoxetine 10 MG CAPSULE PO SCH (15:15)
[2017-07-06] MEDS: TAMSULOSIN 0.4 MG CAPSULE PO SCH (15:15)
[2017-07-06] MEDS: methylPREDNISolone SOD SUC 40 MG/1 ML VIAL IV SCH (15:18)
[2017-07-06] MEDS: ALBUTEROL/IPRATROPIUM 3 ML NEB RESP TX SCH ×3 (15:39→22:47)
[2017-07-06 16:06] LABS: Troponin I Only 0.068 NG/ML (0.00-0.045)
[2017-07-06 16:08] LABS: PT Patient Result 10.8 SECS
[2017-07-06 16:10] LABS: Theophylline 8.2 UG/ML (10-20)
[2017-07-06] MEDS: PIPERACILLIN/TAZOBACTAM 3,375 MG in SODIUM CHLORIDE 0.9% 100 ML IV SCH ×2 (16:23→23:25)
[2017-07-06] MEDS: CARVEDILOL 6.25 MG TABLET PER TUBE SCH (16:27)
[2017-07-06 16:36] LABS: Hypochromasia Slight; Polychromasia Slight
[2017-07-06] MEDS: DILTIAZEM INJ 100 MG in SODIUM CHLORIDE 0.9% 100 ML IV SCH (17:12)
[2017-07-06 17:54] LABS: ABG Base Excess 8.6 MMOL/L (-2.5-2.5); ABG HCO3 32.2 MMOL/L (20-26); ABG Oxygen Saturation 91.7 % (95-100); ABG PCO2 49.2 MM HG (35-48); ABG TCO2 29.6 MMOL/L (23-27)
[2017-07-06] MEDS: ALBUTEROL 2.5 MG/3 ML NEB RESP TX PRN (18:54)
[2017-07-06] MEDS: PRAVASTATIN 40 MG TABLET PO SCH (21:55)
[2017-07-06] MEDS: VALPROIC ACID 250 MG/5 ML UDCUP PO SCH (21:56)
[2017-07-06 23:46] LABS: Troponin I Only 0.055 NG/ML (0.00-0.045)
[2017-07-07] MEDS: ALBUTEROL/IPRATROPIUM 3 ML NEB RESP TX SCH ×6 (02:55→23:45)
[2017-07-07] MEDS: DILTIAZEM INJ 100 MG in SODIUM CHLORIDE 0.9% 100 ML IV SCH (03:10)
[2017-07-07 03:36] LABS: ABG PCO2 59.3 MM HG (35-48); ABG PH 7.403 (7.35-7.45); ABG PO2 92.9 MM HG (80-95); Allen Test Positive; Pt O2 Delivery Device Venturi Mask
[2017-07-07 03:37] LABS: ABG Base Excess 9.4 MMOL/L (-2.5-2.5); ABG HCO3 36.2 MMOL/L (20-26); ABG Oxygen Saturation 96.4 % (95-100)
[2017-07-07] MEDS: methylPREDNISolone SOD SUC 40 MG/1 ML VIAL IV SCH ×2 (03:57→14:58)
[2017-07-07 05:14] LABS: Basophils % 0.1 % (0.0-0.8); Hematocrit 38.7 VOL% (42.0-52.0); Immature Granulocytes % 1.1 %; Lymphocytes # 1.1 10*3/uL (1.4-4.0); Lymphocytes % 11.4 % (21.2-54.2); Mean Corpuscular HGB Conc 33.6 GM/DL (32-36); Mean Corpuscular Hemoglobin 30 PG (27-34); Mean Platelet Volume 10.1 FL (9.6-12.0); Monocytes # 0.4 10*3/uL (0.11-0.8); Monocytes % 3.7 % (1.7-12.7); Neutrophils # 7.9 10*3/uL (1.4-7.4); Neutrophils % 83.7 % (38.7-73.9); Platelet Count 192 T/CUMM (130-400); Red Cell Distribution Width 14.6 % (9.3-17.3); White Blood Count 9.4 T/CUMM (4-12)
[2017-07-07 05:30] LABS: INR 1.1; PT Patient Result 11.7 SECS
[2017-07-07 05:47] LABS: Free T4 (Free Thyroxine) 1.25 NG/DL (0.76-1.46); Troponin I Only 0.043 NG/ML (0.00-0.045)
[2017-07-07 05:56] LABS: Calcium 8.9 MG/DL (8.5-10.1); Magnesium 2.3 MG/DL (1.8-2.4); Osmolality,Calculated 286.5 MOS/KG (273-304); Potassium 3.9 MMOL/L (3.5-5.1); Risk Ratio 2.84; Thyroid Stimulating Hormone 0.19 uIU/ml (0.358-3.74)
[2017-07-07 06:20] LABS: ABG Base Excess 8.1 MMOL/L (-2.5-2.5); ABG HCO3 31.7 MMOL/L (20-26); ABG Oxygen Saturation 93.1 % (95-100); ABG PO2 71.9 MM HG (80-95); Allen Test Positive; Pt O2 Delivery Device Venturi Mask
[2017-07-07] MEDS: PIPERACILLIN/TAZOBACTAM 3,375 MG in SODIUM CHLORIDE 0.9% 100 ML IV SCH ×3 (06:37→23:46)
[2017-07-07] MEDS: VALPROIC ACID 250 MG/5 ML UDCUP PO SCH ×2 (09:24→21:41)
[2017-07-07] MEDS: ASPIRIN 325 MG TABLET PO SCH (09:25)
[2017-07-07] MEDS: PANTOPRAZOLE 40 MG TABLET PO SCH (09:25)
[2017-07-07] MEDS: DILTIAZEM 30 MG TABLET PO SCH ×3 (09:25→21:40)
[2017-07-07] MEDS: FLUoxetine 10 MG CAPSULE PO SCH (09:26)
[2017-07-07] MEDS: CARVEDILOL 6.25 MG TABLET PER TUBE SCH ×2 (09:26→16:48)
[2017-07-07] MEDS: TAMSULOSIN 0.4 MG CAPSULE PO SCH (09:35)
--- NOTE | 2017-07-07 09:55 | EKG Report ---
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
--- NOTE | 2017-07-07 10:33 | Hospitalist Progress Note ---
Assessment and Plan (1) Acute respiratory failure with hypoxia Status: Resolved Assessment and plan: abg respiratory acidosis with metabolic alkalosis, improved with fluids. Still needs to wear BiPAP at night. Current Visit: No (2) Sepsis Status: Acute Assessment and plan: Patient meets the criteria for sepsis. Sepsis order set used. WBC and tachycardia resolved too quickly for infection. cont zosyn for now, no source of infection identified Current Visit: Yes (3) Acute exacerbation of chronic obstructive airways disease Status: Acute Assessment and plan: cont duoneb, solumedrol and zosyn Current Visit: No (4) Sleep apnea Status: Acute Assessment and plan: Change to BiPAP at bedtime, consult Dr. Hartman when he returns on Friday Current Visit: No (5) Atrial fibrillation with RVR Status: Chronic Assessment and plan: Currently in sinus rhythm on diltiazem and Coreg. No overt evidence of hyperthyroidism in his theophylline level was low. Current Visit: No (6) Insulin dependent diabetes mellitus Status: Chronic Assessment and plan: BS low at half-way. Hemoglobin A1c is 6.7. Insulin sliding scale only for now. Current Visit: No (7) Chest pain Status: Acute Assessment and plan: serial troponins mildly elevated. Cardiology consulted for input. Current Visit: Yes Hospitalist: Subjective Interval history: Patient's color is much better today. His white count has returned to normal. Hemoglobin is stable. Serial ABGs are stable would not order any more. Exam - Constitutional Vitals: Period Temp Pulse Resp BP Sys/Pina Pulse Ox Last 24 Hr 96.8 F-99.6 F 61-128 18-40 105-160/68-100 89-98 Exam: Heart Rate-[RRR] Lungs-[clear but diminished] GI-[+bs soft, NT] Ext-[trace edema] Neuro [Motor 4/5], [alert and oriented times 1] psych [normal mood and affect] General [no acute distress] Results - Labs CBC & BMP: 07/07/17 04:50 07/07/17 04:50 Lab Results: I have reviewed the past 24 hour labs Labs: Blood cultures 2 negative no growth - Diagnostic Findings Procedure: Chest x-ray: report reviewed by me (Nothing acute)
[2017-07-07] MEDS ORDERED: LACTULOSE 20 GM/30 ML UDCUP PO PRN (10:50)
[2017-07-07] MEDS ORDERED: MAGNESIUM HYDROXIDE SUSP 30 ML UDCUP PO PRN (10:50)
--- NOTE | 2017-07-07 11:03 | XRay Report ---
Portable chest July 07, 2017 at 0626 hours Indication: Shortness breath Comparison images from previous day at 0946 hours Findings: Motion artifact at the lung bases. Mild atelectasis and possible trace left pleural effusion. Cardiomediastinal contours are stable. No acute osseous abnormalities. Impression: Technically limited secondary to motion degradation. Likely bibasilar atelectasis and trace left pleural effusion. PROCEDURE INTERPRETED AT [facility] DEPARTMENT OF RADIOLOGY Final Report Signed by: Tony Walton
[2017-07-07] MEDS: ALBUTEROL 2.5 MG/3 ML NEB RESP TX PRN (11:22)
[2017-07-07] MEDS: INSULIN REGULAR 100 UNIT/ML SUBCUT SCH ×3 (12:53→21:39)
--- NOTE | 2017-07-07 14:36 | ECHO Report ---
Farshad Bailey Exam Date: 07/06/2017 14:34 Referring Physician: Technologist: Rosy Esposito Age: 71 Ht (in): 72 Wt (lb): 287 Gender: M Exam Location: [facility] Echo Indications: COPD exerbation, septic shock, LIMITED STUDY BP: 160 / 71 HR: 108 Rhythm: tachycardia Technical Quality: Very technically difficult study IMPRESSIONS This is a severely limited study. Overall left ventricular ejection fraction appears to be preserved and is estimated to be greater than 50%. I do not see any evidence of severe valvular heart disease. I cannot tell much more because of the severely limited nature of the study. MEASUREMENTS (Male / Female) Normal Values FINDINGS Left Ventricle Right Ventricle Right Atrium Left Atrium Mitral Valve Aortic Valve Tricuspid Valve Pulmonic Valve Pericardium Aorta Fawad Mazariegos (Electronically Signed) Final Date: 07 July 2017 14:35
--- NOTE | 2017-07-07 14:53 | Cardiology Consult Note ---
Lul Garcia Lesley, [place]ALEA, am scribing for, and in the presence of, Fawad Mazariegos MD 14:51. Assessment and Plan - Time spent with patient Time spent with patient: Greater than 30 minutes (Chart review, assessment, and documentation) (1) COPD exacerbation Status: Acute Current Visit: Yes (2) Chest pain Status: Acute Current Visit: Yes (3) Sepsis Status: Acute Current Visit: Yes (4) Atrial fibrillation with RVR Status: Chronic Current Visit: No (5) Elevated troponin Status: Acute Current Visit: No (6) Insulin dependent diabetes mellitus Status: Chronic Current Visit: No History of Present Illness - Data of Consult Patient: new to practice Consult date: 07/07/17 - Consult Narrative Reason for consult: A. 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 Bailey is a 71 year old male, who resides in a correction and has a history of multiple medical problems including hypertension, diabetes, COPD, and paroxysmal atrial fibrillation, and he appears to have some degree of dementia. He was brought to the emergency room with complaints of shortness of breath for several days. The patient was found to be in atrial fibrillation and started on a Cardizem drip. This has since been stopped, with heart rate controlled. The patient is oriented to self, but is a poor historian. There is no family present. The majority of this document was obtained from medical records. Patient was seen lying in bed this morning in no apparent distress. His oxygen mask was found to be lying on his chest. He complained of abdominal pain/ fullness. Vital signs reveal low-grade temp, stable blood pressure with most recent being 119/77. Heart rate in the 60s-80s. Oxygen saturation in the low 90s on 35% oxygen mask. WBCs on admission were 18.5, this morning reduced drastically to 9.4. Hemoglobin 13, hematocrit 38.7. Sodium 139, potassium 3.9 , creatinine 0.8, BUN 28, glucose 164, hemoglobin A1c 6.7. Troponin I has been trivia the elevated at around 0.05. His TSH is mildly reduced at 0.190, with a free T4 of 1.25, triglycerides 90, cholesterol 139, LDL 71, HDL 49. Urinalysis negative. Chest x-ray negative for acute cardiopulmonary findings. EKG on admission revealed Afib with RVR, rate 107. ASSESSMENT/PLAN: 1. SEPSIS -continue antibiotics, WBCs markedly reduced today. 2. ATRIAL FIBRILLATION: It appears that the patient has a long-standing history of paroxysmal atrial fibrillation. Looking back, with his last few hospitalizations he has been in A. fib. His rate is well controlled on his current medication. I think I would continue his current management and add stroke prophylaxis with Eliquis. Given the patient's status is a correction patient with COPD who is unaware that he is having arrhythmia, I would manage him conservatively with rate control/anticoagulation. Although he did convert to sinus rhythm, given his sedentary status in the correction without overt symptoms from A. fib, I do not think I will try and arrhythmics on him. His EKG does not show any signs of ischemia. Once again, I would manage his cardiac status conservatively. 3. DYSPNEA: This is likely secondary to his COPD exacerbation. Continue treatment as you are. 4. ELEVATED TROPONIN -peaked at 0.068, negative this morning. 5. COPD EXACERBATION -continue oxygen, respiratory treatments. Home Medications Medication Instructions Recorded Confirmed Type Pantoprazole Tab [Protonix Tab] 40 mg PO DAILY 05/09/15 07/06/17 History Pravastatin [Pravachol] 40 mg PO BEDTIME #30 tablet 05/12/15 07/06/17 Rx Pregabalin [Lyrica] 150 mg PO BEDTIME #30 capsule 05/12/15 07/06/17 Rx Tamsulosin [Flomax] 0.4 mg PO DAILY #30 capsule 05/12/15 07/06/17 Rx Lactulose Liquid [Chronulac] 20 gm PO Q6HR PRN 04/17/16 07/06/17 History Melatonin 5 mg PO BEDTIME 04/17/16 07/06/17 History Aspirin EC Tab 325 mg PO DAILY tablet 04/22/16 07/06/17 Rx predniSONE TAB [PredniSONE] 20 mg PO DAILY #5 tablet 04/22/16 07/06/17 Rx Clotrimazole 1% Cream [Lotrimin 1% 1 applic TOP BID PRN 04/05/17 07/06/17 History Cream] FLUoxetine [PROzac] 10 mg PO DAILY 04/05/17 07/06/17 History OLANZapine TAB [ZyPREXA Tab] 2.5 mg PO BID 04/05/17 07/06/17 History Theophylline ER Tab 300 mg PO BID W/MEALS 04/05/17 07/06/17 History Glucagon 1 mg IM PRN PRN vial 04/14/17 07/06/17 Rx HYDROcodone/ACETAMIN 7.5-325 1 tablet PO Q4H PRN tablet 04/14/17 07/06/17 Rx [Aurora 7.5-325] HydrOXYzine PAMOATE CAP [Vistaril 25 mg PO Q6H PRN capsule 04/14/17 07/06/17 Rx Cap] Insulin Glargine [Lantus] 30 unit SUBCUT BID unit 04/14/17 07/06/17 Rx Magnesium Hydroxide Susp [Milk of 30 ml PO Q8H PRN 04/14/17 07/06/17 Rx Magnesia] Multivitamin (Centrum) [Centrum 1 tablet PO DAILY tablet 04/14/17 07/06/17 Rx Tab] Albuterol/Ipratropium Neb [Duoneb] 3 ml RESP TX RT Q4H 04/18/17 07/06/17 Rx Carvedilol [Coreg] 6.25 mg PER TUBE BID tablet 04/18/17 07/06/17 Rx Diltiazem Tab [Cardizem Tab] 30 mg PO Q8HR tablet 04/18/17 07/06/17 Rx Valproic Acid Liquid [Depakene] 600 mg PO BID 04/18/17 07/06/17 Rx Insulin Regular [HumuLIN R] See Protocol SUBCUT ACHS unit 05/02/17 07/06/17 Rx Alum/Mag/Simeth Max Str Liquid 30 ml PO Q8H PRN 07/06/17 07/06/17 History [Mylanta Max Strength Liquid] Mucomyst Resp 20% 3 ml INH Q12HR PRN 07/06/17 07/06/17 History CC: Deepa Irizarry MD - Home Medications and Allergies Home Medications: Home Medications Medication Instructions Recorded Confirmed Type Pantoprazole Tab [Protonix Tab] 40 mg PO DAILY 05/09/15 07/06/17 History Pravastatin [Pravachol] 40 mg PO BEDTIME #30 tablet 05/12/15 07/06/17 Rx Pregabalin [Lyrica] 150 mg PO BEDTIME #30 capsule 05/12/15 07/06/17 Rx Tamsulosin [Flomax] 0.4 mg PO DAILY #30 capsule 05/12/15 07/06/17 Rx Lactulose Liquid [Chronulac] 20 gm PO Q6HR PRN 04/17/16 07/06/17 History Melatonin 5 mg PO BEDTIME 04/17/16 07/06/17 History Aspirin EC Tab 325 mg PO DAILY tablet 04/22/16 07/06/17 Rx predniSONE TAB [PredniSONE] 20 mg PO DAILY #5 tablet 04/22/16 07/06/17 Rx Clotrimazole 1% Cream [Lotrimin 1% 1 applic TOP BID PRN 04/05/17 07/06/17 History Cream] FLUoxetine [PROzac] 10 mg PO DAILY 04/05/17 07/06/17 History OLANZapine TAB [ZyPREXA Tab] 2.5 mg PO BID 04/05/17 07/06/17 History Theophylline ER Tab 300 mg PO BID W/MEALS 04/05/17 07/06/17 History Glucagon 1 mg IM PRN PRN vial 04/14/17 07/06/17 Rx HYDROcodone/ACETAMIN 7.5-325 1 tablet PO Q4H PRN tablet 04/14/17 07/06/17 Rx [Aurora 7.5-325] HydrOXYzine PAMOATE CAP [Vistaril 25 mg PO Q6H PRN capsule 04/14/17 07/06/17 Rx Cap] Insulin Glargine [Lantus] 30 unit SUBCUT BID unit 04/14/17 07/06/17 Rx Magnesium Hydroxide Susp [Milk of 30 ml PO Q8H PRN 04/14/17 07/06/17 Rx Magnesia] Multivitamin (Centrum) [Centrum 1 tablet PO DAILY tablet 04/14/17 07/06/17 Rx Tab] Albuterol/Ipratropium Neb [Duoneb] 3 ml RESP TX RT Q4H 04/18/17 07/06/17 Rx Carvedilol [Coreg] 6.25 mg PER TUBE BID tablet 04/18/17 07/06/17 Rx Diltiazem Tab [Cardizem Tab] 30 mg PO Q8HR tablet 04/18/17 07/06/17 Rx Valproic Acid Liquid [Depakene] 600 mg PO BID 04/18/17 07/06/17 Rx Insulin Regular [HumuLIN R] See Protocol SUBCUT ACHS unit 05/02/17 07/06/17 Rx Alum/Mag/Simeth Max Str Liquid 30 ml PO Q8H PRN 07/06/17 07/06/17 History [Mylanta Max Strength Liquid] Mucomyst Resp 20% 3 ml INH Q12HR PRN 07/06/17 07/06/17 History Allergies/Adverse Reactions: Allergies Allergy/AdvReac Type Severity Reaction Status Date / Time Hydromorphone [From Dilaudid] AdvReac Unknown/Unable Verified 04/04/17 23:10 to obtain morphine AdvReac Unknown/Unable Verified 04/04/17 23:10 to obtain ROS unobtainable: due to mental status Medical,Surgical,& Family Hx - Medical History Cardio: History of: Cardiac Dysrhythmia, Congenital Heart Disease, CHF (Perhaps diastolic, last EF was 60%), CAD, Hypertension Psychological: History of: Bipolar Disorder, Depression, Psychiatric Problems Neurology: History of: Cerebrovascular Accident (left side weakness), Dementia, Parkinson's Disease Endocrine: History of: Diabetes Mellitus (IDDM), Dyslipidemia Respiratory: History of: COPD, Obstructive Sleep Apnea Genitourinary: History of: Prostate Problems, Recurring Urinary Tract Infections Gastrointestinal: History of: GERD, Hemorrhoids, Liver Problems Musculoskeletal: History of: Musculoskeletal Problems (generalized osteoarthritis) Hematology: History of: Clotting Problems Other: History of: Miscellaneous Medical Problems (hernia repair) - Surgical History Neurologic Surgeries: Patient denies: Neurologic Surgery Abdominal Surgeries: Surgical HX of: Hernia Repair - Family History Family History: Reports;: Family Diabetes, Family Heart Disease - Social History Smoking Status: Former smoker Frequency of Alcohol Use: None Type of Drug Use: None Physical Examination Vital Signs Temp Pulse Resp BP Pulse Ox 98.6 F 72 26 H 128/84 89 L 07/06/17 09:24 07/06/17 09:24 07/06/17 09:24 07/06/17 09:24 07/06/17 09:24 Exam: General: [Appears well with no apparent distress.] [Pleasant and cooperative. ] [Appears comfortable.] HEENT: [PERRL, normocephalic, atraumatic]. [Mucous membranes moist.] [No jaundice noted.] [Conjunctiva moist and clear, sclerae anicteric.] Neck: [No JVD/HJR, no thyromegaly or lymphadenopathy noted.] [ No carotid bruit appreciated.] Cardiac: [Regular rate and rhythm.] [No murmur rub or gallop.] [PMI is nondisplaced.] Lungs: [Clear to auscultation without accessory muscle use to assist the respiratory pattern.] [Oxygen in use via facemask.] Abdomen: [Soft, bowel sounds normoactive.] [Tender to palpation, upper right lower quadrant, and nondistended.] [No abdominal bruit or thrill noted.] [No masses noted.] Musculoskeletal: [No fluid collection.] [Decreased range of motion is noted.] Extremities: [No clubbing, cyanosis noted.] [ No edema noted.] [Upper extremity pulses 2+.] [Lower extremity pulses 2+.] [Capillary refill less than 3 seconds.] Skin: [No unusual lesions or rashes.] [No skin breakdown appreciated.] Neuro: [Awake, alert, oriented to self only.] [Moves all extremities well without hemiparesis or paralysis.] [No essential tremor is appreciated.] Result/EKG - Labs CBC & BMP: 07/07/17 04:50 07/07/17 04:50 Lab Results: I have reviewed the past 24 hour labs Labs: Laboratory Results - last 24 hr 07/06/17 07/06/17 07/06/17 09:43 09:43 09:43 WBC 18.5 H RBC 4.78 Hgb 14.1 Hct 42.8 MCV 89.5 MCH 30 MCHC 32.9 RDW 14.8 Plt Count 189 MPV 9.5 L Neut % (Auto) 76.8 H Lymph % (Auto) 14.3 L Baker % (Auto) 7.7 Eos % (Auto) 0.2 Baso % (Auto) 0.3 Neut # (Auto) 14.2 H Lymph # (Auto) 2.7 Baker # (Auto) 1.4 H Eos # (Auto) 0.0 Baso # (Auto) 0.1 Immature Gran % 0.7 Nucleated RBC % 0.0 Immature Gran # 0.13 Nucleated RBCs # 0.00 Immature Plt Fraction 0.0 Polychromasia Slight Hypochromasia Slight INR PT Patient/Control Mix ABG pH ABG pCO2 ABG pO2 ABG HCO3 ABG Total CO2 ABG O2 Saturation ABG Base Excess FiO2 Sodium 139 Potassium 4.0 Chloride 99 Carbon Dioxide 39 H Anion Gap 5.0 BUN 18 Creatinine 0.70 GFR Calculation 139 BUN/Creatinine Ratio 25.00 H Glucose 84 POC Glucose Hemoglobin A1c Calculated Osmolality 277.5 Lactic Acid Calcium 8.8 Magnesium Total Bilirubin 0.50 Direct Bilirubin 0.160 Indirect Bilirubin 0.3 AST 20 ALT 16 Alkaline Phosphatase 51 Total Creatine Kinase 65 CK-MB (CK-2) < 1.0 Troponin I 0.055 H B-Natriuretic Peptide 22 Total Protein 6.5 Albumin 2.7 L Triglycerides Cholesterol LDL Cholesterol VLDL Cholesterol HDL Cholesterol Heart Disease Risk Ratio Free T4 TSH 3rd Generation Urine Color Urine Appearance Urine pH Ur Specific [place] Urine Protein Urine Glucose (UA) Urine Ketones Urine Blood Urine Nitrate Urine Bilirubin Urine Urobilinogen Urine Leukocytes Urine RBC Urine WBC Urine Mucus Ur Culture Indicated? Valproic Acid Theophylline 07/06/17 07/06/17 07/06/17 09:43 10:06 13:35 WBC RBC Hgb Hct MCV MCH MCHC RDW Plt Count MPV Neut % (Auto) Lymph % (Auto) Baker % (Auto) Eos % (Auto) Baso % (Auto) Neut # (Auto) Lymph # (Auto) Baker # (Auto) Eos # (Auto) Baso # (Auto) Immature Gran % Nucleated RBC % Immature Gran # Nucleated RBCs # Immature Plt Fraction Polychromasia Hypochromasia INR PT Patient/Control Mix ABG pH 7.503 H ABG pCO2 42.1 ABG pO2 52.7 L ABG HCO3 32.4 H ABG Total CO2 28.3 H ABG O2 Saturation 88.3 L ABG Base Excess 8.9 H FiO2 32.00 Sodium Potassium Chloride Carbon Dioxide Anion Gap BUN Creatinine GFR Calculation BUN/Creatinine Ratio Glucose POC Glucose Hemoglobin A1c Calculated Osmolality Lactic Acid 1.6 Calcium Magnesium Total Bilirubin Direct Bilirubin Indirect Bilirubin AST ALT Alkaline Phosphatase Total Creatine Kinase CK-MB (CK-2) Troponin I B-Natriuretic Peptide Total Protein Albumin Triglycerides Cholesterol LDL Cholesterol VLDL Cholesterol HDL Cholesterol Heart Disease Risk Ratio Free T4 TSH 3rd Generation Urine Color Yellow Urine Appearance Slightly hazy Urine pH 7.0 Ur Specific [place] 1.015 Urine Protein Negative Urine Glucose (UA) Negative Urine Ketones Negative Urine Blood Negative Urine Nitrate Negative Urine Bilirubin Negative Urine Urobilinogen < 2.0 H Urine Leukocytes Negative Urine RBC <1 Urine WBC 2 Urine Mucus Occasional Ur Culture Indicated? Not indicated Valproic Acid Theophylline 07/06/17 07/06/17 07/06/17 14:55 14:55 14:55 WBC RBC Hgb Hct MCV MCH MCHC RDW Plt Count MPV Neut % (Auto) Lymph % (Auto) Baker % (Auto) Eos % (Auto) Baso % (Auto) Neut # (Auto) Lymph # (Auto) Baker # (Auto) Eos # (Auto) Baso # (Auto) Immature Gran % Nucleated RBC % Immature Gran # Nucleated RBCs # Immature Plt Fraction Polychromasia Hypochromasia INR 1.0 PT Patient/Control Mix 10.8 ABG pH ABG pCO2 ABG pO2 ABG HCO3 ABG Total CO2 ABG O2 Saturation ABG Base Excess FiO2 Sodium Potassium Chloride Carbon Dioxide Anion Gap BUN Creatinine GFR Calculation BUN/Creatinine Ratio Glucose POC Glucose Hemoglobin A1c Calculated Osmolality Lactic Acid Calcium Magnesium Total Bilirubin Direct Bilirubin Indirect Bilirubin AST ALT Alkaline Phosphatase Total Creatine Kinase 44 D CK-MB (CK-2) < 1.0 Troponin I 0.068 H D B-Natriuretic Peptide Total Protein Albumin Triglycerides Cholesterol LDL Cholesterol VLDL Cholesterol HDL Cholesterol Heart Disease Risk Ratio Free T4 TSH 3rd Generation Urine Color Urine Appearance Urine pH Ur Specific [place] Urine Protein Urine Glucose (UA) Urine Ketones Urine Blood Urine Nitrate Urine Bilirubin Urine Urobilinogen Urine Leukocytes Urine RBC Urine WBC Urine Mucus Ur Culture Indicated? Valproic Acid 50.0 Theophylline 8.2 L 07/06/17 07/06/17 07/06/17 16:24 17:45 19:29 WBC RBC Hgb Hct MCV MCH MCHC RDW Plt Count MPV Neut % (Auto) Lymph % (Auto) Baker % (Auto) Eos % (Auto) Baso % (Auto) Neut # (Auto) Lymph # (Auto) Baker # (Auto) Eos # (Auto) Baso # (Auto) Immature Gran % Nucleated RBC % Immature Gran # Nucleated RBCs # Immature Plt Fraction Polychromasia Hypochromasia INR PT Patient/Control Mix ABG pH 7.450 ABG pCO2 49.2 H ABG pO2 65.0 L ABG HCO3 32.2 H ABG Total CO2 29.6 H ABG O2 Saturation 91.7 L ABG Base Excess 8.6 H FiO2 Sodium Potassium Chloride Carbon Dioxide Anion Gap BUN Creatinine GFR Calculation BUN/Creatinine Ratio Glucose POC Glucose 153 H 172 H Hemoglobin A1c Calculated Osmolality Lactic Acid Calcium Magnesium Total Bilirubin Direct Bilirubin Indirect Bilirubin AST ALT Alkaline Phosphatase Total Creatine Kinase CK-MB (CK-2) Troponin I B-Natriuretic Peptide Total Protein Albumin Triglycerides Cholesterol LDL Cholesterol VLDL Cholesterol HDL Cholesterol Heart Disease Risk Ratio Free T4 TSH 3rd Generation Urine Color Urine Appearance Urine pH Ur Specific [place] Urine Protein Urine Glucose (UA) Urine Ketones Urine Blood Urine Nitrate Urine Bilirubin Urine Urobilinogen Urine Leukocytes Urine RBC Urine WBC Urine Mucus Ur Culture Indicated? Valproic Acid Theophylline 07/06/17 07/07/17 07/07/17 23:01 03:36 04:50 WBC 9.4 D RBC 4.40 Hgb 13.0 L Hct 38.7 L MCV 88.0 MCH 30 MCHC 33.6 RDW 14.6 Plt Count 192 MPV 10.1 Neut % (Auto) 83.7 H Lymph % (Auto) 11.4 L Baker % (Auto) 3.7 Eos % (Auto) 0.0 Baso % (Auto) 0.1 Neut # (Auto) 7.9 H Lymph # (Auto) 1.1 L Baker # (Auto) 0.4 Eos # (Auto) 0.0 Baso # (Auto) 0.0 Immature Gran % 1.1 Nucleated RBC % 0.0 Immature Gran # 0.10 Nucleated RBCs # 0.00 Immature Plt Fraction 0.0 Polychromasia Hypochromasia INR PT Patient/Control Mix ABG pH 7.403 ABG pCO2 59.3 H ABG pO2 92.9 ABG HCO3 36.2 H ABG Total CO2 38.0 H ABG O2 Saturation 96.4 ABG Base Excess 9.4 H FiO2 50.00 Sodium Potassium Chloride Carbon Dioxide Anion Gap BUN Creatinine GFR Calculation BUN/Creatinine Ratio Glucose POC Glucose Hemoglobin A1c Calculated Osmolality Lactic Acid Calcium Magnesium Total Bilirubin Direct Bilirubin Indirect Bilirubin AST ALT Alkaline Phosphatase Total Creatine Kinase 40 CK-MB (CK-2) < 1.0 Troponin I 0.055 H B-Natriuretic Peptide Total Protein Albumin Triglycerides Cholesterol LDL Cholesterol VLDL Cholesterol HDL Cholesterol Heart Disease Risk Ratio Free T4 TSH 3rd Generation Urine Color Urine Appearance Urine pH Ur Specific [place] Urine Protein Urine Glucose (UA) Urine Ketones Urine Blood Urine Nitrate Urine Bilirubin Urine Urobilinogen Urine Leukocytes Urine RBC Urine WBC Urine Mucus Ur Culture Indicated? Valproic Acid Theophylline 07/07/17 07/07/17 07/07/17 04:50 04:50 04:50 WBC RBC Hgb Hct MCV MCH MCHC RDW Plt Count MPV Neut % (Auto) Lymph % (Auto) Baker % (Auto) Eos % (Auto) Baso % (Auto) Neut # (Auto) Lymph # (Auto) Baker # (Auto) Eos # (Auto) Baso # (Auto) Immature Gran % Nucleated RBC % Immature Gran # Nucleated RBCs # Immature Plt Fraction Polychromasia Hypochromasia INR 1.1 PT Patient/Control Mix 11.7 ABG pH ABG pCO2 ABG pO2 ABG HCO3 ABG Total CO2 ABG O2 Saturation ABG Base Excess FiO2 Sodium 139 Potassium 3.9 Chloride 97 L Carbon Dioxide 36 H Anion Gap 9.9 BUN 28 H D Creatinine 0.80 GFR Calculation 131 BUN/Creatinine Ratio 35.00 H Glucose 164 H POC Glucose Hemoglobin A1c Calculated Osmolality 286.5 Lactic Acid Calcium 8.9 Magnesium 2.3 Total Bilirubin Direct Bilirubin Indirect Bilirubin AST ALT Alkaline Phosphatase Total Creatine Kinase CK-MB (CK-2) Troponin I B-Natriuretic Peptide 31 Total Protein Albumin Triglycerides 90 Cholesterol 139 LDL Cholesterol 71.0 VLDL Cholesterol 18.0 HDL Cholesterol 49 Heart Disease Risk Ratio 2.84 Free T4 TSH 3rd Generation 0.190 L Urine Color Urine Appearance Urine pH Ur Specific [place] Urine Protein Urine Glucose (UA) Urine Ketones Urine Blood Urine Nitrate Urine Bilirubin Urine Urobilinogen Urine Leukocytes Urine RBC Urine WBC Urine Mucus Ur Culture Indicated? Valproic Acid Theophylline 07/07/17 07/07/17 07/07/17 04:50 04:50 06:15 WBC RBC Hgb Hct MCV MCH MCHC RDW Plt Count MPV Neut % (Auto) Lymph % (Auto) Baker % (Auto) Eos % (Auto) Baso % (Auto) Neut # (Auto) Lymph # (Auto) Baker # (Auto) Eos # (Auto) Baso # (Auto) Immature Gran % Nucleated RBC % Immature Gran # Nucleated RBCs # Immature Plt Fraction Polychromasia Hypochromasia INR PT Patient/Control Mix ABG pH 7.420 ABG pCO2 53.0 H ABG pO2 71.9 L ABG HCO3 31.7 H ABG Total CO2 30.0 H ABG O2 Saturation 93.1 L ABG Base Excess 8.1 H FiO2 35.00 Sodium Potassium Chloride Carbon Dioxide Anion Gap BUN Creatinine GFR Calculation BUN/Creatinine Ratio Glucose POC Glucose Hemoglobin A1c 6.7 H Calculated Osmolality Lactic Acid Calcium Magnesium Total Bilirubin Direct Bilirubin Indirect Bilirubin AST ALT Alkaline Phosphatase Total Creatine Kinase 35 L CK-MB (CK-2) < 1.0 Troponin I 0.043 B-Natriuretic Peptide Total Protein Albumin Triglycerides Cholesterol LDL Cholesterol VLDL Cholesterol HDL Cholesterol Heart Disease Risk Ratio Free T4 1.25 TSH 3rd Generation Urine Color Urine Appearance Urine pH Ur Specific [place] Urine Protein Urine Glucose (UA) Urine Ketones Urine Blood Urine Nitrate Urine Bilirubin Urine Urobilinogen Urine Leukocytes Urine RBC Urine WBC Urine Mucus Ur Culture Indicated? Valproic Acid Theophylline 07/07/17 07:33 WBC RBC Hgb Hct MCV MCH MCHC RDW Plt Count MPV Neut % (Auto) Lymph % (Auto) Baker % (Auto) Eos % (Auto) Baso % (Auto) Neut # (Auto) Lymph # (Auto) Baker # (Auto) Eos # (Auto) Baso # (Auto) Immature Gran % Nucleated RBC % Immature Gran # Nucleated RBCs # Immature Plt Fraction Polychromasia Hypochromasia INR PT Patient/Control Mix ABG pH ABG pCO2 ABG pO2 ABG HCO3 ABG Total CO2 ABG O2 Saturation ABG Base Excess FiO2 Sodium Potassium Chloride Carbon Dioxide Anion Gap BUN Creatinine GFR Calculation BUN/Creatinine Ratio Glucose POC Glucose 178 H Hemoglobin A1c Calculated Osmolality Lactic Acid Calcium Magnesium Total Bilirubin Direct Bilirubin Indirect Bilirubin AST ALT Alkaline Phosphatase Total Creatine Kinase CK-MB (CK-2) Troponin I B-Natriuretic Peptide Total Protein Albumin Triglycerides Cholesterol LDL Cholesterol VLDL Cholesterol HDL Cholesterol Heart Disease Risk Ratio Free T4 TSH 3rd Generation Urine Color Urine Appearance Urine pH Ur Specific [place] Urine Protein Urine Glucose (UA) Urine Ketones Urine Blood Urine Nitrate Urine Bilirubin Urine Urobilinogen Urine Leukocytes Urine RBC Urine WBC Urine Mucus Ur Culture Indicated? Valproic Acid Theophylline - Diagnostic Findings Procedure: Chest x-ray: report reviewed by ms - EKG EKG results: interpreted by ms I, Fawad Mazariegos MD, personally performed the services described in this documentation, ascribed by Liudmila Mccarty NP in my presence, and it is both accurate and complete [id number] .
[2017-07-07] MEDS: APIXABAN 5 MG TABLET PO SCH ×2 (14:59→21:41)
--- NOTE | 2017-07-07 15:47 | Pulmonology Consult Note ---
History of Present Illness Chief complaint: Hypercarbia. Hypoxemia. COPD. History of present illness: Mr. Bailey is a 71 year old white male alf patient who is followed by Dr. Jeremiah Ivey. I been asked to see this patient in pulmonary consultation for evaluation and treatment. The concern is for his blood gases which show hypercarbia which is exacerbated by higher FiO2's. He also has hypoxemia. The patient's records that he met the criteria for sepsis and was admitted with a suspected diagnosis of sepsis. He had been short of breath for several days and he had some chest pain on the morning of admission. His white blood cell count was elevated 18,500 but dropped with what in 1 day. He had atrial fib with tachycardia. There was no obvious source of infection. Patient was confused and unable to answer questions. The patient is arousable but not very interested. I have asked him a number of questions. He has dementia. His answers do not appear to be reliable and his review of systems is otherwise negative except for the fact that he obviously has dementia Allergies. Dilaudid and morphine Home medicines. Protonix. Pravachol. Lyrica. Flomax. Chronulac. Melatonin. Aspirin. Prednisone 20 mg daily. Prozac. Zyprexa. Theophylline 300 mg p.o. twice daily. Hydrocodone every 4 hours as needed hydroxyzine 25 every 6 hours as needed Lantus insulin 30 units subcu twice daily magnesium 30 mg every 8 hours as needed. Multivitamin once a day. Duo nebs twice daily. Coreg 6.25 mg twice daily diltiazem 30 mg daily. Valproic acid 600 mg twice daily Hospital medicines see below. Past history. This patient had 3 week stay here and April 2017. He was here for a month in May 2014 and a month and October 2014. He was also here a month and May 2015. He had sleep studies by Dr. Chandni Hartman and August 2015. He was here in April and September 2016. His diagnoses included chest pain and acute respiratory failure and COPD with exacerbation. During his April 2017 3 weeks today he was seen by Dr. Oscar Mitchell in pulmonary consultation. He had hypoxemia and hypercarbia and he found that the best FiO2 was 32%. The response she obtained with lowering the FiO2 to 32% was almost exactly number for number the same as I got with low lowering his FiO2 from 50% to 35%. And looks like his hypoxemia and hypercarbia are stable and predictable. This appears to be related to his underlying COPD COPD. Hyperlipidemia. BPH. Bronchospastic disease based on the medicines he is taking. Insulin-dependent diabetes mellitus. Cardiac the rhythm. Bipolar disorder. Cardiac the rhythm. High blood pressure. He is listed as having congenital heart disease but there is no more information in that. He has had a previous CVA with left-sided weakness. He said Parkinson's disease. There is a history of dementia. Past history of gastroesophageal reflux disease, hemorrhoids and liver problems. Generalized osteo-arthritis. Previous hernia repair Family history. Positive for diabetes and heart disease. Social history. Former smoker who smoked up until recently. Resides in a alf. His is mention and some of his early notes from the emergency room so I assume he is . CT of the chest was done 04/26/2017 and there is no mention of pulmonary emboli. Patient did have cardiomegaly and coronary artery calcifications and he had bilateral pneumonia. There was a minimal central lobular emphysema with a 9.5 mm cavitary lesion left upper lung. There was minimal mediastinal and right hilar adenopathy. I did not see any Doppler venograms. Echocardiogram done 07/06/2017 showed a left ventricular ejection fraction estimated to be 50%. This was a limited study. Echocardiogram done 04/17/2016 showed mild concentric left ventricular hypertrophy with ejection fraction of 60%. Grade 1 diastolic dysfunction. There is trace of mitral regurgitation. At this point ABGs on FiO2 of 32% shows a pH of 7.45, PCO2 49.2, PO2 is 65.0 and a bicarb of 32.5. ABGs on FiO2 35% showed a pH of 7.42, PCO2 53, PO2 of 71.9 and a bicarb of 31.7 ABGs on FiO2 of 50% showed a pH 7.40, PCO2 59.3, PO2 92.9 and a bicarb of 30 six -point Admit white count was 18,500 and chronically filled and 9400. H&H 13.0 38.7 and platelets are 192,000. Electrolytes are normal. Creatinine 0.8. BUN is 28. Glucoses are elevated. Thyroid function tests are normal. Hemoglobin A1c is 6.7. Chest x-ray. 07/07/2017. My interpretation. Mild cardiomegaly. Pulmonary arteries are probably normal. No hilar adenopathy. There is uncoiling of the thoracic aorta. Mediastinum is normal. Lung dawson are clear with no masses infiltrates or pulmonary edema. There is minimal atelectasis at both bases which is probably secondary to body habitus. Patient appears to have scoliosis of the cervical spine Physical exam. Vital signs. See below. No recorded fever during this admission. Face. Symmetrical. No edema of the lips or tongue. Neck. Kyphotic and possibilities scoliotic. No meningismus. Lymphatics. No submandibular cervical supraclavicular or epitrochlear adenopathy. Chest. Prolonged expiration. Slight large airway wheeze. No chest wall tenderness. Heart. Heart sounds are distant. I cannot hear a murmur rub or gallop Abdomen. Obese and nontender. Lower extremities. Nothing to suggest deep venous thrombophlebitis. Arterial exam. Carotid upstroke is barely palpable. Radial pulses are palpable. Lower extremity pulses cannot be palpated. Venous exam. Carotids upper extremities are probably normal. Some chronic venous stasis over the lower extremities and rectal deferred. Neurologic. Left body weakness and partial parietal The remainder of the physical exam is negative Impression. 1. COPD and probably emphysema. 2. Probable bronchospastic disease 3. Hypercarbia which is exacerbated by supplemental oxygen above 30-35% FiO2 4. Hypercarbia improved with low-dose supplemental oxygen 5. Manic depressive illness with dementia 6. Significant past history tobacco abuse 7. High blood pressure 8. Insulin-dependent diabetes mellitus 9. Old CVA with left body weakness/paralysis 10. History of cardiac rhythm 11. See past history Plan. 1. Trial of Diamox 2. Follow-up ABGs and BMP 3. Follow-up chest x-ray 4. Singulair. #5 agree with antibiotics 6. Agree with low-dose Solu-Medrol 7. We will check with Dr. Oscar Mitchell see if this is a regular patient of his. 8. See order 9. Doppler venogram Home Medications Medication Instructions Recorded Confirmed Type Pantoprazole Tab [Protonix Tab] 40 mg PO DAILY 05/09/15 07/06/17 History Pravastatin [Pravachol] 40 mg PO BEDTIME #30 tablet 05/12/15 07/06/17 Rx Pregabalin [Lyrica] 150 mg PO BEDTIME #30 capsule 05/12/15 07/06/17 Rx Tamsulosin [Flomax] 0.4 mg PO DAILY #30 capsule 05/12/15 07/06/17 Rx Lactulose Liquid [Chronulac] 20 gm PO Q6HR PRN 04/17/16 07/06/17 History Melatonin 5 mg PO BEDTIME 04/17/16 07/06/17 History Aspirin EC Tab 325 mg PO DAILY tablet 04/22/16 07/06/17 Rx predniSONE TAB [PredniSONE] 20 mg PO DAILY #5 tablet 04/22/16 07/06/17 Rx Clotrimazole 1% Cream [Lotrimin 1% 1 applic TOP BID PRN 04/05/17 07/06/17 History Cream] FLUoxetine [PROzac] 10 mg PO DAILY 04/05/17 07/06/17 History OLANZapine TAB [ZyPREXA Tab] 2.5 mg PO BID 04/05/17 07/06/17 History Theophylline ER Tab 300 mg PO BID W/MEALS 04/05/17 07/06/17 History Glucagon 1 mg IM PRN PRN vial 04/14/17 07/06/17 Rx HYDROcodone/ACETAMIN 7.5-325 1 tablet PO Q4H PRN tablet 04/14/17 07/06/17 Rx [[place] 7.5-325] HydrOXYzine PAMOATE CAP [Vistaril 25 mg PO Q6H PRN capsule 04/14/17 07/06/17 Rx Cap] Insulin Glargine [Lantus] 30 unit SUBCUT BID unit 04/14/17 07/06/17 Rx Magnesium Hydroxide Susp [Milk of 30 ml PO Q8H PRN 04/14/17 07/06/17 Rx Magnesia] Multivitamin (Centrum) [Centrum 1 tablet PO DAILY tablet 04/14/17 07/06/17 Rx Tab] Albuterol/Ipratropium Neb [Duoneb] 3 ml RESP TX RT Q4H 04/18/17 07/06/17 Rx Carvedilol [Coreg] 6.25 mg PER TUBE BID tablet 04/18/17 07/06/17 Rx Diltiazem Tab [Cardizem Tab] 30 mg PO Q8HR tablet 04/18/17 07/06/17 Rx Valproic Acid Liquid [Depakene] 600 mg PO BID 04/18/17 07/06/17 Rx Insulin Regular [HumuLIN R] See Protocol SUBCUT ACHS unit 05/02/17 07/06/17 Rx Alum/Mag/Simeth Max Str Liquid 30 ml PO Q8H PRN 07/06/17 07/06/17 History [Mylanta Max Strength Liquid] Mucomyst Resp 20% 3 ml INH Q12HR PRN 07/06/17 07/06/17 History Allergies Allergy/AdvReac Type Severity Reaction Status Date / Time Hydromorphone [From Dilaudid] AdvReac Unknown/Unable Verified 04/04/17 23:10 to obtain morphine AdvReac Unknown/Unable Verified 04/04/17 23:10 to obtain Exam (Pulmonay) H&P - Constitutional Vitals: Period Temp Pulse Resp BP Sys/Pina Pulse Ox Last 24 Hr 96.8 F-99.6 F 61-107 18-22 105-141/68-80 90-98 Medical,Surgical,& Family Hx - Medical History Cardio: History of: Cardiac Dysrhythmia, Congenital Heart Disease, CHF (Perhaps diastolic, last EF was 60%), CAD, Hypertension Psychological: History of: Bipolar Disorder, Depression, Psychiatric Problems Neurology: History of: Cerebrovascular Accident (left side weakness), Dementia, Parkinson's Disease Endocrine: History of: Diabetes Mellitus (IDDM), Dyslipidemia Respiratory: History of: COPD, Obstructive Sleep Apnea Genitourinary: History of: Prostate Problems, Recurring Urinary Tract Infections Gastrointestinal: History of: GERD, Hemorrhoids, Liver Problems Musculoskeletal: History of: Musculoskeletal Problems (generalized osteoarthritis) Hematology: History of: Clotting Problems Other: History of: Miscellaneous Medical Problems (hernia repair) - Surgical History Neurologic Surgeries: Patient denies: Neurologic Surgery Abdominal Surgeries: Surgical HX of: Hernia Repair - Family History Family History: Reports;: Family Diabetes, Family Heart Disease - Social History Smoking Status: Former smoker Frequency of Alcohol Use: None Type of Drug Use: None Results - Labs CBC & BMP: 07/07/17 04:50 07/07/17 04:50
--- NOTE | 2017-07-07 16:47 | Ultrasound Report ---
Exam: US venous doppler LE BI Indication: Pain and swelling Date: 07/07/2017 3:44 PM Findings: The right common femoral, superficial femoral, popliteal and proximal saphenous saphenous veins are patent with normal waveform phasicity and augmentation as well as complete vessel compressibility. There is no evidence of popliteal or Araujo's cyst. The left common femoral, superficial femoral, popliteal and proximal saphenous saphenous veins are patent with normal waveform phasicity and augmentation as well as complete vessel compressibility. There is no evidence of popliteal or Araujo's cyst. Impression: No evidence of deep venous thrombosis within bilateral lower extremity Ultrasound images were captured and stored. PROCEDURE INTERPRETED AT [facility] DEPARTMENT OF RADIOLOGY Final Report Signed by: Tony Walton
[2017-07-07] MEDS: MONTELUKAST 10 MG TABLET PO SCH (21:40)
[2017-07-07] MEDS: PRAVASTATIN 40 MG TABLET PO SCH (21:41)
[2017-07-07] MEDS: ASCORBIC ACID 500 MG TABLET PO SCH (21:41)
[2017-07-08] MEDS: ALBUTEROL/IPRATROPIUM 3 ML NEB RESP TX SCH ×6 (03:07→23:01)
[2017-07-08 03:30] LABS: ABG Base Excess 5.3 MMOL/L (-2.5-2.5); ABG HCO3 29.2 MMOL/L (20-26); ABG Oxygen Saturation 95.2 % (95-100); ABG PCO2 52.4 MM HG (35-48); ABG PH 7.389 (7.35-7.45); ABG PO2 80.4 MM HG (80-95); ABG TCO2 28.1 MMOL/L (23-27)
[2017-07-08] MEDS: methylPREDNISolone SOD SUC 40 MG/1 ML VIAL IV SCH ×4 (03:56→21:54)
[2017-07-08 05:44] LABS: Basophils % 0.1 % (0.0-0.8); Hematocrit 36.6 VOL% (42.0-52.0); Hemoglobin 12.1 GM/DL (14.0-18.0); Immature Granulocytes % 0.9 %; Lymphocytes # 1.1 10*3/uL (1.4-4.0); Lymphocytes % 9.6 % (21.2-54.2); Mean Corpuscular HGB Conc 33.1 GM/DL (32-36); Mean Corpuscular Hemoglobin 30 PG (27-34); Mean Corpuscular Volume 89.5 FL (87-102); Mean Platelet Volume 10.6 FL (9.6-12.0); Monocytes # 0.5 10*3/uL (0.11-0.8); Monocytes % 4.5 % (1.7-12.7); Neutrophils # 9.8 10*3/uL (1.4-7.4); Neutrophils % 84.9 % (38.7-73.9); Platelet Count 221 T/CUMM (130-400); Red Blood Count 4.09 MC/CUMM (3.8-5.5); Red Cell Distribution Width 14.6 % (9.3-17.3); White Blood Count 11.5 T/CUMM (4-12)
[2017-07-08 06:20] LABS: Calcium 8.7 MG/DL (8.5-10.1); Osmolality,Calculated 291.4 MOS/KG (273-304); Potassium 3.4 MMOL/L (3.5-5.1)
[2017-07-08] MEDS: PIPERACILLIN/TAZOBACTAM 3,375 MG in SODIUM CHLORIDE 0.9% 100 ML IV SCH ×3 (06:55→23:27)
--- NOTE | 2017-07-08 08:04 | XRay Report ---
Exam: XR chest 1V portable Date: 07/08/2017 4:00 AM Indication: Shortness of breath Comparison: 07/07/2017 Technical: AP portable Findings: Mild cardiomegaly. Degenerative spondylosis change present. External cardiac leads oxygen tubing are present. Low volume effusions or infiltrates persist in the left base. Impression: 1. Persistent cardiomegaly 2. Persistent atelectatic change or infiltrate and effusion in the left base PROCEDURE INTERPRETED AT [facility] DEPARTMENT OF RADIOLOGY Final Report Signed by: Dr. John Paul Weber
[2017-07-08] MEDS: THEOPHYLLINE ER (24 HR) 300 MG CAPSULE PO SCH (09:39)
[2017-07-08] MEDS: INSULIN REGULAR 100 UNIT/ML SUBCUT SCH ×4 (09:39→21:55)
[2017-07-08] MEDS: FLUoxetine 10 MG CAPSULE PO SCH (09:39)
[2017-07-08] MEDS: ASPIRIN 325 MG TABLET PO SCH (09:39)
[2017-07-08] MEDS: MONTELUKAST 10 MG TABLET PO SCH ×2 (09:39→21:49)
[2017-07-08] MEDS: CARVEDILOL 6.25 MG TABLET PER TUBE SCH ×2 (09:40→16:25)
[2017-07-08] MEDS: PANTOPRAZOLE 40 MG TABLET PO SCH (09:40)
[2017-07-08] MEDS: APIXABAN 5 MG TABLET PO SCH ×2 (09:40→21:48)
[2017-07-08] MEDS: DILTIAZEM 30 MG TABLET PO SCH ×3 (09:40→21:49)
[2017-07-08] MEDS: TAMSULOSIN 0.4 MG CAPSULE PO SCH (09:40)
[2017-07-08] MEDS: VALPROIC ACID 250 MG/5 ML UDCUP PO SCH ×2 (09:41→21:54)
[2017-07-08] MEDS: POTASSIUM CHLORIDE 20 MEQ/15 ML UDCUP PO SCH (11:18)
[2017-07-08] MEDS: ASCORBIC ACID 500 MG TABLET PO SCH ×2 (11:19→21:48)
--- NOTE | 2017-07-08 11:25 | Pulmonology Progress Note ---
Pulmonary - PN: Subj Interval history: Patient is a 71-year-old white man that has a long history of COPD and obesity along with obesity hypoventilation syndrome and obstructive sleep apnea. He has chronic pain problems and is in a snf and basically bedridden. He has arthritis and neuropathy and is quite debilitated. He really cannot do much activity. He uses oxygen but does not like CPAP. He came back and over the weekend with increasing shortness of breath. He has some cough and congestion. He has been on the ventilator couple times recently with respiratory failure. He is a lifelong smoker. He says he is short of breath but his O2 saturations are adequate. Otherwise he seems to be about the same. Exam (Progress Note) - Constitutional Vitals: Period Temp Pulse Resp BP Sys/Pina Pulse Ox Last 24 Hr 96.9 F-98.0 F 57-92 18-21 98-142/51-80 91-98 General appearance: no acute distress (He looks like he is breathing comfortably at present), morbidly obese - Head Head exam: Present: normal inspection, normocephalic - Eye Eye exam: Present: EOMI. Absent: scleral icterus Pupils: Present: SCOTT - ENT ENT exam: Present: normal exam - Neck Neck exam: Absent: lymphadenopathy, thyromegaly - Respiratory Respiratory exam: Present: decreased breath sounds, prolonged expiratory phase, rhonchi - Cardiovascular Cardiovascular exam: Present: regular rate and rhythm, tachycardia. Absent: gallop, systolic murmur - GI/Abdominal GI/Abdominal exam: Present: normal bowel sounds, soft. Absent: organomegaly, tenderness - Extremities Exam Extremities exam: Present: edema (He does have mild edema). Absent: calf tenderness - Neurological Exam Neurological exam: Present: alert, oriented X3, CN II-XII intact - Psychiatric Psychiatric exam: Present: depressed, flat affect - Skin Skin exam: Present: warm, dry Results - Labs CBC & BMP: 07/08/17 04:54 07/08/17 04:54 Labs: His PO2 is 80 with a PCO2 of 53 and a pH of 7.38 - Diagnostic Findings Procedure: Chest x-ray: image reviewed by me, report reviewed by me (Chest x- ray shows COPD changes but no new infiltrates.) Assessment and Plan (1) Sleep apnea Status: Acute Assessment and plan: The patient has sleep apnea and needs to use his machine at night. Current Visit: No (2) Insulin dependent diabetes mellitus Status: Chronic Assessment and plan: His glucoses will be monitored. Current Visit: No (3) COPD exacerbation Status: Acute Assessment and plan: Patient has a long history of COPD and will continue with steroids and bronchodilator therapy for now. Current Visit: Yes (4) Sepsis Status: Acute Assessment and plan: Patient was hypotensive with increased white count and has been treated for possible sepsis. Nothing is growing on blood cultures at present. Current Visit: Yes (5) Chest pain Status: Resolved Assessment and plan: The patient always has chronic pain problems. Current Visit: Yes Specialty Discharge - Follow Up or Referrals
--- NOTE | 2017-07-08 11:41 | Hospitalist Progress Note ---
Assessment and Plan (1) Acute exacerbation of chronic obstructive airways disease Status: Acute Assessment and plan: Impression: 1. COPD with acute exacerbation 2. Atrial fibrillation, chronic. This appears to be his accepted rhythm 3. Chronic pain 4. Type II DM Plan: Await further recommendations from consultants. He may be approaching baseline. If so, [facility] can [facility]. This note was completed using [employer] voice recognition software. There may be middle school english teacher errors as a result. Current Visit: No Hospitalist: Subjective Interval history: Follow-up COPD with exacerbation, atrial fibrillation, and generalized pain. The patient is apparently a long-standing penitentiary resident. He came back in with an episode of atrial fibrillation and a flare of his COPD. He reports cough and sputum production, but his dyspnea appears to be at baseline. He also complains of some generalized aches and pains. Hydrocodone has been ordered. Exam - Constitutional Vitals: Period Temp Pulse Resp BP Sys/Pina Pulse Ox Last 24 Hr 96.9 F-98.0 F 57-92 18-21 98-142/51-80 91-98 Vital signs are noted above. Heart is irregular with distant tones. He has a few rales in the chest. There are some wheezes. Abdomen is soft and obese. He is awake and alert Results - Labs CBC & BMP: 07/08/17 04:54 07/08/17 04:54 Lab Results: I have reviewed the past 24 hour labs Specialty Discharge - Follow Up or Referrals
--- NOTE | 2017-07-08 14:48 | Cardiology Progress Note ---
Lul Garcia Lesley, NP, am scribing for, and in the presence of, Syl Romero MD 14:47. Assessment and Plan - Time spent with patient Time spent with patient: Greater than 30 minutes (1) COPD exacerbation Status: Acute Assessment and plan: SEE PLAN LISTED BELOW Current Visit: Yes (2) Chest pain Status: Resolved Assessment and plan: SEE PLAN LISTED BELOW Current Visit: Yes (3) Sepsis Status: Acute Assessment and plan: SEE PLAN LISTED BELOW Current Visit: Yes (4) Atrial fibrillation with RVR Status: Chronic Assessment and plan: SEE PLAN LISTED BELOW Current Visit: No (5) Elevated troponin Status: Resolved Assessment and plan: SEE PLAN LISTED BELOW Current Visit: No (6) Insulin dependent diabetes mellitus Status: Chronic Assessment and plan: SEE PLAN LISTED BELOW Current Visit: No Cardiology - PN: Subj Interval history: 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 Bailey is a 71 year old male, who resides in a [place] [facility] and has a history of multiple medical problems including hypertension, diabetes, COPD, and paroxysmal atrial fibrillation, and he appears to have some degree of dementia. He was brought to the emergency room with complaints of shortness of breath for several days. The patient was found to be in atrial fibrillation and started on a Cardizem drip. This has since been stopped, with heart rate controlled. The patient is oriented to self, but is a poor historian. There is no family present. The majority of this document was obtained from medical records. Patient was seen lying in bed this morning in no apparent distress. His oxygen mask was found to be lying on his chest. He complained of abdominal pain/ fullness. Vital signs reveal low-grade temp, stable blood pressure with most recent being 119/77. Heart rate in the 60s-80s. Oxygen saturation in the low 90s on 35% oxygen mask. WBCs on admission were 18.5, this morning reduced drastically to 9.4. Hemoglobin 13, hematocrit 38.7. Sodium 139, potassium 3.9 , creatinine 0.8, BUN 28, glucose 164, hemoglobin A1c 6.7. Troponin I has been trivial, elevated at 0.06. His TSH is mildly reduced at 0.190, with a free T4 of 1.25, triglycerides 90, cholesterol 139, LDL 71, HDL 49. Urinalysis negative. Chest x-ray negative for acute cardiopulmonary findings. EKG on admission revealed Afib with RVR, rate 107. 9/03/19: Patient awake, oriented to self, lying in bed. Eliquis started yesterday for stroke prophylaxis and Afib. Vital signs stable. Chest x-ray this morning shows mild cardiomegaly and low volume effusions or infiltrates persist in the left base. Labs reviewed hemoglobin and hematocrit 12 and 37, potassium 3.4, sodium 140, BUN 31, creatinine 0.8, glucose 207. Nursing tells me he has been complaining of different kinds of severe pain, in his back, today in his chest. The one today is worse when he takes a deep breath. It is not reproducible. He believes his breathing has gotten worse since he began having this chest pain last night. ASSESSMENT/PLAN: 1. SEPSIS -continue antibiotics, WBCs normal for the last 2 days. 2. ATRIAL FIBRILLATION: It appears that the patient has a long-standing history of paroxysmal atrial fibrillation. Looking back, with his last few hospitalizations he has been in A. fib. His rate is well controlled on his current medication. Continue current management. Given the patient's status as a [place] [facility] patient with COPD who is unaware that he is having arrhythmia, I would manage him conservatively with rate control/anticoagulation. Although he did convert to sinus rhythm, given his sedentary status in the [place] [facility] without overt symptoms from A. fib, I do not think I will try and arrhythmics on him. His EKG does not show any signs of ischemia. Once again, I would manage his cardiac status conservatively. 3. DYSPNEA: This is likely secondary to his COPD exacerbation, continue treatment. Given the fact that he is now developed some pleuritic type chest pain we should also consider ruling out pulmonary embolism. 4. ELEVATED TROPONIN -peaked at 0.068, negative this morning. Troponin elevation trivial, and not indicative of acute coronary syndrome. He has chronically elevated troponin within this range over the last several hospitalizations. 5. COPD EXACERBATION -continue oxygen, respiratory treatments. Exam (Progress Note) - Constitutional Vitals: Period Temp Pulse Resp BP Sys/Pina Pulse Ox Last 24 Hr 96.9 F-98.0 F 58-97 18-21 98-142/51-80 91-98 Exam: General: [Appears well with no apparent distress.] [Pleasant and cooperative. ] Appears comfortable. HEENT: PERRL, normocephalic, atraumatic. Mucous membranes moist. No jaundice noted. Conjunctiva moist and clear, sclerae anicteric. Neck: No JVD/HJR, no thyromegaly or lymphadenopathy noted. No carotid bruit appreciated. Cardiac: Irregular rate and rhythm. No murmur rub or gallop. PMI is nondisplaced. Lungs: Clear to auscultation without accessory muscle use to assist the respiratory pattern. Oxygen in use via nasal cannula, 2 L. Abdomen: Soft, bowel sounds normoactive. Tenderness to light palpation, nondistended. No abdominal bruit or thrill noted. No masses noted. Musculoskeletal: No fluid collection. Decreased range of motion is noted. Extremities: No clubbing, cyanosis noted. No edema noted. Upper extremity pulses 2+. Lower extremity pulses 2+. Capillary refill less than 3 seconds. Skin: Warm and dry. Neuro: Awake, alert and oriented to self. Moves all extremities well without hemiparesis or paralysis. No essential tremor is appreciated. Result/EKG - Labs CBC & BMP: 07/08/17 04:54 07/08/17 04:54 Lab Results: I have reviewed the past 24 hour labs Labs: Laboratory Results - last 24 hr 07/07/17 07/07/17 07/07/17 11:28 16:05 20:26 WBC RBC Hgb Hct MCV MCH MCHC RDW Plt Count MPV Neut % (Auto) Lymph % (Auto) Sac % (Auto) Eos % (Auto) Baso % (Auto) Neut # (Auto) Lymph # (Auto) Sac # (Auto) Eos # (Auto) Baso # (Auto) Immature Gran % Nucleated RBC % Immature Gran # Nucleated RBCs # Immature Plt Fraction ABG pH ABG pCO2 ABG pO2 ABG HCO3 ABG Total CO2 ABG O2 Saturation ABG Base Excess Sodium Potassium Chloride Carbon Dioxide Anion Gap BUN Creatinine GFR Calculation BUN/Creatinine Ratio Glucose POC Glucose 279 H 266 H 245 H Calculated Osmolality Calcium 07/08/17 07/08/17 07/08/17 03:31 04:54 04:54 WBC 11.5 RBC 4.09 Hgb 12.1 L Hct 36.6 L MCV 89.5 MCH 30 MCHC 33.1 RDW 14.6 Plt Count 221 MPV 10.6 Neut % (Auto) 84.9 H Lymph % (Auto) 9.6 L Sac % (Auto) 4.5 Eos % (Auto) 0.0 Baso % (Auto) 0.1 Neut # (Auto) 9.8 H Lymph # (Auto) 1.1 L Sac # (Auto) 0.5 Eos # (Auto) 0.0 Baso # (Auto) 0.0 Immature Gran % 0.9 Nucleated RBC % 0.0 Immature Gran # 0.10 Nucleated RBCs # 0.00 Immature Plt Fraction 0.0 ABG pH 7.389 ABG pCO2 52.4 H ABG pO2 80.4 ABG HCO3 29.2 H ABG Total CO2 28.1 H ABG O2 Saturation 95.2 ABG Base Excess 5.3 H Sodium 140 Potassium 3.4 L Chloride 101 Carbon Dioxide 32 Anion Gap 10.4 BUN 31 H Creatinine 0.80 GFR Calculation 131 BUN/Creatinine Ratio 38.00 H Glucose 207 H POC Glucose Calculated Osmolality 291.4 Calcium 8.7 07/08/17 07:26 WBC RBC Hgb Hct MCV MCH MCHC RDW Plt Count MPV Neut % (Auto) Lymph % (Auto) Sac % (Auto) Eos % (Auto) Baso % (Auto) Neut # (Auto) Lymph # (Auto) Sac # (Auto) Eos # (Auto) Baso # (Auto) Immature Gran % Nucleated RBC % Immature Gran # Nucleated RBCs # Immature Plt Fraction ABG pH ABG pCO2 ABG pO2 ABG HCO3 ABG Total CO2 ABG O2 Saturation ABG Base Excess Sodium Potassium Chloride Carbon Dioxide Anion Gap BUN Creatinine GFR Calculation BUN/Creatinine Ratio Glucose POC Glucose 226 H Calculated Osmolality Calcium - Diagnostic Findings Procedure: Chest x-ray: report reviewed by me - EKG EKG results: interpreted by me EKG shows: atrial fibrillation Specialty Discharge - Follow Up or Referrals Nick Garcia Jennifer, MD, personally performed the services described in this documentation, ascribed by Liudmila Mccarty NP in my presence, and it is both accurate and complete [id number] .
[2017-07-08 15:37] LABS: Troponin I Only 0.048 NG/ML (0.00-0.045)
--- NOTE | 2017-07-08 16:38 | CT Report ---
History: Chest pain. Short of breath. History of abnormal chest CT with mass Date: 07/08/2017 Study: CT chest with IV contrast with pulmonary embolus technique Comparison exam: April 26, [address] sections were obtained through the lungs following the IV administration of 80 mL of Omnipaque 350 without immediate complication. Multiplanar reconstruction images are also evaluated. The CT exam was performed using one or more of the following dose reduction techniques: Automated exposure control, adjustment of the mA and/or kV according to patient size, or use of iterative reconstruction technique. There is no gross central pulmonary embolus. Evaluation for small emboli within the peripheral aspect of the pulmonary arterial tree is limited due to suboptimal timing of IV contrast. There is no thoracic aortic aneurysm or dissection. There is some mild to moderate coronary artery calcification with involvement of the left anterior descending coronary artery as before. There is no mediastinal lymphadenopathy by short axis diameter criteria. There is trace bilateral pleural effusion. There is no significant pericardial effusion. There is improving tree in bud infiltrate in the right upper lobe, with some residual tree-in-bud infiltrate posteriorly and laterally in the right upper lobe superior to the level of the aortic arch. There is also some residual atelectatic parenchymal consolidation in the lower lobes, right more than left, in the dependent portions of the lungs, which is improved compared to the previous exam. On the most recent comparison chest CT, there was a 9 mm thick-walled cavitary lesion in the posterior segment of the left upper lobe at the level of the marissa. On today's exam, there is localized area of cystic change in this region, though the wall thickening is resolved or near resolved. There is no new or worsening mass or infiltrate. There is no obvious acute abnormality in the partially visualized upper abdomen. Impression: No convincing evidence of acute pulmonary embolic disease, though sensitivity for small peripheral pulmonary emboli is decreased because of contrast timing Improved right upper lobe tree-in-bud infiltrate, though mild residual changes do persist Improved cavitary lesion in the left upper lobe measuring less than 1 cm, which may represent improving inflammatory process Atelectatic parenchymal consolidation and mild bilateral pleural effusion in the lung bases Otherwise unchanged PROCEDURE INTERPRETED AT [facility] DEPARTMENT OF RADIOLOGY Final Report Signed by: Dr. Ammy Mcnamara
--- NOTE | 2017-07-08 19:48 | Sleep Medicine Consult ---
Assessment and Plan (1) Unspecified Sleep Apnea Status: Acute Assessment and plan: This patient did not have evidence of significant sleep apnea on home sleep testing done while hospitalized in April of this year. He had a respiratory event index of 1.1 with lowest O2 sat of 86% on 2 L/min nasal cannula O2. [facility] and has had poor response to empiric BiPAP therapy here after recovery from episodes of acute respiratory failure. At this point, I would not recommend further treatment for obstructive sleep apnea other than nasal cannula O2 based on his prior results. He certainly is at risk for developing recurrent respiratory failure with his overall condition and may benefit from BiPAP therapy in those settings for acute respiratory failure. Thank you for this consult and the opportunity to participate in his care. Current Visit: No History of Present Illness Chief complaint: Possible sleep apnea History of present illness: Mr. Bailey is a 71 year old male known to me from previous sleep evaluations. I saw him twice in April with his prior admissions. He has been labeled as having obstructive sleep apnea but actually is never been documented to have sleep apnea. He states that he had a sleep study done in [place] many years ago that was negative for sleep apnea. He has been hospitalized multiple times with COPD, obesity hypoventilation, and chronic hypoxic respiratory failure. He actually had home sleep testing done on this hospitalization in April with a good recording on nasal cannula O2 and had a normal apnea popping index of 1.1. His lowest O2 sat on 2 L/min nasal cannula O2 overnight was 86%. He states that he is compliant with [facility] at 2 L/min. He has been treated with empiric BiPAP here in the hospital but refuses it due to discomfort. He denies any significant new issues related to his sleep. Home Medications Medication Instructions Recorded Confirmed Type Pantoprazole Tab [Protonix Tab] 40 mg PO DAILY 05/09/15 07/06/17 History Pravastatin [Pravachol] 40 mg PO BEDTIME #30 tablet 05/12/15 07/06/17 Rx Pregabalin [Lyrica] 150 mg PO BEDTIME #30 capsule 05/12/15 07/06/17 Rx Tamsulosin [Flomax] 0.4 mg PO DAILY #30 capsule 05/12/15 07/06/17 Rx Lactulose Liquid [Chronulac] 20 gm PO Q6HR PRN 04/17/16 07/06/17 History Melatonin 5 mg PO BEDTIME 04/17/16 07/06/17 History Aspirin EC Tab 325 mg PO DAILY tablet 04/22/16 07/06/17 Rx predniSONE TAB [PredniSONE] 20 mg PO DAILY #5 tablet 04/22/16 07/06/17 Rx Clotrimazole 1% Cream [Lotrimin 1% 1 applic TOP BID PRN 04/05/17 07/06/17 History Cream] FLUoxetine [PROzac] 10 mg PO DAILY 04/05/17 07/06/17 History OLANZapine TAB [ZyPREXA Tab] 2.5 mg PO BID 04/05/17 07/06/17 History Theophylline ER Tab 300 mg PO BID W/MEALS 04/05/17 07/06/17 History Glucagon 1 mg IM PRN PRN vial 04/14/17 07/06/17 Rx HYDROcodone/ACETAMIN 7.5-325 1 tablet PO Q4H PRN tablet 04/14/17 07/06/17 Rx [[place] 7.5-325] HydrOXYzine PAMOATE CAP [Vistaril 25 mg PO Q6H PRN capsule 04/14/17 07/06/17 Rx Cap] Insulin Glargine [Lantus] 30 unit SUBCUT BID unit 04/14/17 07/06/17 Rx Magnesium Hydroxide Susp [Milk of 30 ml PO Q8H PRN 04/14/17 07/06/17 Rx Magnesia] Multivitamin (Centrum) [Centrum 1 tablet PO DAILY tablet 04/14/17 07/06/17 Rx Tab] Albuterol/Ipratropium Neb [Duoneb] 3 ml RESP TX RT Q4H 04/18/17 07/06/17 Rx Carvedilol [Coreg] 6.25 mg PER TUBE BID tablet 04/18/17 07/06/17 Rx Diltiazem Tab [Cardizem Tab] 30 mg PO Q8HR tablet 04/18/17 07/06/17 Rx Valproic Acid Liquid [Depakene] 600 mg PO BID 04/18/17 07/06/17 Rx Insulin Regular [HumuLIN R] See Protocol SUBCUT ACHS unit 05/02/17 07/06/17 Rx Alum/Mag/Simeth Max Str Liquid 30 ml PO Q8H PRN 07/06/17 07/06/17 History [Mylanta Max Strength Liquid] Mucomyst Resp 20% 3 ml INH Q12HR PRN 07/06/17 07/06/17 History Allergies Allergy/AdvReac Type Severity Reaction Status Date / Time Hydromorphone [From Dilaudid] AdvReac Unknown/Unable Verified 04/04/17 23:10 to obtain morphine AdvReac Unknown/Unable Verified 04/04/17 23:10 to obtain Review of systems: Otherwise unremarkable from a sleep standpoint Exam (Pulmonay) H&P - Constitutional Vitals: Period Temp Pulse Resp BP Sys/Pina Pulse Ox Last 24 Hr 96.9 F-98.0 F 57-84 18-20 109-142/55-81 91-99 Exam: He is alert responsive in no acute distress. Pupils equal round reactive to light and accommodation. Extraocular movements intact. Oropharynx with a class III Mallampati exam. Neck is large and supple without adenopathy. No supraclavicular adenopathy is noted. Chest with fair air movement without significant wheeze or rhonchi. Cardiac exam reveals a regular rhythm without murmur or gallop. Abdomen obese nontender without hepatosplenomegaly or mass. Extremities with minimal edema. Neurologically, grossly intact. Medical,Surgical,& Family Hx - Medical History Cardio: History of: Cardiac Dysrhythmia, Congenital Heart Disease, CHF (Perhaps diastolic, last EF was 60%), CAD, Hypertension Psychological: History of: Bipolar Disorder, Depression, Psychiatric Problems Neurology: History of: Cerebrovascular Accident (left side weakness), Dementia, Parkinson's Disease Endocrine: History of: Diabetes Mellitus (IDDM), Dyslipidemia Respiratory: History of: COPD, Obstructive Sleep Apnea (He actually has never been documented to have sleep apnea.) Genitourinary: History of: Prostate Problems, Recurring Urinary Tract Infections Gastrointestinal: History of: GERD, Hemorrhoids, Liver Problems Musculoskeletal: History of: Musculoskeletal Problems (generalized osteoarthritis) Hematology: History of: Clotting Problems Other: History of: Miscellaneous Medical Problems (hernia repair) - Surgical History Neurologic Surgeries: Patient denies: Neurologic Surgery Abdominal Surgeries: Surgical HX of: Hernia Repair - Family History Family History: Reports;: Family Diabetes, Family Heart Disease - Social History Smoking Status: Former smoker Frequency of Alcohol Use: None Type of Drug Use: None Results - Labs CBC & BMP: 07/08/17 04:54 07/08/17 04:54 Lab Results: I have reviewed the past 24 hour labs Specialty Discharge - Follow Up or Referrals
[2017-07-08] MEDS: PRAVASTATIN 40 MG TABLET PO SCH (21:53)
[2017-07-08 22:25] LABS: Troponin I Only 0.057 NG/ML (0.00-0.045)
[2017-07-09] MEDS: ALBUTEROL/IPRATROPIUM 3 ML NEB RESP TX SCH ×6 (02:07→23:38)
[2017-07-09] MEDS: methylPREDNISolone SOD SUC 40 MG/1 ML VIAL IV SCH ×4 (04:00→22:05)
[2017-07-09 05:28] LABS: Hematocrit 35.4 VOL% (42.0-52.0); Hemoglobin 11.7 GM/DL (14.0-18.0); Immature Granulocytes % 0.6 %; Immature Granulocytes Absolute 0.06 #; Lymphocytes # 0.6 10*3/uL (1.4-4.0); Lymphocytes % 5.2 % (21.2-54.2); Mean Corpuscular HGB Conc 33.1 GM/DL (32-36); Mean Corpuscular Hemoglobin 29 PG (27-34); Mean Corpuscular Volume 88.9 FL (87-102); Mean Platelet Volume 10.5 FL (9.6-12.0); Monocytes # 0.3 10*3/uL (0.11-0.8); Monocytes % 2.8 % (1.7-12.7); Neutrophils # 9.7 10*3/uL (1.4-7.4); Neutrophils % 91.4 % (38.7-73.9); Platelet Count 215 T/CUMM (130-400); Red Blood Count 3.98 MC/CUMM (3.8-5.5); Red Cell Distribution Width 14.4 % (9.3-17.3); White Blood Count 10.6 T/CUMM (4-12)
[2017-07-09 06:02] LABS: Band Neutrophils 2 % (0-10); Calcium 8.2 MG/DL (8.5-10.1); Hypochromasia 1+; Lymphocytes 6 % (20-55); Osmolality,Calculated 296.4 MOS/KG (273-304); Platelet Estimate Adequate; Potassium 3.4 MMOL/L (3.5-5.1); Segmented Neutrophils 89 % (50-85); Total Cells Counted 100
[2017-07-09 06:03] LABS: Burr Cells Slight; Giant Platelets Few; Ovalocytes Slight
[2017-07-09 06:08] LABS: Calcium 8.5 MG/DL (8.5-10.1); Osmolality,Calculated 293.5 MOS/KG (273-304); Potassium 3.3 MMOL/L (3.5-5.1)
[2017-07-09 06:12] LABS: Troponin I Only 0.047 NG/ML (0.00-0.045)
[2017-07-09] MEDS: PIPERACILLIN/TAZOBACTAM 3,375 MG in SODIUM CHLORIDE 0.9% 100 ML IV SCH ×2 (06:50→15:55)
--- NOTE | 2017-07-09 07:27 | XRay Report ---
Exam: XR chest 1V portable Date: 07/09/2017 4:00 AM Indication: Shortness of breath Comparison: 07/08/2017 Technical: AP Findings: Mild cardiomegaly with underlying atelectatic change infiltrate and low volume effusion left base. External cardiac leads are present. No pneumothorax. Impression: 1. Persistent atelectatic change infiltrate in the left base with low-volume effusion, unchanged PROCEDURE INTERPRETED AT [facility] DEPARTMENT OF RADIOLOGY Final Report Signed by: Dr. John Paul Weber
--- NOTE | 2017-07-09 08:22 | Pulmonology Progress Note ---
Pulmonary - PN: Subj Interval history: Patient is a 71-year-old white man that has a long history of COPD and obesity along with obesity hypoventilation syndrome. He has chronic pain problems and is in a [place] [facility] and basically bedridden. He has arthritis and neuropathy and is quite debilitated. He really cannot do much activity. He uses oxygen but does not like CPAP. He came back and over the weekend with increasing shortness of breath. He has some cough and congestion. He has been on the ventilator couple times recently with respiratory failure. He is a lifelong smoker. He says he does not feel that well but his breathing is doing okay. He does have some cough and congestion. He looks like he is resting fairly well. Apparently his sleep study did not suggest significant sleep apnea. He is using O2 for his COPD. His chest x-ray looks stable. Overall he feels like he is getting a little better. Exam (Progress Note) - Constitutional Vitals: Period Temp Pulse Resp BP Sys/Pina Pulse Ox Last 24 Hr 96.5 F-97.8 F 57-122 16-20 115-133/62-81 94-99 Exam: General appearance: no acute distress (He looks like he is breathing comfortably at present. He is alert and in no distress.), morbidly obese - Head Head exam: Present: normal inspection, normocephalic - Eye Eye exam: Present: EOMI. Absent: scleral icterus Pupils: Present: SCOTT - ENT ENT exam: Present: normal exam - Neck Neck exam: Absent: lymphadenopathy, thyromegaly - Respiratory Respiratory exam: Present: He has fair breath sounds bilaterally with some minimal rhonchi. - Cardiovascular Cardiovascular exam: Present: regular rate and rhythm, tachycardia. Absent: gallop, systolic murmur - GI/Abdominal GI/Abdominal exam: Present: normal bowel sounds, soft. Obese. absent: organomegaly, tenderness - Extremities Exam Extremities exam: Present: edema (He does have mild edema). Absent: calf tenderness - Neurological Exam Neurological exam: Present: alert, oriented X3, CN II-XII intact - Psychiatric Psychiatric exam: Present: depressed, flat affect - Skin Skin exam: Present: warm, dry Results - Labs CBC & BMP: 07/09/17 05:08 07/09/17 05:08 - Diagnostic Findings Procedure: Chest x-ray: image reviewed by me, report reviewed by me (Chest x- ray shows COPD changes with some slight increased markings in the left base.) Assessment and Plan (1) Insulin dependent diabetes mellitus Status: Chronic Assessment and plan: His glucoses will be monitored. His glucose is 265 this morning. Current Visit: No (2) COPD exacerbation Status: Acute Assessment and plan: Patient has a long history of COPD and will continue with steroids and bronchodilator therapy for now. He is moving air fairly well looks like he is breathing better. Current Visit: Yes (3) Sepsis Status: Acute Assessment and plan: Patient was hypotensive with increased white count and has been treated for possible sepsis. Nothing is growing on blood cultures at present. It looks like he is hemodynamically stable at present. Current Visit: Yes (4) Chest pain Status: Resolved Assessment and plan: The patient always has chronic pain problems. He does not have any signs of ischemia. Current Visit: Yes Specialty Discharge - Follow Up or Referrals
[2017-07-09] MEDS: INSULIN REGULAR 100 UNIT/ML SUBCUT SCH ×4 (09:44→23:30)
[2017-07-09] MEDS: THEOPHYLLINE ER (24 HR) 300 MG CAPSULE PO SCH (09:44)
[2017-07-09] MEDS: ASCORBIC ACID 500 MG TABLET PO SCH ×2 (09:45→22:05)
[2017-07-09] MEDS: ASPIRIN 325 MG TABLET PO SCH (09:45)
[2017-07-09] MEDS: PANTOPRAZOLE 40 MG TABLET PO SCH (09:45)
[2017-07-09] MEDS: DILTIAZEM 30 MG TABLET PO SCH ×3 (09:45→22:05)
[2017-07-09] MEDS: MONTELUKAST 10 MG TABLET PO SCH ×2 (09:46→22:07)
[2017-07-09] MEDS: POTASSIUM CHLORIDE 20 MEQ/15 ML UDCUP PO SCH (09:46)
[2017-07-09] MEDS: APIXABAN 5 MG TABLET PO SCH ×2 (09:46→22:05)
[2017-07-09] MEDS: TAMSULOSIN 0.4 MG CAPSULE PO SCH (09:46)
[2017-07-09] MEDS: CARVEDILOL 6.25 MG TABLET PER TUBE SCH ×2 (09:46→16:20)
[2017-07-09] MEDS: FLUoxetine 10 MG CAPSULE PO SCH (09:46)
[2017-07-09] MEDS: VALPROIC ACID 250 MG/5 ML UDCUP PO SCH ×2 (09:54→22:07)
--- NOTE | 2017-07-09 11:28 | Hospitalist Progress Note ---
Assessment and Plan (1) Acute exacerbation of chronic obstructive airways disease Status: Acute Assessment and plan: Impression: 1. COPD with acute exacerbation 2. Atrial fibrillation, chronic. This appears to be his accepted rhythm 3. Chronic pain 4. Type II DM 5. Hypokalemia Plan: He appears to be at baseline. Consider discharge in the morning. This note was completed using [employer] voice recognition software. There may be table attendant errors as a result. Current Visit: No Hospitalist: Subjective Interval history: Follow-up COPD exacerbation, atrial fibrillation, and chronic pain. The patient reports that he continues with some pain, and this appears to be at baseline. He continues with a cough and some sputum production. Chest x-ray shows persistent infiltrate that is unchanged from the prior film. He continues on Zosyn as a single agent. Exam - Constitutional Vitals: Period Temp Pulse Resp BP Sys/Pina Pulse Ox Last 24 Hr 96.5 F-97.8 F 56-122 16-20 115-133/62-81 93-99 Vital signs are noted above. Heart is irregular with distant tones and a soft systolic murmur. He has scattered rales anteriorly. He is not able to sit up. Abdomen is obese with some mild diffuse tenderness. He is awake and alert. Results - Labs CBC & BMP: 07/09/17 05:08 07/09/17 05:08 Lab Results: I have reviewed the past 24 hour labs (Potassium is slightly down.) Specialty Discharge - Follow Up or Referrals
--- NOTE | 2017-07-09 13:32 | Cardiology Progress Note ---
Lul Garcia Lesley, NP, am scribing for, and in the presence of, Syl Romero MD 13:32. Assessment and Plan (1) COPD exacerbation Status: Acute Assessment and plan: SEE PLAN LISTED BELOW Current Visit: Yes (2) Chest pain Status: Resolved Assessment and plan: SEE PLAN LISTED BELOW Current Visit: Yes (3) Atrial fibrillation with RVR Status: Chronic Assessment and plan: SEE PLAN LISTED BELOW Current Visit: No (4) Insulin dependent diabetes mellitus Status: Chronic Assessment and plan: SEE PLAN LISTED BELOW Current Visit: No Cardiology - PN: Subj Interval history: LEADERSHIP DEVELOPMENT MANAGER: None Summary: Mr. Bailey is a 71 year old male, who resides in a [facility] and has a history of multiple medical problems including hypertension, diabetes, COPD, and paroxysmal atrial fibrillation, and he appears to have some degree of dementia. He was brought to the emergency room with complaints of shortness of breath for several days. The patient was found to be in atrial fibrillation and started on a Cardizem drip. This has since been stopped, with heart rate controlled. The patient is oriented to self, but is a poor historian. There is no family present. The majority of this document was obtained from medical records. Patient was seen lying in bed this morning in no apparent distress. His oxygen mask was found to be lying on his chest. He complained of abdominal pain/ fullness. Vital signs reveal low-grade temp, stable blood pressure with most recent being 119/77. Heart rate in the 60s-80s. Oxygen saturation in the low 90s on 35% oxygen mask. WBCs on admission were 18.5, this morning reduced drastically to 9.4. Hemoglobin 13, hematocrit 38.7. Sodium 139, potassium 3.9 , creatinine 0.8, BUN 28, glucose 164, hemoglobin A1c 6.7. Troponin I has been trivial, elevated at 0.06. His TSH is mildly reduced at 0.190, with a free T4 of 1.25, triglycerides 90, cholesterol 139, LDL 71, HDL 49. Urinalysis negative. Chest x-ray negative for acute cardiopulmonary findings. EKG on admission revealed Afib with RVR, rate 107. 9/517: Patient awake, oriented to self, lying in bed. Eliquis started yesterday for stroke prophylaxis and Afib. Vital signs stable. Chest x-ray this morning shows mild cardiomegaly and low volume effusions or infiltrates persist in the left base. Labs reviewed hemoglobin and hematocrit 12 and 37, potassium 3.4, sodium 140, BUN 31, creatinine 0.8, glucose 207. Nursing tells me he has been complaining of different kinds of severe pain, in his back, today in his chest. The one today is worse when he takes a deep breath. It is not reproducible. He believes his breathing has gotten worse since he began having this chest pain last night. 07/09/17: Patient did well through the night. Vital signs remained stable, fbi field agent reveals sinus rhythm. The patient continues to complain of some chest pain this morning, he reports his abdominal pain has improved. Chest CT did not reveal convincing evidence for acute pulmonary embolus, sensitivity for small peripheral pulmonary emboli is decreased due to contrast timing. Improved right upper lobe infiltrate, mild residual changes persist. Improved cavitary lesion in the left upper lobe measuring less than 1 cm, consider inflammatory process. Atelectatic parenchymal consolidation and mild bilateral pleural effusions in the bases, patient remains on Zosyn. His chest pain is worse when he takes a deep breath in or when he coughs. Labs reviewed: H&H stable, potassium 3.3, plan to replete. Creatinine 0.8, BUN 24, glucose 337 , troponin I, CK-MB, and creatinine kinase negative. Troponins have remained trivial. Further recommendations from Dr. Romero to follow. ASSESSMENT/PLAN: 1. ATRIAL FIBRILLATION- It appears that the patient has a long-standing history of paroxysmal atrial fibrillation. Looking back, with his last few hospitalizations he has been in A. fib. His rate is well controlled on his current medication. Continue current management. Given the patient's status as a [facility] patient with COPD who is unaware that he is having arrhythmia, I would manage him conservatively with rate control/anticoagulation. Although he did convert to sinus rhythm, given his sedentary status in the [facility] without overt symptoms from Afib, would not recommend antiarrhythmics on him. His EKG does not show any signs of ischemia. 2. DYSPNEA- This is likely secondary to his COPD exacerbation, continue treatment. Given the fact that he is now developed some pleuritic type chest pain we should also consider ruling out pulmonary embolism. 3. ELEVATED TROPONIN -peaked at 0.068, negative this morning. Troponin elevation trivial, and not indicative of acute coronary syndrome. He has chronically elevated troponin within this range over the last several hospitalizations. 4. COPD EXACERBATION -continue oxygen, respiratory treatments. Exam (Progress Note) - Constitutional Vitals: Period Temp Pulse Resp BP Sys/Pina Pulse Ox Last 24 Hr 96.5 F-97.8 F 56-122 16-20 115-133/62-81 93-99 Exam: General: [Appears well with no apparent distress.] [Pleasant and cooperative. ] Appears comfortable. HEENT: PERRL, normocephalic, atraumatic. Mucous membranes moist. No jaundice noted. Conjunctiva moist and clear, sclerae anicteric. Neck: No JVD/HJR, no thyromegaly or lymphadenopathy noted. No carotid bruit appreciated. Cardiac: Irregular rate and rhythm. No murmur rub or gallop. PMI is nondisplaced. Lungs: Rales and rhonchi noted bilaterally, without accessory muscle use to assist the respiratory pattern. Oxygen in use via nasal cannula, 2 L. Abdomen: Soft, bowel sounds normoactive. Tenderness to light palpation, nondistended. No abdominal bruit or thrill noted. No masses noted. Musculoskeletal: No fluid collection. Decreased range of motion is noted. Extremities: No clubbing, cyanosis noted. No edema noted. Upper extremity pulses 2+. Lower extremity pulses 2+. Capillary refill less than 3 seconds. Skin: Warm and dry. Neuro: Awake, alert and oriented to self. Moves all extremities well without hemiparesis or paralysis. No essential tremor is appreciated. Result/EKG - Labs CBC & BMP: 07/09/17 05:08 07/09/17 05:08 Lab Results: I have reviewed the past 24 hour labs Labs: Laboratory Results - last 24 hr 07/08/17 07/08/17 07/08/17 11:51 15:00 17:03 WBC RBC Hgb Hct MCV MCH MCHC RDW Plt Count MPV Neut % (Auto) Lymph % (Auto) [place] % (Auto) Eos % (Auto) Baso % (Auto) Neut # (Auto) Lymph # (Auto) [place] # (Auto) Eos # (Auto) Baso # (Auto) Total Counted Immature Gran % Nucleated RBC % Immature Gran # Segmented Neutrophils Band Neutrophils Lymphocytes Monocytes Nucleated RBCs # Platelet Estimate Giant Platelets Immature Plt Fraction Hypochromasia Ovalocytes Arley Cells Sodium Potassium Chloride Carbon Dioxide Anion Gap BUN Creatinine GFR Calculation BUN/Creatinine Ratio Glucose POC Glucose 278 H 304 H Calculated Osmolality Calcium Magnesium Total Creatine Kinase 32 L CK-MB (CK-2) 1.5 Troponin I 0.048 H 07/08/17 07/08/17 07/09/17 20:34 21:19 05:08 WBC 10.6 RBC 3.98 Hgb 11.7 L Hct 35.4 L MCV 88.9 MCH 29 MCHC 33.1 RDW 14.4 Plt Count 215 MPV 10.5 Neut % (Auto) 91.4 H Lymph % (Auto) 5.2 L [place] % (Auto) 2.8 Eos % (Auto) 0.0 Baso % (Auto) 0.0 Neut # (Auto) 9.7 H Lymph # (Auto) 0.6 L [place] # (Auto) 0.3 Eos # (Auto) 0.0 Baso # (Auto) 0.0 Total Counted 100 Immature Gran % 0.6 Nucleated RBC % 0.0 Immature Gran # 0.06 Segmented Neutrophils 89 H Band Neutrophils 2 Lymphocytes 6 L Monocytes 3 Nucleated RBCs # 0.00 Platelet Estimate Adequate Giant Platelets Few Immature Plt Fraction 0.0 Hypochromasia 1+ Ovalocytes Slight Arley Cells Slight Sodium Potassium Chloride Carbon Dioxide Anion Gap BUN Creatinine GFR Calculation BUN/Creatinine Ratio Glucose POC Glucose 230 H Calculated Osmolality Calcium Magnesium Total Creatine Kinase 30 L CK-MB (CK-2) 1.4 Troponin I 0.057 H 07/09/17 07/09/17 07/09/17 05:08 05:08 05:08 WBC RBC Hgb Hct MCV MCH MCHC RDW Plt Count MPV Neut % (Auto) Lymph % (Auto) [place] % (Auto) Eos % (Auto) Baso % (Auto) Neut # (Auto) Lymph # (Auto) [place] # (Auto) Eos # (Auto) Baso # (Auto) Total Counted Immature Gran % Nucleated RBC % Immature Gran # Segmented Neutrophils Band Neutrophils Lymphocytes Monocytes Nucleated RBCs # Platelet Estimate Giant Platelets Immature Plt Fraction Hypochromasia Ovalocytes Michelle Cells Sodium 140 139 Potassium 3.4 L 3.3 L Chloride 105 105 Carbon Dioxide 24 25 Anion Gap 14.4 12.3 BUN 23 H 24 H Creatinine 0.80 0.80 GFR Calculation 131 131 BUN/Creatinine Ratio 28.00 H 30.00 H Glucose 348 H 337 H POC Glucose Calculated Osmolality 296.4 293.5 Calcium 8.2 L 8.5 Magnesium 2.0 Total Creatine Kinase 18 L D CK-MB (CK-2) 1.5 Troponin I 0.047 H 07/09/17 07:34 WBC RBC Hgb Hct MCV MCH MCHC RDW Plt Count MPV Neut % (Auto) Lymph % (Auto) [place] % (Auto) Eos % (Auto) Baso % (Auto) Neut # (Auto) Lymph # (Auto) [place] # (Auto) Eos # (Auto) Baso # (Auto) Total Counted Immature Gran % Nucleated RBC % Immature Gran # Segmented Neutrophils Band Neutrophils Lymphocytes Monocytes Nucleated RBCs # Platelet Estimate Giant Platelets Immature Plt Fraction Hypochromasia Ovalocytes Arley Cells Sodium Potassium Chloride Carbon Dioxide Anion Gap BUN Creatinine GFR Calculation BUN/Creatinine Ratio Glucose POC Glucose 265 H Calculated Osmolality Calcium Magnesium Total Creatine Kinase CK-MB (CK-2) Troponin I - Diagnostic Findings Procedure: Chest x-ray: report reviewed by me, CT - chest: report reviewed by me - EKG EKG results: interpreted by me Specialty Discharge - Follow Up or Referrals Nick Garcia Jennifer, MD, personally performed the services described in this documentation, ascribed by Liudmila Mccarty NP in my presence, and it is both accurate and complete 332 .
[2017-07-09] MEDS ORDERED: POTASSIUM CHLORIDE 20 MEQ PACK PO ONE (20:15)
[2017-07-09] MEDS: PRAVASTATIN 40 MG TABLET PO SCH (22:06)
[2017-07-10] MEDS: PIPERACILLIN/TAZOBACTAM 3,375 MG in SODIUM CHLORIDE 0.9% 100 ML IV SCH ×2 (00:08→06:36)
[2017-07-10] MEDS: methylPREDNISolone SOD SUC 40 MG/1 ML VIAL IV SCH ×2 (03:14→09:51)
[2017-07-10] MEDS: ALBUTEROL/IPRATROPIUM 3 ML NEB RESP TX SCH ×4 (04:14→14:10)
[2017-07-10 05:44] LABS: Basophils % 0.1 % (0.0-0.8); Hematocrit 34.4 VOL% (42.0-52.0); Hemoglobin 11.6 GM/DL (14.0-18.0); Immature Granulocytes % 1.2 %; Immature Granulocytes Absolute 0.09 #; Lymphocytes # 0.5 10*3/uL (1.4-4.0); Mean Corpuscular HGB Conc 33.7 GM/DL (32-36); Mean Corpuscular Hemoglobin 30 PG (27-34); Mean Corpuscular Volume 88.2 FL (87-102); Mean Platelet Volume 10.3 FL (9.6-12.0); Monocytes # 0.3 10*3/uL (0.11-0.8); Monocytes % 3.4 % (1.7-12.7); Neutrophils # 6.8 10*3/uL (1.4-7.4); Neutrophils % 89.3 % (38.7-73.9); Platelet Count 201 T/CUMM (130-400); Red Cell Distribution Width 14.2 % (9.3-17.3); White Blood Count 7.6 T/CUMM (4-12)
[2017-07-10 06:17] LABS: Calcium 8.3 MG/DL (8.5-10.1); Calcium 8.5 MG/DL (8.5-10.1); Magnesium 2.1 MG/DL (1.8-2.4); Osmolality,Calculated 293.3 MOS/KG (273-304); Potassium 3.6 MMOL/L (3.5-5.1)
[2017-07-10 06:18] LABS: Osmolality,Calculated 291.4 MOS/KG (273-304); Potassium 3.6 MMOL/L (3.5-5.1)
--- NOTE | 2017-07-10 08:34 | Pulmonology Progress Note ---
Pulmonary - PN: Subj Interval history: Patient is a 71-year-old white man that has a long history of COPD and obesity along with obesity hypoventilation syndrome. He has chronic pain problems and is in a intermediate and basically bedridden. He has arthritis and neuropathy and is quite debilitated. He really cannot do much activity. He uses oxygen but does not like CPAP. He came back and over the weekend with increasing shortness of breath. He has some cough and congestion. He has been on the ventilator couple times recently with respiratory failure. He is a lifelong smoker. The patient continues to lie in bed and does not do much activity. He continuously complains of chest pain which is chronic. He has a long history of having problems with pain. His breathing looks like he is doing reasonably well at present. Exam (Progress Note) - Constitutional Vitals: Period Temp Pulse Resp BP Sys/Pina Pulse Ox Last 24 Hr 97.1 F-98.4 F 56-69 16-22 119-159/64-88 91-98 Exam: General appearance: no acute distress (He looks like he is breathing comfortably at present. He is alert and in no distress. He does not appear to be having any pain or discomfort.), morbidly obese - Head Head exam: Present: normal inspection, normocephalic - Eye Eye exam: Present: EOMI. Absent: scleral icterus Pupils: Present: SCOTT - ENT ENT exam: Present: normal exam - Neck Neck exam: Absent: lymphadenopathy, thyromegaly - Respiratory Respiratory exam: Present: He has fair breath sounds bilaterally with some minimal rhonchi. He is moving air okay. - Cardiovascular Cardiovascular exam: Present: regular rate and rhythm, tachycardia. He has no chest wall tenderness. Absent: gallop, systolic murmur - GI/Abdominal GI/Abdominal exam: Present: normal bowel sounds, soft. Obese. absent: organomegaly, tenderness - Extremities Exam Extremities exam: Present: edema (He does have mild edema). Absent: calf tenderness - Neurological Exam Neurological exam: Present: alert, oriented X3, CN II-XII intact - Psychiatric Psychiatric exam: Present: depressed, flat affect - Skin Skin exam: Present: warm, dry Results - Labs CBC & BMP: 07/10/17 05:27 07/10/17 05:27 Assessment and Plan (1) Insulin dependent diabetes mellitus Status: Chronic Assessment and plan: His glucoses will be monitored. His glucose is 291 this morning. Current Visit: No (2) COPD exacerbation Status: Acute Assessment and plan: Patient has a long history of COPD and will continue with steroids and bronchodilator therapy for now. He is moving air fairly well looks like he is breathing better. He does not seem to be having any distress now. Current Visit: Yes (3) Sepsis Status: Acute Assessment and plan: Patient was hypotensive with increased white count and has been treated for possible sepsis. Nothing is growing on blood cultures at present. It looks like he is hemodynamically stable at present. Current Visit: Yes (4) Chest pain Status: Resolved Assessment and plan: The patient always has chronic pain problems. He does not have any signs of ischemia. He has had a long history of having chronic pain problems. Current Visit: Yes Specialty Discharge - Follow Up or Referrals
[2017-07-10] MEDS: VALPROIC ACID 250 MG/5 ML UDCUP PO SCH (09:51)
[2017-07-10] MEDS: POTASSIUM CHLORIDE 20 MEQ/15 ML UDCUP PO SCH (09:51)
[2017-07-10] MEDS: INSULIN REGULAR 100 UNIT/ML SUBCUT SCH ×2 (09:51→12:59)
[2017-07-10] MEDS: ASPIRIN 325 MG TABLET PO SCH (09:52)
[2017-07-10] MEDS: MONTELUKAST 10 MG TABLET PO SCH (09:52)
[2017-07-10] MEDS: THEOPHYLLINE ER (24 HR) 300 MG CAPSULE PO SCH (09:52)
[2017-07-10] MEDS: DILTIAZEM 30 MG TABLET PO SCH ×2 (09:52→15:24)
[2017-07-10] MEDS: PANTOPRAZOLE 40 MG TABLET PO SCH (09:52)
[2017-07-10] MEDS: ASCORBIC ACID 500 MG TABLET PO SCH (09:52)
[2017-07-10] MEDS: CARVEDILOL 6.25 MG TABLET PER TUBE SCH (09:52)
[2017-07-10] MEDS: APIXABAN 5 MG TABLET PO SCH (09:53)
[2017-07-10] MEDS: FLUoxetine 10 MG CAPSULE PO SCH (09:53)
[2017-07-10] MEDS: TAMSULOSIN 0.4 MG CAPSULE PO SCH (09:53)
[2017-07-10 11:47] VITALS: BP 109/62
--- NOTE | 2017-07-10 13:22 | Hospitalist Progress Note ---
Assessment and Plan (1) Acute exacerbation of chronic obstructive airways disease Status: Acute Assessment and plan: Impression: 1. COPD with acute exacerbation 2. Atrial fibrillation, chronic. This appears to be his accepted rhythm 3. Chronic pain 4. Type II DM 5. Hypokalemia Plan: He appears to be at baseline. Will check with social service to see if [facility] can be [facility]. This note was completed using [employer] voice recognition software. There may be general manager farm errors as a result. Current Visit: No Hospitalist: Subjective Interval history: Follow-up COPD, atrial fibrillation, and chronic pain. The patient continues to complain of "pain in his heart." Cardiology has seen him, and does not think that any further cardiac investigation is indicated. The patient also continues with dyspnea. He is chronically bedbound. I think his dyspnea is chronic as well. Pulmonary has stated that he appears to be improving. I think the patient may have reached maximal hospital benefit. It appears that the complaints of pain occur on a daily basis Exam - Constitutional Vitals: Period Temp Pulse Resp BP Sys/Pina Pulse Ox Last 24 Hr 97.1 F-98.4 F 50-69 16-22 109-159/62-88 91-98 Vital signs are noted above. Heart is regular with distant tones. Chest wall is tender. He has a few rhonchi in the chest. Abdomen is obese with no significant mass. Results - Labs CBC & BMP: 07/10/17 05:27 07/10/17 05:27 Lab Results: I have reviewed the past 24 hour labs Specialty Discharge - Follow Up or Referrals
--- NOTE | 2017-07-10 13:27 | Discharge Summary ---
Hospital Course - Hospital Course Hospital Course: Discharge diagnosis: COPD with acute exacerbation Pneumonia, healthcare associated, likely gram-negative Chronic respiratory failure Atrial fibrillation Chronic pain The patient presented with dyspnea and chest pain. Cardiac enzymes were elevated. This is apparently a chronic finding, and cardiology did not feel that any further workup was indicated. Atrial fibrillation is his accepted rhythm. He is already anticoagulated. He was given IV antibiotics for the COPD exacerbation and the pulmonary infiltrate. He continued to complain of pain during the entire hospitalization. Pulmonary and cardiology saw the patient, and agreed that he could be discharged back to the [facility] on his usual medications. Medication reconciliation has been performed. Resume current diet. Activity is bedrest. This note was completed using [employer] voice recognition software. There may be mechanical striper errors as a result. Diagnosis - Discharge Diagnosis (1) Acute exacerbation of chronic obstructive airways disease Status: Acute Specialty Discharge - Follow Up or Referrals Discharge Plan - Discharge Data Disposition: Disch/Xfer to Snf Condition at Discharge: Stable Discharge Diet: advance to your usual diet Activity: resume usual activities as tolerated Hygiene: no restrictions - Discharge Medications Continue Pantoprazole Tab [Protonix Tab] 40 mg PO DAILY Pravastatin [Pravachol] 40 mg PO BEDTIME #30 tablet Pregabalin [Lyrica] 150 mg PO BEDTIME #30 capsule Tamsulosin [Flomax] 0.4 mg PO DAILY #30 capsule Melatonin 5 mg PO BEDTIME Lactulose Liquid [Chronulac] 20 gm PO Q6HR PRN PRN Reason: high ammonia Aspirin EC Tab 325 mg PO DAILY tablet predniSONE TAB [PredniSONE] 20 mg PO DAILY #5 tablet FLUoxetine [PROzac] 10 mg PO DAILY OLANZapine TAB [ZyPREXA Tab] 2.5 mg PO BID Glucagon 1 mg IM PRN PRN vial PRN Reason: Hypoglycemia w/o IV access HYDROcodone/ACETAMIN 7.5-325 [[place] 7.5-325] 1 tablet PO Q4H PRN tablet PRN Reason: Pain Moderate (4-7) Insulin Glargine [Lantus] 30 unit SUBCUT BID unit Magnesium Hydroxide Susp [Milk of Magnesia] 30 ml PO Q8H PRN PRN Reason: Constipation Multivitamin (Centrum) [Centrum Tab] 1 tablet PO DAILY tablet Carvedilol [Coreg] 6.25 mg PER TUBE BID tablet Diltiazem Tab [Cardizem Tab] 30 mg PO Q8HR tablet Valproic Acid Liquid [Depakene] 600 mg PO BID Insulin Regular [HumuLIN R] See Protocol SUBCUT ACHS unit Alum/Mag/Simeth Max Str Liquid [Mylanta Max Strength Liquid] 30 ml PO Q8H PRN PRN Reason: Indigestion Mucomyst Resp 20% 3 ml INH Q12HR PRN PRN Reason: Shortness Of Breath Theophylline ER Tab 300 mg PO BID W/MEALS Clotrimazole 1% Cream [Lotrimin 1% Cream] 1 applic TOP BID PRN PRN Reason: RASH/REDNESS HydrOXYzine PAMOATE CAP [Vistaril Cap] 25 mg PO Q6H PRN capsule PRN Reason: Itching Albuterol/Ipratropium Neb [Duoneb] 3 ml RESP TX RT Q4H - Follow Up or Referral - Forms/Instructions Instructions: Chronic Obstructive Pulmonary Disease (GEN), COPD Exacerbation, Sign Painter (GEN) Exam - Constitutional Vitals: Period Temp Pulse Resp BP Sys/Pina Pulse Ox Last 24 Hr 97.1 F-98.4 F 50-69 16-22 109-159/62-88 91-98 See note from earlier today Discharge Results Procedures and tests throughout hospitalization: Pending Orders 07/06/17 09:43 Blood Culture Stat 07/11/17 04:00 BMP w/ Mg [Basic Metabolic Panel w/Mg] IN AM Basic Metabolic Panel IN AM CBC [Comp Blood Count Auto Diff] IN AM 07/12/17 04:00 Basic Metabolic Panel IN AM 07/13/17 04:00 Basic Metabolic Panel IN AM Labs on day of discharge: Labs from last 24 hours 07/10/17 07/10/17 07/10/17 11:27 07:31 05:27 WBC RBC Hgb Hct MCV MCH MCHC RDW Plt Count MPV Neut % (Auto) Lymph % (Auto) [place] % (Auto) Eos % (Auto) Baso % (Auto) Neut # (Auto) Lymph # (Auto) [place] # (Auto) Eos # (Auto) Baso # (Auto) Immature Gran % Nucleated RBC % Immature Gran # Nucleated RBCs # Immature Plt Fraction Sodium 140 Potassium 3.6 Chloride 108 H Carbon Dioxide 25 Anion Gap 10.6 BUN 19 H Creatinine 0.70 GFR Calculation 139 BUN/Creatinine Ratio 27.00 H Glucose 291 H POC Glucose 362 H 312 H Calculated Osmolality 291.4 Calcium 8.5 Magnesium 07/10/17 07/10/17 07/09/17 05:27 05:27 19:49 WBC 7.6 RBC 3.90 Hgb 11.6 L Hct 34.4 L MCV 88.2 MCH 30 MCHC 33.7 RDW 14.2 Plt Count 201 MPV 10.3 Neut % (Auto) 89.3 H Lymph % (Auto) 6.0 L [place] % (Auto) 3.4 Eos % (Auto) 0.0 Baso % (Auto) 0.1 Neut # (Auto) 6.8 Lymph # (Auto) 0.5 L [place] # (Auto) 0.3 Eos # (Auto) 0.0 Baso # (Auto) 0.0 Immature Gran % 1.2 Nucleated RBC % 0.0 Immature Gran # 0.09 Nucleated RBCs # 0.00 Immature Plt Fraction 0.0 Sodium 141 Potassium 3.6 Chloride 108 H Carbon Dioxide 24 Anion Gap 12.6 BUN 19 H Creatinine 0.70 GFR Calculation 139 BUN/Creatinine Ratio 27.00 H Glucose 296 H POC Glucose 338 H Calculated Osmolality 293.3 Calcium 8.3 L Magnesium 2.1 07/09/17 16:11 WBC RBC Hgb Hct MCV MCH MCHC RDW Plt Count MPV Neut % (Auto) Lymph % (Auto) [place] % (Auto) Eos % (Auto) Baso % (Auto) Neut # (Auto) Lymph # (Auto) [place] # (Auto) Eos # (Auto) Baso # (Auto) Immature Gran % Nucleated RBC % Immature Gran # Nucleated RBCs # Immature Plt Fraction Sodium Potassium Chloride Carbon Dioxide Anion Gap BUN Creatinine GFR Calculation BUN/Creatinine Ratio Glucose POC Glucose 271 H Calculated Osmolality Calcium Magnesium Preliminary micro results at discharge 07/06/17 09:43 Blood Culture - Preliminary Blood No growth at 3 days 07/06/17 09:43 Blood Culture - Preliminary Blood No growth at 3 days DS: Provider Date of admission: 07/06/17 11:53 Primary care physician: . No PCP Attending physician on admission: Harvey Love MD Consults: 07/06/17 13:31 Consult to Physician [CONS] Routine Comment: Consulting Provider: Fawad Mazariegos Consult to Specialist Group: Pulmonology Person Notified: Dr. mazariegos Date Notified: 07/06/17 Time Notified: 16:35 Consult to Pulmonary Rehabilitation [CONS] Routine Reason for Pulmonary Rehabilitation: COPD Consult Comment: called to dr serra [id number] 07/06/17 17:01 Consult to Physician [CONS] Routine Comment: Consulting Provider: Consult to Specialist Group: Pulmonology Person Notified: Dr. serra Date Notified: 07/06/17 Time Notified: 17:00 07/07/17 10:34 Consult to Sleep Center [CONS] Routine Reason for Sleep Center: Sleep Center Physician Consult Comment: [place] Discharging clinician: Altaf Davies MD Expected date of discharge: 07/10/17
--- NOTE | 2017-07-10 22:11 | Cardiology Progress Note ---
Lul Garcia Lesley, NP, am scribing for, and in the presence of, Syl Romero MD 22:10. Assessment and Plan - Time spent with patient Time spent with patient: Greater than 30 minutes (Record review, assessment, and documentation) (1) COPD exacerbation Status: Resolved Assessment and plan: SEE PLAN LISTED BELOW (2) Chest pain Status: Resolved Assessment and plan: SEE PLAN LISTED BELOW Qualifiers: Chest pain type: chest pain on breathing Qualified Code(s): R07.1 - Chest pain on breathing; R07.81 - Pleurodynia (3) Atrial fibrillation with RVR Status: Chronic Assessment and plan: SEE PLAN LISTED BELOW (4) Insulin dependent diabetes mellitus Status: Chronic Assessment and plan: SEE PLAN LISTED BELOW Cardiology - PN: Subj Interval history: METAL BONDER: None Summary: Mr. Bailey is a 71 year old male, who resides in a assisted and has a history of multiple medical problems including hypertension, diabetes, COPD, and paroxysmal atrial fibrillation, and he appears to have some degree of dementia. He was brought to the emergency room with complaints of shortness of breath for several days. The patient was found to be in atrial fibrillation and started on a Cardizem drip. This has since been stopped, with heart rate controlled. The patient is oriented to self, but is a poor historian. There is no family present. The majority of this document was obtained from medical records. Patient was seen lying in bed this morning in no apparent distress. His oxygen mask was found to be lying on his chest. He complained of abdominal pain/ fullness. Vital signs reveal low-grade temp, stable blood pressure with most recent being 119/77. Heart rate in the 60s-80s. Oxygen saturation in the low 90s on 35% oxygen mask. WBCs on admission were 18.5, this morning reduced drastically to 9.4. Hemoglobin 13, hematocrit 38.7. Sodium 139, potassium 3.9 , creatinine 0.8, BUN 28, glucose 164, hemoglobin A1c 6.7. Troponin I has been trivial, elevated at 0.06. His TSH is mildly reduced at 0.190, with a free T4 of 1.25, triglycerides 90, cholesterol 139, LDL 71, HDL 49. Urinalysis negative. Chest x-ray negative for acute cardiopulmonary findings. EKG on admission revealed Afib with RVR, rate 107. 9/5/17: Patient awake, oriented to self, lying in bed. Eliquis started yesterday for stroke prophylaxis and Afib. Vital signs stable. Chest x-ray this morning shows mild cardiomegaly and low volume effusions or infiltrates persist in the left base. Labs reviewed hemoglobin and hematocrit 12 and 37, potassium 3.4, sodium 140, BUN 31, creatinine 0.8, glucose 207. Nursing tells me he has been complaining of different kinds of severe pain, in his back, today in his chest. The one today is worse when he takes a deep breath. It is not reproducible. He believes his breathing has gotten worse since he began having this chest pain last night. 07/09/17: Patient did well through the night. Vital signs remained stable, alarm security or surveillance monitor reveals sinus rhythm. The patient continues to complain of some chest pain this morning, he reports his abdominal pain has improved. Chest CT did not reveal convincing evidence for acute pulmonary embolus, sensitivity for small peripheral pulmonary emboli is decreased due to contrast timing. Improved right upper lobe infiltrate, mild residual changes persist. Improved cavitary lesion in the left upper lobe measuring less than 1 cm, consider inflammatory process. Atelectatic parenchymal consolidation and mild bilateral pleural effusions in the bases, patient remains on Zosyn. His chest pain is worse when he takes a deep breath in or when he coughs. Labs reviewed: H&H stable, potassium 3.3, plan to replete. Creatinine 0.8, BUN 24, glucose 337 , troponin I, CK-MB, and creatinine kinase negative. Troponins have remained trivial. 07/10/17: Patient is examined lying in bed, continues to complain of chest pain when taking a deep breath, he also complains of abdominal pain, leg pain, and general discomfort. His chest pain is readily reproducible. Vital signs stable today. Continuous telemetry monitoring reveals some PVCs, Afib, and more regular rhythm at times. Labs reviewed, hemoglobin and hematocrit stable, potassium 3.6, creatinine 0.7, glucose 291. Possible discharge back to assisted today, patient is stable from a cardiology standpoint. ASSESSMENT/PLAN: 1. ATRIAL FIBRILLATION- It appears that the patient has a long-standing history of paroxysmal atrial fibrillation. Looking back, with his last few hospitalizations he has been in Afib. His rate is well controlled on his current medication. Given the patient's status as a assisted patient with COPD who is unaware that he is having arrhythmia, I would manage him conservatively with rate control/anticoagulation. Although he did convert to sinus rhythm, given his sedentary status in the assisted without overt symptoms from Afib, would not recommend antiarrhythmics on him. His EKG does not show any signs of ischemia. Currently on Eliquis. 2. DYSPNEA- This is likely secondary to his COPD exacerbation, continue treatment. Pulmonary embolism was ruled out with CT of chest. 3. ELEVATED TROPONIN -peaked at 0.068, negative this morning. Troponin elevation trivial, and not indicative of acute coronary syndrome. He has chronically elevated troponin within this range over the last several hospitalizations. 4. COPD EXACERBATION -continue oxygen, respiratory treatments. Exam (Progress Note) - Constitutional Vitals: Period Temp Pulse Resp BP Sys/Pina Pulse Ox Last 24 Hr 97.1 F-98.4 F 56-69 16-22 119-159/64-88 91-98 Exam: General: Appears well with no apparent distress. Pleasant and cooperative. Appears comfortable. HEENT: PERRL, normocephalic, atraumatic. Mucous membranes moist. No jaundice noted. Conjunctiva moist and clear, sclerae anicteric. Neck: No JVD/HJR, no thyromegaly or lymphadenopathy noted. No carotid bruit appreciated. Cardiac: Irregular rate and rhythm. No murmur rub or gallop. PMI is nondisplaced. Lungs: Mild rhonchi noted to bases bilaterally, essentially clear upper lobe without accessory muscle use to assist the respiratory pattern. Oxygen in use via nasal cannula, 2 L. Abdomen: Soft, bowel sounds normoactive. Tenderness to light palpation, nondistended. No abdominal bruit or thrill noted. No masses noted. Musculoskeletal: No fluid collection. Decreased range of motion is noted. Extremities: No clubbing, cyanosis noted. No edema noted. Upper extremity pulses 2+. Lower extremity pulses 2+. Capillary refill less than 3 seconds. Skin: Warm and dry. Neuro: Awake, alert and oriented to self. Moves all extremities well without hemiparesis or paralysis. No essential tremor is appreciated. Chest wall is tender to palpation, recreating the pain he describes. Result/EKG - Labs CBC & BMP: 07/10/17 05:27 07/10/17 05:27 Lab Results: I have reviewed the past 24 hour labs Labs: Laboratory Results - last 24 hr 07/09/17 07/09/17 07/09/17 11:04 16:11 19:49 WBC RBC Hgb Hct MCV MCH MCHC RDW Plt Count MPV Neut % (Auto) Lymph % (Auto) [place] % (Auto) Eos % (Auto) Baso % (Auto) Neut # (Auto) Lymph # (Auto) [place] # (Auto) Eos # (Auto) Baso # (Auto) Immature Gran % Nucleated RBC % Immature Gran # Nucleated RBCs # Immature Plt Fraction Sodium Potassium Chloride Carbon Dioxide Anion Gap BUN Creatinine GFR Calculation BUN/Creatinine Ratio Glucose POC Glucose 394 H 271 H 338 H Calculated Osmolality Calcium Magnesium 07/10/17 07/10/17 07/10/17 05:27 05:27 05:27 WBC 7.6 RBC 3.90 Hgb 11.6 L Hct 34.4 L MCV 88.2 MCH 30 MCHC 33.7 RDW 14.2 Plt Count 201 MPV 10.3 Neut % (Auto) 89.3 H Lymph % (Auto) 6.0 L [place] % (Auto) 3.4 Eos % (Auto) 0.0 Baso % (Auto) 0.1 Neut # (Auto) 6.8 Lymph # (Auto) 0.5 L [place] # (Auto) 0.3 Eos # (Auto) 0.0 Baso # (Auto) 0.0 Immature Gran % 1.2 Nucleated RBC % 0.0 Immature Gran # 0.09 Nucleated RBCs # 0.00 Immature Plt Fraction 0.0 Sodium 141 140 Potassium 3.6 3.6 Chloride 108 H 108 H Carbon Dioxide 24 25 Anion Gap 12.6 10.6 BUN 19 H 19 H Creatinine 0.70 0.70 GFR Calculation 139 139 BUN/Creatinine Ratio 27.00 H 27.00 H Glucose 296 H 291 H POC Glucose Calculated Osmolality 293.3 291.4 Calcium 8.3 L 8.5 Magnesium 2.1 07/10/17 07:31 WBC RBC Hgb Hct MCV MCH MCHC RDW Plt Count MPV Neut % (Auto) Lymph % (Auto) [place] % (Auto) Eos % (Auto) Baso % (Auto) Neut # (Auto) Lymph # (Auto) [place] # (Auto) Eos # (Auto) Baso # (Auto) Immature Gran % Nucleated RBC % Immature Gran # Nucleated RBCs # Immature Plt Fraction Sodium Potassium Chloride Carbon Dioxide Anion Gap BUN Creatinine GFR Calculation BUN/Creatinine Ratio Glucose POC Glucose 312 H Calculated Osmolality Calcium Magnesium - EKG EKG results: interpreted by me EKG shows: atrial fibrillation Specialty Discharge - Follow Up or Referrals Nick Garcia Jennifer, MD, personally performed the services described in this documentation, ascribed by Liudmila Mccarty NP in my presence, and it is both accurate and complete .
== END 2017-07-10 15:55 | DRG 871 ==
LOC: EDUNIT# → N.ED 09:16 → SUATTDRO 11:53 → N.EDINP 11:53 → N.TELEN 13:02
PROVIDERS: ADMIT Hospitalist; ATTEND Internal Medicine Geriatric Medicine

== ENCOUNTER 2017-08-04 15:13 | Inpatient (IN) ==
[2017-08-04] MEDS ORDERED: ALBUTEROL/IPRATROPIUM 3 ML NEB RESP TX STA (15:51)
[2017-08-04] MEDS ORDERED: LEVOFLOXACIN INJ 500 MG in PREMIX 1 EACH IV STA (15:51)
[2017-08-04 16:21] LABS: Albumin 2.9 G/DL (3.4-5.0); Bilirubin,Total 0.5 MG/DL (0.2-1.0); Calcium 9.1 MG/DL (8.5-10.1); Magnesium 2.1 MG/DL (1.8-2.4); Osmolality,Calculated 286.8 MOS/KG (273-304); Potassium 4.6 MMOL/L (3.5-5.1); Total Protein 6.6 G/DL (6.4-8.3)
--- NOTE | 2017-08-04 16:25 | Order Completion Report ---
See report scanned to EMR
[2017-08-04 16:35] LABS: Basophils % 0.2 % (0.0-0.8); Hematocrit 46.2 VOL% (42.0-52.0); Hemoglobin 15.3 GM/DL (14.0-18.0); Immature Granulocytes % 0.8 %; Lymphocytes # 1.6 10*3/uL (1.4-4.0); Lymphocytes % 12.9 % (21.2-54.2); Mean Corpuscular HGB Conc 33.1 GM/DL (32-36); Mean Corpuscular Hemoglobin 30 PG (27-34); Mean Corpuscular Volume 90.1 FL (87-102); Mean Platelet Volume 9.9 FL (9.6-12.0); Monocytes # 1.4 10*3/uL (0.11-0.8); Monocytes % 11.4 % (1.7-12.7); NRBC # 0.02 10*3/uL; Neutrophils # 9.2 10*3/uL (1.4-7.4); Neutrophils % 74.7 % (38.7-73.9); Platelet Count 197 T/CUMM (130-400); Red Blood Count 5.13 MC/CUMM (3.8-5.5); Red Cell Distribution Width 15.1 % (9.3-17.3); White Blood Count 12.3 T/CUMM (4-12)
--- NOTE | 2017-08-04 16:35 | XRay Report ---
History: Shortness of breath Date: 08/04/2017 Study: Chest x-ray AP portable Comparison exam: July 09, 2017 There is mild cardiomegaly. The mediastinal contours are unchanged. The pulmonary vasculature is not engorged. There is no gross pleural effusion. There is some patchy infiltrate in the right lung base which could represent pneumonia. The lungs are otherwise unchanged. Osseous structures are similar. Impression: Patchy right basilar infiltrate which could represent pneumonia. Otherwise unchanged PROCEDURE INTERPRETED AT [facility] DEPARTMENT OF RADIOLOGY Final Report Signed by: Dr. Ammy Mcnamara
--- NOTE | 2017-08-04 16:44 | Emergency Department Note ---
Fabio Garcia Gwan, am scribing for, and in the presence of, Jerome Ge MD 15:42. Joo Garcia Phillip K, MD, personally performed the services described in this documentation, ascribed by Ruiz Mccarthy in my presence, and it is both accurate and complete 643 . Arrival - Arrival Chief Complaint: Shortness of Breath ED Nursing Triage Note: pt was [facility] for sob. pt had sats of 60% Mode of Arrival: Stretcher Limitations: No Limitations Source: Old Records Reviewed, RN Notes Reviewed - History of Present Illness HPI Narrative: Patient is a 71 y/o male, with a hx of COPD, who presents to the ED via [facility] for further evaluation of SOB, cough and fever with an onset today. Nurse noted that pt has 60% sats at time of triage. At time of triage, pt's temperature was 100.1. Patient confirmed that he has had productive cough with yellow sputum. No other problems/complaints reported in ED. Onset (ago): hour(s) Consistency: constant Severity: moderate Allergies/Adverse Reactions: Allergies Allergy/AdvReac Type Severity Reaction Status Date / Time Hydromorphone [From Dilaudid] AdvReac Unknown/Unable Verified 04/04/17 23:10 to obtain morphine AdvReac Unknown/Unable Verified 04/04/17 23:10 to obtain Home Medications: Home Medications Medication Instructions Recorded Confirmed Type Pantoprazole Tab [Protonix Tab] 40 mg PO DAILY 05/09/15 08/04/17 History Pravastatin [Pravachol] 40 mg PO BEDTIME #30 tablet 05/12/15 08/04/17 Rx Pregabalin [Lyrica] 150 mg PO BEDTIME #30 capsule 05/12/15 08/04/17 Rx Tamsulosin [Flomax] 0.4 mg PO DAILY #30 capsule 05/12/15 08/04/17 Rx Lactulose Liquid [Chronulac] 20 gm PO Q6HR PRN 04/17/16 08/04/17 History Melatonin 5 mg PO BEDTIME 04/17/16 08/04/17 History Aspirin EC Tab 325 mg PO DAILY tablet 04/22/16 08/04/17 Rx predniSONE TAB [PredniSONE] 20 mg PO DAILY #5 tablet 04/22/16 08/04/17 Rx Clotrimazole 1% Cream [Lotrimin 1% 1 applic TOP BID PRN 04/05/17 08/04/17 History Cream] FLUoxetine [PROzac] 10 mg PO DAILY 04/05/17 08/04/17 History OLANZapine TAB [ZyPREXA Tab] 2.5 mg PO BID 04/05/17 08/04/17 History Theophylline ER Tab 300 mg PO BID W/MEALS 04/05/17 08/04/17 History HYDROcodone/ACETAMIN 7.5-325 1 tablet PO Q4H PRN tablet 04/14/17 08/04/17 Rx [[place] 7.5-325] HydrOXYzine PAMOATE CAP [Vistaril 25 mg PO Q6H PRN capsule 04/14/17 08/04/17 Rx Cap] Insulin Glargine [Lantus] 30 unit SUBCUT BID unit 04/14/17 08/04/17 Rx Magnesium Hydroxide Susp [Milk of 30 ml PO Q8H PRN 04/14/17 08/04/17 Rx Magnesia] Multivitamin (Centrum) [Centrum 1 tablet PO DAILY tablet 04/14/17 08/04/17 Rx Tab] Albuterol/Ipratropium Neb [Duoneb] 3 ml RESP TX RT Q4H 04/18/17 08/04/17 Rx Diltiazem Tab [Cardizem Tab] 30 mg PO Q8HR tablet 04/18/17 08/04/17 Rx Valproic Acid Liquid [Depakene] 600 mg PO BID 04/18/17 08/04/17 Rx Insulin Regular [HumuLIN R] See Protocol SUBCUT ACHS unit 05/02/17 08/04/17 Rx Alum/Mag/Simeth Max Str Liquid 30 ml PO Q8H PRN 07/06/17 08/04/17 History [Mylanta Max Strength Liquid] Acetylcysteine Soln (APAP Od) 3 ml RESP TX Q12H 08/04/17 08/04/17 History [Mucomyst 20% (APAP Od)] Carvedilol [Coreg] 6.25 mg PO BID 08/04/17 08/04/17 History Glucagon 1 mg IM DAILY PRN 08/04/17 08/04/17 History Review of System - Review of System 12 point system: reviewed and no additional remarkable complaints except as stated - Review of System Constitutional: Present: as per HPI, fever. Absent: chills Eyes: Absent: discharge, pain Respiratory: Present: as per HPI, cough, other (shortness of breathe) Gastrointestinal: Absent: abdominal pain, nausea, vomiting, diarrhea Medical,Surgical,& Family Hx - Medical History Cardio: History of: Cardiac Dysrhythmia, CHF (Perhaps diastolic, last EF was 60% ), CAD, Hypertension Psychological: History of: Anxiety Disorders, Depression, Psychiatric Problems Neurology: History of: Cerebrovascular Accident (left side weakness), Parkinson' s Disease Endocrine: History of: Diabetes Mellitus (IDDM), Dyslipidemia Respiratory: History of: COPD, Obstructive Sleep Apnea (He actually has never been documented to have sleep apnea.) Genitourinary: History of: Prostate Problems, Recurring Urinary Tract Infections Gastrointestinal: History of: GERD, Hemorrhoids, Liver Problems Musculoskeletal: History of: Musculoskeletal Problems (generalized osteoarthritis) Hematology: History of: Clotting Problems Other: History of: Miscellaneous Medical Problems (hernia repair) - Surgical History Neurologic Surgeries: Patient denies: Neurologic Surgery Abdominal Surgeries: Surgical HX of: Hernia Repair - Family History Family History: Reports;: Family Diabetes, Family Heart Disease - Social History Smoking Status: Former smoker Frequency of Alcohol Use: None Type of Drug Use: None Exam Vital Signs: Vital Signs Temperature 100.1 F H 08/04/17 15:24 Pulse Rate 102 H 08/04/17 16:36 Respiratory Rate 23 08/04/17 16:36 Blood Pressure 108/66 08/04/17 15:24 O2 Sat by Pulse Oximetry 93 L 08/04/17 16:36 - General General appearance: alert, in no apparent distress, other (Patient has garbled speech. ) - Head Head exam: Present: atraumatic, normocephalic - Eye Eye exam: Present: normal appearance, PERRL, EOMI - ENT ENT exam: Present: normal oropharynx, mucous membranes dry, TM's normal bilaterally, normal external ear exam - Neck Neck exam: Present: full ROM, trachea midline. Absent: tenderness - Chest Chest inspection: Present: symmetric chest wall rise. Absent: tenderness - Respiratory Respiratory exam: Present: other (Decreased breathe sounds on the right. ). Absent: respiratory distress - Cardiovascular Cardiovascular exam: Present: regular rate, normal rhythm, normal heart sounds. Absent: murmur - Abdominal Exam Abdominal exam: Present: soft, tenderness (Patient has RUQ tenderness. ), normal bowel sounds. Absent: distention - Extremities Exam Extremities exam: Absent: tenderness - Back Exam Back exam: Absent: tenderness - Neurological Exam Neurological exam: Present: alert, oriented X3, CN II-XII intact. Absent: motor sensory deficit - Psychiatric Psychiatric exam: Present: normal affect, normal mood - Skin Skin exam: Present: warm, dry, intact, normal color Course Course Narrative: Patient discussed with the hospitalist. Results - Labs CBC & BMP: 08/04/17 15:36 08/04/17 15:36 Lab Results: I have reviewed the patients labs Labs: Laboratory Tests 08/04/17 08/04/17 15:36 15:36 WBC 12.3 H RBC 5.13 Hgb 15.3 Hct 46.2 Plt Count 197 Neut % (Auto) 74.7 H Lymph % (Auto) 12.9 L Neut # (Auto) 9.2 H [place] # (Auto) 1.4 H Sodium 144 Potassium 4.6 Chloride 103 Carbon Dioxide 35 H BUN 25 H Creatinine 1.00 BUN/Creatinine Ratio 25.00 H Glucose 47 L Albumin 2.9 L Globulin 3.7 H Albumin/Globulin Ratio 0.7 L - EKG EKG results: interpreted by ERMD (Sinus tachycardia, otherwise normal) - Diagnostic Findings Procedure: Chest x-ray: report reviewed by me (Right basilar infiltrate) Disposition Clinical Impression: Right basilar pneumonia Case discussed with: patient, patient's physician Disposition: Still a Patient Additional Instructions: Admit to the hospitalist.
[2017-08-04] MEDS ORDERED: LEVOFLOXACIN INJ 100 ML IV ONE (16:52)
--- NOTE | 2017-08-04 16:55 | Hospitalist History & Physical ---
Assessment and Plan - Time spent with patient Time spent with patient: Greater than 30 minutes (1) Pneumonia Status: Acute Assessment and plan: Admit 08/04/17 IV fluids for hydration Duonebs Antibiotics - levaquin Blood cultures - obtained - pending final Accu Checks and sliding scale protocol Repeat a.m. labs Will discuss with Dr Stewart for further recommendations with care Current Visit: Yes (2) Acute dyspnea Status: Acute Current Visit: No History of Present Illness Chief complaint: shortness of breath, productive cough History of present illness: Mr. Bailey is a 71 year old white male w/PMHx COPD, CHF, CAD, HTN, Anxiety, Depression, CVA, Parkinsons, DM, dyslipidemia, STUART, Prostate, GERD presented to the ED from [facility] for further evaluation of shortness of breath, productive cough, fever. He reports fever and chills for 3-4 days. He reports cough and shortness of breath for about a week. He denies chest pain. IN ER: Awake, Alert, Temp 100.1, 90% on 4 liters NC; HR 102, BP 108/66; LABS : WBC 12.3, BUN 25, Glucose 47 (will address now). CXR: patchy right basilar infiltrate which could represent pneumonia. EKG Sinus tachy. Levaquin initiated in ER. Blood cultures obtained in the ER. He takes Flu Vaccine yearly. PCP: [facility] care After discussion with Dr Ge in ED and Dr Stewart with Hospital Medicine, it was agreed to admit patient further treatment. Home medications to be reviewed and reconciliation to follow. Home Medications Medication Instructions Recorded Confirmed Type Pantoprazole Tab [Protonix Tab] 40 mg PO DAILY 05/09/15 08/04/17 History Pravastatin [Pravachol] 40 mg PO BEDTIME #30 tablet 05/12/15 08/04/17 Rx Pregabalin [Lyrica] 150 mg PO BEDTIME #30 capsule 05/12/15 08/04/17 Rx Tamsulosin [Flomax] 0.4 mg PO DAILY #30 capsule 05/12/15 08/04/17 Rx Lactulose Liquid [Chronulac] 20 gm PO Q6HR PRN 04/17/16 08/04/17 History Melatonin 5 mg PO BEDTIME 04/17/16 08/04/17 History Aspirin EC Tab 325 mg PO DAILY tablet 04/22/16 08/04/17 Rx predniSONE TAB [PredniSONE] 20 mg PO DAILY #5 tablet 04/22/16 08/04/17 Rx Clotrimazole 1% Cream [Lotrimin 1% 1 applic TOP BID PRN 04/05/17 08/04/17 History Cream] FLUoxetine [PROzac] 10 mg PO DAILY 04/05/17 08/04/17 History OLANZapine TAB [ZyPREXA Tab] 2.5 mg PO BID 04/05/17 08/04/17 History Theophylline ER Tab 300 mg PO BID W/MEALS 04/05/17 08/04/17 History HYDROcodone/ACETAMIN 7.5-325 1 tablet PO Q4H PRN tablet 04/14/17 08/04/17 Rx [[place] 7.5-325] HydrOXYzine PAMOATE CAP [Vistaril 25 mg PO Q6H PRN capsule 04/14/17 08/04/17 Rx Cap] Insulin Glargine [Lantus] 30 unit SUBCUT BID unit 04/14/17 08/04/17 Rx Magnesium Hydroxide Susp [Milk of 30 ml PO Q8H PRN 04/14/17 08/04/17 Rx Magnesia] Multivitamin (Centrum) [Centrum 1 tablet PO DAILY tablet 04/14/17 08/04/17 Rx Tab] Albuterol/Ipratropium Neb [Duoneb] 3 ml RESP TX RT Q4H 04/18/17 08/04/17 Rx Diltiazem Tab [Cardizem Tab] 30 mg PO Q8HR tablet 04/18/17 08/04/17 Rx Valproic Acid Liquid [Depakene] 600 mg PO BID 04/18/17 08/04/17 Rx Insulin Regular [HumuLIN R] See Protocol SUBCUT ACHS unit 05/02/17 08/04/17 Rx Alum/Mag/Simeth Max Str Liquid 30 ml PO Q8H PRN 07/06/17 08/04/17 History [Mylanta Max Strength Liquid] Acetylcysteine Soln (APAP Od) 3 ml RESP TX Q12H 08/04/17 08/04/17 History [Mucomyst 20% (APAP Od)] Carvedilol [Coreg] 6.25 mg PO BID 08/04/17 08/04/17 History Glucagon 1 mg IM DAILY PRN 08/04/17 08/04/17 History Allergies Allergy/AdvReac Type Severity Reaction Status Date / Time Hydromorphone [From Dilaudid] AdvReac Unknown/Unable Verified 04/04/17 23:10 to obtain morphine AdvReac Unknown/Unable Verified 04/04/17 23:10 to obtain Medical,Surgical,& Family Hx - Medical History Cardio: History of: Cardiac Dysrhythmia, CHF (Perhaps diastolic, last EF was 60% ), CAD, Hypertension Psychological: History of: Anxiety Disorders, Depression, Psychiatric Problems Neurology: History of: Cerebrovascular Accident (left side weakness), Parkinson' s Disease Endocrine: History of: Diabetes Mellitus (IDDM), Dyslipidemia Respiratory: History of: COPD, Obstructive Sleep Apnea (He actually has never been documented to have sleep apnea.) Genitourinary: History of: Prostate Problems, Recurring Urinary Tract Infections Gastrointestinal: History of: GERD, Hemorrhoids, Liver Problems Musculoskeletal: History of: Musculoskeletal Problems (generalized osteoarthritis) Hematology: History of: Clotting Problems Other: History of: Miscellaneous Medical Problems (hernia repair) - Surgical History Neurologic Surgeries: Patient denies: Neurologic Surgery Abdominal Surgeries: Surgical HX of: Hernia Repair - Family History Family History: Reports;: Family Diabetes, Family Heart Disease - Social History Smoking Status: Former smoker Frequency of Alcohol Use: None Type of Drug Use: None Lives With:: [facility] 12 point system: reviewed and no additional remarkable complaints except as stated - Constitutional Constitutional: Present: chills, fever(s) - Cardiovascular Cardiovascular: Present: dyspnea. Absent: chest pain at rest, chest pain with activity, edema - Respiratory Respiratory: Present: cough, dyspnea - Gastrointestinal Gastrointestinal: Absent: abdominal pain Exam - Constitutional Vitals: Period Temp Pulse Resp BP Sys/Pina Pulse Ox Last 24 Hr 100.1 F-100.1 F 102-107 23-24 108-108/66-66 83-93 General appearance: normal weight, no acute distress - Head Head exam: Present: normal inspection - Eye Eye exam: Present: EOMI Pupils: Present: SCOTT - Neck Neck exam: Present: normal inspection. Absent: thyromegaly - Respiratory Respiratory exam: Present: decreased breath sounds, rhonchi - Cardiovascular Cardiovascular exam: Present: regular rate and rhythm - GI/Abdominal GI/Abdominal exam: Present: normal bowel sounds, soft. Absent: tenderness, rebound - Extremities Exam Extremities exam: Present: other (weakness to right lower leg (hx: stroke)). Absent: calf tenderness, edema - Neurological Exam Neurological exam: Present: alert, oriented X3, CN II-XII intact - Psychiatric Psychiatric exam: Present: normal affect, normal mood. Absent: agitated, anxious - Skin Skin exam: Present: normal color, warm, dry Results - Labs CBC & BMP: 08/04/17 15:36 08/04/17 15:36 Lab Results: I have reviewed the past 24 hour labs - EKG EKG results: interpreted by ERIKAD - Diagnostic Findings Procedure: Chest x-ray: report reviewed by me (patchy right basilar infiltrate which could represent pneumonia) Sepsis - Sepsis Classification of Sepsis: Sepsis Possible / Suspected infection from: pneumonia - Physical Exam Physical Exam: Temperature 100.1; HR 102; BP 108/66; RR 24; WBC 12.3 90% SAT on 4 liters presented to the ED from [facility] for SOB, Productive cough - yellow sputum - Physical Exam Respiratory exam: decreased breath sounds, rhonchi Capillary Refill: Less Than 3 Seconds Cardiovascular exam: tachycardia Skin exam: normal color
[2017-08-04] MEDS ORDERED: SODIUM CHLORIDE 0.9% 4,100 ML IV ONE (17:15)
[2017-08-04] MEDS ORDERED: ALUMINUM/MAGNES/SIMETH MAX STR 30 ML UDCUP PO PRN (17:18)
[2017-08-04] MEDS ORDERED: GLUCAGON 1 MG VIAL IM PRN (17:18)
[2017-08-04] MEDS ORDERED: HydrOXYzine PAMOATE 25 MG CAPSULE PO PRN (17:18)
[2017-08-04] MEDS ORDERED: MAGNESIUM HYDROXIDE SUSP 30 ML UDCUP PO PRN (17:18)
[2017-08-04] MEDS ORDERED: CLOTRIMAZOLE 1% CREAM 15 GM TUBE TOP PRN (17:18)
[2017-08-04] MEDS ORDERED: LACTULOSE 20 GM/30 ML UDCUP PO PRN (17:18)
[2017-08-04] MEDS ORDERED: methylPREDNISolone SOD SUC 125 MG/2 ML VIAL IV STA (17:20)
[2017-08-04] MEDS ORDERED: DEXTROSE 50% 25 GM/50 ML VIAL IV STA (17:23)
[2017-08-04 17:30] LABS: Apearance,Urine CLEAR (Clear); Bilirubin,Urine Negative (Negative); Blood, Urine Negative (Negative); Glucose,Urine (UA) Negative (Negative); Ketones,Urine Negative (Negative); Mucus,Urine Occasional /LPF (Occasional); Nitrite,Urine Negative (Negative); Protein,Urine Negative; RBC,Urine <1 /HPF (0-4); Squamous Epithelial Cell,Urine Occasional /HPF (0-10); Urine Color Yellow (Yellow); Urine Specific Gravity 1.019 (1.001-1.035)
[2017-08-04] MEDS ORDERED: DEXTROSE 50% 25 GM/50 ML SYRINGE IV ONE (17:46)
[2017-08-04] MEDS ORDERED: methylPREDNISolone SOD SUC 125 MG/2 ML VIAL ONE (17:50)
[2017-08-04 18:25] LABS: Platelet Estimate Normal
[2017-08-04] MEDS ORDERED: VANCOMYCIN INJ 2,000 MG in SODIUM CHLORIDE 0.9% 500 ML IV SCH ×2 (19:00→20:30)
--- NOTE | 2017-08-04 19:41 | Event Note ---
Sepsis - Sepsis Classification of Sepsis: Severe Sepsis - Physical Exam Respiratory exam: clear to auscultation bilaterally Capillary Refill: Less Than 3 Seconds Peripheral pulses: Radial (L): 5+, Radial (R): 5+ Cardiovascular exam: regular rate and rhythm Skin exam: normal color
[2017-08-04] MEDS ORDERED: ONDANSETRON 4 MG/2 ML VIAL IV PRN (20:11)
[2017-08-04] MEDS ORDERED: ENOXAPARIN 30 MG/0.3 ML SYRINGE SUBCUT SCH (20:11)
[2017-08-04] MEDS ORDERED: DEXTROSE 50% 25 GM/50 ML VIAL IV PRN (20:11)
[2017-08-04] MEDS: ALBUTEROL/IPRATROPIUM 3 ML NEB RESP TX SCH (20:22)
[2017-08-04] MEDS: LEVOFLOXACIN INJ 750 MG in PREMIX 1 EACH IV SCH (22:05)
[2017-08-04] MEDS: VALPROIC ACID 250 MG/5 ML UDCUP PO SCH (22:10)
[2017-08-04] MEDS: PRAVASTATIN 40 MG TABLET PO SCH (22:12)
[2017-08-04] MEDS: PREGABALIN 75 MG CAPSULE PO SCH (22:12)
[2017-08-04] MEDS: OLANZapine 2.5 MG TABLET PO SCH (22:13)
[2017-08-04] MEDS: MELATONIN 3 MG TABLET PO SCH (22:13)
[2017-08-04] MEDS: ENOXAPARIN 40 MG/0.4 ML SYRINGE SUBCUT SCH (22:16)
[2017-08-04] MEDS: INSULIN GLARGINE 100 UNIT/ML SUBCUT SCH (22:19)
[2017-08-04] MEDS: INSULIN LISPRO 100 UNIT/ML SUBCUT SCH (22:23)
[2017-08-05] MEDS: methylPREDNISolone SOD SUC 125 MG/2 ML VIAL IV SCH ×4 (01:12→21:34)
[2017-08-05] MEDS: LACTATED RINGERS 1,000 ML IV SCH ×5 (01:16→21:44)
[2017-08-05] MEDS: ALBUTEROL/IPRATROPIUM 3 ML NEB RESP TX SCH ×7 (01:36→23:03)
[2017-08-05] MEDS: PIPERACILLIN/TAZOBACTAM 3,375 MG in SODIUM CHLORIDE 0.9% 50 ML IV SCH ×2 (01:43→03:05)
[2017-08-05] MEDS: PIPERACILLIN/TAZOBACTAM 3,375 MG in SODIUM CHLORIDE 0.9% 100 ML IV SCH ×3 (03:06→21:19)
[2017-08-05 07:41] LABS: Calcium 7.7 MG/DL (8.5-10.1); Osmolality,Calculated 294.7 MOS/KG (273-304)
[2017-08-05 08:29] LABS: Basophils % 0.1 % (0.0-0.8); Immature Granulocytes % 0.5 %; Immature Granulocytes Absolute 0.05 #; Lymphocytes # 0.9 10*3/uL (1.4-4.0); Lymphocytes % 9.3 % (21.2-54.2); Mean Corpuscular HGB Conc 32.2 GM/DL (32-36); Mean Corpuscular Hemoglobin 30 PG (27-34); Mean Corpuscular Volume 91.8 FL (87-102); Mean Platelet Volume 9.7 FL (9.6-12.0); Monocytes # 0.4 10*3/uL (0.11-0.8); Monocytes % 4.8 % (1.7-12.7); Neutrophils # 7.9 10*3/uL (1.4-7.4); Neutrophils % 85.3 % (38.7-73.9); Red Cell Distribution Width 15.2 % (9.3-17.3); White Blood Count 9.2 T/CUMM (4-12)
[2017-08-05 08:36] LABS: Hemoglobin 11.6 GM/DL (14.0-18.0); Platelet Count 139 T/CUMM (130-400); Red Blood Count 3.92 MC/CUMM (3.8-5.5)
[2017-08-05 08:55] LABS: Band Neutrophils 9 % (0-10); Lymphocytes 9 % (20-55); Segmented Neutrophils 76 % (50-85); Total Cells Counted 100
[2017-08-05 08:56] LABS: Hypochromasia 1+; Microcytosis 1+; Ovalocytes Slight; Platelet Estimate Adequate
[2017-08-05] MEDS: INSULIN LISPRO 100 UNIT/ML SUBCUT SCH ×4 (09:43→22:57)
[2017-08-05] MEDS: INSULIN GLARGINE 100 UNIT/ML SUBCUT SCH ×2 (09:43→21:40)
[2017-08-05] MEDS: THEOPHYLLINE ER 300 MG TABLET PO SCH ×2 (09:43→17:32)
[2017-08-05] MEDS: ASPIRIN EC 325 MG TABLET PO SCH (09:43)
[2017-08-05] MEDS: PANTOPRAZOLE 40 MG TABLET PO SCH (09:44)
[2017-08-05] MEDS: FLUoxetine 10 MG CAPSULE PO SCH (09:44)
[2017-08-05] MEDS: OLANZapine 2.5 MG TABLET PO SCH ×2 (09:44→21:29)
[2017-08-05] MEDS: VALPROIC ACID 250 MG/5 ML UDCUP PO SCH ×2 (09:44→21:22)
[2017-08-05] MEDS: TAMSULOSIN 0.4 MG CAPSULE PO SCH (09:44)
[2017-08-05] MEDS: MULTIVITAMIN (CENTRUM) TABLET PO SCH (09:44)
--- NOTE | 2017-08-05 11:12 | Hospitalist Progress Note ---
Assessment and Plan (1) Right lower lobe pneumonia Status: Acute Assessment and plan: Continue zosyn and levaquin Order sputum cultures and influenza Current Visit: No Qualifiers: Pneumonia type: aspiration pneumonia Aspiration pneumonia type: due to gastric secretions Qualified Code(s): J69.0 - Pneumonitis due to inhalation of food and vomit (2) Diabetes Status: Acute Assessment and plan: Continue home Lantus SSI Current Visit: No (3) Acute exacerbation of chronic obstructive airways disease Status: Acute Assessment and plan: Steroids, duonebs, abx Current Visit: No (4) Leukocytosis Status: Resolved Current Visit: No (5) Sepsis Status: Resolved Current Visit: No Hospitalist: Subjective Interval history: No acute events overnight. Patient complains of some reproducible chest pain today. Exam - Constitutional Vitals: Period Temp Pulse Resp BP Sys/Pina Pulse Ox Last 24 Hr 97.0 F-100.1 F 65-109 14-24 92-132/53-80 81-99 General appearance: over weight - Head Head exam: Present: normocephalic, atraumatic - Eye Eye exam: Present: EOMI Pupils: Present: SCOTT - ENT ENT exam: Present: normal exam - Neck Neck exam: Present: normal inspection - Respiratory Respiratory exam: Present: clear to auscultation bilaterally. Absent: wheezes - Cardiovascular Cardiovascular exam: Present: regular rate and rhythm - GI/Abdominal GI/Abdominal exam: Present: normal bowel sounds, soft. Absent: tenderness, rebound - Extremities Exam Extremities exam: Present: normal inspection - Back Exam Back exam: Present: normal inspection - Neurological Exam Neurological exam: Present: alert - Psychiatric Psychiatric exam: Present: normal affect, normal mood - Skin Skin exam: Present: warm, intact Results - Labs CBC & BMP: 08/05/17 08:04 08/05/17 05:18 Quality Measures - Stroke Symptom Onset Unknown: No
[2017-08-05] MEDS: VANCOMYCIN INJ 1,750 MG in SODIUM CHLORIDE 0.9% 500 ML IV SCH (15:24)
[2017-08-05] MEDS: LEVOFLOXACIN INJ 750 MG in PREMIX 1 EACH IV SCH (17:33)
[2017-08-05] MEDS: traMADol 50 MG TABLET PO PRN ×2 (17:52→22:58)
[2017-08-05] MEDS: PRAVASTATIN 40 MG TABLET PO SCH (21:29)
[2017-08-05] MEDS: MELATONIN 3 MG TABLET PO SCH (21:29)
[2017-08-05] MEDS: PREGABALIN 75 MG CAPSULE PO SCH (21:29)
[2017-08-05] MEDS: ENOXAPARIN 40 MG/0.4 ML SYRINGE SUBCUT SCH (21:39)
[2017-08-06] MEDS: LACTATED RINGERS 1,000 ML IV SCH ×2 (01:30→12:31)
[2017-08-06] MEDS: VANCOMYCIN INJ 1,750 MG in SODIUM CHLORIDE 0.9% 500 ML IV SCH (01:53)
[2017-08-06] MEDS: methylPREDNISolone SOD SUC 125 MG/2 ML VIAL IV SCH ×4 (03:08→22:51)
[2017-08-06] MEDS: PIPERACILLIN/TAZOBACTAM 3,375 MG in SODIUM CHLORIDE 0.9% 100 ML IV SCH ×4 (03:14→20:29)
[2017-08-06] MEDS: ALBUTEROL/IPRATROPIUM 3 ML NEB RESP TX SCH ×6 (03:35→23:56)
[2017-08-06 07:44] LABS: Calcium 7.8 MG/DL (8.5-10.1)
[2017-08-06 07:45] LABS: Osmolality,Calculated 286.3 MOS/KG (273-304); Potassium 3.9 MMOL/L (3.5-5.1)
[2017-08-06 07:59] LABS: Basophils % 0.3 % (0.0-0.8); Hematocrit 33.1 VOL% (42.0-52.0); Hemoglobin 10.5 GM/DL (14.0-18.0); Immature Granulocytes % 0.9 %; Immature Granulocytes Absolute 0.07 #; Lymphocytes # 0.6 10*3/uL (1.4-4.0); Lymphocytes % 8.1 % (21.2-54.2); Mean Corpuscular HGB Conc 31.7 GM/DL (32-36); Mean Corpuscular Hemoglobin 30 PG (27-34); Mean Platelet Volume 10.5 FL (9.6-12.0); Monocytes # 0.4 10*3/uL (0.11-0.8); Monocytes % 4.5 % (1.7-12.7); Neutrophils # 6.7 10*3/uL (1.4-7.4); Neutrophils % 86.2 % (38.7-73.9); Platelet Count 129 T/CUMM (130-400); Red Blood Count 3.56 MC/CUMM (3.8-5.5); Red Cell Distribution Width 14.8 % (9.3-17.3); White Blood Count 7.7 T/CUMM (4-12)
[2017-08-06 08:30] LABS: Band Neutrophils 3 % (0-10); Hypochromasia 1+; Lymphocytes 12 % (20-55); Segmented Neutrophils 84 % (50-85); Total Cells Counted 100
[2017-08-06 08:31] LABS: Microcytosis 1+; Ovalocytes Slight; Platelet Estimate Adequate
[2017-08-06] MEDS: INSULIN LISPRO 100 UNIT/ML SUBCUT SCH ×4 (10:11→22:53)
[2017-08-06] MEDS: VALPROIC ACID 250 MG/5 ML UDCUP PO SCH ×2 (10:36→22:51)
[2017-08-06] MEDS: TAMSULOSIN 0.4 MG CAPSULE PO SCH (10:37)
[2017-08-06] MEDS: PANTOPRAZOLE 40 MG TABLET PO SCH (10:37)
[2017-08-06] MEDS: THEOPHYLLINE ER 300 MG TABLET PO SCH ×2 (10:37→17:19)
[2017-08-06] MEDS: FLUoxetine 10 MG CAPSULE PO SCH (10:37)
[2017-08-06] MEDS: MULTIVITAMIN (CENTRUM) TABLET PO SCH (10:37)
[2017-08-06] MEDS: ASPIRIN EC 325 MG TABLET PO SCH (10:37)
[2017-08-06] MEDS: OLANZapine 2.5 MG TABLET PO SCH ×2 (10:37→22:53)
[2017-08-06] MEDS: INSULIN GLARGINE 100 UNIT/ML SUBCUT SCH ×2 (10:38→22:52)
--- NOTE | 2017-08-06 15:18 | Hospitalist Progress Note ---
Assessment and Plan (1) Right lower lobe pneumonia Status: Acute Assessment and plan: Continue zosyn and levaquin Influenza negative Sputum cultures ordered Current Visit: No Qualifiers: Pneumonia type: aspiration pneumonia Aspiration pneumonia type: due to gastric secretions Qualified Code(s): J69.0 - Pneumonitis due to inhalation of food and vomit (2) Diabetes Status: Acute Assessment and plan: Continue home Lantus SSI Current Visit: No (3) Acute exacerbation of chronic obstructive airways disease Status: Acute Assessment and plan: Steroids, duonebs, abx Current Visit: No (4) Leukocytosis Status: Resolved Current Visit: No (5) Sepsis Status: Resolved Current Visit: No Hospitalist: Subjective Interval history: No acute events overnight. Patient appears comfortable Exam - Constitutional Vitals: Period Temp Pulse Resp BP Sys/Pina Pulse Ox Last 24 Hr 97.1 F-98.0 F 66-99 16-20 134-159/66-84 92-98 General appearance: over weight - Head Head exam: Present: normocephalic, atraumatic - Eye Eye exam: Present: EOMI Pupils: Present: SCOTT - ENT ENT exam: Present: normal exam - Neck Neck exam: Present: normal inspection - Respiratory Respiratory exam: Present: clear to auscultation bilaterally. Absent: wheezes - Cardiovascular Cardiovascular exam: Present: regular rate and rhythm - GI/Abdominal GI/Abdominal exam: Present: normal bowel sounds, soft. Absent: tenderness, rebound - Extremities Exam Extremities exam: Present: normal inspection - Back Exam Back exam: Present: normal inspection - Neurological Exam Neurological exam: Present: alert - Psychiatric Psychiatric exam: Present: normal affect, normal mood - Skin Skin exam: Present: warm, intact Results - Labs CBC & BMP: 08/06/17 06:21 08/06/17 06:21 Quality Measures - Stroke Symptom Onset Unknown: No
[2017-08-06] MEDS: LEVOFLOXACIN INJ 750 MG in PREMIX 1 EACH IV SCH (17:19)
[2017-08-06] MEDS: traMADol 50 MG TABLET PO PRN (18:17)
[2017-08-06] MEDS: ENOXAPARIN 40 MG/0.4 ML SYRINGE SUBCUT SCH (22:50)
[2017-08-06] MEDS: PREGABALIN 75 MG CAPSULE PO SCH (22:51)
[2017-08-06] MEDS: MELATONIN 3 MG TABLET PO SCH (22:52)
[2017-08-06] MEDS: PRAVASTATIN 40 MG TABLET PO SCH (22:52)
[2017-08-07] MEDS ORDERED: VANCOMYCIN INJ 1,750 MG in SODIUM CHLORIDE 0.9% 500 ML IV SCH
[2017-08-07] MEDS: traMADol 50 MG TABLET PO PRN ×2 (00:42→21:42)
[2017-08-07] MEDS: PIPERACILLIN/TAZOBACTAM 3,375 MG in SODIUM CHLORIDE 0.9% 100 ML IV SCH ×3 (03:02→21:42)
[2017-08-07] MEDS: ALBUTEROL/IPRATROPIUM 3 ML NEB RESP TX SCH ×5 (04:24→19:42)
[2017-08-07 06:23] LABS: Basophils % 0.1 % (0.0-0.8); Hematocrit 30.8 VOL% (42.0-52.0); Hemoglobin 10.2 GM/DL (14.0-18.0); Immature Granulocytes % 1.5 %; Immature Granulocytes Absolute 0.12 #; Lymphocytes # 0.6 10*3/uL (1.4-4.0); Mean Corpuscular HGB Conc 33.1 GM/DL (32-36); Mean Corpuscular Hemoglobin 29 PG (27-34); Mean Corpuscular Volume 88.3 FL (87-102); Mean Platelet Volume 10.6 FL (9.6-12.0); Monocytes # 0.4 10*3/uL (0.11-0.8); Monocytes % 4.5 % (1.7-12.7); NRBC # 0.03 10*3/uL; Neutrophils % 86.9 % (38.7-73.9); Platelet Count 126 T/CUMM (130-400); Red Blood Count 3.49 MC/CUMM (3.8-5.5); Red Cell Distribution Width 14.3 % (9.3-17.3)
[2017-08-07 06:58] LABS: Band Neutrophils 1 % (0-10); Hypochromasia 1+; Lymphocytes 5 % (20-55); Microcytosis Slight; Ovalocytes Slight; Platelet Estimate Adequate; Segmented Neutrophils 90 % (50-85); Total Cells Counted 100
[2017-08-07 07:01] LABS: Osmolality,Calculated 288.3 MOS/KG (273-304); Potassium 3.5 MMOL/L (3.5-5.1)
--- NOTE | 2017-08-07 08:51 | XRay Report ---
History: Pulmonary infiltrate Date: 08/07/2017 Study: Chest x-ray AP portable Comparison exam: August 04, 2017 There is stable mild cardiomegaly. The mediastinal contours are similar. The pulmonary vasculature is upper normal. Some strandy and hazy right basilar atelectasis/infiltrate persists, but is the same or slightly improved. There is some increasing strandy and hazy left lower lobe atelectasis/infiltrate, however. Osseous structures are similar. Impression: Increasing left lower lobe atelectasis/infiltrate compared to the previous study. Stable to slightly improved right basilar parenchymal disease PROCEDURE INTERPRETED AT [facility] DEPARTMENT OF RADIOLOGY Final Report Signed by: Dr. Ammy Mcnamara
[2017-08-07] MEDS: OLANZapine 2.5 MG TABLET PO SCH ×2 (09:37→21:41)
[2017-08-07] MEDS: VALPROIC ACID 250 MG/5 ML UDCUP PO SCH ×2 (09:37→21:40)
[2017-08-07] MEDS: FLUoxetine 10 MG CAPSULE PO SCH (09:37)
[2017-08-07] MEDS: MULTIVITAMIN (CENTRUM) TABLET PO SCH (09:37)
[2017-08-07] MEDS: PANTOPRAZOLE 40 MG TABLET PO SCH (09:37)
[2017-08-07] MEDS: THEOPHYLLINE ER 300 MG TABLET PO SCH ×2 (09:37→17:07)
[2017-08-07] MEDS: TAMSULOSIN 0.4 MG CAPSULE PO SCH (09:37)
[2017-08-07] MEDS: ASPIRIN EC 325 MG TABLET PO SCH (09:38)
[2017-08-07] MEDS: INSULIN LISPRO 100 UNIT/ML SUBCUT SCH ×4 (09:38→21:53)
[2017-08-07] MEDS: INSULIN GLARGINE 100 UNIT/ML SUBCUT SCH ×2 (09:40→21:41)
[2017-08-07] MEDS: methylPREDNISolone SOD SUC 125 MG/2 ML VIAL IV SCH ×2 (09:41→21:41)
[2017-08-07] MEDS: LEVOFLOXACIN INJ 750 MG in PREMIX 1 EACH IV SCH (10:38)
[2017-08-07] MEDS: LACTATED RINGERS 1,000 ML IV SCH (14:50)
--- NOTE | 2017-08-07 18:08 | Hospitalist Progress Note ---
<Indira Sethi - Last Filed: 08/07/17 18:06> Assessment and Plan (1) Pneumonia Status: Acute Assessment and plan: Diffuse wheezing noted upon auscultation. Empiric antibiotic coverage remains in progress. We will continue intravenous corticosteroids and inhaled bronchodilator treatments as ordered. Will recheck chest x-ray in a.m. Current Visit: Yes Qualifiers: Pneumonia type: aspiration pneumonia (2) Acute exacerbation of chronic obstructive airways disease Status: Acute Assessment and plan: We will continue inhaled bronchodilators, intravenous corticosteroids, and empiric antibiotics as previously ordered. Current Visit: No (3) Diabetes Status: Acute Assessment and plan: Blood glucose levels remain moderately elevated. This is secondary to current intravenous corticosteroid use. We will continue Accu-Cheks with sliding scale coverage and scheduled Lantus dose as previously ordered. Current Visit: No Hospitalist: Subjective Interval history: Patient seen and examined; chart reviewed. No significant overnight events reported per staff. Exam - Constitutional Vitals: Period Temp Pulse Resp BP Sys/Pina Pulse Ox Last 24 Hr 97.6 F-98.3 F 55-101 18-24 118-156/63-75 91-97 General appearance: no acute distress, morbidly obese - Head Head exam: Present: normal inspection, normocephalic, atraumatic - Eye Eye exam: Present: EOMI. Absent: conjunctival injection Pupils: Present: SCOTT, normal accommodation - ENT ENT exam: Present: normal exam, normal external ear exam, normal oropharynx - Neck Neck exam: Present: normal inspection. Absent: lymphadenopathy, meningismus - Respiratory Respiratory exam: Present: wheezes. Absent: accessory muscle use - Cardiovascular Cardiovascular exam: Present: regular rate and rhythm. Absent: carotid bruit, diastolic murmur, gallop, JVD, rubs, systolic murmur - GI/Abdominal GI/Abdominal exam: Present: normal bowel sounds, soft - Extremities Exam Extremities exam: Present: normal inspection - Back Exam Back exam: Present: normal inspection - Neurological Exam Neurological exam: Present: alert, oriented X3, CN II-XII intact - Psychiatric Psychiatric exam: Present: normal affect, normal mood - Skin Skin exam: Present: normal color, warm, dry Results - Labs CBC & BMP: 08/07/17 05:24 08/07/17 05:24 Lab Results: I have reviewed the past 24 hour labs Quality Measures - Stroke Symptom Onset Unknown: No <James Ascencio - Last Filed: 08/07/17 18:53> Assessment and Plan (1) Right lower lobe pneumonia Status: Acute Current Visit: No Qualifiers: Pneumonia type: aspiration pneumonia Aspiration pneumonia type: due to gastric secretions Qualified Code(s): J69.0 - Pneumonitis due to inhalation of food and vomit (2) Diabetes Status: Acute Current Visit: No (3) Acute exacerbation of chronic obstructive airways disease Status: Acute Current Visit: No (4) Leukocytosis Status: Resolved Current Visit: No (5) Sepsis Status: Resolved Current Visit: No Hospitalist: Subjective Interval history: Patient seen and examined independently of [employer] Navdeep, agree with assessment and plan as documented. Diffuse wheezing today, will consult pulm in am. Exam - Constitutional Vitals: Period Temp Pulse Resp BP Sys/Pina Pulse Ox Last 24 Hr 97.6 F-98.3 F 55-101 18-24 118-156/63-75 91-97 Results - Labs CBC & BMP: 08/07/17 05:24 08/07/17 05:24
[2017-08-07] MEDS: PREGABALIN 75 MG CAPSULE PO SCH (21:41)
[2017-08-07] MEDS: ENOXAPARIN 40 MG/0.4 ML SYRINGE SUBCUT SCH (21:41)
[2017-08-07] MEDS: MELATONIN 3 MG TABLET PO SCH (21:42)
[2017-08-07] MEDS: PRAVASTATIN 40 MG TABLET PO SCH (21:42)
[2017-08-08] MEDS: ALBUTEROL/IPRATROPIUM 3 ML NEB RESP TX SCH ×6 (00:20→19:31)
[2017-08-08 04:43] LABS: Hematocrit 32.9 VOL% (42.0-52.0); Hemoglobin 11.1 GM/DL (14.0-18.0); Red Blood Count 3.79 MC/CUMM (3.8-5.5); White Blood Count 7.5 T/CUMM (4-12)
[2017-08-08 04:44] LABS: Basophils % 0.5 % (0.0-0.8); Immature Granulocytes % 6.2 %; Immature Granulocytes Absolute 0.46 #; Lymphocytes # 0.7 10*3/uL (1.4-4.0); Lymphocytes % 8.8 % (21.2-54.2); Mean Corpuscular HGB Conc 33.7 GM/DL (32-36); Mean Corpuscular Hemoglobin 29 PG (27-34); Mean Corpuscular Volume 86.8 FL (87-102); Mean Platelet Volume 10.3 FL (9.6-12.0); Monocytes # 0.3 10*3/uL (0.11-0.8); Monocytes % 4.4 % (1.7-12.7); NRBC # 0.03 10*3/uL; Neutrophils % 80.1 % (38.7-73.9); Platelet Count 143 T/CUMM (130-400); Red Cell Distribution Width 14.4 % (9.3-17.3)
[2017-08-08] MEDS: PIPERACILLIN/TAZOBACTAM 3,375 MG in SODIUM CHLORIDE 0.9% 100 ML IV SCH ×3 (04:54→22:00)
[2017-08-08 05:21] LABS: Bilirubin,Total 0.8 MG/DL (0.2-1.0); Calcium 8.5 MG/DL (8.5-10.1); Magnesium 1.9 MG/DL (1.8-2.4); Phosphorous 1.4 MG/DL (2.5-4.9); Potassium 3.4 MMOL/L (3.5-5.1); Total Protein 4.9 G/DL (6.4-8.3)
[2017-08-08 05:23] LABS: Hypochromasia 1+; Lymphocytes 4 % (20-55); Platelet Estimate Normal; Segmented Neutrophils 91 % (50-85); Total Cells Counted 100
[2017-08-08 05:24] LABS: Microcytosis Slight
[2017-08-08] MEDS ORDERED: POTASSIUM PHOSPHATE 30 MMOL in SODIUM CHLORIDE 0.9% 250 ML IV ONE (08:33)
[2017-08-08] MEDS: VALPROIC ACID 250 MG/5 ML UDCUP PO SCH ×2 (08:39→22:02)
[2017-08-08] MEDS: TAMSULOSIN 0.4 MG CAPSULE PO SCH (08:40)
[2017-08-08] MEDS: FLUoxetine 10 MG CAPSULE PO SCH (08:40)
[2017-08-08] MEDS: OLANZapine 2.5 MG TABLET PO SCH ×2 (08:40→22:04)
[2017-08-08] MEDS: THEOPHYLLINE ER 300 MG TABLET PO SCH ×2 (08:40→16:38)
[2017-08-08] MEDS: INSULIN LISPRO 100 UNIT/ML SUBCUT SCH ×4 (08:40→22:03)
[2017-08-08] MEDS: ASPIRIN EC 325 MG TABLET PO SCH (08:40)
[2017-08-08] MEDS: MULTIVITAMIN (CENTRUM) TABLET PO SCH (08:40)
[2017-08-08] MEDS: PANTOPRAZOLE 40 MG TABLET PO SCH (08:40)
[2017-08-08] MEDS: INSULIN GLARGINE 100 UNIT/ML SUBCUT SCH ×2 (08:41→22:03)
[2017-08-08] MEDS: methylPREDNISolone SOD SUC 125 MG/2 ML VIAL IV SCH ×2 (08:41→22:02)
--- NOTE | 2017-08-08 09:11 | XRay Report ---
History: COPD Date: 08/08/2017 Study: Chest x-ray AP portable Comparison exam: 08/07/2017 There is moderate patient rotation to the right. The cardiac silhouette is mildly enlarged. The mediastinal contours are similar. The pulmonary vasculature is upper normal. There is some continued strandy and hazy bibasilar atelectasis/infiltrate, grossly similar. There is trace bilateral pleural effusion. Osseous structures are unchanged. Impression: No gross change from the previous study PROCEDURE INTERPRETED AT [facility] DEPARTMENT OF RADIOLOGY Final Report Signed by: Dr. Ammy Mcnamara
[2017-08-08] MEDS: LEVOFLOXACIN INJ 750 MG in PREMIX 1 EACH IV SCH (09:41)
--- NOTE | 2017-08-08 10:03 | Pulmonology Consult Note ---
Assessment and Plan (1) Morbid obesity Status: Acute Assessment and plan: The patient is bedridden and basically very obese and in poor condition. Current Visit: No (2) Pickwickian syndrome Status: Chronic Assessment and plan: The patient does have obesity hypoventilation syndrome and chronic shortness of breath. Current Visit: No (3) Insulin dependent diabetes mellitus Status: Chronic Assessment and plan: The patient's glucoses are being monitored. Current Visit: No (4) COPD exacerbation Status: Resolved Assessment and plan: Patient has severe COPD and will continue with treatment for his COPD Current Visit: No (5) Sepsis Status: Resolved Assessment and plan: The patient has been fluid resuscitated and his hemodynamics are stable. Current Visit: No (6) Chest pain Status: Resolved Assessment and plan: The patient has chronic pain issues. Current Visit: No Qualifiers: Chest pain type: chest pain on breathing Qualified Code(s): R07.1 - Chest pain on breathing; R07.81 - Pleurodynia (7) Pneumonia Status: Acute Assessment and plan: Patient is being treated for pneumonia and he may have some mucus plugging. He may need a therapeutic bronchoscopy if he does not clear up soon. Current Visit: Yes Qualifiers: Pneumonia type: aspiration pneumonia History of Present Illness Chief complaint: Shortness of breath History of present illness: Mr. Bailey is a 71 year old white male is well known to me. He has a long history of COPD and obesity with obesity hypoventilation syndrome. He has known coronary artery disease with hypertension, diabetes, hyperlipidemia and chronic arthritis. He is quite debilitated and is been in a [facility]. He is a lifelong smoker. He has been in frequently last several months with respiratory distress and pneumonias. He came back in with possible pneumonia and sepsis and respiratory failure. He still says he is short of breath although he has been reasonably stable in the last day or so. He coughs at home and wheezes frequently. He may have some right lower lobe atelectasis. Home Medications Medication Instructions Recorded Confirmed Type Pantoprazole Tab [Protonix Tab] 40 mg PO DAILY 05/09/15 08/04/17 History Pravastatin [Pravachol] 40 mg PO BEDTIME #30 tablet 05/12/15 08/04/17 Rx Pregabalin [Lyrica] 150 mg PO BEDTIME #30 capsule 05/12/15 08/04/17 Rx Tamsulosin [Flomax] 0.4 mg PO DAILY #30 capsule 05/12/15 08/04/17 Rx Lactulose Liquid [Chronulac] 20 gm PO Q6HR PRN 04/17/16 08/04/17 History Melatonin 5 mg PO BEDTIME 04/17/16 08/04/17 History Aspirin EC Tab 325 mg PO DAILY tablet 04/22/16 08/04/17 Rx predniSONE TAB [PredniSONE] 20 mg PO DAILY #5 tablet 04/22/16 08/04/17 Rx Clotrimazole 1% Cream [Lotrimin 1% 1 applic TOP BID PRN 04/05/17 08/04/17 History Cream] FLUoxetine [PROzac] 10 mg PO DAILY 04/05/17 08/04/17 History OLANZapine TAB [ZyPREXA Tab] 2.5 mg PO BID 04/05/17 08/04/17 History Theophylline ER Tab 300 mg PO BID W/MEALS 04/05/17 08/04/17 History HYDROcodone/ACETAMIN 7.5-325 1 tablet PO Q4H PRN tablet 04/14/17 08/04/17 Rx [Moodus 7.5-325] HydrOXYzine PAMOATE CAP [Vistaril 25 mg PO Q6H PRN capsule 04/14/17 08/04/17 Rx Cap] Insulin Glargine [Lantus] 30 unit SUBCUT BID unit 04/14/17 08/04/17 Rx Magnesium Hydroxide Susp [Milk of 30 ml PO Q8H PRN 04/14/17 08/04/17 Rx Magnesia] Multivitamin (Centrum) [Centrum 1 tablet PO DAILY tablet 04/14/17 08/04/17 Rx Tab] Albuterol/Ipratropium Neb [Duoneb] 3 ml RESP TX RT Q4H 04/18/17 08/04/17 Rx Diltiazem Tab [Cardizem Tab] 30 mg PO Q8HR tablet 04/18/17 08/04/17 Rx Valproic Acid Liquid [Depakene] 600 mg PO BID 04/18/17 08/04/17 Rx Insulin Regular [HumuLIN R] See Protocol SUBCUT ACHS unit 05/02/17 08/04/17 Rx Alum/Mag/Simeth Max Str Liquid 30 ml PO Q8H PRN 07/06/17 08/04/17 History [Mylanta Max Strength Liquid] Acetylcysteine Soln (APAP Od) 3 ml RESP TX Q12H 08/04/17 08/04/17 History [Mucomyst 20% (APAP Od)] Carvedilol [Coreg] 6.25 mg PO BID 08/04/17 08/04/17 History Glucagon 1 mg IM DAILY PRN 08/04/17 08/04/17 History Allergies Allergy/AdvReac Type Severity Reaction Status Date / Time Hydromorphone [From Dilaudid] AdvReac Unknown/Unable Verified 04/04/17 23:10 to obtain morphine AdvReac Unknown/Unable Verified 04/04/17 23:10 to obtain Review of systems: He says he hurts to breathe and has chest pain all over. He is coughing and cannot clear secretions very well. He is always a little short of breath. Exam (Pulmonay) H&P - Constitutional Vitals: Period Temp Pulse Resp BP Sys/Pina Pulse Ox Last 24 Hr 97.2 F-98.2 F 64-112 18-24 154-210/75-108 92-97 General appearance: mild distress (He has mild shortness of breath lying in bed. ), morbidly obese - Head Head exam: Present: normal inspection, normocephalic - Eye Eye exam: Present: EOMI. Absent: scleral icterus Pupils: Present: SCOTT - ENT ENT exam: Present: normal exam - Neck Neck exam: Absent: lymphadenopathy, thyromegaly - Respiratory Respiratory exam: Present: decreased breath sounds, prolonged expiratory phase, wheezes - Cardiovascular Cardiovascular exam: Present: regular rate and rhythm. Absent: gallop, systolic murmur - GI/Abdominal GI/Abdominal exam: Present: normal bowel sounds, soft, other (He does have an obese abdomen). Absent: distended, organomegaly, tenderness - Extremities Exam Extremities exam: Present: edema (He has trace edema). Absent: calf tenderness - Neurological Exam Neurological exam: Present: alert, oriented X3 - Psychiatric Psychiatric exam: Present: depressed - Skin Skin exam: Present: warm, dry Medical,Surgical,& Family Hx - Medical History Cardio: History of: Cardiac Dysrhythmia, Congenital Heart Disease, CHF (Perhaps diastolic, last EF was 60%), CAD, Hypertension Psychological: History of: Anxiety Disorders, Depression, Psychiatric Problems Neurology: History of: Cerebrovascular Accident (left side weakness), Dementia, Parkinson's Disease Endocrine: History of: Diabetes Mellitus (IDDM), Dyslipidemia Respiratory: History of: COPD, Obstructive Sleep Apnea (He actually has never been documented to have sleep apnea.) Genitourinary: History of: Prostate Problems, Recurring Urinary Tract Infections Gastrointestinal: History of: GERD, Hemorrhoids, Liver Problems Musculoskeletal: History of: Musculoskeletal Problems (generalized osteoarthritis) Hematology: History of: Clotting Problems Other: History of: Miscellaneous Medical Problems (hernia repair) - Surgical History Neurologic Surgeries: Patient denies: Neurologic Surgery Abdominal Surgeries: Surgical HX of: Hernia Repair - Family History Family History: Reports;: Family Diabetes, Family Heart Disease - Social History Smoking Status: Former smoker Frequency of Alcohol Use: None Type of Drug Use: None Results - Labs CBC & BMP: 08/08/17 04:07 08/08/17 04:07 - Diagnostic Findings Procedure: Chest x-ray: image reviewed by me, report reviewed by me (Chest x- ray shows COPD changes and some right lower lobe atelectasis) Quality Measures - Stroke Symptom Onset Unknown: No
--- NOTE | 2017-08-08 10:42 | Physician Query Form ---
CLICK EDIT DOCUMENT TO SELECT QUERY ANSWER --> OK --> SIGN Danielle Menon RN, CCDS Certified Clinical Tar Distributor Operator W) [phone] (f) [phone] [email or web address] PROVIDERS: Make your selection(s) from the choices in EACH section by typing an "x" and enter comments in the comment section. Please use your independent medical judgment in providing your response. This request does not imply that any particular answer is desired or expected. CLINICAL INDICATORS: (Providers should not edit this section) The below diagnosis was documented in the record, but is not consistently noted in subsequent documentation. The medical record indicates that the patient was admitted with pneumonia, sepsis, respirations of 23#, sat's 93, and the patient was placed on 2-4 Liters per NC. Per Consultation Note on the 6th: "came back in with possible pneumonia and sepsis and respiratory failure". As the attending MD can you please clarify if the respiratory failure was ? Diagnosis: Respiratory Failure Please clarify the following: (x ) The above diagnosis was monitored, evaluated, and/or treated and is a confirmed diagnosis ( ) The above diagnosis was ruled out ( ) The above diagnosis is still a likely, suspected, probable diagnosis ( ) Other, please specify: ( ) Clinically unable to determine COMMENTS: PLEASE ALSO DOCUMENT RESPONSE IN PROGRESS NOTES AND/OR DISCHARGE SUMMARY Use of terms such as suspected, likely, or probable (associated with a specific diagnosis that is being evaluated, monitored, or treated as if it exists) are acceptable and can be restated in the discharge summary if not ruled out. MTDD
--- NOTE | 2017-08-08 14:24 | Hospitalist Progress Note ---
<Indira Sethi - Last Filed: 08/08/17 14:20> Assessment and Plan (1) Pneumonia Status: Acute Assessment and plan: Diffuse wheezing noted upon auscultation. Empiric antibiotic coverage remains in progress. We will continue intravenous corticosteroids and inhaled bronchodilator treatments as ordered. Will recheck chest x-ray in a.m. 08/08-chest x-ray worsened in comparison to previous chest x-ray. Diffuse wheezing continues. Empiric antibiotic coverage remains in progress. Pulmonary has been consulted to evaluate and assist. Current Visit: Yes Qualifiers: Pneumonia type: aspiration pneumonia (2) Acute exacerbation of chronic obstructive airways disease Status: Acute Assessment and plan: We will continue inhaled bronchodilators, intravenous corticosteroids, and empiric antibiotics as previously ordered. 08/08-pulmonary consultation has been requested. Current Visit: No (3) Diabetes Status: Acute Assessment and plan: Blood glucose levels remain moderately elevated. This is secondary to current intravenous corticosteroid use. We will continue Accu-Cheks with sliding scale coverage and scheduled Lantus dose as previously ordered. Current Visit: No Hospitalist: Subjective Interval history: Patient seen and examined; chart reviewed. No significant overnight events reported per staff. Pulmonary consultation has been requested; we will await further recommendations. Exam - Constitutional Vitals: Period Temp Pulse Resp BP Sys/Pina Pulse Ox Last 24 Hr 97.2 F-98.2 F 65-112 18-24 150-210/75-108 92-97 Results - Labs CBC & BMP: 08/08/17 04:07 08/08/17 04:07 Lab Results: I have reviewed the past 24 hour labs Quality Measures - Stroke Symptom Onset Unknown: No <James Ascencio - Last Filed: 08/08/17 15:24> Assessment and Plan (1) Right lower lobe pneumonia Status: Acute Current Visit: No Qualifiers: Pneumonia type: aspiration pneumonia Aspiration pneumonia type: due to gastric secretions Qualified Code(s): J69.0 - Pneumonitis due to inhalation of food and vomit (2) Diabetes Status: Acute Current Visit: No (3) Acute exacerbation of chronic obstructive airways disease Status: Acute Current Visit: No (4) Leukocytosis Status: Resolved Current Visit: No (5) Sepsis Status: Resolved Current Visit: No Hospitalist: Subjective Interval history: Patient seen and examined independently of AZALEA Sethi, agree with assessment and plan as documented. Pulmonary now on board, monitoring for need for a bronch. Exam - Constitutional Vitals: Period Temp Pulse Resp BP Sys/Pina Pulse Ox Last 24 Hr 97.2 F-98.2 F 65-112 18-20 150-210/75-108 92-97 Results - Labs CBC & BMP: 08/08/17 04:07 08/08/17 04:07
[2017-08-08] MEDS: ZINC OXIDE PASTE 113 GM TUBE TOP SCH (22:00)
[2017-08-08] MEDS: ENOXAPARIN 40 MG/0.4 ML SYRINGE SUBCUT SCH (22:02)
[2017-08-08] MEDS: MELATONIN 3 MG TABLET PO SCH (22:03)
[2017-08-08] MEDS: traMADol 50 MG TABLET PO PRN (22:04)
[2017-08-08] MEDS: PREGABALIN 75 MG CAPSULE PO SCH (22:04)
[2017-08-08] MEDS: PRAVASTATIN 40 MG TABLET PO SCH (22:04)
[2017-08-09] MEDS: ALBUTEROL/IPRATROPIUM 3 ML NEB RESP TX SCH ×6 (01:19→19:38)
[2017-08-09 04:44] LABS: Basophils # 0.1 10*3/uL (0.0-0.2); Basophils % 0.7 % (0.0-0.8); Hematocrit 35.6 VOL% (42.0-52.0); Hemoglobin 12.1 GM/DL (14.0-18.0); Immature Granulocytes Absolute 0.43 #; Lymphocytes # 0.6 10*3/uL (1.4-4.0); Mean Corpuscular Hemoglobin 30 PG (27-34); Mean Corpuscular Volume 87.7 FL (87-102); Mean Platelet Volume 10.4 FL (9.6-12.0); Monocytes # 0.4 10*3/uL (0.11-0.8); Monocytes % 4.9 % (1.7-12.7); NRBC # 0.03 10*3/uL; Neutrophils # 5.7 10*3/uL (1.4-7.4); Neutrophils % 80.4 % (38.7-73.9); Platelet Count 138 T/CUMM (130-400); Red Blood Count 4.06 MC/CUMM (3.8-5.5); Red Cell Distribution Width 14.3 % (9.3-17.3); White Blood Count 7.1 T/CUMM (4-12)
[2017-08-09 05:13] LABS: Albumin 1.9 G/DL (3.4-5.0); Bilirubin,Total 0.5 MG/DL (0.2-1.0); Calcium 8.5 MG/DL (8.5-10.1); Phosphorous 2.5 MG/DL (2.5-4.9); Total Protein 4.9 G/DL (6.4-8.3)
[2017-08-09 05:14] LABS: Potassium 3.9 MMOL/L (3.5-5.1)
[2017-08-09] MEDS: PIPERACILLIN/TAZOBACTAM 3,375 MG in SODIUM CHLORIDE 0.9% 100 ML IV SCH ×3 (05:15→20:40)
[2017-08-09 07:05] LABS: Lymphocytes 11 % (20-55); Nucleated Red Blood Cells 2 (0-5); Segmented Neutrophils 84 % (50-85); Total Cells Counted 100
[2017-08-09 07:06] LABS: Hypochromasia 1+; Microcytosis 1+
[2017-08-09 07:07] LABS: Ovalocytes Slight; Platelet Estimate Adequate
--- NOTE | 2017-08-09 07:40 | Hospitalist Progress Note ---
<Sandi Sethida - Last Filed: 08/09/17 07:37> Assessment and Plan (1) Pneumonia Status: Acute Assessment and plan: Diffuse wheezing noted upon auscultation. Empiric antibiotic coverage remains in progress. We will continue intravenous corticosteroids and inhaled bronchodilator treatments as ordered. Will recheck chest x-ray in a.m. 08/08-chest x-ray worsened in comparison to previous chest x-ray. Diffuse wheezing continues. Empiric antibiotic coverage remains in progress. Pulmonary has been consulted to evaluate and assist. 08/09-pulmonary consultation on yesterday. We appreciate the input. We will continue empiric antibiotic coverage, inhaled bronchodilators, and intravenous corticosteroids as previously ordered. Diffuse wheezes continue. Current Visit: Yes Qualifiers: Pneumonia type: aspiration pneumonia (2) Acute exacerbation of chronic obstructive airways disease Status: Acute Assessment and plan: We will continue inhaled bronchodilators, intravenous corticosteroids, and empiric antibiotics as previously ordered. 08/08-pulmonary consultation has been requested. 08/09-pulmonary consultation on yesterday. We appreciate the input. We will continue supportive care as previous ordered. Current Visit: No (3) Diabetes Status: Acute Assessment and plan: Blood glucose levels remain moderately elevated. This is secondary to current intravenous corticosteroid use. We will continue Accu-Cheks with sliding scale coverage and scheduled Lantus dose as previously ordered. Current Visit: No Hospitalist: Subjective Interval history: Patient seen and examined; chart reviewed. No significant overnight events reported per staff. Pulmonology consultation on yesterday. We appreciate input and agree with proposed recommendations. Exam - Constitutional Vitals: Period Temp Pulse Resp BP Sys/Pina Pulse Ox Last 24 Hr 97.0 F-98.6 F 54-94 16-24 125-210/66-108 92-100 General appearance: morbidly obese - Head Head exam: Present: normal inspection, normocephalic, atraumatic - Eye Eye exam: Present: EOMI. Absent: conjunctival injection Pupils: Present: SCOTT, normal accommodation - ENT ENT exam: Present: normal exam, normal external ear exam, normal oropharynx - Neck Neck exam: Present: normal inspection. Absent: lymphadenopathy, thyromegaly - Respiratory Respiratory exam: Present: decreased breath sounds, prolonged expiratory phase, wheezes - Cardiovascular Cardiovascular exam: Present: regular rate and rhythm - GI/Abdominal GI/Abdominal exam: Present: normal bowel sounds, soft - Extremities Exam Extremities exam: Present: normal inspection, normal capillary refill - Back Exam Back exam: Present: normal inspection - Neurological Exam Neurological exam: Present: alert, oriented X3 - Psychiatric Psychiatric exam: Present: normal affect, normal mood - Skin Skin exam: Present: normal color, warm, dry Results - Labs CBC & BMP: 08/09/17 04:08 08/09/17 04:08 Lab Results: I have reviewed the past 24 hour labs Quality Measures - Stroke Symptom Onset Unknown: No <James Ascencio - Last Filed: 08/09/17 12:30> Assessment and Plan (1) Right lower lobe pneumonia Status: Acute Current Visit: No Qualifiers: Pneumonia type: aspiration pneumonia Aspiration pneumonia type: due to gastric secretions Qualified Code(s): J69.0 - Pneumonitis due to inhalation of food and vomit (2) Diabetes Status: Acute Current Visit: No (3) Acute exacerbation of chronic obstructive airways disease Status: Acute Current Visit: No (4) Leukocytosis Status: Resolved Current Visit: No (5) Sepsis Status: Resolved Current Visit: No Hospitalist: Subjective Interval history: Patient seen and examined independently of PHYSICAL DESIGN ENGINEER Navdeep, agree with assessment and plan as documented. Continue course. Pulmonary assisting. Exam - Constitutional Vitals: Period Temp Pulse Resp BP Sys/Pina Pulse Ox Last 24 Hr 97.0 F-98.6 F 46-94 18-24 125-140/66-74 92-100 Results - Labs CBC & BMP: 08/09/17 04:08 08/09/17 04:08
--- NOTE | 2017-08-09 07:41 | Pulmonology Progress Note ---
Pulmonary - PN: Subj Interval history: Patient is a 71-year-old that is basically bedridden with obesity and has COPD. He comes in coughing and wheezing and having atypical chest pain. He said he had a fairly good night and is coughing up some sputum. He is tolerating IPPB therapy. He seems to be a little better today Exam (Progress Note) - Constitutional Vitals: Period Temp Pulse Resp BP Sys/Pina Pulse Ox Last 24 Hr 97.0 F-98.6 F 54-94 16-24 125-210/66-108 92-100 Exam: General appearance: mild distress (He looks reasonably comfortable lying in bed now.), morbidly obese - Head Head exam: Present: normal inspection, normocephalic - Eye Eye exam: Present: EOMI. Absent: scleral icterus Pupils: Present: SCOTT - ENT ENT exam: Present: normal exam - Neck Neck exam: Absent: lymphadenopathy, thyromegaly - Respiratory Respiratory exam: Present: He has somewhat distant breath sounds but is moving air a little better. He still has mild rhonchi present. - Cardiovascular Cardiovascular exam: Present: regular rate and rhythm. Absent: gallop, systolic murmur - GI/Abdominal GI/Abdominal exam: Present: normal bowel sounds, soft, other (He does have an obese abdomen). Absent: distended, organomegaly, tenderness - Extremities Exam Extremities exam: Present: edema (He has trace edema). Absent: calf tenderness - Neurological Exam Neurological exam: Present: alert, oriented X3 - Psychiatric Psychiatric exam: Present: depressed - Skin Skin exam: Present: warm, dry Results - Labs CBC & BMP: 08/09/17 04:08 08/09/17 04:08 Assessment and Plan (1) Morbid obesity Status: Acute Assessment and plan: The patient is bedridden and basically very obese and in poor condition. Current Visit: No (2) Pickwickian syndrome Status: Chronic Assessment and plan: The patient does have obesity hypoventilation syndrome and chronic shortness of breath. Current Visit: Yes (3) Insulin dependent diabetes mellitus Status: Chronic Assessment and plan: The patient's glucoses are being monitored. His glucose is 199. Current Visit: Yes (4) COPD exacerbation Status: Chronic Assessment and plan: Patient has severe COPD and will continue with treatment for his COPD. He is coughing up some secretions. His breathing is a little better. Current Visit: Yes (5) Sepsis Status: Resolved Assessment and plan: The patient has been fluid resuscitated and his hemodynamics are stable. Current Visit: No (6) Chest pain Status: Chronic Assessment and plan: The patient has chronic pain issues. He still complains of some pain. Current Visit: Yes Qualifiers: Chest pain type: chest pain on breathing Qualified Code(s): R07.1 - Chest pain on breathing; R07.81 - Pleurodynia (7) Pneumonia Status: Acute Assessment and plan: Patient is being treated for pneumonia and he may have some mucus plugging. He may need a therapeutic bronchoscopy if he does not clear up soon. He seems to be tolerating IPPB fairly well. Current Visit: Yes Qualifiers: Pneumonia type: aspiration pneumonia
[2017-08-09] MEDS: THEOPHYLLINE ER 300 MG TABLET PO SCH ×2 (08:59→17:00)
[2017-08-09] MEDS: PANTOPRAZOLE 40 MG TABLET PO SCH (08:59)
[2017-08-09] MEDS: MULTIVITAMIN (CENTRUM) TABLET PO SCH (08:59)
[2017-08-09] MEDS: INSULIN GLARGINE 100 UNIT/ML SUBCUT SCH ×2 (08:59→20:41)
[2017-08-09] MEDS: TAMSULOSIN 0.4 MG CAPSULE PO SCH (08:59)
[2017-08-09] MEDS: FLUoxetine 10 MG CAPSULE PO SCH (09:00)
[2017-08-09] MEDS: ASPIRIN EC 325 MG TABLET PO SCH (09:00)
[2017-08-09] MEDS: VALPROIC ACID 250 MG/5 ML UDCUP PO SCH ×2 (09:00→20:42)
[2017-08-09] MEDS: ZINC OXIDE PASTE 113 GM TUBE TOP SCH ×2 (09:01→20:42)
[2017-08-09] MEDS: OLANZapine 2.5 MG TABLET PO SCH ×2 (09:01→20:41)
[2017-08-09] MEDS: methylPREDNISolone SOD SUC 125 MG/2 ML VIAL IV SCH ×2 (09:01→20:40)
[2017-08-09] MEDS: INSULIN LISPRO 100 UNIT/ML SUBCUT SCH ×4 (09:01→20:41)
[2017-08-09] MEDS: LEVOFLOXACIN INJ 750 MG in PREMIX 1 EACH IV SCH (09:06)
[2017-08-09] MEDS: ENOXAPARIN 40 MG/0.4 ML SYRINGE SUBCUT SCH (20:41)
[2017-08-09] MEDS: PREGABALIN 75 MG CAPSULE PO SCH (20:42)
[2017-08-09] MEDS: PRAVASTATIN 40 MG TABLET PO SCH (20:42)
[2017-08-09] MEDS: MELATONIN 3 MG TABLET PO SCH (20:42)
[2017-08-09] MEDS: traMADol 50 MG TABLET PO PRN (22:15)
[2017-08-10 04:49] LABS: Albumin 2.1 G/DL (3.4-5.0); Bilirubin,Total 0.7 MG/DL (0.2-1.0); Calcium 8.8 MG/DL (8.5-10.1); Magnesium 2.2 MG/DL (1.8-2.4); Phosphorous 2.7 MG/DL (2.5-4.9); Total Protein 4.8 G/DL (6.4-8.3)
[2017-08-10 04:50] LABS: Potassium 3.9 MMOL/L (3.5-5.1)
[2017-08-10] MEDS: PIPERACILLIN/TAZOBACTAM 3,375 MG in SODIUM CHLORIDE 0.9% 100 ML IV SCH ×3 (05:05→20:49)
[2017-08-10] MEDS: ALBUTEROL/IPRATROPIUM 3 ML NEB RESP TX SCH ×4 (08:15→19:53)
--- NOTE | 2017-08-10 08:40 | XRay Report ---
Portable chest Indication: Difficulty breathing, history of COPD Comparison: August 08, 2017 Findings: Cardiomediastinal contours are stable. Chronic changes. Improved aeration of the lung bases. No acute osseous abnormalities. Visualized upper abdomen demonstrates no acute pathology. Impression: Improving aeration of the lung bases PROCEDURE INTERPRETED AT [facility] DEPARTMENT OF RADIOLOGY Final Report Signed by: Dell Walton MD
--- NOTE | 2017-08-10 09:07 | Pulmonology Progress Note ---
Pulmonary - PN: Subj Interval history: Patient is a 71-year-old that is basically bedridden with obesity and has COPD. He comes in coughing and wheezing and having atypical chest pain. He has been feeling better and today he is sitting up eating breakfast. He feels like his cough and congestion are better. He does chronically take pain pills for various aches and pains. At present he looks close to baseline. His chest x- ray looks much better. Exam (Progress Note) - Constitutional Vitals: Period Temp Pulse Resp BP Sys/Pina Pulse Ox Last 24 Hr 97.0 F-98.2 F 46-100 18-20 128-155/68-89 91-100 Exam: General appearance: no distress (He looks comfortable sitting up eating breakfast.), morbidly obese - Head Head exam: Present: normal inspection, normocephalic - Eye Eye exam: Present: EOMI. Absent: scleral icterus Pupils: Present: SCOTT - ENT ENT exam: Present: normal exam - Neck Neck exam: Absent: lymphadenopathy, thyromegaly - Respiratory Respiratory exam: Present: He has somewhat distant breath sounds but is moving air a little better. His lungs do sound clearer with less wheezing. - Cardiovascular Cardiovascular exam: Present: regular rate and rhythm. Absent: gallop, systolic murmur - GI/Abdominal GI/Abdominal exam: Present: normal bowel sounds, soft, other (He does have an obese abdomen). Absent: distended, organomegaly, tenderness - Extremities Exam Extremities exam: Present: edema (He has trace edema). Absent: calf tenderness - Neurological Exam Neurological exam: Present: alert, oriented X3, he has no focal deficits. - Psychiatric Psychiatric exam: Present: depressed - Skin Skin exam: Present: warm, dry Results - Labs CBC & BMP: 08/09/17 04:08 08/10/17 03:16 - Diagnostic Findings Procedure: Chest x-ray: image reviewed by me, report reviewed by me (Chest x- ray shows improvement in the right lower lobe infiltrate.) Assessment and Plan (1) Morbid obesity Status: Acute Assessment and plan: The patient is bedridden and basically very obese and in poor condition. Current Visit: No (2) Pickwickian syndrome Status: Chronic Assessment and plan: The patient does have obesity hypoventilation syndrome and chronic shortness of breath. He uses low-flow oxygen at home. Current Visit: Yes (3) Insulin dependent diabetes mellitus Status: Chronic Assessment and plan: The patient's glucoses are being monitored. His glucose is 156. Current Visit: Yes (4) COPD exacerbation Status: Chronic Assessment and plan: Patient has severe COPD and will continue with treatment for his COPD. He is coughing up some secretions. His breathing is much better at present. Current Visit: Yes (5) Chest pain Status: Chronic Assessment and plan: The patient has chronic pain issues. He still complains of some pain. He does take a lot of pain pills. Current Visit: Yes Qualifiers: Chest pain type: chest pain on breathing Qualified Code(s): R07.1 - Chest pain on breathing; R07.81 - Pleurodynia (6) Pneumonia Status: Acute Assessment and plan: Patient is being treated for pneumonia and he may have some mucus plugging. His breathing is better and his chest x-ray looks better. He can probably go back to the senior care soon. Current Visit: Yes Qualifiers: Pneumonia type: aspiration pneumonia Laterality: right Lung location: lower lobe of lung
[2017-08-10] MEDS: LEVOFLOXACIN INJ 750 MG in PREMIX 1 EACH IV SCH (09:49)
[2017-08-10] MEDS: THEOPHYLLINE ER 300 MG TABLET PO SCH ×2 (09:50→16:49)
[2017-08-10] MEDS: MULTIVITAMIN (CENTRUM) TABLET PO SCH (09:50)
[2017-08-10] MEDS: OLANZapine 2.5 MG TABLET PO SCH ×2 (09:50→20:35)
[2017-08-10] MEDS: VALPROIC ACID 250 MG/5 ML UDCUP PO SCH ×2 (09:50→20:35)
[2017-08-10] MEDS: PANTOPRAZOLE 40 MG TABLET PO SCH (09:50)
[2017-08-10] MEDS: FLUoxetine 10 MG CAPSULE PO SCH (09:50)
[2017-08-10] MEDS: ASPIRIN EC 325 MG TABLET PO SCH (09:51)
[2017-08-10] MEDS: methylPREDNISolone SOD SUC 125 MG/2 ML VIAL IV SCH ×2 (09:51→20:36)
[2017-08-10] MEDS: TAMSULOSIN 0.4 MG CAPSULE PO SCH (09:51)
[2017-08-10] MEDS: INSULIN GLARGINE 100 UNIT/ML SUBCUT SCH ×2 (09:52→20:36)
[2017-08-10] MEDS: INSULIN LISPRO 100 UNIT/ML SUBCUT SCH ×4 (09:52→20:36)
[2017-08-10] MEDS: ZINC OXIDE PASTE 113 GM TUBE TOP SCH ×2 (09:52→20:50)
--- NOTE | 2017-08-10 09:54 | Hospitalist Progress Note ---
<Indira Sethi - Last Filed: 08/10/17 09:52> Assessment and Plan (1) Pneumonia Status: Acute Assessment and plan: Diffuse wheezing noted upon auscultation. Empiric antibiotic coverage remains in progress. We will continue intravenous corticosteroids and inhaled bronchodilator treatments as ordered. Will recheck chest x-ray in a.m. 08/08-chest x-ray worsened in comparison to previous chest x-ray. Diffuse wheezing continues. Empiric antibiotic coverage remains in progress. Pulmonary has been consulted to evaluate and assist. 08/09-pulmonary consultation on yesterday. We appreciate the input. We will continue empiric antibiotic coverage, inhaled bronchodilators, and intravenous corticosteroids as previously ordered. Diffuse wheezes continue. 08/10-diffuse wheezes continue. We will continue empiric antibiotic coverage, inhaled bronchodilators, and intravenous corticosteroids as previously ordered. We will recheck chest x-ray in a.m. Current Visit: Yes Qualifiers: Pneumonia type: aspiration pneumonia Laterality: right Lung location: lower lobe of lung (2) Acute exacerbation of chronic obstructive airways disease Status: Acute Assessment and plan: We will continue inhaled bronchodilators, intravenous corticosteroids, and empiric antibiotics as previously ordered. 08/08-pulmonary consultation has been requested. 08/09-pulmonary consultation on yesterday. We appreciate the input. We will continue supportive care as previous ordered. 08/10-continue empiric antibiotic coverage, inhaled bronchodilators, and intravenous corticosteroids as previously ordered. We will recheck chest x-ray in a.m. Current Visit: No (3) Diabetes Status: Acute Assessment and plan: Blood glucose levels remain moderately elevated. This is secondary to current intravenous corticosteroid use. We will continue Accu-Cheks with sliding scale coverage and scheduled Lantus dose as previously ordered. Current Visit: No Hospitalist: Subjective Interval history: Patient seen and examined; chart reviewed. No significant overnight events reported per staff. Diffuse wheezing remain; we will continue supportive care as previously ordered Exam - Constitutional Vitals: Period Temp Pulse Resp BP Sys/Pina Pulse Ox Last 24 Hr 96.9 F-98.2 F 46-100 18-20 128-155/68-89 91-100 General appearance: over weight - Head Head exam: Present: normal inspection, normocephalic, atraumatic - Eye Eye exam: Present: EOMI. Absent: conjunctival injection Pupils: Present: SCOTT, normal accommodation - ENT ENT exam: Present: normal exam, normal external ear exam, normal oropharynx - Neck Neck exam: Present: normal inspection. Absent: lymphadenopathy, meningismus, tenderness, thyromegaly - Respiratory Respiratory exam: Present: wheezes (Scattered wheezes noted) - Cardiovascular Cardiovascular exam: Present: regular rate and rhythm - GI/Abdominal GI/Abdominal exam: Present: normal bowel sounds, soft - Extremities Exam Extremities exam: Present: normal inspection, normal capillary refill, edema (+ 2 edema noted to bilateral lower) - Neurological Exam Neurological exam: Present: alert, oriented X3, CN II-XII intact - Psychiatric Psychiatric exam: Present: normal affect, normal mood - Skin Skin exam: Present: normal color, warm, dry Results - Labs CBC & BMP: 08/09/17 04:08 08/10/17 03:16 Quality Measures - Stroke Symptom Onset Unknown: No <James Ascencio - Last Filed: 08/10/17 11:12> Assessment and Plan (1) Right lower lobe pneumonia Status: Acute Current Visit: No Qualifiers: Pneumonia type: aspiration pneumonia Aspiration pneumonia type: due to gastric secretions Qualified Code(s): J69.0 - Pneumonitis due to inhalation of food and vomit (2) Diabetes Status: Acute Current Visit: No (3) Acute exacerbation of chronic obstructive airways disease Status: Acute Current Visit: No (4) Leukocytosis Status: Resolved Current Visit: No (5) Sepsis Status: Resolved Current Visit: No Hospitalist: Subjective Interval history: Patient seen and examined independently of LANDSCAPE CONTRACTOR Navdeep, agree with assessment and plan as documented. Pulmonary assisting. Exam - Constitutional Vitals: Period Temp Pulse Resp BP Sys/Pina Pulse Ox Last 24 Hr 96.9 F-98.2 F 46-100 18-20 128-155/68-89 91-100 Results - Labs CBC & BMP: 08/09/17 04:08 08/10/17 03:16
[2017-08-10] MEDS: traMADol 50 MG TABLET PO PRN ×2 (13:35→20:35)
[2017-08-10] MEDS: PREGABALIN 75 MG CAPSULE PO SCH (20:35)
[2017-08-10] MEDS: MELATONIN 3 MG TABLET PO SCH (20:35)
[2017-08-10] MEDS: PRAVASTATIN 40 MG TABLET PO SCH (20:35)
[2017-08-10] MEDS: ENOXAPARIN 40 MG/0.4 ML SYRINGE SUBCUT SCH (20:35)
[2017-08-11] MEDS: PIPERACILLIN/TAZOBACTAM 3,375 MG in SODIUM CHLORIDE 0.9% 100 ML IV SCH (04:31)
[2017-08-11 06:15] LABS: Basophils # 0.1 10*3/uL (0.0-0.2); Basophils % 1.1 % (0.0-0.8); Hematocrit 36.3 VOL% (42.0-52.0); Hemoglobin 12.1 GM/DL (14.0-18.0); Immature Granulocytes % 10.6 %; Immature Granulocytes Absolute 0.89 #; Lymphocytes # 0.7 10*3/uL (1.4-4.0); Lymphocytes % 8.4 % (21.2-54.2); Mean Corpuscular HGB Conc 33.3 GM/DL (32-36); Mean Corpuscular Hemoglobin 30 PG (27-34); Mean Corpuscular Volume 88.5 FL (87-102); Mean Platelet Volume 10.6 FL (9.6-12.0); Monocytes # 0.3 10*3/uL (0.11-0.8); Monocytes % 4.1 % (1.7-12.7); NRBC # 0.02 10*3/uL; Neutrophils # 6.3 10*3/uL (1.4-7.4); Neutrophils % 75.8 % (38.7-73.9); Platelet Count 159 T/CUMM (130-400); Red Cell Distribution Width 14.6 % (9.3-17.3); White Blood Count 8.4 T/CUMM (4-12)
[2017-08-11 06:44] LABS: Calcium 8.4 MG/DL (8.5-10.1); Magnesium 2.1 MG/DL (1.8-2.4); Osmolality,Calculated 289.4 MOS/KG (273-304); Potassium 4.1 MMOL/L (3.5-5.1)
[2017-08-11 06:52] LABS: Band Neutrophils 6 % (0-10); Giant Platelets Few; Hypochromasia 1+; Lymphocytes 9 % (20-55); Microcytosis Slight; Myelocytes 1 %; Ovalocytes Slight; Platelet Estimate Normal; Segmented Neutrophils 79 % (50-85); Total Cells Counted 100
[2017-08-11] MEDS: ALBUTEROL/IPRATROPIUM 3 ML NEB RESP TX SCH ×4 (07:28→19:50)
--- NOTE | 2017-08-11 08:42 | Pulmonology Progress Note ---
Pulmonary - PN: Subj Interval history: Patient is a 71-year-old that is basically bedridden with obesity and has COPD. He comes in coughing and wheezing and having atypical chest pain. He has been feeling better and today he is sitting up eating breakfast. He said he had a fairly good night and feels better. His breathing is doing a little better now. He says he is coughing up more secretions. He is in no distress now. Exam (Progress Note) - Constitutional Vitals: Period Temp Pulse Resp BP Sys/Pina Pulse Ox Last 24 Hr 97.2 F-98.1 F 58-98 18-21 114-166/66-98 93-99 Exam: General appearance: no distress (He looks comfortable sitting up eating breakfast. He is alert and comfortable.), morbidly obese - Head Head exam: Present: normal inspection, normocephalic - Eye Eye exam: Present: EOMI. Absent: scleral icterus Pupils: Present: SCOTT - ENT ENT exam: Present: normal exam - Neck Neck exam: Absent: lymphadenopathy, thyromegaly - Respiratory Respiratory exam: Present: He has somewhat distant breath sounds but is moving air a little better. He has some minimal rhonchi but is moving air well. - Cardiovascular Cardiovascular exam: Present: regular rate and rhythm. Absent: gallop, systolic murmur - GI/Abdominal GI/Abdominal exam: Present: normal bowel sounds, soft, other (He does have an obese abdomen). Absent: distended, organomegaly, tenderness - Extremities Exam Extremities exam: Present: edema (He has trace edema). Absent: calf tenderness - Neurological Exam Neurological exam: Present: alert, oriented X3, he has no focal deficits. - Psychiatric Psychiatric exam: Present: depressed - Skin Skin exam: Present: warm, dry Results - Labs CBC & BMP: 08/11/17 04:42 08/11/17 04:42 Assessment and Plan (1) Morbid obesity Status: Acute Assessment and plan: The patient is bedridden and basically very obese and in poor condition. Current Visit: No (2) Pickwickian syndrome Status: Chronic Assessment and plan: The patient does have obesity hypoventilation syndrome and chronic shortness of breath. He uses low-flow oxygen at home. Current Visit: Yes (3) Insulin dependent diabetes mellitus Status: Chronic Assessment and plan: The patient's glucoses are being monitored. His glucose is 277. Current Visit: Yes (4) COPD exacerbation Status: Chronic Assessment and plan: Patient has severe COPD and will continue with treatment for his COPD. He is coughing up some secretions. His breathing is much better at present. Will cut back on his steroids. He can probably go back to the care home at any time. Current Visit: Yes (5) Chest pain Status: Chronic Assessment and plan: The patient has chronic pain issues. He still complains of some pain. He does take a lot of pain pills. Current Visit: Yes Qualifiers: Chest pain type: chest pain on breathing Qualified Code(s): R07.1 - Chest pain on breathing; R07.81 - Pleurodynia (6) Pneumonia Status: Acute Assessment and plan: Patient is being treated for pneumonia and he may have some mucus plugging. His breathing is better and his chest x-ray looks better. He can probably go back to the care home soon. Current Visit: Yes Qualifiers: Pneumonia type: aspiration pneumonia Laterality: right Lung location: lower lobe of lung
[2017-08-11] MEDS: LEVOFLOXACIN INJ 750 MG in PREMIX 1 EACH IV SCH (09:15)
[2017-08-11] MEDS: INSULIN LISPRO 100 UNIT/ML SUBCUT SCH ×4 (09:16→21:56)
[2017-08-11] MEDS: FLUoxetine 10 MG CAPSULE PO SCH (09:16)
[2017-08-11] MEDS: VALPROIC ACID 250 MG/5 ML UDCUP PO SCH ×2 (09:16→20:50)
[2017-08-11] MEDS: ASPIRIN EC 325 MG TABLET PO SCH (09:16)
[2017-08-11] MEDS: OLANZapine 2.5 MG TABLET PO SCH ×2 (09:17→20:50)
[2017-08-11] MEDS: MULTIVITAMIN (CENTRUM) TABLET PO SCH (09:17)
[2017-08-11] MEDS: THEOPHYLLINE ER 300 MG TABLET PO SCH ×2 (09:17→17:43)
[2017-08-11] MEDS: TAMSULOSIN 0.4 MG CAPSULE PO SCH (09:17)
[2017-08-11] MEDS: PANTOPRAZOLE 40 MG TABLET PO SCH (09:17)
[2017-08-11] MEDS: predniSONE 20 MG TABLET PO SCH (09:17)
--- NOTE | 2017-08-11 10:20 | Hospitalist Progress Note ---
<Shena Lockhart - Last Filed: 08/11/17 15:53> Assessment and Plan (1) Pneumonia Status: Acute Assessment and plan: Continue IV antibiotics. Breathing treatments. Current Visit: Yes Qualifiers: Pneumonia type: aspiration pneumonia Laterality: right Lung location: lower lobe of lung (2) COPD exacerbation Status: Chronic Assessment and plan: IV steroids. IV antibiotics. Continue current plan of care. Current Visit: Yes (3) Diabetes Status: Acute Assessment and plan: accuchecks achs. SSI. Current Visit: No Hospitalist: Subjective Interval history: Pt. seen and examined this morning. Pt. states that he feels a little better today. Still reports a cough. No apparent distress noted. Will continue to monitor. Exam - Constitutional Vitals: Period Temp Pulse Resp BP Sys/Pina Pulse Ox Last 24 Hr 97.2 F-98.1 F 58-98 18-21 114-166/66-98 93-99 General appearance: no acute distress, over weight - Head Head exam: Present: normal inspection, normocephalic - Eye Eye exam: Present: EOMI Pupils: Present: SCOTT - Respiratory Respiratory exam: Present: other (coarse). Absent: clear to auscultation bilaterally - Cardiovascular Cardiovascular exam: Present: regular rate and rhythm - GI/Abdominal GI/Abdominal exam: Present: normal bowel sounds, soft. Absent: tenderness - Neurological Exam Neurological exam: Present: alert, oriented X3 - Psychiatric Psychiatric exam: Present: normal affect, normal mood - Skin Skin exam: Present: normal color, warm Results - Labs CBC & BMP: 08/11/17 04:42 08/11/17 04:42 Lab Results: I have reviewed the past 24 hour labs Quality Measures - Stroke Symptom Onset Unknown: No <SonuJames - Last Filed: 08/11/17 17:15> Assessment and Plan (1) Right lower lobe pneumonia Status: Acute Current Visit: No Qualifiers: Pneumonia type: aspiration pneumonia Aspiration pneumonia type: due to gastric secretions Qualified Code(s): J69.0 - Pneumonitis due to inhalation of food and vomit (2) Diabetes Status: Acute Current Visit: No (3) Acute exacerbation of chronic obstructive airways disease Status: Acute Current Visit: No (4) Leukocytosis Status: Resolved Current Visit: No (5) Sepsis Status: Resolved Current Visit: No Hospitalist: Subjective Interval history: Patient seen and examined independently of SOFTWARE RELIABILITY ENGINEER Lockhart, agree with assessment and plan as documented. Possible discharge soon. Exam - Constitutional Vitals: Period Temp Pulse Resp BP Sys/Pina Pulse Ox Last 24 Hr 97.0 F-97.6 F 59-98 18-22 114-192/66-98 93-99 Results - Labs CBC & BMP: 08/11/17 04:42 08/11/17 04:42
[2017-08-11] MEDS: INSULIN GLARGINE 100 UNIT/ML SUBCUT SCH ×2 (12:49→20:51)
[2017-08-11] MEDS: ZINC OXIDE PASTE 113 GM TUBE TOP SCH ×2 (12:49→20:51)
[2017-08-11] MEDS: traMADol 50 MG TABLET PO PRN ×2 (14:13→20:50)
[2017-08-11] MEDS: PRAVASTATIN 40 MG TABLET PO SCH (20:50)
[2017-08-11] MEDS: MELATONIN 3 MG TABLET PO SCH (20:50)
[2017-08-11] MEDS: PREGABALIN 75 MG CAPSULE PO SCH (20:50)
[2017-08-11] MEDS: ENOXAPARIN 40 MG/0.4 ML SYRINGE SUBCUT SCH (20:51)
[2017-08-12] MEDS: ALBUTEROL/IPRATROPIUM 3 ML NEB RESP TX SCH ×3 (06:55→14:58)
[2017-08-12 06:59] LABS: Basophils % 0.2 % (0.0-0.8); Eosinophils % 0.1 % (0.00-10.9); Hematocrit 37.7 VOL% (42.0-52.0); Hemoglobin 12.8 GM/DL (14.0-18.0); Immature Granulocytes % 14.7 %; Immature Granulocytes Absolute 1.19 #; Lymphocytes # 1.9 10*3/uL (1.4-4.0); Lymphocytes % 22.8 % (21.2-54.2); Mean Corpuscular Hemoglobin 30 PG (27-34); Mean Corpuscular Volume 88.3 FL (87-102); Mean Platelet Volume 10.3 FL (9.6-12.0); Monocytes # 0.6 10*3/uL (0.11-0.8); Monocytes % 7.8 % (1.7-12.7); NRBC # 0.02 10*3/uL; Neutrophils # 4.4 10*3/uL (1.4-7.4); Neutrophils % 54.4 % (38.7-73.9); Platelet Count 147 T/CUMM (130-400); Red Blood Count 4.27 MC/CUMM (3.8-5.5); Red Cell Distribution Width 14.8 % (9.3-17.3); White Blood Count 8.1 T/CUMM (4-12)
[2017-08-12 07:30] LABS: Calcium 8.2 MG/DL (8.5-10.1); Magnesium 2.1 MG/DL (1.8-2.4); Osmolality,Calculated 287.1 MOS/KG (273-304); Potassium 3.8 MMOL/L (3.5-5.1)
[2017-08-12 07:32] LABS: Band Neutrophils 10 % (0-10); Eosinophils 1 % (0-10); Lymphocytes 29 % (20-55); Metamyelocytes 1 %; Segmented Neutrophils 54 % (50-85); Total Cells Counted 100
[2017-08-12] MEDS: LEVOFLOXACIN INJ 750 MG in PREMIX 1 EACH IV SCH (09:11)
[2017-08-12] MEDS: VALPROIC ACID 250 MG/5 ML UDCUP PO SCH (09:13)
[2017-08-12] MEDS: MULTIVITAMIN (CENTRUM) TABLET PO SCH (09:14)
[2017-08-12] MEDS: predniSONE 20 MG TABLET PO SCH (09:14)
[2017-08-12] MEDS: THEOPHYLLINE ER 300 MG TABLET PO SCH (09:14)
[2017-08-12] MEDS: ASPIRIN EC 325 MG TABLET PO SCH (09:14)
[2017-08-12] MEDS: FLUoxetine 10 MG CAPSULE PO SCH (09:14)
[2017-08-12] MEDS: TAMSULOSIN 0.4 MG CAPSULE PO SCH (09:14)
[2017-08-12] MEDS: INSULIN GLARGINE 100 UNIT/ML SUBCUT SCH (09:14)
[2017-08-12] MEDS: INSULIN LISPRO 100 UNIT/ML SUBCUT SCH ×2 (09:15→12:14)
[2017-08-12] MEDS: ZINC OXIDE PASTE 113 GM TUBE TOP SCH (09:17)
[2017-08-12] MEDS: OLANZapine 2.5 MG TABLET PO SCH (09:17)
[2017-08-12] MEDS: PANTOPRAZOLE 40 MG TABLET PO SCH (10:40)
--- NOTE | 2017-08-12 10:54 | Hospitalist Progress Note ---
Assessment and Plan (1) Pneumonia Status: Acute Assessment and plan: Continue IV antibiotics. Breathing treatments. Current Visit: Yes Qualifiers: Pneumonia type: aspiration pneumonia Laterality: right Lung location: lower lobe of lung (2) COPD exacerbation Status: Chronic Assessment and plan: IV steroids. IV antibiotics. Continue current plan of care. Current Visit: Yes (3) Diabetes Status: Acute Assessment and plan: accuchecks achs. SSI. Current Visit: No Exam - Constitutional Vitals: Period Temp Pulse Resp BP Sys/Pina Pulse Ox Last 24 Hr 96.3 F-97.5 F 66-87 18-24 92-192/59-95 92-99 Results - Labs CBC & BMP: 08/12/17 06:14 08/12/17 06:14 Quality Measures - Stroke Symptom Onset Unknown: No
[2017-08-12 12:23] VITALS: BP 99/58
--- NOTE | 2017-08-12 12:42 | Discharge Summary ---
Hospital Course - Hospital Course Hospital Course: 71 year old white male w/PMHx COPD, CHF, CAD, HTN, Anxiety, Depression, CVA, Parkinsons, DM, dyslipidemia, STUART, Prostate, GERD presented to the ED from [facility] for further evaluation of shortness of breath, productive cough, fever. He reports fever and chills for 3-4 days. He reports cough and shortness of breath for about a week. He denies chest pain. IN ER: Awake, Alert, Temp 100.1, 90% on 4 liters NC; HR 102, BP 108/66; LABS: WBC 12.3, BUN 25, Glucose 47. CXR: patchy right basilar infiltrate which could represent pneumonia. EKG Sinus tachy. Levaquin initiated in ER. Blood cultures obtained in the ER. Patient was admitted to the hospitalist service. Dr. Mitchell from pulmonary service was following. pt has a long history of COPD and obesity with obesity hypoventilation syndrome. He has known coronary artery disease with hypertension, diabetes, hyperlipidemia and chronic arthritis. He is quite debilitated and is been in a intermediate. He is a lifelong smoker. He has been in frequently last several months with respiratory distress and pneumonias. He came back in with possible pneumonia and sepsis and acute on chronic hypoxemic respiratory failure respiratory failure. He was treated with steroids antibiotics bronchodilators, and had significant improvement. Serial chest x-rays were done which showed resolved pneumonia. He is otherwise feeling better and breathing comfortably. He has reached maximal hospital benefit and being discharged back to intermediate. Total discharge time 20 minutes. - Time spent with patient Time with patient DS: Less than 30 minutes Diagnosis - Discharge Diagnosis (1) Right lower lobe pneumonia Status: Resolved Discharge Plan - Discharge Data Disposition: Disch/Xfer to Snf Condition at Discharge: Stable Discharge Diet: advance to your usual diet Activity: resume usual activities as tolerated - Discharge Medications New Levofloxacin Tab [Levaquin Tab] 500 mg PO DAILY 5 Days Zinc Oxide Paste [Desitin Paste] 1 applic TOP BID applic Continue Pantoprazole Tab [Protonix Tab] 40 mg PO DAILY Pravastatin [Pravachol] 40 mg PO BEDTIME #30 tablet Pregabalin [Lyrica] 150 mg PO BEDTIME #30 capsule Tamsulosin [Flomax] 0.4 mg PO DAILY #30 capsule Melatonin 5 mg PO BEDTIME Lactulose Liquid [Chronulac] 20 gm PO Q6HR PRN PRN Reason: high ammonia Aspirin EC Tab 325 mg PO DAILY tablet predniSONE TAB [PredniSONE] 20 mg PO DAILY #5 tablet FLUoxetine [PROzac] 10 mg PO DAILY OLANZapine TAB [ZyPREXA Tab] 2.5 mg PO BID HYDROcodone/ACETAMIN 7.5-325 [Killen 7.5-325] 1 tablet PO Q4H PRN tablet PRN Reason: Pain Moderate (4-7) Insulin Glargine [Lantus] 30 unit SUBCUT BID unit Magnesium Hydroxide Susp [Milk of Magnesia] 30 ml PO Q8H PRN PRN Reason: Constipation Multivitamin (Centrum) [Centrum Tab] 1 tablet PO DAILY tablet Diltiazem Tab [Cardizem Tab] 30 mg PO Q8HR tablet Valproic Acid Liquid [Depakene] 600 mg PO BID Insulin Regular [HumuLIN R] See Protocol SUBCUT ACHS unit Alum/Mag/Simeth Max Str Liquid [Mylanta Max Strength Liquid] 30 ml PO Q8H PRN PRN Reason: Indigestion Glucagon 1 mg IM DAILY PRN PRN Reason: BLOOD SUGAR < 70 Theophylline ER Tab 300 mg PO BID W/MEALS Clotrimazole 1% Cream [Lotrimin 1% Cream] 1 applic TOP BID PRN PRN Reason: RASH/REDNESS HydrOXYzine PAMOATE CAP [Vistaril Cap] 25 mg PO Q6H PRN capsule PRN Reason: Itching Albuterol/Ipratropium Neb [Duoneb] 3 ml RESP TX RT Q4H Acetylcysteine Soln (APAP Od) [Mucomyst 20% (APAP Od)] 3 ml RESP TX Q12H Carvedilol [Coreg] 6.25 mg PO BID - Follow Up or Referral - Forms/Instructions Exam - Constitutional Vitals: Period Temp Pulse Resp BP Sys/Pina Pulse Ox Last 24 Hr 96.3 F-97.5 F 66-87 18-24 92-179/58-95 91-99 Exam: General: No Acute Distress HEENT: Normocephalic, atraumatic, Extra ocular movements intact Neck: Supple, No JVD Chest: Mildly decreased breath sounds bilaterally, no wheezing or rhonchi CV: S1 + S2 audible without murmur, gallop or rub Abd: soft, NT, Non-distended, BS + Ext: No edema Skin: No purpura, bruising or rash Rheumatologic: No Joint deformities Neurologic: Awake and alert Discharge Results Labs on day of discharge: Labs from last 24 hours 08/12/17 08/12/17 08/12/17 07:42 06:14 06:14 WBC 8.1 RBC 4.27 Hgb 12.8 L Hct 37.7 L MCV 88.3 MCH 30 MCHC 34.0 RDW 14.8 Plt Count 147 MPV 10.3 Neut % (Auto) 54.4 Lymph % (Auto) 22.8 Vil[place] % (Auto) 7.8 Eos % (Auto) 0.1 Baso % (Auto) 0.2 Neut # (Auto) 4.4 Lymph # (Auto) 1.9 [place] # (Auto) 0.6 Eos # (Auto) 0.0 Baso # (Auto) 0.0 Total Counted 100 Immature Gran % 14.7 Nucleated RBC % 0.2 Immature Gran # 1.19 Segmented Neutrophils 54 Band Neutrophils 10 Lymphocytes 29 Monocytes 5 Eosinophils 1 Metamyelocytes 1 Nucleated RBCs # 0.02 Immature Plt Fraction 0.0 Sodium 142 Potassium 3.8 Chloride 100 Carbon Dioxide 36 H Anion Gap 9.8 BUN 21 H Creatinine 0.40 L GFR Calculation 167 BUN/Creatinine Ratio 52.00 H Glucose 128 H POC Glucose 119 H Calculated Osmolality 287.1 Calcium 8.2 L Magnesium 2.1 08/11/17 08/11/17 08/11/17 18:52 15:33 11:19 WBC RBC Hgb Hct MCV MCH MCHC RDW Plt Count MPV Neut % (Auto) Lymph % (Auto) [place] % (Auto) Eos % (Auto) Baso % (Auto) Neut # (Auto) Lymph # (Auto) [place] # (Auto) Eos # (Auto) Baso # (Auto) Total Counted Immature Gran % Nucleated RBC % Immature Gran # Segmented Neutrophils Band Neutrophils Lymphocytes Monocytes Eosinophils Metamyelocytes Nucleated RBCs # Immature Plt Fraction Sodium Potassium Chloride Carbon Dioxide Anion Gap BUN Creatinine GFR Calculation BUN/Creatinine Ratio Glucose POC Glucose 278 H 214 H 259 H Calculated Osmolality Calcium Magnesium DS: Provider Date of admission: 08/04/17 16:46 Primary care physician: . No PCP Attending physician on admission: Jordin Briones MD Consults: 08/08/17 07:22 Consult to Physician [CONS] Routine Comment: recurrent pna Consulting Provider: George Mitchell Consult Notification Comment: pt has been seen per reports 08/11/17 22:27 Consult to Case Mgmt/Social Srvs [CONS] Routine Reason for Case Mgmt/Social Srvs: Discharge Planning Consult Comment: from [facility] Discharging clinician: Harvey Love MD
--- NOTE | 2017-08-12 13:11 | Pulmonology Progress Note ---
Pulmonary - PN: Subj Interval history: Patient is a 71-year-old that is basically bedridden with obesity and has COPD. He comes in coughing and wheezing and having atypical chest pain. He has been feeling better and today he is sitting up eating breakfast. He said he had a fairly good night and feels better. He says he still has some chest pain but I think this is chronic. He feels like his breathing is doing okay. Overall he has been stable and going back to the assisted today. Exam (Progress Note) - Constitutional Vitals: Period Temp Pulse Resp BP Sys/Pina Pulse Ox Last 24 Hr 96.3 F-97.5 F 66-87 18-24 92-179/58-95 91-99 Exam: General appearance: no distress (He looks comfortable lying in bed and in no distress.), morbidly obese - Head Head exam: Present: normal inspection, normocephalic - Eye Eye exam: Present: EOMI. Absent: scleral icterus Pupils: Present: SCOTT - ENT ENT exam: Present: normal exam - Neck Neck exam: Absent: lymphadenopathy, thyromegaly - Respiratory Respiratory exam: Present: He has somewhat distant breath sounds but is moving air a little better. He has some minimal rhonchi but is moving air well. He still looks like he is breathing okay. - Cardiovascular Cardiovascular exam: Present: regular rate and rhythm. Absent: gallop, systolic murmur - GI/Abdominal GI/Abdominal exam: Present: normal bowel sounds, soft, other (He does have an obese abdomen). Absent: distended, organomegaly, tenderness - Extremities Exam Extremities exam: Present: edema (He has trace edema). Absent: calf tenderness - Neurological Exam Neurological exam: Present: alert, oriented X3, he has no focal deficits. - Psychiatric Psychiatric exam: Present: depressed - Skin Skin exam: Present: warm, dry Results - Labs CBC & BMP: 08/12/17 06:14 08/12/17 06:14 Assessment and Plan (1) Morbid obesity Status: Acute Assessment and plan: The patient is bedridden and basically very obese and in poor condition. Current Visit: No (2) Pickwickian syndrome Status: Chronic Assessment and plan: The patient does have obesity hypoventilation syndrome and chronic shortness of breath. He uses low-flow oxygen at home. Current Visit: Yes (3) Insulin dependent diabetes mellitus Status: Chronic Assessment and plan: The patient's glucoses are being monitored. His glucose is 119. Current Visit: Yes (4) COPD exacerbation Status: Chronic Assessment and plan: Patient has severe COPD and will continue with treatment for his COPD. He is coughing up some secretions. His breathing is much better at present. Will cut back on his steroids. He appears to be stable and is going back to the assisted. Current Visit: Yes (5) Chest pain Status: Chronic Assessment and plan: The patient has chronic pain issues. He still complains of some pain. He does take a lot of pain pills. He really does not look any different now. Current Visit: Yes Qualifiers: Chest pain type: chest pain on breathing Qualified Code(s): R07.1 - Chest pain on breathing; R07.81 - Pleurodynia (6) Pneumonia Status: Acute Assessment and plan: Patient is being treated for pneumonia and he may have some mucus plugging. Clinically he is fairly stable and is going back to the assisted. Current Visit: Yes Qualifiers: Pneumonia type: aspiration pneumonia Laterality: right Lung location: lower lobe of lung
[2017-08-12] MEDS: traMADol 50 MG TABLET PO PRN (14:03)
== END 2017-08-12 15:00 | DRG 871 ==
LOC: EDUNIT# → EDBD → N.ED 15:13 → N.EDINP 16:46 → SUATTDRO 16:46 → N.2E 17:43
PROVIDERS: ADMIT Internal Medicine; ATTEND Internal Medicine

== ENCOUNTER 2018-04-14 20:10 | Inpatient (IN) ==
[2018-04-14] MEDS ORDERED: methylPREDNISolone SOD SUC 125 MG/2 ML VIAL IV STA (20:39)
[2018-04-14] MEDS ORDERED: LEVOFLOXACIN INJ 750 MG in PREMIX 1 EACH IV STA (20:39)
[2018-04-14] MEDS ORDERED: PANTOPRAZOLE 40 MG VIAL IV STA (20:41)
[2018-04-14] MEDS ORDERED: ONDANSETRON 4 MG/2 ML VIAL IV STA (20:41)
[2018-04-14 20:55] LABS: Basophils % 0.2 % (0.0-0.8); Eosinophils % 0.1 % (0.00-10.9); Hematocrit 35.2 VOL% (42.0-52.0); Hemoglobin 11.4 GM/DL (14.0-18.0); Immature Granulocytes % 1.2 %; Immature Granulocytes Absolute 0.11 #; Lymphocytes # 1.6 10*3/uL (1.4-4.0); Lymphocytes % 18.4 % (21.2-54.2); Mean Corpuscular HGB Conc 32.4 GM/DL (32-36); Mean Corpuscular Hemoglobin 29 PG (27-34); Mean Platelet Volume 11.1 FL (9.6-12.0); Monocytes # 0.6 10*3/uL (0.11-0.8); Neutrophils # 6.5 10*3/uL (1.4-7.4); Neutrophils % 73.1 % (38.7-73.9); Platelet Count 134 T/CUMM (130-400); Red Blood Count 3.91 MC/CUMM (3.8-5.5); Red Cell Distribution Width 14.8 % (9.3-17.3); White Blood Count 8.9 T/CUMM (4-12)
[2018-04-14] MEDS ORDERED: ALBUTEROL 2.5 MG/3 ML NEB RESP TX SCH (21:00)
[2018-04-14 21:04] LABS: INR 1.1; PT Patient Result 11.1 SECS; Partial Thromboplastin Time 26.5 SECS (0-40)
[2018-04-14] MEDS ORDERED: KETOROLAC 30 MG/1 ML VIAL ONE (21:09)
[2018-04-14 21:16] LABS: Alanine Aminotransferase 15 U/L (16-61); Albumin 2.3 G/DL (3.4-5.0); Alkaline Phosphatase 42 U/L (45-117); Aspartate Amino Transferase 11 U/L (0-37); Bilirubin,Total < 0.39 MG/DL (0.2-1.0); Blood Urea Nitrogen 14 MG/DL (7-18); Calcium 8.1 MG/DL (8.5-10.1); Glucose 161 MG/DL (74-106); Osmolality,Calculated 284.3 MOS/KG (273-304); Potassium 3.9 MMOL/L (3.5-5.1); Sodium 141 MMOL/L (136-145); Total Protein 5.6 G/DL (6.4-8.3); Troponin I Only 0.044 NG/ML (0.00-0.045)
[2018-04-14] MEDS ORDERED: ACETAMINOPHEN/CODEINE 120-12 MG/5 ML 12.5 ML UDCUP PO STA (21:24)
[2018-04-14] MEDS ORDERED: KETOROLAC 30 MG/1 ML VIAL IV STA (21:27)
[2018-04-14 21:57] LABS: Apearance,Urine CLEAR (Clear); Bilirubin,Urine Negative (Negative); Blood, Urine Negative (Negative); Glucose,Urine (UA) Negative (Negative); Ketones,Urine Negative (Negative); Mucus,Urine Occasional /LPF (Occasional); Nitrite,Urine Negative (Negative); Protein,Urine Negative; RBC,Urine <1 /HPF (0-4); Squamous Epithelial Cell,Urine Occasional /HPF (0-10); Urine Color Yellow (Yellow); Urine Specific Gravity 1.008 (1.001-1.035); Urine Urobilinogen < 2.0 EU/DL (0.2-1.0); WBC,Urine <1 /HPF (0-6)
[2018-04-15] MEDS ORDERED: ONDANSETRON 4 MG/2 ML VIAL IV PRN (00:50)
[2018-04-15] MEDS ORDERED: ACETAMINOPHEN 325 MG TABLET PO PRN (00:50)
[2018-04-15] MEDS ORDERED: ALBUTEROL/IPRATROPIUM 3 ML NEB RESP TX PRN (01:15)
[2018-04-15 03:58] LABS: ABG Base Excess 5.3 MMOL/L (-2.5-2.5); ABG HCO3 29.2 MMOL/L (20-26); ABG Oxygen Saturation 97.7 % (95-100); ABG PO2 94.9 MM HG (80-95); ABG TCO2 26.2 MMOL/L (23-27); Allen Test Positive
[2018-04-15] MEDS: SODIUM CHLORIDE 0.9% 1,000 ML IV SCH (04:11)
[2018-04-15] MEDS: VANCOMYCIN INJ 2,000 MG in SODIUM CHLORIDE 0.9% 500 ML IV SCH ×2 (04:11→15:13)
[2018-04-15 05:45] LABS: Basophils % 0.3 % (0.0-0.8); Hematocrit 36.6 VOL% (42.0-52.0); Hemoglobin 12.2 GM/DL (14.0-18.0); Immature Granulocytes % 1.4 %; Immature Granulocytes Absolute 0.14 #; Lymphocytes # 0.7 10*3/uL (1.4-4.0); Lymphocytes % 6.9 % (21.2-54.2); Mean Corpuscular HGB Conc 33.3 GM/DL (32-36); Mean Corpuscular Hemoglobin 29 PG (27-34); Mean Corpuscular Volume 86.9 FL (87-102); Mean Platelet Volume 11.6 FL (9.6-12.0); Monocytes # 0.1 10*3/uL (0.11-0.8); Monocytes % 1.4 % (1.7-12.7); Neutrophils # 8.7 10*3/uL (1.4-7.4); Platelet Count 169 T/CUMM (130-400); Red Blood Count 4.21 MC/CUMM (3.8-5.5); White Blood Count 9.7 T/CUMM (4-12)
[2018-04-15 05:57] LABS: Calcium 8.4 MG/DL (8.5-10.1); Osmolality,Calculated 287.3 MOS/KG (273-304); Potassium 4.1 MMOL/L (3.5-5.1)
[2018-04-15] MEDS: DILTIAZEM 30 MG TABLET PO SCH ×3 (06:55→21:50)
[2018-04-15] MEDS: PIPERACILLIN/TAZOBACTAM 3,375 MG in SODIUM CHLORIDE 0.9% 100 ML IV SCH ×3 (08:29→18:00)
[2018-04-15] MEDS: CARVEDILOL 6.25 MG TABLET PO SCH ×2 (08:32→20:09)
[2018-04-15] MEDS: PANTOPRAZOLE 40 MG TABLET PO SCH (08:32)
[2018-04-15] MEDS: predniSONE 20 MG TABLET PO SCH (08:32)
[2018-04-15] MEDS: ENOXAPARIN 40 MG/0.4 ML SYRINGE SUBCUT SCH (08:32)
[2018-04-15] MEDS: traZODone 50 MG TABLET PO SCH ×3 (08:32→20:10)
[2018-04-15] MEDS: THEOPHYLLINE ER 300 MG TABLET PO SCH ×2 (08:32→17:38)
[2018-04-15] MEDS: VALPROIC ACID 250 MG/5 ML UDCUP PO SCH ×3 (08:32→20:09)
[2018-04-15] MEDS ORDERED: CLOTRIMAZOLE 1% CREAM 15 GM TUBE TOP PRN (08:51)
[2018-04-15] MEDS ORDERED: MAGNESIUM HYDROXIDE SUSP 30 ML UDCUP PO PRN (08:51)
[2018-04-15] MEDS ORDERED: LACTULOSE 20 GM/30 ML UDCUP PO PRN (08:51)
[2018-04-15] MEDS: TAMSULOSIN 0.4 MG CAPSULE PO SCH (09:56)
[2018-04-15] MEDS ORDERED: hydrALAZINE 20 MG/1 ML VIAL IV PRN (14:31)
[2018-04-15] MEDS: PREGABALIN 50 MG CAPSULE PO SCH (20:10)
[2018-04-15] MEDS: MELATONIN 3 MG TABLET PO SCH (20:10)
[2018-04-15] MEDS: PRAVASTATIN 40 MG TABLET PO SCH (20:10)
[2018-04-16] MEDS: PIPERACILLIN/TAZOBACTAM 3,375 MG in SODIUM CHLORIDE 0.9% 100 ML IV SCH ×4 (00:20→18:09)
[2018-04-16] MEDS: SODIUM CHLORIDE 0.9% 1,000 ML IV SCH (03:38)
[2018-04-16] MEDS: VANCOMYCIN INJ 2,000 MG in SODIUM CHLORIDE 0.9% 500 ML IV SCH ×2 (04:09→15:01)
[2018-04-16] MEDS: DILTIAZEM 30 MG TABLET PO SCH ×3 (05:16→21:53)
[2018-04-16 08:11] LABS: Basophils % 0.2 % (0.0-0.8); Hematocrit 37.3 VOL% (42.0-52.0); Hemoglobin 12.4 GM/DL (14.0-18.0); Immature Granulocytes % 2.1 %; Immature Granulocytes Absolute 0.18 #; Lymphocytes # 1.8 10*3/uL (1.4-4.0); Lymphocytes % 20.4 % (21.2-54.2); Mean Corpuscular HGB Conc 33.2 GM/DL (32-36); Mean Corpuscular Hemoglobin 29 PG (27-34); Mean Corpuscular Volume 88.2 FL (87-102); Mean Platelet Volume 10.8 FL (9.6-12.0); Monocytes # 0.8 10*3/uL (0.11-0.8); Monocytes % 8.8 % (1.7-12.7); Neutrophils % 68.5 % (38.7-73.9); Platelet Count 147 T/CUMM (130-400); Red Blood Count 4.23 MC/CUMM (3.8-5.5); Red Cell Distribution Width 15.4 % (9.3-17.3); White Blood Count 8.7 T/CUMM (4-12)
[2018-04-16 08:15] LABS: Calcium 8.4 MG/DL (8.5-10.1)
[2018-04-16] MEDS: ENOXAPARIN 40 MG/0.4 ML SYRINGE SUBCUT SCH (08:33)
[2018-04-16] MEDS: VALPROIC ACID 250 MG/5 ML UDCUP PO SCH ×3 (08:33→21:55)
[2018-04-16] MEDS: THEOPHYLLINE ER 300 MG TABLET PO SCH ×2 (08:33→16:54)
[2018-04-16] MEDS: CARVEDILOL 6.25 MG TABLET PO SCH ×2 (08:34→21:55)
[2018-04-16] MEDS: TAMSULOSIN 0.4 MG CAPSULE PO SCH (08:34)
[2018-04-16] MEDS: traZODone 50 MG TABLET PO SCH ×3 (08:34→21:54)
[2018-04-16] MEDS: predniSONE 20 MG TABLET PO SCH (08:34)
[2018-04-16] MEDS: PANTOPRAZOLE 40 MG TABLET PO SCH (08:34)
[2018-04-16] MEDS ORDERED: BISACODYL 10 MG SUPP RECTAL ONE (14:26)
[2018-04-16] MEDS: ZINC OXIDE PASTE 113 GM TUBE TOP PRN ×2 (18:14→21:56)
[2018-04-16] MEDS: MELATONIN 3 MG TABLET PO SCH (21:53)
[2018-04-16] MEDS: PRAVASTATIN 40 MG TABLET PO SCH (21:54)
[2018-04-16] MEDS: PREGABALIN 50 MG CAPSULE PO SCH (21:55)
[2018-04-17] MEDS: VANCOMYCIN INJ 2,000 MG in SODIUM CHLORIDE 0.9% 500 ML IV SCH (03:10)
[2018-04-17] MEDS: DILTIAZEM 30 MG TABLET PO SCH ×2 (07:28→09:15)
[2018-04-17] MEDS: PIPERACILLIN/TAZOBACTAM 3,375 MG in SODIUM CHLORIDE 0.9% 100 ML IV SCH ×2 (07:28→09:13)
[2018-04-17] MEDS: TAMSULOSIN 0.4 MG CAPSULE PO SCH (09:13)
[2018-04-17] MEDS: THEOPHYLLINE ER 300 MG TABLET PO SCH (09:13)
[2018-04-17] MEDS: predniSONE 20 MG TABLET PO SCH (09:14)
[2018-04-17] MEDS: VALPROIC ACID 250 MG/5 ML UDCUP PO SCH (09:14)
[2018-04-17] MEDS: CARVEDILOL 6.25 MG TABLET PO SCH (09:14)
[2018-04-17] MEDS: traZODone 50 MG TABLET PO SCH (09:14)
[2018-04-17] MEDS: PANTOPRAZOLE 40 MG TABLET PO SCH (09:15)
[2018-04-17] MEDS: ENOXAPARIN 40 MG/0.4 ML SYRINGE SUBCUT SCH (09:15)
[2018-04-17] MEDS: SODIUM CHLORIDE 0.9% 1,000 ML IV SCH (10:03)
[2018-04-17] MEDS ORDERED: KETOROLAC 15 MG/1 ML VIAL IV ONE (11:33)
[2018-04-17 11:46] VITALS: BP 134/82
== END 2018-04-17 13:10 | DRG 191 ==
LOC: EDBD → EDUNIT# → N.ED 20:10 → SUATTDRO 04-15 00:50 → N.EDINP 04-15 00:50 → N.2E 04-15 02:44
PROVIDERS: ADMIT Internal Medicine; ATTEND Internal Medicine

== ENCOUNTER 2018-08-27 08:26 | Observation (INO) ==
[2018-08-27] MEDS ORDERED: ONDANSETRON 4 MG/2 ML VIAL IV STA (08:50)
[2018-08-27 08:59] LABS: Basophils % 0.3 % (0.0-0.8); Eosinophils % 0.4 % (0.00-10.9); Hematocrit 40.6 VOL% (42.0-52.0); Hemoglobin 12.7 GM/DL (14.0-18.0); Immature Granulocytes % 1.5 %; Immature Granulocytes Absolute 0.16 #; Lymphocytes # 2.8 10*3/uL (1.4-4.0); Mean Corpuscular HGB Conc 31.3 GM/DL (32-36); Mean Corpuscular Hemoglobin 29 PG (27-34); Mean Corpuscular Volume 91.9 FL (87-102); Mean Platelet Volume 10.4 FL (9.6-12.0); Monocytes # 0.9 10*3/uL (0.11-0.8); Monocytes % 8.3 % (1.7-12.7); Neutrophils # 6.9 10*3/uL (1.4-7.4); Neutrophils % 63.5 % (38.7-73.9); Platelet Count 170 T/CUMM (130-400); Red Blood Count 4.42 MC/CUMM (3.8-5.5); Red Cell Distribution Width 13.6 % (9.3-17.3); White Blood Count 10.8 T/CUMM (4-12)
[2018-08-27 09:16] LABS: Theophylline 13.3 UG/ML (10-20)
[2018-08-27 09:18] LABS: Alanine Aminotransferase 13 U/L (16-61); Albumin 2.7 G/DL (3.4-5.0); Alkaline Phosphatase 41 U/L (45-117); Aspartate Amino Transferase 13 U/L (0-37); Bilirubin,Total < 0.39 MG/DL (0.2-1.0); Blood Urea Nitrogen 24 MG/DL (7-18); Calcium 8.3 MG/DL (8.5-10.1); Glucose 141 MG/DL (74-106); Osmolality,Calculated 291.8 MOS/KG (273-304); Potassium 3.4 MMOL/L (3.5-5.1); Sodium 144 MMOL/L (136-145); Total Protein 6.6 G/DL (6.4-8.3)
[2018-08-27 11:13] LABS: Apearance,Urine CLEAR (Clear); Bilirubin,Urine Negative (Negative); Blood, Urine Negative (Negative); Glucose,Urine (UA) Negative (Negative); Ketones,Urine 5 mg/dL (Negative); Mucus,Urine Occasional /LPF (Occasional); Nitrite,Urine Negative (Negative); Protein,Urine Negative; RBC,Urine 4 /HPF (0-4); Squamous Epithelial Cell,Urine Occasional /HPF (0-10); Urine Color Yellow (Yellow); WBC,Urine <1 /HPF (0-6)
[2018-08-27] MEDS ORDERED: ONDANSETRON 4 MG/2 ML VIAL IV PRN (13:13)
[2018-08-27] MEDS ORDERED: POTASSIUM CHLORIDE 20 MEQ TABLET PO PRN (13:15)
[2018-08-27] MEDS ORDERED: DEXTROSE 50% 25 GM/50 ML VIAL IV PRN (13:16)
[2018-08-27] MEDS ORDERED: GLUCAGON 1 MG VIAL IM PRN (13:16)
[2018-08-27] MEDS ORDERED: SODIUM PHOSPHATE ENEMA 133 ML BOTTLE RECTAL PRN (14:45)
[2018-08-27] MEDS: POLYETHYLENE GLYCOL POWDER 17 GM PACK PO SCH (15:25)
[2018-08-27] MEDS: ACETAMINOPHEN 325 MG TABLET PO PRN ×2 (15:27→20:55)
[2018-08-27] MEDS: INSULIN LISPRO 100 UNIT/ML SUBCUT SCH ×2 (17:04→20:52)
[2018-08-28] MEDS: ACETAMINOPHEN 325 MG TABLET PO PRN ×2 (02:38→11:48)
[2018-08-28 05:05] LABS: Basophils % 0.4 % (0.0-0.8); Eosinophils # 0.1 10*3/uL (0.0-0.87); Hematocrit 40.3 VOL% (42.0-52.0); Immature Granulocytes % 1.3 %; Immature Granulocytes Absolute 0.12 #; Lymphocytes # 2.3 10*3/uL (1.4-4.0); Lymphocytes % 24.9 % (21.2-54.2); Mean Corpuscular HGB Conc 32.3 GM/DL (32-36); Mean Corpuscular Hemoglobin 29 PG (27-34); Mean Corpuscular Volume 91.2 FL (87-102); Mean Platelet Volume 10.5 FL (9.6-12.0); Monocytes # 0.9 10*3/uL (0.11-0.8); Monocytes % 9.2 % (1.7-12.7); Neutrophils # 5.9 10*3/uL (1.4-7.4); Neutrophils % 63.2 % (38.7-73.9); Platelet Count 146 T/CUMM (130-400); Red Blood Count 4.42 MC/CUMM (3.8-5.5); Red Cell Distribution Width 13.7 % (9.3-17.3); White Blood Count 9.4 T/CUMM (4-12)
[2018-08-28] MEDS ORDERED: PANTOPRAZOLE 40 MG TABLET PO SCH (05:30)
[2018-08-28 05:41] LABS: Calcium 8.1 MG/DL (8.5-10.1); Osmolality,Calculated 286.1 MOS/KG (273-304); Potassium 3.3 MMOL/L (3.5-5.1); Thyroid Stimulating Hormone 1.82 uIU/ml (0.358-3.74)
[2018-08-28] MEDS ORDERED: MAGNESIUM SULF RIDER 2 GM in PREMIX 1 EACH IV PRN (07:29)
[2018-08-28] MEDS ORDERED: MAGNESIUM SULF RIDER 4 GM in PREMIX 1 EACH IV PRN (07:29)
[2018-08-28] MEDS: POLYETHYLENE GLYCOL POWDER 17 GM PACK PO SCH (08:28)
[2018-08-28] MEDS: INSULIN LISPRO 100 UNIT/ML SUBCUT SCH (08:31)
[2018-08-28] MEDS ORDERED: NITROGLYCERIN SL 0.4 MG TABLET SL PRN (10:35)
[2018-08-28 12:43] VITALS: BP 163/86
== END 2018-08-28 14:44 ==
LOC: EDUNIT# → N.ED 08:26 → N.EDINP 08:26 → N.2E 12:40
PROVIDERS: ADMIT Internal Medicine; ATTEND Internal Medicine

== ENCOUNTER 2018-10-11 13:08 | Inpatient (IN) ==
[2018-10-11] MEDS ORDERED: ALBUTEROL/IPRATROPIUM 3 ML NEB RESP TX STA (13:44)
[2018-10-11] MEDS ORDERED: SODIUM CHLORIDE 0.9% 1,000 ML IV STA (13:44)
[2018-10-11 13:59] LABS: ABG Base Excess 6.2 MMOL/L (-2.5-2.5); ABG Oxygen Saturation 95.4 % (95-100); ABG PCO2 61.9 MM HG (35-48); ABG PH 7.353 (7.35-7.45); ABG PO2 82.9 MM HG (80-95); ABG TCO2 29.6 MMOL/L (23-27); Allen Test Positive
[2018-10-11 14:11] LABS: Basophils % 0.2 % (0.0-0.8); Eosinophils % 0.1 % (0.00-10.9); Hematocrit 45.3 VOL% (42.0-52.0); Hemoglobin 14.3 GM/DL (14.0-18.0); Immature Granulocytes % 0.8 %; Immature Granulocytes Absolute 0.13 #; Lymphocytes # 1.3 10*3/uL (1.4-4.0); Lymphocytes % 7.6 % (21.2-54.2); Mean Corpuscular HGB Conc 31.6 GM/DL (32-36); Mean Corpuscular Hemoglobin 29 PG (27-34); Monocytes # 1.6 10*3/uL (0.11-0.8); Monocytes % 9.7 % (1.7-12.7); Neutrophils # 13.6 10*3/uL (1.4-7.4); Neutrophils % 81.6 % (38.7-73.9); Platelet Count 232 T/CUMM (130-400); Red Blood Count 4.98 MC/CUMM (3.8-5.5); Red Cell Distribution Width 14.4 % (9.3-17.3); White Blood Count 16.7 T/CUMM (4-12)
[2018-10-11] MEDS ORDERED: LEVOFLOXACIN INJ 500 MG in PREMIX 1 EACH IV STA (14:30)
[2018-10-11 14:34] LABS: Alanine Aminotransferase 10 U/L (16-61); Albumin 2.6 G/DL (3.4-5.0); Alkaline Phosphatase 58 U/L (45-117); Aspartate Amino Transferase 14 U/L (0-37); Bilirubin,Total < 0.39 MG/DL (0.2-1.0); Blood Urea Nitrogen 15 MG/DL (7-18); Calcium 8.5 MG/DL (8.5-10.1); Glucose 107 MG/DL (74-106); Osmolality,Calculated 283.1 MOS/KG (273-304); Potassium 3.7 MMOL/L (3.5-5.1); Sodium 142 MMOL/L (136-145)
[2018-10-11 14:36] LABS: Lactic Acid 1.1 MMOL/L (0.4-2.0)
[2018-10-11] MEDS ORDERED: ENOXAPARIN 30 MG/0.3 ML SYRINGE SUBCUT STA (15:32)
[2018-10-11] MEDS ORDERED: ASPIRIN EC 325 MG TABLET PO STA (15:32)
[2018-10-11] MEDS ORDERED: ENOXAPARIN 100 MG/ML SYRINGE SUBCUT ONE (15:39)
[2018-10-11] MEDS ORDERED: ALBUTEROL 2.5 MG/3 ML NEB RESP TX PRN (15:44)
[2018-10-11] MEDS ORDERED: GLUCAGON 1 MG VIAL IM PRN ×2 (15:47)
[2018-10-11] MEDS ORDERED: DEXTROSE 50% 25 GM/50 ML VIAL IV PRN ×2 (15:47)
[2018-10-11] MEDS ORDERED: ZINC OXIDE PASTE 113 GM TUBE TOP PRN (15:57)
[2018-10-11] MEDS ORDERED: ALUMINUM/MAGNES/SIMETH MAX STR 30 ML UDCUP PO PRN (15:57)
[2018-10-11] MEDS ORDERED: MAGNESIUM HYDROXIDE SUSP 30 ML UDCUP PO PRN (15:57)
[2018-10-11] MEDS ORDERED: HEPARIN 5,000 UNIT/1 ML VIAL SUBCUT SCH (16:00)
[2018-10-11] MEDS ORDERED: ONDANSETRON 4 MG/2 ML VIAL IV PRN (16:02)
[2018-10-11] MEDS ORDERED: MAGNESIUM SULF RIDER 2 GM in PREMIX 1 EACH IV PRN (16:05)
[2018-10-11] MEDS ORDERED: POTASSIUM CHLORIDE RIDER 10 MEQ in PREMIX 1 EACH IV PRN (16:05)
[2018-10-11] MEDS ORDERED: MAGNESIUM SULF RIDER 4 GM in PREMIX 1 EACH IV PRN (16:05)
[2018-10-11 16:16] LABS: ABG Base Excess 5.6 MMOL/L (-2.5-2.5); ABG HCO3 29.3 MMOL/L (20-26); ABG PCO2 40.7 MM HG (35-48); ABG PH 7.471 (7.35-7.45); ABG PO2 57.1 MM HG (80-95); ABG TCO2 25.4 MMOL/L (23-27)
[2018-10-11 16:44] LABS: Theophylline 10.9 UG/ML (10-20)
[2018-10-11 16:49] LABS: Risk Ratio 2.78; VLDL CHOLESTEROL 26.4 MG/DL
[2018-10-11] MEDS ORDERED: traZODone 50 MG TABLET PO SCH ×2 (17:00→21:00)
[2018-10-11] MEDS ORDERED: DEXTROSE 50% 25 GM/50 ML SYRINGE IV ONE (17:19)
[2018-10-11 17:21] LABS: Apearance,Urine Slightly Hazy (Clear); Bacteria,Urine Many /HPF (Few); Bilirubin,Urine Negative (Negative); Blood, Urine Negative (Negative); Glucose,Urine (UA) Negative (Negative); Hyaline Casts,Urine 1 /LPF (0-3); Ketones,Urine Negative (Negative); Mucus,Urine Moderate /LPF (Occasional); Nitrite,Urine Positive (Negative); Protein,Urine Negative; RBC,Urine 2 /HPF (0-4); Squamous Epithelial Cell,Urine Occasional /HPF (0-10); Urine Color Yellow (Yellow); Urine Specific Gravity 1.013 (1.001-1.035); Urine Urobilinogen < 2.0 EU/DL (0.2-1.0); WBC,Urine 41 /HPF (0-6)
[2018-10-11] MEDS: INSULIN REGULAR 100 UNIT/ML SUBCUT SCH ×2 (17:21→20:46)
[2018-10-11] MEDS: DEXTROSE 50% 25 GM/50 ML SYRINGE IV PRN ×2 (17:26→20:16)
[2018-10-11] MEDS ORDERED: METOPROLOL TARTRATE 5 MG/5 ML VIAL IV PRN (17:26)
[2018-10-11] MEDS: DEXTROSE 5% NACL 0.9% 1,000 ML IV SCH (17:44)
[2018-10-11] MEDS: THEOPHYLLINE ER 300 MG TABLET PO SCH (18:03)
[2018-10-11] MEDS: CARVEDILOL 6.25 MG TABLET PO SCH (18:03)
[2018-10-11] MEDS: DILTIAZEM 30 MG TABLET PO SCH (18:03)
[2018-10-11] MEDS: PIPERACILLIN/TAZOBACTAM 3,375 MG in SODIUM CHLORIDE 0.9% 100 ML IV SCH (18:03)
[2018-10-11] MEDS: methylPREDNISolone SOD SUC 125 MG/2 ML VIAL IV SCH (18:03)
[2018-10-11] MEDS: HALOPERIDOL 5 MG/ML AMP IV PRN ×2 (18:03→23:39)
[2018-10-11] MEDS: ALBUTEROL/IPRATROPIUM 3 ML NEB RESP TX SCH (18:58)
[2018-10-11] MEDS: VANCOMYCIN INJ 2,000 MG in SODIUM CHLORIDE 0.9% 500 ML IV SCH (19:41)
[2018-10-11] MEDS: VALPROIC ACID 250 MG/5 ML UDCUP PO SCH (20:46)
[2018-10-11] MEDS: PANTOPRAZOLE 40 MG VIAL IV SCH (20:46)
[2018-10-11] MEDS: NYSTATIN CREAM 15 GM TUBE TOP SCH (20:46)
[2018-10-11] MEDS ORDERED: MELATONIN 3 MG TABLET PO SCH (21:00)
[2018-10-11] MEDS ORDERED: SIMVASTATIN 20 MG TABLET PO SCH (21:00)
[2018-10-11] MEDS ORDERED: PREGABALIN 75 MG CAPSULE PO SCH (21:00)
[2018-10-11] MEDS ORDERED: INSULIN GLARGINE 100 UNIT/ML SUBCUT SCH (21:00)
[2018-10-11] MEDS ORDERED: DILTIAZEM 30 MG TABLET PO SCH (22:00)
[2018-10-12] MEDS: ALBUTEROL/IPRATROPIUM 3 ML NEB RESP TX SCH ×4 (00:03→19:09)
[2018-10-12] MEDS: DILTIAZEM 30 MG TABLET PO SCH ×4 (00:11→17:34)
[2018-10-12] MEDS: PIPERACILLIN/TAZOBACTAM 3,375 MG in SODIUM CHLORIDE 0.9% 100 ML IV SCH ×3 (00:11→16:55)
[2018-10-12] MEDS: methylPREDNISolone SOD SUC 125 MG/2 ML VIAL IV SCH ×3 (00:11→17:33)
[2018-10-12 04:52] LABS: Basophils % 0.2 % (0.0-0.8); Hematocrit 37.5 VOL% (42.0-52.0); Hemoglobin 11.9 GM/DL (14.0-18.0); Immature Granulocytes % 0.5 %; Immature Granulocytes Absolute 0.08 #; Lymphocytes # 0.8 10*3/uL (1.4-4.0); Lymphocytes % 4.9 % (21.2-54.2); Mean Corpuscular HGB Conc 31.7 GM/DL (32-36); Mean Corpuscular Hemoglobin 29 PG (27-34); Mean Corpuscular Volume 89.7 FL (87-102); Mean Platelet Volume 10.7 FL (9.6-12.0); Monocytes # 0.3 10*3/uL (0.11-0.8); Monocytes % 2.1 % (1.7-12.7); Neutrophils # 14.8 10*3/uL (1.4-7.4); Neutrophils % 92.3 % (38.7-73.9); Platelet Count 165 T/CUMM (130-400); Red Blood Count 4.18 MC/CUMM (3.8-5.5); Red Cell Distribution Width 14.6 % (9.3-17.3)
[2018-10-12 05:16] LABS: Albumin 1.9 G/DL (3.4-5.0); Osmolality,Calculated 286.4 MOS/KG (273-304); Potassium 4.1 MMOL/L (3.5-5.1); Total Protein 5.1 G/DL (6.4-8.3)
[2018-10-12] MEDS: DEXTROSE 5% NACL 0.9% 1,000 ML IV SCH (05:20)
[2018-10-12] MEDS: ENOXAPARIN 120 MG/0.8 ML SYRINGE SUBCUT SCH ×2 (05:20→16:13)
[2018-10-12 05:25] LABS: Band Neutrophils 11 % (0-10); Lymphocytes 2 % (20-55); Segmented Neutrophils 87 % (50-85); Total Cells Counted 100
[2018-10-12] MEDS: VANCOMYCIN INJ 2,000 MG in SODIUM CHLORIDE 0.9% 500 ML IV SCH (05:26)
[2018-10-12 05:27] LABS: Hypochromasia 1+; Microcytosis Slight
[2018-10-12] MEDS: HALOPERIDOL 5 MG/ML AMP IV PRN ×2 (05:42→14:20)
[2018-10-12] MEDS ORDERED: ENOXAPARIN 120 MG/0.8 ML SYRINGE SUBCUT SCH (09:00)
[2018-10-12] MEDS ORDERED: PANTOPRAZOLE 40 MG TABLET PO SCH (09:00)
[2018-10-12] MEDS: INSULIN REGULAR 100 UNIT/ML SUBCUT SCH ×4 (09:46→21:57)
[2018-10-12] MEDS: POLYETHYLENE GLYCOL POWDER 17 GM PACK PO SCH (09:46)
[2018-10-12] MEDS: BISACODYL 5 MG TABLET PO SCH (09:47)
[2018-10-12] MEDS: VALPROIC ACID 250 MG/5 ML UDCUP PO SCH ×3 (09:48→21:39)
[2018-10-12] MEDS: PANTOPRAZOLE 40 MG VIAL IV SCH ×2 (09:49→21:41)
[2018-10-12] MEDS: ASPIRIN EC 81 MG TABLET PO SCH (09:54)
[2018-10-12] MEDS: TAMSULOSIN 0.4 MG CAPSULE PO SCH (09:54)
[2018-10-12] MEDS: THEOPHYLLINE ER 300 MG TABLET PO SCH ×2 (09:54→17:30)
[2018-10-12] MEDS: CARVEDILOL 6.25 MG TABLET PO SCH ×2 (09:55→17:03)
[2018-10-12] MEDS: NYSTATIN CREAM 15 GM TUBE TOP SCH ×2 (13:32→21:41)
[2018-10-12] MEDS: LEVOFLOXACIN INJ 750 MG in PREMIX 1 EACH IV SCH (15:15)
[2018-10-12] MEDS: ZINC OXIDE 16% PASTE 57 GM TUBE TOP SCH (21:39)
[2018-10-12] MEDS ORDERED: LORazepam 2 MG/1 ML VIAL ONE (21:44)
[2018-10-12] MEDS: LORazepam 2 MG/1 ML VIAL IV PRN (21:57)
[2018-10-13] MEDS: PIPERACILLIN/TAZOBACTAM 3,375 MG in SODIUM CHLORIDE 0.9% 100 ML IV SCH ×2 (00:02→11:46)
[2018-10-13] MEDS: methylPREDNISolone SOD SUC 125 MG/2 ML VIAL IV SCH ×2 (00:05→11:46)
[2018-10-13] MEDS: DILTIAZEM 30 MG TABLET PO SCH ×5 (00:05→23:54)
[2018-10-13] MEDS: ALBUTEROL/IPRATROPIUM 3 ML NEB RESP TX SCH ×4 (02:02→20:17)
[2018-10-13] MEDS: LORazepam 2 MG/1 ML VIAL IV PRN (03:40)
[2018-10-13] MEDS: ENOXAPARIN 120 MG/0.8 ML SYRINGE SUBCUT SCH ×2 (05:08→15:07)
[2018-10-13 05:55] LABS: Basophils % 0.1 % (0.0-0.8); Hematocrit 35.4 VOL% (42.0-52.0); Hemoglobin 11.4 GM/DL (14.0-18.0); Immature Granulocytes % 0.8 %; Lymphocytes # 0.7 10*3/uL (1.4-4.0); Lymphocytes % 5.6 % (21.2-54.2); Mean Corpuscular HGB Conc 32.2 GM/DL (32-36); Mean Corpuscular Hemoglobin 29 PG (27-34); Mean Corpuscular Volume 89.4 FL (87-102); Mean Platelet Volume 10.7 FL (9.6-12.0); Monocytes # 0.5 10*3/uL (0.11-0.8); Monocytes % 3.8 % (1.7-12.7); Neutrophils # 11.8 10*3/uL (1.4-7.4); Neutrophils % 89.7 % (38.7-73.9); Platelet Count 155 T/CUMM (130-400); Red Blood Count 3.96 MC/CUMM (3.8-5.5); Red Cell Distribution Width 14.5 % (9.3-17.3); White Blood Count 13.1 T/CUMM (4-12)
[2018-10-13] MEDS ORDERED: VANCOMYCIN INJ 2,000 MG in SODIUM CHLORIDE 0.9% 500 ML IV SCH (06:00)
[2018-10-13 06:11] LABS: Albumin 1.8 G/DL (3.4-5.0); Bilirubin,Total 0.7 MG/DL (0.2-1.0); Calcium 7.9 MG/DL (8.5-10.1); Osmolality,Calculated 290.3 MOS/KG (273-304); Potassium 3.4 MMOL/L (3.5-5.1); Total Protein 5.2 G/DL (6.4-8.3)
[2018-10-13] MEDS: INSULIN REGULAR 100 UNIT/ML SUBCUT SCH ×4 (09:43→21:47)
[2018-10-13] MEDS: THEOPHYLLINE ER 300 MG TABLET PO SCH ×2 (09:45→16:47)
[2018-10-13] MEDS: CARVEDILOL 6.25 MG TABLET PO SCH ×2 (09:45→16:48)
[2018-10-13] MEDS: VALPROIC ACID 250 MG/5 ML UDCUP PO SCH ×3 (09:45→21:43)
[2018-10-13] MEDS: BISACODYL 5 MG TABLET PO SCH (09:46)
[2018-10-13] MEDS: TAMSULOSIN 0.4 MG CAPSULE PO SCH (09:46)
[2018-10-13] MEDS: ASPIRIN EC 81 MG TABLET PO SCH (09:47)
[2018-10-13] MEDS: POLYETHYLENE GLYCOL POWDER 17 GM PACK PO SCH (09:47)
[2018-10-13] MEDS: NYSTATIN CREAM 15 GM TUBE TOP SCH ×2 (10:41→21:48)
[2018-10-13] MEDS: ZINC OXIDE 16% PASTE 57 GM TUBE TOP SCH ×2 (10:42→21:48)
[2018-10-13] MEDS: PANTOPRAZOLE 40 MG VIAL IV SCH (11:46)
[2018-10-13] MEDS ORDERED: SULFAMETHOX/TRIMETHOPRIM 800-160 MG TABLET PO ONE (14:22)
[2018-10-13] MEDS: LEVOFLOXACIN INJ 750 MG in PREMIX 1 EACH IV SCH (14:29)
[2018-10-13] MEDS: predniSONE 20 MG TABLET PO SCH ×2 (14:43→21:44)
[2018-10-13] MEDS: LEVOFLOXACIN 500 MG TABLET PO SCH (14:43)
[2018-10-13] MEDS: POTASSIUM CHLORIDE 20 MEQ TABLET PO PRN ×3 (14:44→19:53)
[2018-10-13] MEDS: ACETAMINOPHEN 325 MG TABLET PO PRN (16:49)
[2018-10-14] MEDS: ACETAMINOPHEN 325 MG TABLET PO PRN ×2 (00:01→17:59)
[2018-10-14] MEDS: ALBUTEROL/IPRATROPIUM 3 ML NEB RESP TX SCH ×4 (01:18→20:35)
[2018-10-14] MEDS: ENOXAPARIN 120 MG/0.8 ML SYRINGE SUBCUT SCH ×2 (03:48→16:25)
[2018-10-14] MEDS: DILTIAZEM 30 MG TABLET PO SCH ×3 (06:06→17:59)
[2018-10-14 07:10] LABS: Basophils % 0.1 % (0.0-0.8); Hemoglobin 10.8 GM/DL (14.0-18.0); Immature Granulocytes % 1.5 %; Immature Granulocytes Absolute 0.16 #; Lymphocytes # 0.6 10*3/uL (1.4-4.0); Lymphocytes % 5.3 % (21.2-54.2); Mean Corpuscular HGB Conc 31.8 GM/DL (32-36); Mean Corpuscular Hemoglobin 28 PG (27-34); Mean Platelet Volume 10.2 FL (9.6-12.0); Monocytes # 0.5 10*3/uL (0.11-0.8); Monocytes % 4.4 % (1.7-12.7); Neutrophils # 9.5 10*3/uL (1.4-7.4); Neutrophils % 88.7 % (38.7-73.9); Platelet Count 156 T/CUMM (130-400); Red Blood Count 3.82 MC/CUMM (3.8-5.5); Red Cell Distribution Width 14.6 % (9.3-17.3); White Blood Count 10.7 T/CUMM (4-12)
[2018-10-14 07:46] LABS: Albumin 1.7 G/DL (3.4-5.0); Bilirubin,Total 0.7 MG/DL (0.2-1.0); Calcium 7.5 MG/DL (8.5-10.1); Osmolality,Calculated 289.4 MOS/KG (273-304); Potassium 4.1 MMOL/L (3.5-5.1); Total Protein 5.5 G/DL (6.4-8.3)
[2018-10-14] MEDS: INSULIN REGULAR 100 UNIT/ML SUBCUT SCH ×4 (09:25→22:20)
[2018-10-14] MEDS: TAMSULOSIN 0.4 MG CAPSULE PO SCH (09:26)
[2018-10-14] MEDS: ASPIRIN EC 81 MG TABLET PO SCH (09:26)
[2018-10-14] MEDS: MULTIVITAMIN (CENTRUM) TABLET PO SCH (09:26)
[2018-10-14] MEDS: THEOPHYLLINE ER 300 MG TABLET PO SCH ×2 (09:26→17:58)
[2018-10-14] MEDS: VALPROIC ACID 250 MG/5 ML UDCUP PO SCH ×3 (09:27→22:19)
[2018-10-14] MEDS: SULFAMETHOX/TRIMETHOPRIM 800-160 MG TABLET PO SCH ×2 (09:27→22:18)
[2018-10-14] MEDS: CARVEDILOL 6.25 MG TABLET PO SCH ×2 (09:27→17:58)
[2018-10-14] MEDS: predniSONE 20 MG TABLET PO SCH ×2 (09:27→22:19)
[2018-10-14] MEDS: PANTOPRAZOLE 40 MG TABLET PO SCH (09:27)
[2018-10-14] MEDS: LEVOFLOXACIN 500 MG TABLET PO SCH (09:27)
[2018-10-14] MEDS: BISACODYL 5 MG TABLET PO SCH (09:27)
[2018-10-14] MEDS: ZINC OXIDE 16% PASTE 57 GM TUBE TOP SCH ×2 (09:30→22:18)
[2018-10-14] MEDS: NYSTATIN CREAM 15 GM TUBE TOP SCH ×2 (09:30→22:23)
[2018-10-14] MEDS: POLYETHYLENE GLYCOL POWDER 17 GM PACK PO SCH (09:30)
[2018-10-14] MEDS: LORazepam 2 MG/1 ML VIAL IM PRN (12:54)
[2018-10-15] MEDS: DILTIAZEM 30 MG TABLET PO SCH ×3 (01:01→13:45)
[2018-10-15] MEDS: ALBUTEROL/IPRATROPIUM 3 ML NEB RESP TX SCH ×3 (01:28→14:07)
[2018-10-15] MEDS: LORazepam 2 MG/1 ML VIAL IM PRN (02:44)
[2018-10-15] MEDS: ENOXAPARIN 120 MG/0.8 ML SYRINGE SUBCUT SCH (04:38)
[2018-10-15 06:22] LABS: Basophils % 0.3 % (0.0-0.8); Hematocrit 38.1 VOL% (42.0-52.0); Hemoglobin 12.4 GM/DL (14.0-18.0); Immature Granulocytes Absolute 0.08 #; Lymphocytes # 0.5 10*3/uL (1.4-4.0); Lymphocytes % 6.9 % (21.2-54.2); Mean Corpuscular HGB Conc 32.5 GM/DL (32-36); Mean Corpuscular Hemoglobin 29 PG (27-34); Mean Corpuscular Volume 87.6 FL (87-102); Mean Platelet Volume 11.1 FL (9.6-12.0); Monocytes # 0.5 10*3/uL (0.11-0.8); Monocytes % 5.8 % (1.7-12.7); Neutrophils # 6.7 10*3/uL (1.4-7.4); Platelet Count 146 T/CUMM (130-400); Red Blood Count 4.35 MC/CUMM (3.8-5.5); Red Cell Distribution Width 14.1 % (9.3-17.3); White Blood Count 7.8 T/CUMM (4-12)
[2018-10-15 06:59] LABS: Alanine Aminotransferase 12 U/L (16-61); Albumin 1.9 G/DL (3.4-5.0); Alkaline Phosphatase 37 U/L (45-117); Aspartate Amino Transferase 15 U/L (0-37); Bilirubin,Total < 0.39 MG/DL (0.2-1.0); Blood Urea Nitrogen 19 MG/DL (7-18); Calcium 8.4 MG/DL (8.5-10.1); Glucose 183 MG/DL (74-106); Osmolality,Calculated 279.8 MOS/KG (273-304); Potassium 4.2 MMOL/L (3.5-5.1); Sodium 137 MMOL/L (136-145); Total Protein 5.6 G/DL (6.4-8.3)
[2018-10-15 07:45] VITALS: BP 159/87
[2018-10-15] MEDS ORDERED: ERTAPENEM 1,000 MG in SODIUM CHLORIDE 0.9% 100 ML IV SCH (08:00)
[2018-10-15] MEDS: predniSONE 20 MG TABLET PO SCH (10:17)
[2018-10-15] MEDS: ASPIRIN EC 81 MG TABLET PO SCH (10:17)
[2018-10-15] MEDS: TAMSULOSIN 0.4 MG CAPSULE PO SCH (10:17)
[2018-10-15] MEDS: BISACODYL 5 MG TABLET PO SCH (10:17)
[2018-10-15] MEDS: PANTOPRAZOLE 40 MG TABLET PO SCH (10:17)
[2018-10-15] MEDS: CARVEDILOL 6.25 MG TABLET PO SCH (10:18)
[2018-10-15] MEDS: VALPROIC ACID 250 MG/5 ML UDCUP PO SCH (10:18)
[2018-10-15] MEDS: POLYETHYLENE GLYCOL POWDER 17 GM PACK PO SCH (10:18)
[2018-10-15] MEDS: THEOPHYLLINE ER 300 MG TABLET PO SCH (10:18)
[2018-10-15] MEDS: MULTIVITAMIN (CENTRUM) TABLET PO SCH (10:18)
[2018-10-15] MEDS: ZINC OXIDE 16% PASTE 57 GM TUBE TOP SCH (10:18)
[2018-10-15] MEDS: NYSTATIN CREAM 15 GM TUBE TOP SCH (10:19)
[2018-10-15] MEDS: INSULIN REGULAR 100 UNIT/ML SUBCUT SCH ×2 (10:19→14:19)
== END 2018-10-15 14:34 | DRG 193 ==
LOC: EDUNIT# → EDBD → N.ED 13:08 → N.EDINP 16:02 → SUATTDRO 16:02 → N.ICU 16:41 → N.3E 10-13 16:03
PROVIDERS: ADMIT Internal Medicine; ATTEND Internal Medicine

== ENCOUNTER 2018-11-10 09:08 | Inpatient (IN) ==
[2018-11-10] MEDS ORDERED: SODIUM CHLORIDE 0.9% 500 ML IV STA (09:34)
[2018-11-10] MEDS ORDERED: DILTIAZEM 50 MG/10 ML VIAL IV STA (09:34)
[2018-11-10] MEDS ORDERED: ALBUTEROL/IPRATROPIUM 3 ML NEB RESP TX STA (09:38)
[2018-11-10] MEDS ORDERED: FUROSEMIDE 40 MG/4 ML VIAL IV STA (09:38)
[2018-11-10] MEDS ORDERED: methylPREDNISolone SOD SUC 125 MG/2 ML VIAL IV STA (09:38)
[2018-11-10] MEDS ORDERED: DILTIAZEM 25 MG/5 ML VIAL IV ONE (09:49)
[2018-11-10 09:55] LABS: Basophils % 0.1 % (0.0-0.8); Eosinophils % 0.1 % (0.00-10.9); Hematocrit 43.9 VOL% (42.0-52.0); Hemoglobin 13.8 GM/DL (14.0-18.0); Immature Granulocytes % 4.8 %; Immature Granulocytes Absolute 0.58 #; Lymphocytes # 1.2 10*3/uL (1.4-4.0); Lymphocytes % 9.9 % (21.2-54.2); Mean Corpuscular HGB Conc 31.4 GM/DL (32-36); Mean Corpuscular Hemoglobin 29 PG (27-34); Mean Corpuscular Volume 91.5 FL (87-102); Mean Platelet Volume 10.6 FL (9.6-12.0); Monocytes # 1.1 10*3/uL (0.11-0.8); Monocytes % 9.2 % (1.7-12.7); NRBC # 0.08 10*3/uL; Neutrophils # 9.1 10*3/uL (1.4-7.4); Neutrophils % 75.9 % (38.7-73.9); Platelet Count 147 T/CUMM (130-400); Red Cell Distribution Width 14.7 % (9.3-17.3)
[2018-11-10] MEDS ORDERED: DEXTROSE 10% 250 ML IV ONE (10:01)
[2018-11-10 10:07] LABS: INR 1.1; PT Patient Result 11.7 SECS
[2018-11-10] MEDS: DEXTROSE 10% 250 ML IV SCH ×3 (10:09→16:00)
[2018-11-10 10:16] LABS: ABG HCO3 33.6 MMOL/L (20-26); ABG Oxygen Saturation 91.3 % (95-100); ABG PCO2 52.6 MM HG (35-48); ABG PH 7.445 (7.35-7.45); ABG PO2 61.8 MM HG (80-95); ABG TCO2 31.3 MMOL/L (23-27)
[2018-11-10 10:17] LABS: Albumin 2.8 G/DL (3.4-5.0); Bilirubin,Total 0.8 MG/DL (0.2-1.0); Calcium 9.1 MG/DL (8.5-10.1); Osmolality,Calculated 285.5 MOS/KG (273-304); Potassium 3.7 MMOL/L (3.5-5.1); Total Protein 6.8 G/DL (6.4-8.3)
[2018-11-10] MEDS: DEXTROSE 10% 250 ML BAG IV ONE ×2 (10:26→10:44)
[2018-11-10 10:57] LABS: Apearance,Urine CLOUDY (Clear); Bacteria,Urine Many /HPF (Few); Bilirubin,Urine Negative (Negative); Blood, Urine Negative (Negative); Glucose,Urine (UA) Negative (Negative); Hyaline Casts,Urine 3 /LPF (0-3); Ketones,Urine 5 mg/dL (Negative); Mucus,Urine Many /LPF (Occasional); Nitrite,Urine Negative (Negative); Protein,Urine 30 MG/DL; RBC,Urine 17 /HPF (0-4); Sperm,Urine Occasional /HPF (Negative); Urine Color Amber (Yellow); Urine Specific Gravity 1.026 (1.001-1.035); WBC,Urine 105 /HPF (0-6)
[2018-11-10] MEDS ORDERED: DEXTROSE 10% 1,000 ML IV SCH (11:00)
[2018-11-10] MEDS ORDERED: cefTRIAXone 1,000 MG in SODIUM CHLORIDE 0.9% 100 ML IV STA (11:14)
[2018-11-10 11:16] LABS: Anisocytosis Slight; Band Neutrophils 33 % (0-10); Lymphocytes 11 % (20-55); Platelet Estimate Adequate; Segmented Neutrophils 49 % (50-85); Total Cells Counted 100
[2018-11-10] MEDS ORDERED: ALBUTEROL 2.5 MG/3 ML NEB RESP TX PRN (11:52)
[2018-11-10] MEDS: ALBUTEROL/IPRATROPIUM 3 ML NEB RESP TX SCH ×2 (13:29→20:21)
[2018-11-10] MEDS: VANCOMYCIN INJ 2,000 MG in SODIUM CHLORIDE 0.9% 500 ML IV SCH (13:48)
[2018-11-10] MEDS: PANTOPRAZOLE 40 MG VIAL IV SCH (13:48)
[2018-11-10] MEDS ORDERED: VANCOMYCIN INJ 1,000 MG in SODIUM CHLORIDE 0.9% 500 ML IV SCH (14:47)
[2018-11-10] MEDS: DEXTROSE 10% 500 ML IV SCH (18:50)
[2018-11-11] MEDS: ALBUTEROL/IPRATROPIUM 3 ML NEB RESP TX SCH ×4 (01:25→19:45)
[2018-11-11] MEDS: DEXTROSE 10% 500 ML IV SCH (06:36)
[2018-11-11 07:14] LABS: Basophils # 0.1 10*3/uL (0.0-0.2); Basophils % 0.8 % (0.0-0.8); Hematocrit 38.9 VOL% (42.0-52.0); Hemoglobin 12.4 GM/DL (14.0-18.0); Immature Granulocytes % 2.2 %; Immature Granulocytes Absolute 0.24 #; Lymphocytes # 0.9 10*3/uL (1.4-4.0); Lymphocytes % 8.2 % (21.2-54.2); Mean Corpuscular HGB Conc 31.9 GM/DL (32-36); Mean Corpuscular Hemoglobin 29 PG (27-34); Mean Corpuscular Volume 89.4 FL (87-102); Mean Platelet Volume 10.4 FL (9.6-12.0); Monocytes # 1.2 10*3/uL (0.11-0.8); Monocytes % 11.3 % (1.7-12.7); NRBC # 0.06 10*3/uL; Neutrophils # 8.4 10*3/uL (1.4-7.4); Neutrophils % 77.5 % (38.7-73.9); Platelet Count 124 T/CUMM (130-400); Red Blood Count 4.35 MC/CUMM (3.8-5.5); Red Cell Distribution Width 14.6 % (9.3-17.3); White Blood Count 10.8 T/CUMM (4-12)
[2018-11-11 07:39] LABS: Band Neutrophils 3 % (0-10); Hypochromasia 1+; Lymphocytes 10 % (20-55); Nucleated Red Blood Cells 1 (0-5); Ovalocytes Slight; Segmented Neutrophils 77 % (50-85); Total Cells Counted 100
[2018-11-11 07:40] LABS: Platelet Estimate Normal
[2018-11-11] MEDS: PIPERACILLIN/TAZOBACTAM 3,375 MG in SODIUM CHLORIDE 0.9% 100 ML IV SCH ×2 (08:37→18:05)
[2018-11-11 09:24] LABS: Calcium 8.2 MG/DL (8.5-10.1); Osmolality,Calculated 288.8 MOS/KG (273-304); Potassium 3.7 MMOL/L (3.5-5.1)
[2018-11-11] MEDS ORDERED: GLUCOSE GEL 15 GM TUBE PO PRN (13:17)
[2018-11-11] MEDS ORDERED: ZINC OXIDE PASTE 113 GM TUBE TOP PRN (13:17)
[2018-11-11] MEDS ORDERED: GLUCAGON 1 MG VIAL IM PRN (13:17)
[2018-11-11] MEDS: PANTOPRAZOLE 40 MG VIAL IV SCH (14:15)
[2018-11-11] MEDS: VALPROIC ACID 250 MG/5 ML UDCUP PO SCH ×2 (15:04→22:10)
[2018-11-11] MEDS: DILTIAZEM 30 MG TABLET PO SCH ×2 (15:04→22:10)
[2018-11-11] MEDS: ENOXAPARIN 40 MG/0.4 ML SYRINGE SUBCUT SCH (15:04)
[2018-11-11] MEDS: VANCOMYCIN INJ 2,000 MG in SODIUM CHLORIDE 0.9% 500 ML IV SCH (15:18)
[2018-11-11] MEDS: ERYTHROMYCIN 0.5% OPHT OINT 1 GM TUBE LEFT EYE SCH ×2 (18:05→22:10)
[2018-11-11] MEDS: CARVEDILOL 6.25 MG TABLET PO SCH (18:05)
[2018-11-12] MEDS: ALBUTEROL/IPRATROPIUM 3 ML NEB RESP TX SCH ×4 (01:24→19:35)
[2018-11-12] MEDS: PIPERACILLIN/TAZOBACTAM 3,375 MG in SODIUM CHLORIDE 0.9% 100 ML IV SCH ×2 (01:27→08:03)
[2018-11-12] MEDS ORDERED: ONDANSETRON 4 MG/2 ML VIAL IV PRN (02:29)
[2018-11-12] MEDS ORDERED: MEPERIDINE 25 MG/1 ML VIAL IV ONE (02:30)
[2018-11-12] MEDS ORDERED: NITROGLYCERIN SL 0.4 MG TABLET SL ONE (02:47)
[2018-11-12] MEDS ORDERED: ASPIRIN CHEW 81 MG TABLET PO ONE (02:47)
[2018-11-12] MEDS ORDERED: NITROGLYCERIN SL 0.4 MG TABLET SL PRN (02:47)
[2018-11-12 02:51] LABS: ABG HCO3 33.6 MMOL/L (20-26); ABG Oxygen Saturation 90.7 % (95-100); ABG PCO2 48.2 MM HG (35-48); ABG PH 7.473 (7.35-7.45); ABG PO2 59.4 MM HG (80-95); Allen Test Positive; Pt O2 Delivery Device Other
[2018-11-12 03:17] LABS: Calcium 8.3 MG/DL (8.5-10.1); Osmolality,Calculated 284.8 MOS/KG (273-304); Potassium 3.4 MMOL/L (3.5-5.1)
[2018-11-12 03:18] LABS: Basophils # 0.1 10*3/uL (0.0-0.2); Basophils % 0.5 % (0.0-0.8); Hematocrit 36.8 VOL% (42.0-52.0); Hemoglobin 11.9 GM/DL (14.0-18.0); Immature Granulocytes % 2.6 %; Immature Granulocytes Absolute 0.29 #; Lymphocytes # 1.2 10*3/uL (1.4-4.0); Lymphocytes % 10.6 % (21.2-54.2); Mean Corpuscular HGB Conc 32.3 GM/DL (32-36); Mean Corpuscular Hemoglobin 29 PG (27-34); Mean Corpuscular Volume 88.9 FL (87-102); Mean Platelet Volume 10.5 FL (9.6-12.0); Monocytes # 0.9 10*3/uL (0.11-0.8); Monocytes % 7.8 % (1.7-12.7); NRBC # 0.04 10*3/uL; Neutrophils # 8.7 10*3/uL (1.4-7.4); Neutrophils % 78.5 % (38.7-73.9); Platelet Count 146 T/CUMM (130-400); Red Blood Count 4.14 MC/CUMM (3.8-5.5); Red Cell Distribution Width 14.6 % (9.3-17.3); White Blood Count 11.1 T/CUMM (4-12)
[2018-11-12] MEDS: DILTIAZEM 30 MG TABLET PO SCH ×3 (05:17→21:09)
[2018-11-12] MEDS: ERYTHROMYCIN 0.5% OPHT OINT 1 GM TUBE LEFT EYE SCH ×4 (08:02→21:02)
[2018-11-12] MEDS: CARVEDILOL 6.25 MG TABLET PO SCH ×2 (08:02→17:01)
[2018-11-12] MEDS: VALPROIC ACID 250 MG/5 ML UDCUP PO SCH ×3 (08:02→20:39)
[2018-11-12] MEDS: ASPIRIN CHEW 81 MG TABLET PO SCH (08:02)
[2018-11-12] MEDS ORDERED: ASPIRIN EC 81 MG TABLET PO SCH (09:00)
[2018-11-12] MEDS ORDERED: POTASSIUM CHLORIDE 20 MEQ/15 ML UDCUP PER TUBE PRN (13:36)
[2018-11-12] MEDS ORDERED: MAGNESIUM SULF RIDER 4 GM in PREMIX 1 EACH IV PRN (13:41)
[2018-11-12] MEDS: ENOXAPARIN 40 MG/0.4 ML SYRINGE SUBCUT SCH (14:32)
[2018-11-12] MEDS: PANTOPRAZOLE 40 MG VIAL IV SCH (14:32)
[2018-11-12] MEDS: VANCOMYCIN INJ 2,000 MG in SODIUM CHLORIDE 0.9% 500 ML IV SCH (15:55)
[2018-11-12] MEDS: MEROPENEM 1,000 MG in SODIUM CHLORIDE 0.9% 100 ML IV SCH (17:29)
[2018-11-12] MEDS: MAGNESIUM SULF RIDER 2 GM in PREMIX 1 EACH IV PRN (18:35)
[2018-11-12] MEDS: ASCORBIC ACID 500 MG TABLET PO SCH (20:38)
[2018-11-12] MEDS: AMOXICILLIN/CLAV ES 600 125 ML/BOTTLE NG SCH (21:02)
[2018-11-13] MEDS: ALBUTEROL/IPRATROPIUM 3 ML NEB RESP TX SCH ×4 (00:20→19:31)
[2018-11-13 04:13] LABS: ABG Base Excess 12.1 MMOL/L (-2.5-2.5); ABG HCO3 37.5 MMOL/L (20-26); ABG Oxygen Saturation 98.7 % (95-100); ABG PCO2 52.2 MM HG (35-48); ABG PH 7.474 (7.35-7.45); ABG PO2 154.5 MM HG (80-95); ABG TCO2 39.1 MMOL/L (23-27); Allen Test Positive; Pt O2 Delivery Device Other
[2018-11-13 04:33] LABS: Basophils # 0.1 10*3/uL (0.0-0.2); Basophils % 0.7 % (0.0-0.8); Eosinophils % 0.1 % (0.00-10.9); Hematocrit 34.8 VOL% (42.0-52.0); Hemoglobin 11.1 GM/DL (14.0-18.0); Immature Granulocytes % 6.1 %; Immature Granulocytes Absolute 0.62 #; Lymphocytes # 0.9 10*3/uL (1.4-4.0); Lymphocytes % 8.9 % (21.2-54.2); Mean Corpuscular HGB Conc 31.9 GM/DL (32-36); Mean Corpuscular Hemoglobin 29 PG (27-34); Mean Corpuscular Volume 90.6 FL (87-102); Mean Platelet Volume 10.4 FL (9.6-12.0); Monocytes # 0.6 10*3/uL (0.11-0.8); Monocytes % 5.6 % (1.7-12.7); NRBC # 0.02 10*3/uL; Neutrophils % 78.6 % (38.7-73.9); Platelet Count 115 T/CUMM (130-400); Red Blood Count 3.84 MC/CUMM (3.8-5.5); White Blood Count 10.2 T/CUMM (4-12)
[2018-11-13 04:57] LABS: Calcium 8.1 MG/DL (8.5-10.1); Osmolality,Calculated 287.4 MOS/KG (273-304); Potassium 3.2 MMOL/L (3.5-5.1)
[2018-11-13] MEDS: DILTIAZEM 30 MG TABLET PO SCH (05:11)
[2018-11-13 05:14] LABS: Hypochromasia 1+; Lymphocytes 9 % (20-55); Microcytosis 1+; Myelocytes 2 %; Platelet Estimate Decreased; Polychromasia Few; Segmented Neutrophils 87 % (50-85); Total Cells Counted 100
[2018-11-13] MEDS: MEROPENEM 1,000 MG in SODIUM CHLORIDE 0.9% 100 ML IV SCH ×2 (05:15→18:34)
[2018-11-13] MEDS: ENOXAPARIN 120 MG/0.8 ML SYRINGE SUBCUT SCH ×2 (11:55→20:31)
[2018-11-13] MEDS: ERYTHROMYCIN 0.5% OPHT OINT 1 GM TUBE LEFT EYE SCH ×4 (11:55→20:31)
[2018-11-13] MEDS: CARVEDILOL 6.25 MG TABLET PO SCH (12:55)
[2018-11-13] MEDS: ASPIRIN CHEW 81 MG TABLET PO SCH (12:55)
[2018-11-13] MEDS: VALPROIC ACID 250 MG/5 ML UDCUP PO SCH (12:56)
[2018-11-13] MEDS: ASCORBIC ACID 500 MG TABLET PO SCH (12:56)
[2018-11-13] MEDS: AMOXICILLIN/CLAV ES 600 125 ML/BOTTLE NG SCH (12:56)
[2018-11-13] MEDS: PANTOPRAZOLE 40 MG VIAL IV SCH (15:04)
[2018-11-13] MEDS: VALPROIC ACID INJ 1,000 MG in SODIUM CHLORIDE 0.9% 100 ML IV SCH (15:06)
[2018-11-13] MEDS: POTASSIUM CHLORIDE RIDER 10 MEQ in PREMIX 1 EACH IV PRN ×6 (15:08→23:22)
[2018-11-13] MEDS ORDERED: DEXTROSE 50% 25 GM/50 ML SYRINGE IV PRN (15:36)
[2018-11-13] MEDS: FAT EMULSION 20% 250 ML IV SCH (16:25)
[2018-11-13] MEDS ORDERED: DEXTROSE 10% 1,000 ML IV PRN (17:00)
[2018-11-13] MEDS ORDERED: TRACE ELEMENTS (5) 1 ML, MULTIVITAMIN INJ 10 ML in AMINO ACIDS/DEXT/LYTES 5-15% 2,000 ML IV SCH (17:00)
[2018-11-13] MEDS: INSULIN REGULAR 100 UNIT/ML SUBCUT SCH (18:29)
[2018-11-14] MEDS: INSULIN REGULAR 100 UNIT/ML SUBCUT SCH ×4 (00:25→18:44)
[2018-11-14] MEDS: ALBUTEROL/IPRATROPIUM 3 ML NEB RESP TX SCH ×4 (00:44→19:52)
[2018-11-14] MEDS: VALPROIC ACID INJ 1,000 MG in SODIUM CHLORIDE 0.9% 100 ML IV SCH ×2 (01:34→15:57)
[2018-11-14 03:55] LABS: Basophils % 0.1 % (0.0-0.8); Eosinophils % 0.1 % (0.00-10.9); Hematocrit 33.2 VOL% (42.0-52.0); Hemoglobin 10.6 GM/DL (14.0-18.0); Immature Granulocytes % 7.7 %; Immature Granulocytes Absolute 0.86 #; Lymphocytes # 1.2 10*3/uL (1.4-4.0); Lymphocytes % 10.7 % (21.2-54.2); Mean Corpuscular HGB Conc 31.9 GM/DL (32-36); Mean Corpuscular Hemoglobin 29 PG (27-34); Mean Corpuscular Volume 90.2 FL (87-102); Mean Platelet Volume 10.1 FL (9.6-12.0); Monocytes # 0.6 10*3/uL (0.11-0.8); Monocytes % 5.8 % (1.7-12.7); NRBC # 0.03 10*3/uL; Neutrophils # 8.4 10*3/uL (1.4-7.4); Neutrophils % 75.6 % (38.7-73.9); Platelet Count 127 T/CUMM (130-400); Red Blood Count 3.68 MC/CUMM (3.8-5.5); Red Cell Distribution Width 14.9 % (9.3-17.3); White Blood Count 11.1 T/CUMM (4-12)
[2018-11-14 04:13] LABS: Calcium 8.1 MG/DL (8.5-10.1); Osmolality,Calculated 294.3 MOS/KG (273-304); Potassium 3.6 MMOL/L (3.5-5.1)
[2018-11-14 04:29] LABS: Prealbumin 10.1 MG/DL (20-40)
[2018-11-14 05:05] LABS: Band Neutrophils 1 % (0-10); Hypochromasia 1+; Lymphocytes 6 % (20-55); Segmented Neutrophils 86 % (50-85); Total Cells Counted 100
[2018-11-14 05:06] LABS: Microcytosis Slight
[2018-11-14] MEDS: MEROPENEM 1,000 MG in SODIUM CHLORIDE 0.9% 100 ML IV SCH ×2 (05:38→18:45)
[2018-11-14] MEDS: POTASSIUM CHLORIDE RIDER 10 MEQ in PREMIX 1 EACH IV PRN ×2 (05:39→06:40)
[2018-11-14] MEDS: ENOXAPARIN 120 MG/0.8 ML SYRINGE SUBCUT SCH (09:44)
[2018-11-14] MEDS: ERYTHROMYCIN 0.5% OPHT OINT 1 GM TUBE LEFT EYE SCH ×4 (09:44→20:21)
[2018-11-14] MEDS: dilTIAZem Drip 125 MG/125 ML PREMIX IV SCH (11:46)
[2018-11-14] MEDS: PANTOPRAZOLE 40 MG VIAL IV SCH (13:21)
[2018-11-14] MEDS: FAT EMULSION 20% 250 ML IV SCH (17:00)
[2018-11-14] MEDS ORDERED: TRACE ELEMENTS (5) 1 ML, MULTIVITAMIN INJ 10 ML in AMINO ACIDS/DEXT/LYTES 5-15% 2,000 ML IV SCH (17:00)
[2018-11-14] MEDS: [UNRECOGNIZED DRUG - OTHER] IV SCH (18:17)
[2018-11-14] MEDS: MULTIVITAMIN IV SCH (18:17)
[2018-11-14] MEDS: TRACE ELEMENTS IV SCH (18:17)
[2018-11-14] MEDS: INSULIN REGULAR IV SCH (18:17)
[2018-11-14] MEDS: ENOXAPARIN 100 MG/ML SYRINGE SUBCUT SCH (20:21)
[2018-11-15] MEDS: INSULIN REGULAR 100 UNIT/ML SUBCUT SCH ×4 (00:09→18:18)
[2018-11-15] MEDS: ALBUTEROL/IPRATROPIUM 3 ML NEB RESP TX SCH ×4 (00:29→19:30)
[2018-11-15] MEDS: VALPROIC ACID INJ 1,000 MG in SODIUM CHLORIDE 0.9% 100 ML IV SCH ×2 (01:47→14:27)
[2018-11-15 04:24] LABS: ABG Base Excess 10.1 MMOL/L (-2.5-2.5); ABG HCO3 33.9 MMOL/L (20-26); ABG Oxygen Saturation 99.7 % (95-100); ABG PCO2 42.1 MM HG (35-48); ABG PH 7.517 (7.35-7.45); ABG TCO2 30.5 MMOL/L (23-27); Allen Test Positive; Pt O2 Delivery Device Other
[2018-11-15 04:46] LABS: Basophils # 0.1 10*3/uL (0.0-0.2); Basophils % 0.7 % (0.0-0.8); Eosinophils % 0.2 % (0.00-10.9); Hematocrit 33.7 VOL% (42.0-52.0); Hemoglobin 10.6 GM/DL (14.0-18.0); Immature Granulocytes % 7.1 %; Immature Granulocytes Absolute 0.87 #; Lymphocytes # 1.8 10*3/uL (1.4-4.0); Lymphocytes % 14.5 % (21.2-54.2); Mean Corpuscular HGB Conc 31.5 GM/DL (32-36); Mean Corpuscular Hemoglobin 29 PG (27-34); Mean Corpuscular Volume 90.6 FL (87-102); Mean Platelet Volume 10.2 FL (9.6-12.0); Monocytes % 7.8 % (1.7-12.7); Neutrophils # 8.5 10*3/uL (1.4-7.4); Neutrophils % 69.7 % (38.7-73.9); Platelet Count 126 T/CUMM (130-400); Red Blood Count 3.72 MC/CUMM (3.8-5.5); Red Cell Distribution Width 15.3 % (9.3-17.3); White Blood Count 12.2 T/CUMM (4-12)
[2018-11-15 05:09] LABS: Calcium 8.3 MG/DL (8.5-10.1); Osmolality,Calculated 288.4 MOS/KG (273-304); Potassium 3.6 MMOL/L (3.5-5.1)
[2018-11-15 05:56] LABS: Band Neutrophils 1 % (0-10); Lymphocytes 19 % (20-55); Platelet Estimate Decreased; Segmented Neutrophils 73 % (50-85); Total Cells Counted 100
[2018-11-15] MEDS: MEROPENEM 1,000 MG in SODIUM CHLORIDE 0.9% 100 ML IV SCH ×2 (06:07→18:18)
[2018-11-15] MEDS: MAGNESIUM SULF RIDER 2 GM in PREMIX 1 EACH IV PRN (06:40)
[2018-11-15] MEDS: POTASSIUM CHLORIDE RIDER 10 MEQ in PREMIX 1 EACH IV PRN ×2 (06:42→08:05)
[2018-11-15] MEDS: dilTIAZem Drip 125 MG/125 ML PREMIX IV SCH (09:14)
[2018-11-15] MEDS: ERYTHROMYCIN 0.5% OPHT OINT 1 GM TUBE LEFT EYE SCH ×4 (09:15→21:01)
[2018-11-15] MEDS: ENOXAPARIN 100 MG/ML SYRINGE SUBCUT SCH ×2 (09:16→21:01)
[2018-11-15] MEDS: PANTOPRAZOLE 40 MG VIAL IV SCH (13:03)
[2018-11-15] MEDS: FAT EMULSION 20% 250 ML IV SCH (14:28)
[2018-11-15] MEDS: [UNRECOGNIZED DRUG - OTHER] IV SCH (16:44)
[2018-11-15] MEDS: TRACE ELEMENTS IV SCH (16:44)
[2018-11-15] MEDS: MULTIVITAMIN IV SCH (16:44)
[2018-11-15] MEDS: INSULIN REGULAR IV SCH (16:44)
[2018-11-16] MEDS: INSULIN REGULAR 100 UNIT/ML SUBCUT SCH ×5 (00:54→23:37)
[2018-11-16] MEDS: ALBUTEROL/IPRATROPIUM 3 ML NEB RESP TX SCH ×4 (01:16→20:03)
[2018-11-16] MEDS: VALPROIC ACID INJ 1,000 MG in SODIUM CHLORIDE 0.9% 100 ML IV SCH ×2 (01:44→14:47)
[2018-11-16 03:51] LABS: Basophils # 0.1 10*3/uL (0.0-0.2); Basophils % 0.5 % (0.0-0.8); Eosinophils % 0.3 % (0.00-10.9); Hematocrit 30.4 VOL% (42.0-52.0); Hemoglobin 9.4 GM/DL (14.0-18.0); Immature Granulocytes % 8.2 %; Lymphocytes # 1.2 10*3/uL (1.4-4.0); Lymphocytes % 11.3 % (21.2-54.2); Mean Corpuscular HGB Conc 30.9 GM/DL (32-36); Mean Corpuscular Hemoglobin 28 PG (27-34); Mean Corpuscular Volume 91.8 FL (87-102); Mean Platelet Volume 10.2 FL (9.6-12.0); Monocytes # 0.7 10*3/uL (0.11-0.8); Monocytes % 6.5 % (1.7-12.7); Neutrophils % 73.2 % (38.7-73.9); Platelet Count 110 T/CUMM (130-400); Red Blood Count 3.31 MC/CUMM (3.8-5.5); Red Cell Distribution Width 15.4 % (9.3-17.3); White Blood Count 10.9 T/CUMM (4-12)
[2018-11-16 04:02] LABS: INR 1.1; PT Patient Result 11.9 SECS; Partial Thromboplastin Time 31.7 SECS (0-40)
[2018-11-16 04:09] LABS: ABG Base Excess 10.1 MMOL/L (-2.5-2.5); ABG HCO3 34.1 MMOL/L (20-26); ABG Oxygen Saturation 96.4 % (95-100); ABG PCO2 43.3 MM HG (35-48); ABG PH 7.514 (7.35-7.45); ABG PO2 80.8 MM HG (80-95); ABG TCO2 35.4 MMOL/L (23-27); Allen Test Positive; Pt O2 Delivery Device Ventilator
[2018-11-16 04:15] LABS: Albumin 1.4 G/DL (3.4-5.0); Bilirubin,Total 0.6 MG/DL (0.2-1.0); Osmolality,Calculated 290.5 MOS/KG (273-304); Potassium 3.3 MMOL/L (3.5-5.1); Total Protein 5.2 G/DL (6.4-8.3)
[2018-11-16 04:51] LABS: Band Neutrophils 3 % (0-10); Eosinophils 1 % (0-10); Lymphocytes 10 % (20-55); Myelocytes 1 %; Segmented Neutrophils 80 % (50-85)
[2018-11-16 04:52] LABS: Ovalocytes Few; Platelet Estimate Decreased; Polychromasia Few
[2018-11-16 04:54] LABS: Total Cells Counted 100
[2018-11-16] MEDS: MEROPENEM 1,000 MG in SODIUM CHLORIDE 0.9% 100 ML IV SCH ×2 (05:25→18:06)
[2018-11-16] MEDS: POTASSIUM CHLORIDE RIDER 20 MEQ in PREMIX 1 EACH IV PRN ×2 (05:28→07:28)
[2018-11-16] MEDS: dilTIAZem Drip 125 MG/125 ML PREMIX IV SCH ×3 (05:39→11:38)
[2018-11-16] MEDS ORDERED: PROMETHAZINE 25 MG/1 ML VIAL IM ONE (07:59)
[2018-11-16] MEDS ORDERED: MEPERIDINE 25 MG/1 ML VIAL IV ONE (07:59)
[2018-11-16] MEDS ORDERED: PROMETHAZINE 25 MG/1 ML VIAL ONE (08:04)
[2018-11-16] MEDS ORDERED: MEPERIDINE 50 MG/1 ML VIAL ONE (08:04)
[2018-11-16] MEDS ORDERED: MEPERIDINE 50 MG/1 ML VIAL IV ONE (08:30)
[2018-11-16 08:46] VITALS: BP 132/66
[2018-11-16] MEDS: ENOXAPARIN 100 MG/ML SYRINGE SUBCUT SCH (09:40)
[2018-11-16] MEDS: methylPREDNISolone SOD SUC 40 MG/1 ML VIAL IV SCH ×2 (09:41→17:22)
[2018-11-16] MEDS: ERYTHROMYCIN 0.5% OPHT OINT 1 GM TUBE LEFT EYE SCH ×4 (09:42→22:31)
[2018-11-16] MEDS: PANTOPRAZOLE 40 MG VIAL IV SCH (13:16)
[2018-11-16] MEDS: FAT EMULSION 20% 250 ML IV SCH (14:27)
[2018-11-16] MEDS ORDERED: SCOPOLAMINE 1.5 MG PATCH TRANSDERM SCH (15:00)
[2018-11-16] MEDS ORDERED: [UNRECOGNIZED DRUG - OTHER] IV SCH (17:00)
[2018-11-16] MEDS ORDERED: INSULIN REGULAR IV SCH (17:00)
[2018-11-16] MEDS ORDERED: POTASSIUM CHLORIDE IV SCH (17:00)
[2018-11-16] MEDS ORDERED: TRACE ELEMENTS IV SCH (17:00)
[2018-11-17] MEDS: VALPROIC ACID INJ 1,000 MG in SODIUM CHLORIDE 0.9% 100 ML IV SCH (01:20)
[2018-11-17] MEDS: methylPREDNISolone SOD SUC 40 MG/1 ML VIAL IV SCH ×2 (01:20→08:55)
[2018-11-17] MEDS: ALBUTEROL/IPRATROPIUM 3 ML NEB RESP TX SCH ×2 (01:53→07:06)
[2018-11-17] MEDS: MEROPENEM 1,000 MG in SODIUM CHLORIDE 0.9% 100 ML IV SCH (06:26)
[2018-11-17] MEDS: INSULIN REGULAR 100 UNIT/ML SUBCUT SCH ×2 (06:27→12:49)
[2018-11-17] MEDS: ERYTHROMYCIN 0.5% OPHT OINT 1 GM TUBE LEFT EYE SCH (08:55)
== END 2018-11-17 12:34 | DRG 637 ==
LOC: EDUNIT# → EDBD → N.ED 09:08 → SUATTDRO 11:49 → N.EDINP 11:49 → N.ICU 16:08
PROVIDERS: ADMIT Internal Medicine Geriatric Medicine; ATTEND Internal Medicine